=== PATIENT | female | born 1945 | race Caucasian/White ===

== ENCOUNTER → 2018-06-24 | Outpatient (CLI) | payer MEDICARE, BC ==
[2018-06-24 13:59] LABS: HCT 42.9 % (34.0-46.0); HGB 13.9 gm/dL (11.4-16.0); MCH 29.6 pg (25.0-35.0); MCHC 32.5 g/dL (31.0-37.0); Mean Platelet Volume 7.1; Platelet Count 230 k/uL (150-450); RBC 4.71 m/uL (3.80-5.40); RDW 13.5 % (11.5-15.5); WBC 5.8 k/uL (3.8-10.6)
[2018-06-24 14:14] LABS: Potassium 4.9 mmol/L (3.5-5.1)
== END | disposition home or self-care (01) ==
LOC: LABPAT 13:13
PROVIDERS: ATTEND Internal Medicine Cardiovascular Disease
DX: Z01.812 Encounter for preprocedural laboratory examination (principal); R07.2 Precordial pain
CPT/HCPCS: 36415; 80051; 82565; 84520; 85027

== ENCOUNTER 2018-06-27 07:46 | Inpatient (IN) | payer MEDICARE, BC ==
[~2018-06-27 07:46] MED LIST: ALPRAZolam 0.25 MG TAB PO PRN; ALPRAZolam 0.5 MG TAB PO PRN; ASPIRIN 325 MG TAB PO STA; ATORVASTATIN 80 MG TAB PO STA; SODIUM CHLORIDE 0.9% 1,000 ML in EMPTY BAG 1 BAG IV ONE
[2018-06-27 08:43] LABS: Glucose,Whole Blood 173 mg/dL (75-99)
[2018-06-27] MEDS ORDERED: MIDAZOLAM 2 MG/2 ML VIAL ONE ×2 (09:45→11:42)
[2018-06-27] MEDS ORDERED: MIDAZOLAM 2 MG/2 ML VIAL IV ONE (09:53)
[2018-06-27] MEDS ORDERED: LIDOCAINE 1% INJ 10MG/ML (20 ML MDV) SQ ONE ×2 (09:55→12:13)
[2018-06-27] MEDS ORDERED: LIDOCAINE 1% INJ 10MG/ML (20 ML MDV) ONE ×2 (09:57→11:42)
[2018-06-27] MEDS ORDERED: fentaNYL (PF) 50 MCG/ML 2 ML AMP ONE (09:59)
[2018-06-27] MEDS ORDERED: fentaNYL (PF) 50 MCG/ML 2 ML AMP IVP ONE ×2 (10:02)
[2018-06-27] MEDS ORDERED: IOPAMIDOL-370 125ML BTL INJ ONE ×2 (10:20→12:38)
--- NOTE | 2018-06-27 10:35 | CC ---
CARDIAC CATHETERIZATION REPORT INDICATION: Unstable angina in a patient with known coronary artery disease, status post prior angioplasty of mid RCA. PROCEDURE NOTE: After obtaining informed consent, left heart catheterization and coronary angiogram are performed via the right femoral artery using standard Jennifer catheters. Patient tolerated the procedure well without any obvious immediate complications. Patient has history of peripheral vascular disease including revascularization on the left side and extensive disease on the right side. Patient received moderate conscious sedation. Her total sedation time was 17 minutes. FINDINGS: 1. HEMODYNAMICS: Left ventricular end-diastolic pressure is 16 mm. There is no significant gradient across the aortic valve. 2. LEFT VENTRICULOGRAM: Left ventriculogram is not performed. 3. ANGIOGRAPHIC DATA: 4. LEFT MAIN CORONARY ARTERY: Left main coronary artery appears calcified but is free of significant stenosis. Divides into left anterior descending coronary artery and circumflex coronary artery and ramus intermedius. LAD shows a mild atherosclerotic plaque. Vessels are heavily calcified but no focal hemodynamically significant lesion. Ramus intermedius is free of significant disease. Circumflex coronary artery is a nondominant vessel and is free of significant disease. Right coronary artery is a large dominant vessel and the previously stented segment in the mid RCA appears patent. It gives off PDA and PLV branches. The PLV branch has a focal 99% stenosis right in its proximal portion. CONCLUSION: 1. Patent stent within the mid right coronary artery. 2. A 99% stenosis involving the proximal part of the PLV branch. PLAN: Patient will undergo angioplasty by Dr. Darya Mcintyre. MMODL / IJN: [id number] /
[2018-06-27] MEDS ORDERED: HEPARIN SODIUM 1,000 UN/ML (10ML VL) ONE (11:42)
[2018-06-27] MEDS ORDERED: diphenhydrAMINE 50 MG/ML 1 ML VIAL ONE (11:42)
[2018-06-27] MEDS ORDERED: MIDAZOLAM 2 MG/2 ML VIAL IVP ONE (12:15)
[2018-06-27] MEDS ORDERED: diphenhydrAMINE 50 MG/ML 1 ML VIAL IVP ONE (12:15)
[2018-06-27] MEDS ORDERED: BIVALIRUDIN BOLUS 250 MG/50 ML IV ONE (12:18)
[2018-06-27] MEDS ORDERED: BIVALIRUDIN 250 MG in SODIUM CHLORIDE 0.9% 50 ML IV ONE ×2 (12:20→13:22)
[2018-06-27] MEDS ORDERED: IV FLUID CONTINUATION 1,000 ML IV ONE (12:41)
[2018-06-27] MEDS ORDERED: ONDANSETRON 4 MG/2 ML VIAL ONE (13:16)
[2018-06-27] MEDS ORDERED: niCARdipine 25 MG/10 ML VIAL ONE (13:17)
[2018-06-27] MEDS ORDERED: NOREPINEPHRIN 4 MG-0.9% NS PMX 4 MG/250 ML ML IV ONE (13:20)
[2018-06-27] MEDS ORDERED: ONDANSETRON 4 MG/2 ML VIAL IVP ONE (13:20)
[2018-06-27] MEDS ORDERED: niCARdipine Syringe (1,000 mcg/10 mL) INTRACORON ONE (13:20)
[2018-06-27] MEDS ORDERED: IOPAMIDOL-370 100ML BTL INJ ONE (13:26)
[2018-06-27] MEDS ORDERED: CLOPIDOGREL 75 MG TAB ONE ×2 (13:26)
[2018-06-27] MEDS ORDERED: CLOPIDOGREL 75 MG TAB PO ONE (13:32)
[2018-06-27] MEDS ORDERED: SODIUM CHLORIDE 0.9% 1,000 ML IV ONE (13:40)
[2018-06-27] MEDS ORDERED: ZOLPIDEM 5 MG TAB PO PRN (13:42)
[2018-06-27] MEDS ORDERED: ATROPINE SULFATE 0.1 MG/ML 10ML SYRINGE IV PRN (13:42)
[2018-06-27] MEDS ORDERED: NITROGLYCERIN SL TABS 0.4 MG TAB SUBLINGUAL PRN (13:42)
[2018-06-27] MEDS ORDERED: MAG HYDROX/AL HYDROX/SIMETH 30 ML CUP PO PRN (13:42)
[2018-06-27] MEDS ORDERED: RX INFO: IV CONTRAST WAS GIVEN 1 EACH MISC MISCELLANE PRN (13:42)
[2018-06-27 15:13] LABS: Glucose,Whole Blood 147 mg/dL (75-99)
[2018-06-27] MEDS ORDERED: BISMUTH SUBSALICYLATE 4,192 MG/240 ML BOTTLE PO PRN (17:26)
[2018-06-27] MEDS: CARVEDILOL 12.5 MG TAB PO SCH (18:48)
[2018-06-27] MEDS: cloNIDine HCL 0.2 MG TAB PO SCH ×2 (18:48→21:23)
[2018-06-27] MEDS: SODIUM CHLORIDE 0.9% 1,000 ML IV SCH (19:00)
[2018-06-27] MEDS ORDERED: amLODIPine 10 MG TAB PO SCH (21:00)
[2018-06-27 21:07] LABS: Glucose,Whole Blood 310 mg/dL (75-99)
[2018-06-27] MEDS: ATORVASTATIN 80 MG TAB PO SCH (21:23)
[2018-06-27] MEDS: FAMOTIDINE 20 MG TAB PO SCH (21:23)
[2018-06-27] MEDS: NITROGLYCERIN SL TABS 0.4 MG TAB SUBLINGUAL PRN (22:11)
[2018-06-28] MEDS: SODIUM CHLORIDE 0.9% 1,000 ML IV SCH (05:19)
[2018-06-28 05:59] LABS: Glucose,Whole Blood 133 mg/dL (75-99)
[2018-06-28] MEDS: CARVEDILOL 12.5 MG TAB PO SCH ×2 (06:21→18:04)
[2018-06-28 06:46] LABS: Basophils % (A) 1 %; Eosinophils # (A) 0.1 k/uL (0-0.7); Eosinophils % (A) 2 %; HCT 39.4 % (34.0-46.0); HGB 12.4 gm/dL (11.4-16.0); Lymphocytes # (A) 1.8 k/uL (1.0-4.8); Lymphocytes % (A) 33 %; MCH 29.2 pg (25.0-35.0); MCHC 31.5 g/dL (31.0-37.0); MCV 92.7 fL (80.0-100.0); Monocytes # (A) 0.3 k/uL (0-1.0); Monocytes % (A) 5 %; Neutrophils # (A) 3.2 k/uL (1.3-7.7); Neutrophils % (A) 58 %; Platelet Count 188 k/uL (150-450); RBC 4.25 m/uL (3.80-5.40); RDW 13.5 % (11.5-15.5); WBC 5.6 k/uL (3.8-10.6)
[2018-06-28 06:58] LABS: Anion Gap 6 mmol/L; Blood Urea Nitrogen 12 mg/dL (7-17); Calcium 8.7 mg/dL (8.4-10.2); Carbon Dioxide 31 mmol/L (22-30); Chloride 102 mmol/L (98-107); Glucose 136 mg/dL (74-99); Potassium 4.8 mmol/L (3.5-5.1); Sodium 139 mmol/L (137-145)
--- NOTE | 2018-06-28 07:57 | PN ---
PROGRESS NOTE Mrs. Abdullahi underwent stenting of ostial RCA yesterday. She also had a 99% PLV stenosis. I attempted to open the PLV which was relatively smaller branch, but the vessel ended up being occluded after attempts with a Whisper wire and also with a BMW wire. However, patient had transient hypotension and some uncomfortable feeling in the chest which resolved. This morning she is asymptomatic. EKG is unremarkable other than nonspecific changes. Her vital signs are stable. She is resting comfortably without symptoms. Blood pressure is 110/80, pulse rate is about 70 per minute. There is no JVD or carotid bruit. S1-S2 heard normally. Short systolic murmur noted. Lungs revealed decent air entry in bilateral lung voss. Abdomen is soft, nontender. The cardiac cath site from the right femoral area is clean and dry with a good pulse. In view of her PLV branch occlusion, which was a smaller branch and after an episode of discomfort, I will keep her 1 more day in the hospital. The same medications will be continued and she will be discharged tomorrow. I discussed this in detail with the patient. MMODL / IJN: [id number] /
--- NOTE | 2018-06-28 08:36 | PTCA ---
PERCUTANEOUSTRANS CORORONARY ANGIOGRAPHY DATE OF SERVICE: 06/27/2018 PROCEDURE PERFORMED: 1. PTCA and stenting of ostial dominant right coronary artery which was heavily calcified. 2. PTCA of a PLV branch of RCA, which was unsuccessful. PERFORMED BY: Dr. Carlos Mcintyre. SEDATION: Moderate conscious sedation time was 72 minutes. CLINICAL INFORMATION: Mrs. Lucy Abdullahi is a 72-year-old lady with a history of type 2 diabetes, hypertension, hyperlipidemia, who has known CAD and underwent stenting of a very complex lesions in the RCA including the ostium and midportion performed by me in 2011. She came in with symptoms of angina, was seen by Dr. Mcnair, who performed a cardiac catheterization and noted that she had a significant lesion in the PLV, which was a new lesion of about 99%. However, there was also a ostial lesion as well within the previously stented segment. She was advised intervention which was performed on the same day. PROCEDURE NOTE: The existing 6-Malay introducer in the right femoral artery was used to perform the procedure. I used a [facility] guide catheter to cannulate the right coronary artery and used initially a Whisper wire and later on a Fielder XT wire to cross the lesion in the PLV branch which was a very tight lesion and appeared to be chronic. After multiple attempts I was unable to cross the lesion. I then noted that the ostial lesion of the RCA was quite tight. I addressed this using the same Whisper wire. The predilatation was performed in the ostium with a 2.5 caliber NC Trek balloon. I then deployed a 3.0 caliber Xience stent of 12 mm length within the ostium and postdilated with a 3.5 caliber NC Trek balloon at 14 atmospheres. Excellent angiographic result was achieved without complication. However, I noted towards the end of the procedure that the PLV branch which I had tried to open up without success was occluded. Patient had transient hypotension and chest discomfort which resolved quickly. I used Levophed for less than 3 minutes and patient's blood pressure stabilized very well. She was hemodynamically stable, free of chest discomfort. The sheath was then taken out and an Angio-Seal device used to secure hemostasis and she was sent to the room in a stable condition. The patient received Angiomax bolus and infusion as per protocol and I also gave her 3 tablets of Plavix. The patient was already on aspirin and Plavix at that time. So, she received 225 mg of Plavix and received Angiomax bolus and infusion. The femoral sheath was taken out and Angio-Seal device used to secure hemostasis. The patient had an excellent angiographic result of the ostium, but the PLV branch was occluded and therefore I will keep her an additional 24 hours in the hospital as an inpatient. This was explained to the patient and her son. MMCHRISTY / MURTAZA: [id number] /
[2018-06-28] MEDS ORDERED: ASPIRIN 325 MG TAB PO SCH (09:00)
[2018-06-28] MEDS ORDERED: cloNIDine HCL 0.1 MG TAB PO SCH (09:00)
[2018-06-28] MEDS: HYDROCHLOROTHIAZIDE 25 MG TAB PO SCH (09:44)
[2018-06-28] MEDS: FAMOTIDINE 20 MG TAB PO SCH ×2 (09:44→21:21)
[2018-06-28] MEDS: ISOSORBIDE MONONITRATE ER 30 MG TAB.ER.24H PO SCH (09:44)
[2018-06-28] MEDS: CLOPIDOGREL 75 MG TAB PO SCH (09:44)
[2018-06-28] MEDS: ASPIRIN 81 MG PO SCH (09:44)
[2018-06-28 11:59] LABS: Glucose,Whole Blood 181 mg/dL (75-99)
[2018-06-28] MEDS: NITROGLYCERIN SL TABS 0.4 MG TAB SUBLINGUAL PRN (12:06)
[2018-06-28] MEDS: INSULIN ASPART 100 UNIT/ML 1 ML 10 ML VIAL SQ SCH ×3 (12:44→21:19)
[2018-06-28 13:49] VITALS: BMI 37.6
[2018-06-28 17:28] LABS: Glucose,Whole Blood 154 mg/dL (75-99)
[2018-06-28 17:54] LABS: Hemoglobin A1C 7.1 % (4.0-6.0)
[2018-06-28] MEDS ORDERED: amLODIPine 5 MG TAB PO SCH (21:00)
[2018-06-28 21:20] LABS: Glucose,Whole Blood 130 mg/dL (75-99)
[2018-06-28] MEDS: ATORVASTATIN 80 MG TAB PO SCH (21:23)
[2018-06-29 06:39] LABS: Glucose,Whole Blood 144 mg/dL (75-99)
[2018-06-29] MEDS: INSULIN ASPART 100 UNIT/ML 1 ML 10 ML VIAL SQ SCH ×2 (07:01→12:21)
[2018-06-29] MEDS: CARVEDILOL 12.5 MG TAB PO SCH (07:02)
[2018-06-29 08:25] VITALS: RESP 16; TEMP 98.1
[2018-06-29] MEDS: HYDROCHLOROTHIAZIDE 25 MG TAB PO SCH (08:26)
[2018-06-29] MEDS: CLOPIDOGREL 75 MG TAB PO SCH (08:26)
[2018-06-29] MEDS: ISOSORBIDE MONONITRATE ER 30 MG TAB.ER.24H PO SCH (08:26)
[2018-06-29] MEDS: FAMOTIDINE 20 MG TAB PO SCH (08:26)
[2018-06-29] MEDS: ASPIRIN 81 MG PO SCH (08:26)
[2018-06-29 11:32] LABS: Glucose,Whole Blood 158 mg/dL (75-99)
[2018-06-29 12:19] VITALS: BP 140/90; PULSE 98
--- NOTE | 2018-06-29 13:00 | P.PN ---
Subjective Progress Note Date: 06/29/18 Discharge note This a pleasant 72-year-old female who underwent angioplasty and stenting of the RCA by Dr. Carlos Mcintyre. Patient also had a 99% PLV stenosis for which she attempted angioplasty, this was unsuccessful. Patient had an episode of chest discomfort yesterday and for this reason she was kept in the hospital for another 24 hours. Patient was seen and examined this morning, denied any further chest discomfort. Hemodynamically she is stable. She may be able to be discharged home today, a follow-up appointment will be made with Dr. Toth in the office in [place] next week. Discharge medications include Norvasc 5 mg daily, Ecotrin 81 mg daily, Lipitor 80 mg daily, Coreg 12-1/2 mg twice a day , Plavix 75 mg daily, Hydrodiuril 25 mg daily, Imdur 30 mg daily, and sublingual nitroglycerin as needed for chest pain. Objective - Vital Signs Vital signs: Vital Signs Temp 98.1 F 06/29/18 08:20 Pulse 98 06/29/18 11:50 Resp 16 06/29/18 11:50 BP 140/90 06/29/18 11:50 Pulse Ox 97 06/29/18 11:50 Intake & Output 06/28/18 06/29/18 06/29/18 18:59 06:59 18:59 Intake Total 1250 Balance 1250 Weight 87.5 kg 87 kg Intake: IV 30 Invasive Line 1 30 Sodium Chloride 0.9% 1, 0 000 ml @ 75 mls/hr IV . [id number] [facility] Rx#:[id number] Intake, IV Titration 20 Amount Sodium Chloride 0.9% 1, 20 000 ml @ 0 mls/hr IV .STK -[facility] Rx#:[id number] Oral 1200 Other: Voiding Method Toilet Toilet Toilet # Voids 1 4 - Exam PHYSICAL EXAMINATION: GENERAL: 72-year-old female in no acute distress at time of my examination HEENT: Head is atraumatic, normocephalic. Pupils equal, round. Sclera anicteric. Conjunctiva are clear. Mucous membranes of the mouth are moist. Neck is supple. There is no elevated jugular venous pressure.] bruit is heard. HEART EXAMINATION: Heart S1, S2 systolic murmur heard . No murmur or gallop heard. CHEST EXAMINATION: Lungs are clear to auscultation and precussion. No chest wall tenderness is noted on palpation or with deep breathing. ABDOMEN: Soft, nontender. Bowel sounds are heard. No organomegaly noted. EXTREMITIES: 2+ peripheral pulses with no evidence of peripheral edema and no calf tenderness noted. NEUROLOGIC patient is awake, alert and oriented ?-3. . - Labs CBC & Chem 7: 06/28/18 06:27 06/28/18 06:27 Labs: Abnormal Lab Results - Last 24 Hours (Table) 06/28/18 06/28/18 06/28/18 Range/Units 06:27 17:03 21:19 POC Glucose (mg/dL) 154 H 130 H (75-99) mg/dL Hemoglobin A1c 7.1 H (4.0-6.0) % 06/29/18 06/29/18 Range/Units 06:37 11:31 POC Glucose (mg/dL) 144 H 158 H (75-99) mg/dL Hemoglobin A1c (4.0-6.0) % Assessment and Plan Plan: Assessment and plan #1 status post angioplasty and stenting of the RCA, S4 angioplasty of the PLV branch #2 diabetes #3 hypertension #4 hyperlipidemia Plan Patient will be discharged home today, follow-up appointment will be made with Dr. Mcnair in the office post discharge. Metformin will be resumed on Saturday. DNP note has been reviewed, I agree with a documented findings and plan of care. Patient was seen and examined.
--- NOTE | 2018-07-01 12:39 | CDI ---
Last Revision, October 2017 Documentation Clarification Form Date: 07/01/2018 12:25:50 PM From: Cheryl Hernandez Phone: Admit Date: 06/28/2018 8:35:00 AM Patient Name: Lucy Abdullahi Visit Number: [id number] Discharge Date: ATTENTION: The Clinical Documentation Specialists (CDI) and [facility] Coding Staff appreciate your assistance in clarifying documentation. Please respond to the clarification below the line at the bottom and electronically sign. The CDI & [facility] Coding staff will review the response and follow-up if needed. Please note: Queries are made part of the Legal Health Record. If you have any questions, please contact the author of this message via ITS. Dr. Mcnair, Az Hernandez MD Transient hypotension is documented in the PTCA report by Dr Mcintyre and first ROGERS. "transient hypotension" and "used Levophed for less than 3 minutes and the patient's blood pressure stabilized very well." Patient history/risk factors: ASHD w [place] and chronic total coronary occlusion, hx PTCA w stent Vital Signs: 76/60/65, 86/57/67, 88/64/72 Please document confirmation of the diagnosis of transiet hypotension is in PTCA op note your 06/28 progress note . If this condition was ruled out or documented in error, please indicate in your progress notes and/or discharge summary. Hypotension, transient Intraoperative hypotension Other Undetermined Please continue to document in your progress notes and discharge summary in order to capture severity of illness and risk of mortality. Include clinical findings that support your diagnosis. MTDD
--- NOTE | 2018-07-03 10:20 | CDI ---
Last Revision, October 2017 Documentation Clarification Form Date: 07/03/2018 From: Cheryl Hernandez Amy Sheltonlisette, Archeology Faculty Member Hours-8:30 am & 5 pm M-F Admit Date: 06/28/2018 8:35:00 AM Patient Name: Lucy Abdullahi Visit Number: [id number] Discharge Date: 06/29/18 ATTENTION: The Clinical Documentation Specialists (CDI) and [facility] Coding Staff appreciate your assistance in clarifying documentation. Please respond to the clarification below the line at the bottom and electronically sign. The CDI & [facility] Coding staff will review the response and follow-up if needed. Please note: Queries are made part of the Legal Health Record. If you have any questions, please contact the author of this message via ITS. Dr. Mcnair, Az Hernandez MD Transient hypotension is documented in the PTCA report by Dr Mcintyre and first ROGERS. "transient hypotension" and "used Levophed for less than 3 minutes and the patient's blood pressure stabilzed very well." Patient history/risk factors: ASHD w [place] and chronic total coronary occlusion, hx PTCA w stent Vital Signs: 76/60/65, 86/57/67, 88/64/72 Please document confirmation of the diagnosis of transiet hypotension is in PTCA op note your 06/28 progress note . If this condition was ruled out or documented in error, please indicate in your progress notes and/or discharge summary. Hypotension, transient Intraoperative hypotension Other Undetermined Please continue to document in your progress notes and discharge summary in order to capture severity of illness and risk of mortality. Include clinical findings that support your diagnosis. MTDD
== END 2018-06-29 14:45 | disposition home or self-care (01) | DRG 247 ==
LOC: CATHCVL 07:46 → 6SEL 16:53 → CATHCVL 06-28 08:34 → 6SEL 06-28 08:35
PROVIDERS: ADMIT Internal Medicine Cardiovascular Disease; ATTEND Internal Medicine Cardiovascular Disease
PROC: 4A023N7 Measurement of Cardiac Sampling and Pressure, Left Heart, Percutaneous Approach (ICD-10-PCS; 2018-06-27)
PROC: B211YZZ Fluoroscopy of Multiple Coronary Arteries using Other Contrast (ICD-10-PCS; 2018-06-27)
PROC: 027034Z Dilation of Coronary Artery, One Artery with Drug-eluting Intraluminal Device, Percutaneous Approach (ICD-10-PCS; principal; 2018-06-27 09:40)
DX: I25.110 Atherosclerotic heart disease of native coronary artery with unstable angina pectoris (principal); E11.51 Type 2 diabetes mellitus with diabetic peripheral angiopathy without gangrene; I70.313 Atherosclerosis of unspecified type of bypass graft(s) of the extremities with intermittent claudication, bilateral legs; I10 Essential (primary) hypertension; E78.00 Pure hypercholesterolemia, unspecified; E78.2 Mixed hyperlipidemia; Z95.5 Presence of coronary angioplasty implant and graft; Z79.84 Long term (current) use of oral hypoglycemic drugs; Z79.02 Long term (current) use of antithrombotics/antiplatelets; Z79.82 Long term (current) use of aspirin; Z79.899 Other long term (current) drug therapy; Z87.891 Personal history of nicotine dependence; Z82.49 Family history of ischemic heart disease and other diseases of the circulatory system; I95.89 Other hypotension
CPT/HCPCS: 80048; 83036; 85025; 93458

== ENCOUNTER 2020-11-01 07:45 | Day surgery (SDC) | payer MEDICARE, BC ==
[~2020-11-01 07:45] MED LIST changes: -ALPRAZolam 0.5 MG TAB PO PRN; +ASPIRIN 325 MG TAB PO ONE; -ASPIRIN 325 MG TAB PO STA; -ATORVASTATIN 80 MG TAB PO STA
[2020-11-01] MEDS ORDERED: SODIUM CHLORIDE 0.9% 1,000 ML IV ONE (07:58)
[2020-11-01 08:11] LABS: Glucose,Whole Blood 147 mg/dL (75-99)
[2020-11-01] MEDS ORDERED: MIDAZOLAM 2 MG/2 ML VIAL IV ONE (09:24)
[2020-11-01] MEDS ORDERED: LIDOCAINE 1% INJ 10MG/ML (20 ML MDV) SQ ONE (09:24)
[2020-11-01] MEDS ORDERED: fentaNYL (PF) 50 MCG/ML 2 ML AMP IV ONE (09:24)
[2020-11-01] MEDS ORDERED: HEPARIN SODIUM 1,000 UN/ML (10ML VL) IV ONE (09:43)
[2020-11-01] MEDS ORDERED: IOPAMIDOL-250 100ML BTL INTRAARTER ONE (10:11)
[2020-11-01] MEDS ORDERED: RX INFO: IV CONTRAST WAS GIVEN 1 EACH MISC MISCELLANE PRN (10:23)
[2020-11-01] MEDS ORDERED: NITROGLYCERIN SL TABS 0.4 MG TAB SUBLINGUAL PRN (10:23)
[2020-11-01] MEDS ORDERED: ATROPINE SULFATE 0.1 MG/ML 10ML SYRINGE IV PRN (10:23)
[2020-11-01] MEDS ORDERED: MAG HYDROX/AL HYDROX/SIMETH 30 ML CUP PO PRN (10:23)
[2020-11-01] MEDS ORDERED: ZOLPIDEM 5 MG TAB PO PRN (10:23)
[2020-11-01] MEDS ORDERED: SODIUM CHLORIDE 0.9% 1,000 ML IV SCH (10:34)
[2020-11-01] MEDS: MORPHINE SULFATE 4 MG/ML SYRINGE IVP PRN ×3 (14:29→21:41)
[2020-11-01] MEDS: PANTOPRAZOLE 40 MG TABLET PO SCH (16:03)
--- NOTE | 2020-11-01 16:38 | IR ---
Fluoroscopy HISTORY: Pain bilateral legs 8.1 minutes fluoroscopy time supplied to the referring clinician. 476 intraoperative C-arm images do cument the procedure. See dictated report from cardiology.
[2020-11-01] MEDS: carvediloL 12.5 MG TAB PO SCH (17:28)
--- NOTE | 2020-11-01 18:14 | P.PCN ---
Date of Procedure: 11/01/20 Description of Procedure: PROCEDURES PERFORMED: Abdominal angiography with bilateral runoff, ASSET PROTECTION ASSISTANT and DCB of right mid to distal SFA with a 6.0 x 12mm In.PACT DCB. INDICATION: Bilateral Lucila Class 3 claudication, abnormal bilateral LE ultrasound HISTORY: Patient is 74 year old female with history of HTN, HLD, CAD with prior PCI, PAD with prior angioplasty and stenting of left SFA. She had angioplasty of her left SFA in 2014 and had improvement of her claudication up until the last 2-3 yrs. She additionally has noted right calf claudication with her right claudication being worse than her left. CONSENT:I have discussed the risks, benefits and alternative therapies for the above-mentioned procedure and for both sedation/analgesia as well as necessary blood product administration, if indicated, as they pertain to this patient. The patient has indicated understanding and acceptance of the risks and procedures discussed. PROCEDURE: After the risks, benefits and alternatives of the above mentioned procedure explained in detail with the patient, informed consent was obtained. Patient was taken to the catheterization lab and prepped and draped in usual fashion. 1% lidocaine was used to anesthetize the left femoral area. A 5- Yakut sheath was placed in the left femoral artery using modified Seldinger technique and ultrasound guidance. A 5-Yakut pigtail catheter was inserted to the abdominal aorta and DSA imaging was obtained. Patient tolerated the diagnostic portion well. Next, the decision was made to perform intervention of the right SFA. A rim catheter was used to place a 6Fr destination sheath. IV heparin was given. A 0.035 stiff glide wire in a 4Fr glide catheter was used to cross the right SFA lesion. Balloon angioplasty was performed with a 5.0 x 10cm [place] balloon. Next, a 6.0 x 12cm In.PACT DCB was advanced to the lesion and inflated for 3 minutes. Final angiograms were performed. Pre intervention there was 90% stenosis with GENA 3 flow. Post intervention there was 10% residual stenosis and GENA 3 flow. A left femoral angiogram was performed and the sheath was sutured in place to be pulled later. The patient tolerated the procedure well. Patient was transported back to the post catheterization holding area in stable condition. Conscious Sedation: Patient was monitored under the direct supervision of vision of myself for conscious sedation using Versed and fentanyl for a total duration of 52 minutes HEMODYNAMICS: Ao: 146/78 Abdominal aorta: The abdominal aorta has mild calcifcation. Renal arteries patent bilaterally without significant stenosis. There is no significant dissection or aneurysm. There is no significant stenosis. Right lower extremity: Right common iliac artery: There is no significant stenosis. Right external iliac artery: There is no significant stenosis. Right internal iliac artery: There is no significant stenosis. Right common femoral artery: There is no significant stenosis. Right profunda: There is no significant stenosis. Right SFA: There is a mid to distal approximately 10cm long 80% stenosis. Right popliteal artery: There is no significant stenosis. Right tibioperoneal trunk: There is no significant stenosis. Right anterior tibial artery: There is a 100% mid AT stenosis. Right porterior tibial artery: There is no significant stenosis. Right peroneal artery: There is no significant stenosis. Left lower extremity: Left common iliac artery: There is no significant stenosis. Left external iliac artery: There is no significant stenosis. Left internal iliac artery: There is no significant stenosis. Left common femoral artery: There is no significant stenosis. Left profunda: There is no significant stenosis. Left SFA: There is 100% proximal SFA stenosis with approximately 2cm distal to the profunda bifurcation. There is reconstitution at the proximal popliteal artery. Left popliteal artery: There is no significant stenosis. Left tibioperoneal trunk: There is no significant stenosis. Left anterior tibial artery: There is no significant stenosis proximally. Left porterior tibial artery: There is no significant stenosis proximally. Left peroneal artery: There is no significant stenosis proximally. FINAL IMPRESSION: 1. Peripheral arterial disease as described above including 100% occlusion of left SFA, 80% stenosis right SFA, 100% stenosis of right anterior tibial artery. 2. S/p successful DCB angioplasty with 6.0 x 120mm In.PACT balloon PLAN: 1. Aggressive risk factor modification per most recent ACC/AHA guidelines. 2. Follow-up in the office in 1-[address] Mcnair. If patient still has significant left sided claudication symptoms, I would recommend attempt at percutaneous intervention of the left SFA. If intervention is unsuccessful may consider femoral popliteal bypass.
[2020-11-01 20:45] LABS: Glucose,Whole Blood 159 mg/dL (75-99)
[2020-11-01] MEDS ORDERED: amLODIPine 10 MG TAB PO SCH (21:00)
[2020-11-01] MEDS ORDERED: ATORVASTATIN 80 MG TAB PO SCH (21:00)
[2020-11-02 06:43] LABS: Glucose,Whole Blood 130 mg/dL (75-99)
[2020-11-02] MEDS: carvediloL 12.5 MG TAB PO SCH (06:45)
[2020-11-02] MEDS: PANTOPRAZOLE 40 MG TABLET PO SCH (06:45)
[2020-11-02] MEDS ORDERED: GLIMEPIRIDE 1 MG TAB PO SCH (07:30)
[2020-11-02 07:48] LABS: African American GFR (CKD) >90 (>60 ml/min/1.73 sqM); Non-African American GFR(CKD) >90 (>60 ml/min/1.73 sqM)
[2020-11-02 08:45] VITALS: BP 104/64; PULSE 68; RESP 16; TEMP 97.9
[2020-11-02] MEDS ORDERED: ISOSORBIDE MONONITRATE ER 30 MG TAB.ER.24H PO SCH (09:00)
[2020-11-02] MEDS ORDERED: CLOPIDOGREL 75 MG TAB PO SCH (09:00)
[2020-11-02] MEDS ORDERED: ASPIRIN 325 MG TAB PO SCH (09:00)
[2020-11-02] MEDS ORDERED: hydroCHLOROthiazide 25 MG TAB PO SCH (09:00)
[2020-11-02 11:35] VITALS: BMI 36.7
--- NOTE | 2020-11-02 12:00 | P.DS ---
Providers Attending physician: Filiberto Jensen DO Consults: 11/01/20 10:23 Consult Physician Routine Consulting Provider: [facility] Consult Reason/Comments: Post Interventional patient Do you want consulting provider notified?: Already Contacted Primary care physician: Edilberto Christianson [facility] Course: Patient is a pleasant 74-year-old female with history of hypertension, hyperlipidemia, coronary artery disease with prior PCI, peripheral arterial disease with prior angioplasty and stenting of the left SFA. Unfortunately she has been having increasing claudication over the last 2-3 years. She had outpatient workup including MAMIE and ultrasound which was abnormal with bilateral SFA disease. Therefore abdominal aortogram with bilateral lower extremity runoff was recommended. Patient underwent successful angiogram yesterday 11/01/2020 and drug-coated balloon angioplasty of the right SFA. She admits she has been feeling much better since yesterday in terms of her right claudication however still does have left claudication. Her left femoral site is stable without any hematoma. Patient seen and examined. Lungs are clear to auscultation bilaterally without any wheezes or rhonchi. Heart rate is regular without significant murmur, no rubs or gallops. Lower extremity 2+ pulses bilateral femoral arteries. Patient was stable on 11/02/2020 for discharge with outpatient follow-up with Dr. Mcnair. Plan - Discharge Summary Discharge Rx Participant: No New Discharge Prescriptions: No Action amLODIPine [Norvasc] 10 mg PO HS Isosorbide Mononitrate ER [Imdur] 30 mg PO DAILY hydroCHLOROthiazide [Hydrodiuril] 25 mg PO DAILY Clopidogrel [Plavix] 75 mg PO DAILY carvediloL [Coreg*] 12.5 mg PO AC-BID #30 tab Atorvastatin [Lipitor] 80 mg PO HS #30 tab Nitroglycerin Sl Tabs [Nitrostat] 0.4 mg SUBLINGUAL Q5M PRN #25 tab PRN Reason: Chest Pain metFORMIN HCL [Glucophage] 500 mg PO BID #0 Aspirin 325 mg PO DAILY Ascorbic Acid [Vitamin C] 500 mg PO DAILY Vits A,C,E/Lutein/Minerals [Ocuvite with Lutein Tablet] 1 each PO BID Glimepiride [Amaryl] 1 mg PO AC-BRKFST Omeprazole 20 mg PO BID Discharge Medication List Clopidogrel [Plavix] 75 mg PO DAILY 12/10/14 [History] Isosorbide Mononitrate ER [Imdur] 30 mg PO DAILY 12/10/14 [History] amLODIPine [Norvasc] 10 mg PO HS 12/10/14 [History] hydroCHLOROthiazide [Hydrodiuril] 25 mg PO DAILY 12/10/14 [History] carvediloL [Coreg*] 12.5 mg PO AC-BID #30 tab 10/26/15 [Rx] Atorvastatin [Lipitor] 80 mg PO HS #30 tab 06/29/18 [Rx] Nitroglycerin Sl Tabs [Nitrostat] 0.4 mg SUBLINGUAL Q5M PRN #25 tab 06/29/18 [Rx] metFORMIN HCL [Glucophage] 500 mg PO BID #0 06/29/18 [Rx] Ascorbic Acid [Vitamin C] 500 mg PO DAILY 10/18/20 [History] Aspirin 325 mg PO DAILY 10/18/20 [History] Glimepiride [Amaryl] 1 mg PO AC-BRKFST 10/28/20 [History] Omeprazole 20 mg PO BID 10/28/20 [History] Vits A,C,E/Lutein/Minerals [Ocuvite with Lutein Tablet] 1 each PO BID 10/28/20 [History] Follow up Appointment(s)/Referral(s): Az Mcnair MD [STAFF PHYSICIAN] - 11/04/20 2:30 pm (appointment with Dr. Mcnair in [place] 11/04/20 @ 2:30Pm ) Patient Instructions/Handouts: Angiogram (DC), Procedural Sedation (ED) Activity/Diet/Wound Care/Special Instructions: Hold Metformin x48 hours
== END 2020-11-02 12:20 | disposition home or self-care (01) ==
LOC: CATHCVL 07:45 → 1SOBS 10:14 → CATHCVL 11-02 12:20
PROVIDERS: ATTEND Internal Medicine
DX: I70.213 Atherosclerosis of native arteries of extremities with intermittent claudication, bilateral legs (principal); I25.10 Atherosclerotic heart disease of native coronary artery without angina pectoris; I10 Essential (primary) hypertension; E78.5 Hyperlipidemia, unspecified; E78.00 Pure hypercholesterolemia, unspecified; E11.9 Type 2 diabetes mellitus without complications; Z95.820 Peripheral vascular angioplasty status with implants and grafts; Z79.02 Long term (current) use of antithrombotics/antiplatelets; Z79.82 Long term (current) use of aspirin; Z79.84 Long term (current) use of oral hypoglycemic drugs; Z79.899 Other long term (current) drug therapy; Z82.49 Family history of ischemic heart disease and other diseases of the circulatory system
CPT/HCPCS: 37224; 75625; 75716; 82565; C1769 ×5; C1894 ×3; C1725; C2623; J2250; J2270; J2001; J3010; J1644; Q9966

== ENCOUNTER 2020-11-22 10:53 | Day surgery (SDC) | payer MEDICARE, BC ==
[2020-11-15 14:56] VITALS: BMI 36.7
[~2020-11-22 10:53] MED LIST changes: +ALPRAZolam 0.5 MG TAB PO PRN; -ASPIRIN 325 MG TAB PO ONE; +ASPIRIN 325 MG TAB PO PRN; +ZOLPIDEM 5 MG TAB PO PRN
[2020-11-22 11:32] LABS: Glucose,Whole Blood 159 mg/dL (75-99)
[2020-11-22 11:39] LABS: Basophils % (A) 1 %; Eosinophils # (A) 0.2 k/uL (0-0.7); Eosinophils % (A) 3 %; HCT 42.5 % (34.0-46.0); HGB 14.2 gm/dL (11.4-16.0); Lymphocytes # (A) 1.8 k/uL (1.0-4.8); Lymphocytes % (A) 26 %; MCH 30.6 pg (25.0-35.0); MCHC 33.4 g/dL (31.0-37.0); MCV 91.7 fL (80.0-100.0); Mean Platelet Volume 7.5; Monocytes # (A) 0.3 k/uL (0-1.0); Monocytes % (A) 4 %; Neutrophils # (A) 4.5 k/uL (1.3-7.7); Neutrophils % (A) 64 %; Platelet Count 241 k/uL (150-450); RBC 4.63 m/uL (3.80-5.40); RDW 13.7 % (11.5-15.5)
[2020-11-22 11:52] LABS: African American GFR (CKD) >90 (>60 ml/min/1.73 sqM); Anion Gap 7 mmol/L; Blood Urea Nitrogen 13 mg/dL (7-17); Calcium 9.4 mg/dL (8.4-10.2); Carbon Dioxide 30 mmol/L (22-30); Chloride 102 mmol/L (98-107); Glucose 164 mg/dL (74-99); Non-African American GFR(CKD) >90 (>60 ml/min/1.73 sqM); Sodium 139 mmol/L (137-145)
[2020-11-22 11:56] LABS: Potassium 4.6 mmol/L (3.5-5.1)
[2020-11-22] MEDS: MIDAZOLAM 2 MG/2 ML VIAL IV ONE ×2 (12:00→12:24)
[2020-11-22] MEDS: fentaNYL (PF) 50 MCG/ML 2 ML AMP IV ONE ×2 (12:00→12:24)
[2020-11-22] MEDS ORDERED: LIDOCAINE 1% INJ 10MG/ML (20 ML MDV) SQ ONE (12:02)
[2020-11-22] MEDS ORDERED: HYDROmorphone 0.5 MG/0.5 ML SYRINGE IVP ONE (13:05)
[2020-11-22] MEDS ORDERED: IOPAMIDOL-250 100ML BTL INTRAARTER ONE (13:53)
[2020-11-22] MEDS ORDERED: NITROGLYCERIN SL TABS 0.4 MG TAB SUBLINGUAL PRN (14:10)
[2020-11-22] MEDS ORDERED: ZOLPIDEM 5 MG TAB PO PRN (14:10)
[2020-11-22] MEDS ORDERED: RX INFO: IV CONTRAST WAS GIVEN 1 EACH MISC MISCELLANE PRN (14:10)
[2020-11-22] MEDS ORDERED: ATROPINE SULFATE 0.1 MG/ML 10ML SYRINGE IV PRN (14:10)
[2020-11-22] MEDS ORDERED: MAG HYDROX/AL HYDROX/SIMETH 30 ML CUP PO PRN (14:10)
--- NOTE | 2020-11-22 14:10 | P.PCN ---
Description of Procedure: PROCEDURES PERFORMED: Left anterior femoral access, ultrasound-guided access, IVUS left SFA, percutaneous balloon angioplasty of left SFA with a 5.0 [place] balloon, placement of overlapping 7.0 x 14mm Zilver JOSE, balloon angioplasty of the stents with a 6.0 balloon INDICATION: [place] class 3 claudication, abnormal ultrasound showing left SFA occlusion and prior angiogram showing left SFA occlusion. HISTORY: Patient is a pleasant 75-year-old female with history of hypertension, hyperlipidemia, coronary artery disease with prior PCI, PAD with prior angioplasty and and stenting of the left SFA in 2014. She previously had improvement for a few years however now has had bilateral claudication. She had workup showing bilateral disease and had angioplasty and drug-coated balloon of her right SFA on 11/01/2020. She has still been having left claudication however her right has much improved. Therefore we offered her possible peripheral intervention to her left SFA. CONSENT:I have discussed the risks, benefits and alternative therapies for the above-mentioned procedure and for both sedation/analgesia as well as necessary blood product administration, if indicated, as they pertain to this patient. The patient has indicated understanding and acceptance of the risks and procedures discussed. PROCEDURE: After the risks, benefits and alternatives of the above mentioned procedure explained in detail with the patient, informed consent was obtained. Patient was taken to the catheterization lab and prepped and draped in usual fashion. 1% lidocaine was used to anesthetize the left femoral area. A 7- Bulgarian sheath was placed in the left artery using modified Seldinger technique and ultrasound guidance in an antegrade approach. Next, the lesion was crossed using a 0.035 Glidewire inside a angled glide sheath. Heparin was given with an ACT greater than 200. Multiple projections were obtained to ensure sheath and wire were intraluminal and inside the stent. The glide sheath was then advanced and contrast injection through the sheath verified intraluminal placement. The 0.035 Glidewire was exchanged for a 0.014 [place] wire. Next ANNIE was performed which showed calcified old thrombus throughout the entire length of the SFA. The wire appeared intraluminal. The distal SFA appeared to be a 6.0-6.5 mm vessel and more proximally there was some mild disease at the SFA origin however appeared to be a 6mm vessel. Therefore balloon angioplasty was performed with a 5.0 mm balloon. Next overlapping 7 x 140 mm Zilver JOSE 2 were placed covering the entire length of the lesion. During deployment of the second stents, there was mild accordion effect of unclear etiology however did not appear to be any stent fracture. The stents were postdilated with a 6.0 balloon at 9 roberto. Pre-intervention there was 100% stenosis with GENA 0 flow with flow supplied by collaterals from the profunda. Postintervention there was less than 10% stenosis with GENA 3 flow. Final angiograms were obtained showing 3 vessel runoff. The procedure was then terminated. The sheath was pulled and manual pressure was held with hemostasis achieved. The patient tolerated the procedure well. Patient was transported back to the post catheterization holding area in stable condition. Conscious Sedation: Patient was monitored under the direct supervision of vision of myself for conscious sedation using Versed and fentanyl for a total duration of 101 minutes HEMODYNAMICS: Left lower extremity: Left common femoral artery: There is mild diffuse 30-40% stenosis. Left profunda: There is no significant stenosis. Left SFA: There is a 100% stenosis which starts just after a small "nub", There are 2 prior stents at the proximal and distal end of the SFA that are 100% occluded. The SFA reconstitutes at the distal SFA, mainly through a large collateral, just after reconstitution. Left popliteal artery: There is mild 20-30% stenosis. There is otherwise 3 vessel runoff. FINAL IMPRESSION: 1. Peripheral arterial disease as described above. 2. Status post successful percutaneous peripheral intervention of a 100% left SFA stenosis treated with overlapping 7.0 x 140mm Zilver PTX JOSE, post dilated with a 6.0mm balloon with excellent result. PLAN: 1. Aggressive risk factor modification per most recent ACC/AHA guidelines. 2. Follow-up in the office in 1-2 weeks. 3. Monitor overnight and discharge home tomorrow if groin and vital stable.
--- NOTE | 2020-11-22 15:19 | IR ---
Fluoroscopy HISTORY: Pain in left leg 22.7 minutes fluoroscopy time supplied to the referring clinician. 640 intraoperative C-arm images d ocument the procedure. See dictated report from cardiology.
[2020-11-22 17:08] LABS: Glucose,Whole Blood 107 mg/dL (75-99)
[2020-11-22] MEDS: INSULIN ASPART (NovoLOG) 100 UNIT/ML VIAL SQ SCH ×2 (19:44→20:34)
[2020-11-22 20:33] LABS: Glucose,Whole Blood 133 mg/dL (75-99)
[2020-11-22] MEDS: carvediloL 12.5 MG TAB PO SCH (20:34)
[2020-11-22] MEDS: VIT A,C & E-LUTEIN-MINERALS 1 EACH TAB PO SCH (20:34)
[2020-11-22] MEDS ORDERED: ATORVASTATIN 80 MG TAB PO SCH (21:00)
[2020-11-22] MEDS ORDERED: amLODIPine 10 MG TAB PO SCH (21:00)
[2020-11-23 06:11] LABS: Glucose,Whole Blood 182 mg/dL (75-99)
[2020-11-23] MEDS: INSULIN ASPART (NovoLOG) 100 UNIT/ML VIAL SQ SCH (06:16)
[2020-11-23] MEDS: carvediloL 12.5 MG TAB PO SCH (06:16)
[2020-11-23] MEDS ORDERED: PANTOPRAZOLE 40 MG TABLET PO SCH (07:30)
[2020-11-23 07:51] LABS: African American GFR (CKD) >90 (>60 ml/min/1.73 sqM); Non-African American GFR(CKD) >90 (>60 ml/min/1.73 sqM)
[2020-11-23] MEDS: VIT A,C & E-LUTEIN-MINERALS 1 EACH TAB PO SCH (08:28)
[2020-11-23 08:45] VITALS: BP 103/54; PULSE 80; RESP 20; TEMP 98.5
[2020-11-23] MEDS ORDERED: ASPIRIN 325 MG TAB PO SCH (09:00)
[2020-11-23] MEDS ORDERED: ASCORBIC ACID 500 MG TAB PO SCH (09:00)
[2020-11-23] MEDS ORDERED: ISOSORBIDE MONONITRATE ER 30 MG TAB.ER.24H PO SCH (09:00)
[2020-11-23] MEDS ORDERED: hydroCHLOROthiazide 25 MG TAB PO SCH (09:00)
[2020-11-23] MEDS ORDERED: CLOPIDOGREL 75 MG TAB PO SCH (09:00)
--- NOTE | 2020-11-23 10:01 | P.DS ---
Providers Attending physician: Filiberto Jensen DO Consults: 11/22/20 14:10 Consult Physician Routine Consulting Provider: [facility] Consult Reason/Comments: Post Interventional patient Do you want consulting provider notified?: Already Contacted Primary care physician: Edilberto Christianson [facility] Hospital Course: Patient is a pleasant 75-year-old female with history of hypertension, hyperlipidemia, coronary artery disease with prior PCI, PAD with prior angioplasty and stenting of the left SFA in 2014 who has been having worsening claudication of the last few years. She did have intervention of her right SFA 11/01/2020 however has been having persistent left claudication and therefore desired peripheral intervention for her claudication. Patient underwent successful antegrade approach on 11/22/2020 of the left SFA with overlapping 7.0 x 14 mm Zilver JOSE placement. Patient had manual sheath pull and does admit to mild discomfort from the left femoral site however no hematoma, no bruising and patient has excellent 2+ femoral and popliteal pulse. Patient was seen and examined on 11/23/2020. Patient is alert and oriented 3, no acute distress, obese, regular rate and rhythm, no murmurs, abdomen is soft and nontender, bilateral groins with out hematoma. Patient appears stable for discharge and will be discharged home today. Plan - Discharge Summary Discharge Rx Participant: Yes New Discharge Prescriptions: No Action amLODIPine [Norvasc] 10 mg PO HS Isosorbide Mononitrate ER [Imdur] 30 mg PO DAILY hydroCHLOROthiazide [Hydrodiuril] 25 mg PO DAILY Clopidogrel [Plavix] 75 mg PO DAILY carvediloL [Coreg*] 12.5 mg PO AC-BID #30 tab Atorvastatin [Lipitor] 80 mg PO HS #30 tab Nitroglycerin Sl Tabs [Nitrostat] 0.4 mg SUBLINGUAL Q5M PRN #25 tab PRN Reason: Chest Pain metFORMIN HCL [Glucophage] 500 mg PO BID #0 Aspirin 325 mg PO DAILY Ascorbic Acid [Vitamin C] 500 mg PO DAILY Vits A,C,E/Lutein/Minerals [Ocuvite with Lutein Tablet] 1 each PO BID Glimepiride [Amaryl] 1 mg PO AC-BRKFST Omeprazole 20 mg PO BID Discharge Medication List Clopidogrel [Plavix] 75 mg PO DAILY 12/10/14 [History] Isosorbide Mononitrate ER [Imdur] 30 mg PO DAILY 12/10/14 [History] amLODIPine [Norvasc] 10 mg PO HS 12/10/14 [History] hydroCHLOROthiazide [Hydrodiuril] 25 mg PO DAILY 12/10/14 [History] carvediloL [Coreg*] 12.5 mg PO AC-BID #30 tab 10/26/15 [Rx] Atorvastatin [Lipitor] 80 mg PO HS #30 tab 06/29/18 [Rx] Nitroglycerin Sl Tabs [Nitrostat] 0.4 mg SUBLINGUAL Q5M PRN #25 tab 06/29/18 [R x] metFORMIN HCL [Glucophage] 500 mg PO BID #0 06/29/18 [Rx] Ascorbic Acid [Vitamin C] 500 mg PO DAILY 10/18/20 [History] Aspirin 325 mg PO DAILY 10/18/20 [History] Glimepiride [Amaryl] 1 mg PO AC-BRKFST 10/28/20 [History] Omeprazole 20 mg PO BID 10/28/20 [History] Vits A,C,E/Lutein/Minerals [Ocuvite with Lutein Tablet] 1 each PO BID 10/28/20 [History]
== END 2020-11-23 11:25 | disposition home or self-care (01) ==
LOC: CATHCVL 10:53 → 3SCARD 14:03 → CATHCVL 11-23 11:25
PROVIDERS: ATTEND Internal Medicine
DX: E11.51 Type 2 diabetes mellitus with diabetic peripheral angiopathy without gangrene (principal); I70.213 Atherosclerosis of native arteries of extremities with intermittent claudication, bilateral legs; I10 Essential (primary) hypertension; E78.5 Hyperlipidemia, unspecified; Z82.49 Family history of ischemic heart disease and other diseases of the circulatory system; Z79.02 Long term (current) use of antithrombotics/antiplatelets; Z95.820 Peripheral vascular angioplasty status with implants and grafts; Z79.84 Long term (current) use of oral hypoglycemic drugs; Z88.5 Allergy status to narcotic agent; I25.10 Atherosclerotic heart disease of native coronary artery without angina pectoris; E78.00 Pure hypercholesterolemia, unspecified; Z79.82 Long term (current) use of aspirin
CPT/HCPCS: 37226; 37252; 80048; 82565; 85025; C1894 ×2; C1769 ×6; C1725 ×2; C1753; C1874; J2250; J2001; J3010; J1644; J1170; Q9966

== ENCOUNTER → 2021-04-27 | Outpatient (CLI) | payer MEDICARE, BC ==
--- NOTE | 2021-04-27 14:46 | FL ---
EXAMINATION TYPE: FL barium swallow w video DATE OF EXAM: 04/27/2021 COMPARISON: NONE HISTORY: Dysphasia TECHNIQUE: Fluoroscopy. FINDINGS: Fluoroscopic guidance was provided for the procedure performed in conjunction with the [facility] pathology department. Please see complete report forthcoming from the Speech Pathology departmen t. Various consistencies from thin liquid to solids were administered. Fluoroscopy time 34 seconds. Number of images: 0. No aspiration or penetration was evident. No significant pooling was observed in the vallecula. There was normal propulsion of the bolus. IMPRESSION: 1. Normal modified barium swallow
== END | disposition home or self-care (01) ==
LOC: RADFLMAIN 11:14
PROVIDERS: ATTEND Otolaryngology
DX: R13.10 Dysphagia, unspecified (principal)
CPT/HCPCS: 74230

== ENCOUNTER 2021-06-16 06:48 | Day surgery (SDC) | payer MEDICARE, BC ==
[2021-06-14 14:53] VITALS: BMI 37.5
[~2021-06-16 06:48] MED LIST changes: -ALPRAZolam 0.25 MG TAB PO PRN; -ALPRAZolam 0.5 MG TAB PO PRN; -ASPIRIN 325 MG TAB PO PRN; +LACTATED RINGERS 1,000 ML IV SCH; -SODIUM CHLORIDE 0.9% 1,000 ML in EMPTY BAG 1 BAG IV ONE; -ZOLPIDEM 5 MG TAB PO PRN
[2021-06-16 07:06] VITALS: TEMP 97.8
[2021-06-16 07:14] LABS: Glucose,Whole Blood 147 mg/dL (75-99)
[2021-06-16] MEDS ORDERED: LACTATED RINGERS 1,000 ML IV ONE (07:20)
[2021-06-16] MEDS ORDERED: PROPOFOL 10 MG/ML 20 ML VIAL IV ONE (07:25)
--- NOTE | 2021-06-16 07:44 | P.PCN ---
Date of Procedure: 06/16/21 Procedure(s) Performed: BRIEF HISTORY: Patient is a 75-year-old, pleasant, white female scheduled for an upper endoscopy as a part of evaluation of intermittent dysphagia to solids for the last 2 years duration. She has the symptoms almost on a daily basis and happens with soft diet as well as liquids. she is also having some heartburn has been on omeprazole 20 mg daily.. PROCEDURE PERFORMED: Esophagogastroduodenoscopy with biopsy. PREOPERATIVE DIAGNOSIS: Intermittent dysphagia to solids and GERD. IV sedation per anesthesia. PROCEDURE: After informed consent was obtained, the patient was brought into the endoscopy unit. IV sedation was administered by Anesthesia under continuous monitoring. Initially the Olympus GIF-140 video endoscope was inserted into the mouth. Esophagus intubated without any difficulty. It was gradually advanced into the stomach and duodenum and carefully examined. The bulb and the second part of the duodenum appeared normal. The scope at this time was withdrawn to the stomach, adequately insufflated with air, and upon careful examination, there was evidence of distal antrectomy with normal anastomosis noted. Mucosa of the body, cardia and the fundus appeared normal. The scope was then withdrawn into the esophagus. The GE junction was located at 39 cm from the incisors. The esophagus appeared normal. There was a small sliding type hiatal hernia noted. There was no esophageal stricture seen. Biopsies were done from the distal esophagus. There were no erosions or ulcerations seen and the patient tolerated the procedure well. IMPRESSION: 1. Normal-appearing esophagus with no evidence of esophagitis or esophageal stricture. Small hiatal hernia noted. 2. Evidence of prior gastric surgery with distal antrectomy. Normal anastomosis. RECOMMENDATIONS: The findings of this examination were discussed with the patient well as her family.. She was advised to continue with omeprazole 20 mg twice daily and follow antireflux measures
[2021-06-16 07:56] VITALS: RESP 18
[2021-06-16 08:06] VITALS: BP 93/70; PULSE 69
== END 2021-06-16 08:10 | disposition home or self-care (01) ==
LOC: ORWHC2ENDO 06:48
PROVIDERS: ATTEND Internal Medicine Gastroenterology
DX: K21.00 Gastro-esophageal reflux disease with esophagitis, without bleeding (principal); K44.9 Diaphragmatic hernia without obstruction or gangrene; Z79.899 Other long term (current) drug therapy; I25.10 Atherosclerotic heart disease of native coronary artery without angina pectoris; I10 Essential (primary) hypertension; E78.5 Hyperlipidemia, unspecified; Z95.5 Presence of coronary angioplasty implant and graft; E11.9 Type 2 diabetes mellitus without complications; Z79.82 Long term (current) use of aspirin; Z79.84 Long term (current) use of oral hypoglycemic drugs; Z79.02 Long term (current) use of antithrombotics/antiplatelets; Z88.5 Allergy status to narcotic agent
CPT/HCPCS: 43239; J2704; 88305; 88312

== ENCOUNTER 2023-03-05 10:33 | Day surgery (SDC) | payer BC, MEDICARE ==
[~2023-03-05 10:33] MED LIST changes: +ALPRAZolam 0.25 MG TAB PO PRN; +ASPIRIN 325 MG TAB PO PRN; -LACTATED RINGERS 1,000 ML IV SCH; +SODIUM CHLORIDE 0.9% 1,000 ML IV ONE; +SODIUM CHLORIDE 0.9% 1,000 ML in EMPTY BAG 1 BAG IV ONE
[2023-03-05 10:57] VITALS: RESP 16; TEMP 97.6
[2023-03-05 11:00] LABS: Glucose,Whole Blood 126 mg/dL (70-110)
[2023-03-05] MEDS ORDERED: LIDOCAINE 1% INJ 10MG/ML (20 ML MDV) ONE (11:10)
[2023-03-05 11:24] LABS: Basophils % (A) 0 %; Eosinophils # (A) 0.1 k/uL (0-0.7); Eosinophils % (A) 1 %; HCT 50.4 % (34.0-46.0); HGB 17.1 gm/dL (11.4-16.0); Lymphocytes # (A) 1.8 k/uL (1.0-4.8); Lymphocytes % (A) 19 %; MCH 31.4 pg (25.0-35.0); MCV 92.4 fL (80.0-100.0); Mean Platelet Volume 7.8; Monocytes # (A) 0.3 k/uL (0-1.0); Monocytes % (A) 4 %; Neutrophils # (A) 6.7 k/uL (1.3-7.7); Neutrophils % (A) 74 %; Platelet Count 227 k/uL (150-450); RBC 5.46 m/uL (3.80-5.40); RDW 13.3 % (11.5-15.5); WBC 9.1 k/uL (3.8-10.6)
[2023-03-05] MEDS ORDERED: fentaNYL (PF) 50 MCG/ML 2 ML AMP ONE (11:38)
[2023-03-05 11:40] LABS: African American GFR (CKD) >90 (>60 ml/min/1.73 sqM); Anion Gap 5 mmol/L; Blood Urea Nitrogen 31 mg/dL (7-17); Calcium 10.3 mg/dL (8.4-10.2); Carbon Dioxide 33 mmol/L (22-30); Chloride 101 mmol/L (98-107); Glucose 122 mg/dL (74-99); Non-African American GFR(CKD) 88 (>60 ml/min/1.73 sqM); Potassium 4.6 mmol/L (3.5-5.1); Sodium 139 mmol/L (137-145)
[2023-03-05] MEDS ORDERED: LIDOCAINE 1% INJ 10MG/ML (30 ML VIAL-PF) SQ ONE (11:54)
[2023-03-05] MEDS ORDERED: MIDAZOLAM 2 MG/2 ML VIAL IV ONE (11:54)
[2023-03-05] MEDS ORDERED: fentaNYL (PF) 50 MCG/ML 2 ML AMP IV ONE (11:54)
[2023-03-05] MEDS ORDERED: VERAPAMIL 2.5 MG/ML 2 ML AMP ONE (11:55)
[2023-03-05] MEDS ORDERED: VERAPAMIL SYRINGE (5 MG/10 ML) INTRAARTER ONE (11:57)
[2023-03-05] MEDS ORDERED: IOPAMIDOL-370 100ML BTL INJ ONE (12:15)
--- NOTE | 2023-03-05 12:29 | P.PCN ---
Description of Procedure: PROCEDURES PERFORMED: Abdominal angiography with bilateral runoff INDICATION: Straight PAD, claudication symptoms bilaterally, abnormal ultrasound CONSENT:I have discussed the risks, benefits and alternative therapies for the above-mentioned procedure and for both sedation/analgesia as well as necessary blood product administration, if indicated, as they pertain to this patient. The patient has indicated understanding and acceptance of the risks and procedures discussed. PROCEDURE: After the risks, benefits and alternatives of the above mentioned procedure explained in detail with the patient, informed consent was obtained. Patient was taken to the catheterization lab and prepped and draped in usual fashion. 1% lidocaine was used to anesthetize the right radial area. A 6- Micronesian sheath was placed in the radial artery using modified Seldinger technique. A 5-Micronesian pigtail catheter was inserted to the abdominal aorta and DSA imaging was obtained. Patient tolerated the diagnostic portion well. A TR band was placed in the sheath was removed. The patient tolerated the procedure well. Patient was transported back to the post catheterization holding area in stable condition. Conscious Sedation: Patient was monitored under the direct supervision of vision of myself for conscious sedation using Versed and fentanyl for a total duration of 20 minutes Abdominal aorta: The abdominal aorta has mild calcifcation. Renal arteries are patent. There is no significant dissection or aneurysm. There is no signi ficant stenosis. Right lower extremity: Right common iliac artery: There is no significant stenosis. Right external iliac artery: There is no significant stenosis. Right internal iliac artery: There is no significant stenosis. Right common femoral artery: There is no significant stenosis. Right profunda: There is no significant stenosis. Right SFA: There is diffuse long 30-50% right SFA stenosis. Right popliteal artery: There is no significant stenosis. Right tibioperoneal trunk: There is no significant stenosis. Right anterior tibial artery: There is 100% stenosis of the right anterior tibi al artery Right posterior tibial artery: There is no significant stenosis. Right peroneal artery: There is no significant stenosis. Left lower extremity: Left common iliac artery: There is no significant stenosis. Left external iliac artery: There is no significant stenosis. Left internal iliac artery: There is no significant stenosis. Left common femoral artery: There is no significant stenosis. Left profunda: There is no significant stenosis. Left SFA: There is 100% stenosis of the left SFA at its origin at the original left SFA stent. Left popliteal artery: There is no significant stenosis. Left tibioperoneal trunk: There is no significant stenosis. Left anterior tibial artery: There is no significant stenosis. Left posterior tibial artery: There is poor visualization however appears to be 100% left posterior tibial artery lesion. Left peroneal artery: There is no significant stenosis. FINAL IMPRESSION: 1. Peripheral arterial disease as described above including 30-50% right SFA stenosis and 100% left SFA stent stenosis. PLAN: 1. Aggressive risk factor modification per most recent ACC/AHA guidelines. 2. Symptoms do not entirely match with patient having more bilateral pain on the right and left calves. Possibility of statin myalgia given bilateral symptoms and discussed trial of stopping Lipitor for 2 weeks and monitoring response. Follow-up in the office in 1-2 weeks. If patient still having significant claudication type symptoms on the left may consider re-intervention however has had number of interventions of the left SFA in the past.
--- NOTE | 2023-03-05 13:30 | IR ---
EXAMINATION TYPE: IR angio abdominal w runoff DATE OF EXAM: 03/05/2023 COMPARISON: NONE HISTORY: Fluoroscopy time. Fluoroscopy was provided to the referring clinician.
[2023-03-05 14:39] VITALS: PULSE 68
[2023-03-05 15:51] VITALS: BP 142/72
== END 2023-03-05 15:58 | disposition home or self-care (01) ==
LOC: CATHCVL 10:33
PROVIDERS: ATTEND Internal Medicine
DX: I73.9 Peripheral vascular disease, unspecified (principal); T82.856A Stenosis of peripheral vascular stent, initial encounter
CPT/HCPCS: 36200; 75625; 75716; 80048; 85025; C1769 ×3; C1894; J2250; J2001; J3010; Q9967

== ENCOUNTER → 2024-06-12 | Day surgery (SDC) | payer MEDICARE ==
[~2024-06-12] MED LIST changes: +ALPRAZolam 0.5 MG TAB PO PRN; +HEPARIN SODIUM 1,000 UN/ML (10ML VL) ONE; +HEPARIN SODIUM,PORCINE (1 ML) 2,500 UNIT in SODIUM CHLORIDE 0.9% 250 ML IRRIGATION PRN; +HEPARIN SODIUM,PORCINE 10,000 UNIT in SODIUM CHLORIDE 0.9% 1,000 ML IRRIGATION PRN; +LIDOCAINE 1% INJ 10MG/ML (20 ML MDV) ONE; +NALOXONE 0.4 MG/ML 1 ML VIAL IVP PRN; -SODIUM CHLORIDE 0.9% 1,000 ML IV ONE; -SODIUM CHLORIDE 0.9% 1,000 ML in EMPTY BAG 1 BAG IV ONE; +SODIUM CHLORIDE 0.9% 1,000 ML in EMPTY BAG 1 BAG IV SCH; +VERAPAMIL 2.5 MG/ML 2 ML AMP ONE; +ZOLPIDEM 5 MG TAB PO PRN
[2024-06-12] MEDS: EMPTY BAG 1 BAG with SODIUM CHLORIDE 0.9% 1,000 ML IV SCH (10:50)
[2024-06-12] MEDS: IV FLUID CONTINUATION 1,000 ML IV ONE (10:55)
[2024-06-12 11:01] VITALS: TEMP 98
[2024-06-12 11:25] LABS: Glucose,Whole Blood 129 mg/dL (70-110)
[2024-06-12] MEDS: VERAPAMIL SYRINGE (5 MG/10 ML) INTRAARTER ONE (12:01)
[2024-06-12] MEDS: LIDOCAINE 1% INJ 10MG/ML (20 ML MDV) SQ ONE (12:01)
[2024-06-12] MEDS: MIDAZOLAM 2 MG/2 ML VIAL IVP ONE (12:03)
[2024-06-12] MEDS: HEPARIN SODIUM 1,000 UN/ML (10ML VL) IVP ONE (12:09)
[2024-06-12] MEDS: IOPAMIDOL-250 100ML BTL INTRAARTER ONE (12:19)
--- NOTE | 2024-06-12 12:39 | P.PCN ---
Date of Procedure: 06/12/24 Operative Findings: AN ABDOMINAL AORTOGRAM AND BILATERAL LOWER EXTREMITIES RUNOFF PERFORMING PHYSICIAN: Ramon Humphrey MD PROCEDURE PERFORMED: 1. An abdominal aortogram 2. Bilateral lower extremities runoff 3. Ultrasound-guided access of the right radial artery INDICATION: Intermittent claudication and abnormal duplex study COMPLICATION: [] LEVEL OF SEDATION: Moderate was sedation length of 18 minutes APPROACH: Right common femoral artery PROCEDURE DESCRIPTION: After obtaining informed consent and explaining the procedure benefits, risks, and complications, the patient was brought to the cardiac tailings dam laborer. The right radial artery was cannulated using micropuncture technique, under ultrasound guidance. The micropuncture wire passed easily then I placed a 5-Bulgarian 11 cm sheath in the right radial artery. Subsequently a pigtail catheter was advanced over 35 wire to the ascending aorta where we did an abdominal aortogram and bilateral lower extremity is runoff using digital subtraction. The procedure was completed was no complication SELECTIVE PERIPHERAL ANGIOGRAM: The abdominal aorta: has mild disease only The common iliac arteries: the right and left iliacs appear to have mild to moderate disease only The external iliac arteries: the right external iliac appears to have mild disease only. The left external iliac appears to have severe focal lesion The internal iliac arteries: both internal appears to be patent The common femoral arteries: the right femoral appeared to have an intermediate to severe lesion. The left femoral appeared to have an intermediate lesion only Superficial femoral arteries: the right SFA appears to have an intermediate lesion only. The left SFA is occluded Popliteal arteries: the right and left popliteal appeared to have leip-[id number]-[id number] disease Below the knees: there are 2 vessels run off on the right with posterior tibial and peroneal and on the left was anterior tibial and peroneal CONCLUSION: Severe left external iliac artery Occluded left SFA Intermediate disease involving the right common femoral artery POSTPROCEDURE MANAGEMENT: DISC RECORDIST
--- NOTE | 2024-06-12 13:33 | IR ---
EXAMINATION TYPE: IR angio abdominal w runoff Intraoperative/procedural fluoroscopic services were pr ovided. CLINICAL INDICATION:Female, 78 years old with history of bilateral leg pain, hx of PAD, 3.9min fluoro . Total fluoroscopy time is 3.9 min. DAP: 8.81 Gycm2 Please see the operative/procedural note for further details.
[2024-06-12 14:34] VITALS: RESP 14
[2024-06-12 14:42] VITALS: BP 79/45; PULSE 50
== END ==
LOC: CATHCVL 10:18
PROVIDERS: ATTEND Internal Medicine Interventional Cardiology
DX: I70.213 Atherosclerosis of native arteries of extremities with intermittent claudication, bilateral legs (principal)
CPT/HCPCS: 36200; 75625; 75716; C1769 ×4; C1894; J2250; J2001; J1644; Q9966

== ENCOUNTER 2024-06-24 08:52 | Day surgery (SDC) | payer MEDICARE ==
[~2024-06-24 08:52] MED LIST changes: -HEPARIN SODIUM 1,000 UN/ML (10ML VL) ONE; -HEPARIN SODIUM,PORCINE (1 ML) 2,500 UNIT in SODIUM CHLORIDE 0.9% 250 ML IRRIGATION PRN; -HEPARIN SODIUM,PORCINE 10,000 UNIT in SODIUM CHLORIDE 0.9% 1,000 ML IRRIGATION PRN; -LIDOCAINE 1% INJ 10MG/ML (20 ML MDV) ONE; -NALOXONE 0.4 MG/ML 1 ML VIAL IVP PRN; -SODIUM CHLORIDE 0.9% 1,000 ML in EMPTY BAG 1 BAG IV SCH; -VERAPAMIL 2.5 MG/ML 2 ML AMP ONE; -ZOLPIDEM 5 MG TAB PO PRN
[2024-06-24 09:15] LABS: Glucose,Whole Blood 138 mg/dL (70-110)
[2024-06-24] MEDS: SODIUM CHLORIDE 0.9% 1,000 ML in EMPTY BAG 1 BAG IV ONE ×2 (09:17→17:40)
[2024-06-24 09:28] LABS: Basophils # (A) 0.1 k/uL (0-0.2); Basophils % (A) 1 %; Eosinophils # (A) 0.1 k/uL (0-0.7); Eosinophils % (A) 2 %; HCT 39.1 % (34.0-46.0); HGB 12.8 gm/dL (11.4-16.0); Lymphocytes # (A) 1.7 k/uL (1.0-4.8); Lymphocytes % (A) 25 %; MCH 30.7 pg (25.0-35.0); MCHC 32.8 g/dL (31.0-37.0); MCV 93.6 fL (80.0-100.0); Mean Platelet Volume 7.7; Monocytes # (A) 0.4 k/uL (0-1.0); Monocytes % (A) 6 %; Neutrophils # (A) 4.6 k/uL (1.3-7.7); Neutrophils % (A) 65 %; Platelet Count 192 k/uL (150-450); RBC 4.18 m/uL (3.80-5.40); RDW 13.8 % (11.5-15.5)
[2024-06-24] MEDS: IV FLUID CONTINUATION 1,000 ML IV ONE (09:30)
[2024-06-24 09:47] LABS: African American GFR (CKD) >90 (>60 ml/min/1.73 sqM); Anion Gap 7 mmol/L; Blood Urea Nitrogen 19 mg/dL (7-17); Calcium 8.8 mg/dL (8.4-10.2); Carbon Dioxide 26 mmol/L (22-30); Chloride 106 mmol/L (98-107); Glucose 128 mg/dL (74-99); Non-African American GFR(CKD) >90 (>60 ml/min/1.73 sqM); Potassium 3.8 mmol/L (3.5-5.1); Sodium 139 mmol/L (137-145)
[2024-06-24] MEDS ORDERED: LIDOCAINE 1% INJ 10MG/ML (20 ML MDV) ONE (13:37)
[2024-06-24] MEDS: MIDAZOLAM 2 MG/2 ML VIAL IVP ONE (13:38)
[2024-06-24] MEDS ORDERED: HEPARIN SODIUM 1,000 UN/ML (10ML VL) ONE (13:38)
[2024-06-24] MEDS: LIDOCAINE 1% INJ 10MG/ML (20 ML MDV) SQ ONE (13:39)
[2024-06-24] MEDS: HEPARIN SODIUM 1,000 UN/ML (10ML VL) IV ONE (13:48)
[2024-06-24] MEDS ORDERED: niCARdipine 25 MG/10 ML VIAL ONE (13:59)
[2024-06-24] MEDS ORDERED: fentaNYL (PF) 50 MCG/ML 2 ML AMP ONE (14:32)
[2024-06-24] MEDS: fentaNYL (PF) 50 MCG/ML 2 ML AMP IVP ONE (14:34)
[2024-06-24] MEDS ORDERED: CLOPIDOGREL 75 MG TAB ONE (15:30)
[2024-06-24] MEDS ORDERED: NITROGLYCERIN SL TABS 0.4 MG TAB SUBLINGUAL PRN (15:32)
[2024-06-24] MEDS: CLOPIDOGREL 75 MG TAB PO ONE (15:33)
[2024-06-24] MEDS ORDERED: NALOXONE 0.4 MG/ML 1 ML VIAL IVP PRN (15:33)
[2024-06-24] MEDS: HEPARIN SODIUM,PORCINE (1 ML) 2,500 UNIT in SODIUM CHLORIDE 0.9% 250 ML IRRIGATION ONE ×4 (15:34)
[2024-06-24] MEDS: HEPARIN SODIUM,PORCINE 10,000 UNIT in SODIUM CHLORIDE 0.9% 1,000 ML IRRIGATION ONE ×8 (15:34)
[2024-06-24] MEDS: IOPAMIDOL-300 100ML BTL INTRATHECA ONE (15:35)
--- NOTE | 2024-06-24 16:12 | IR ---
EXAMINATION TYPE: IR angio lower extremity LT Intraoperative/procedural fluoroscopic services were pr ovided. CLINICAL INDICATION:Female, 78 years old with history of LEFT LOWER ANGIO, 31.8MINS FLT, 118MGY; , PH H Total fluoroscopy time is 31.8 min. DAP: 12.6 Gycm2 Please see the operative/procedural note for further details.
[2024-06-24] MEDS: hydrALAZINE HCL 20 MG/ML 1 ML VIAL IVP ONE (17:00)
[2024-06-24] MEDS: ONDANSETRON 4 MG/2 ML VIAL ONE (17:25)
[2024-06-24 17:31] LABS: Glucose,Whole Blood 101 mg/dL (70-110)
[2024-06-24] MEDS ORDERED: HYDROmorphone 0.5 MG/0.5 ML SYRINGE IVP PRN (17:32)
[2024-06-24] MEDS: HYDROmorphone 0.5 MG/0.5 ML SYRINGE IVP ONE (17:34)
[2024-06-24] MEDS: hydrALAZINE HCL 20 MG/ML 1 ML VIAL IM STA (17:47)
[2024-06-24] MEDS: hydrALAZINE HCL 20 MG/ML 1 ML VIAL ONE (17:47)
[2024-06-24] MEDS: ONDANSETRON 4 MG/2 ML VIAL IVP STA (17:47)
[2024-06-24] MEDS: carvediloL 12.5 MG TAB PO SCH (19:06)
[2024-06-24] MEDS: PANTOPRAZOLE 40 MG TABLET PO SCH (20:19)
[2024-06-24] MEDS: VIT A,C & E-LUTEIN-MINERALS 1 EACH TAB PO SCH (20:19)
[2024-06-24 20:29] LABS: Glucose,Whole Blood 184 mg/dL (70-110)
--- NOTE | 2024-06-24 21:12 | P.PCN ---
Date of Procedure: 06/24/24 Operative Findings: Percutaneous peripheral arterial intervention Performing physician Ramon Humphrey MD Procedure performed Successful angioplasty and stenting of the left SFA Adjunctive use of atherectomy and IVUS and aspiration thrombectomy Left lower extremity angiogram and right common femoral artery angiogram Ultrasound-guided access of the right common femoral artery Indication Symptomatic 78-year-old female patient who underwent an angiogram and that revealed included left SFA Approach Right common femoral artery Complications None Level of sedation Moderate Procedure description After obtaining an informed consent the patient was brought to the cardiac Loft Rigger. The right common femoral artery was cannulated using micropuncture technique under ultrasound guidance a micropuncture wire passed easily then I placed a 6 Mongolian 70 cm sheath after a predilated using 6 Mongolian dilator. S ubsequently I did go up and over using a 3 5 stiff Glidewire with a backup support a 5 Mongolian rim catheter was subsequently the sheath was advanced over the wire and the catheter to the left common femoral artery. 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 I was able to cross the INDUCTION HEAT TREATER using 035 stiff Glidewire. Subsequently the catheter was advanced over the wire and I did pull the wire out and injected contrast through the catheter to prove that I was in the true lumen. Subsequently I did exchange my 035 wire in 2014 wire and I did IVUS of the left popliteal and left SFA which showed I was in the true lumen. Balloon angioplasty initially was performed using 3 mm balloon before I did atherectomy using the [place] device. After that balloon angioplasty was performed using 5 mm balloon. The mid segment of the left SFA was looking angiographically good and the proximal and distal segment did have a hazy lesion which I decided to balloon again using a short noncompliant balloon. The distal lesion now is looking good but the ostial lesion appears to be concerning and flow-limiting which I decided to cover using covered stent. That was Viabahn self-expandable stent. The stent was postdilated using 6 mm balloon. An angiogram showed excellent angiographic results for the left SFA but completion angiogram showed occluded left tibioperoneal trunk. I did aspiration thrombectomy from the left tibioperoneal trunk with an angiogram showed excellent angiographic results and the procedure was completed with no complication. Subsequently the long sheath was exchanged into short sheath using a 3 5 wire and the procedure was completed with no complication after I did selective right common femoral artery angiogram Postprocedure management Dual antiplatelet therapy Consider adding anticoagulation Follow-up with the patient
[2024-06-24] MEDS: traZODone HCL 100 MG TAB PO SCH (22:19)
[2024-06-24] MEDS: amLODIPine 5 MG TAB PO SCH (22:19)
[2024-06-25 02:05] VITALS: RESP 16
[2024-06-25 05:58] LABS: Glucose,Whole Blood 129 mg/dL (70-110)
[2024-06-25 06:26] LABS: African American GFR (CKD) >90 (>60 ml/min/1.73 sqM); Non-African American GFR(CKD) >90 (>60 ml/min/1.73 sqM)
[2024-06-25 07:55] VITALS: BP 148/69; PULSE 70; TEMP 97.8
--- NOTE | 2024-06-25 08:02 | P.DS ---
Providers Attending physician: Ramon Humphrey Primary care physician: Edilberto [facility] Hospital Course: The patient is a pleasant 78-year-old female patient who underwent yesterday CLOTH SPONGER of the left SFA with a good angiographic results as with no complication The patient was seen and evaluated this morning. The right groin is soft with mild tenderness but no hematoma noted The patient is going to be discharged home on dual antiplatelet therapy and statin and she will be seen by Dr. Toth in the office as an outpatient Plan - Discharge Summary Discharge Rx Participant: No New Discharge Prescriptions: New Atorvastatin Calcium [Lipitor] 40 mg PO DAILY #90 tab Continue amLODIPine [Norvasc] 5 mg PO HS Isosorbide Mononitrate ER [Imdur] 60 mg PO DAILY Clopidogrel [Plavix] 75 mg PO DAILY Nitroglycerin Sl Tabs [Nitrostat] 0.4 mg SUBLINGUAL Q5M PRN #25 tab PRN Reason: Chest Pain Aspirin 325 mg PO DAILY Ascorbic Acid [Vitamin C] 500 mg PO DAILY Vits A,C,E/Lutein/Minerals [Ocuvite with Lutein Tablet] 1 each PO BID Omeprazole 20 mg PO BID carvediloL [Coreg*] 25 mg PO AC-BID traZODone HCL 200 mg PO HS Furosemide [Lasix] 20 mg PO DAILY Citalopram Hydrobromide [Citalopram HBr] 20 mg PO DAILY Discontinued metFORMIN HCL 500 mg PO DAILY Discharge Medication List Clopidogrel [Plavix] 75 mg PO DAILY 12/10/14 [History] Isosorbide Mononitrate ER [Imdur] 60 mg PO DAILY 12/10/14 [History] amLODIPine [Norvasc] 5 mg PO HS 12/10/14 [History] Nitroglycerin Sl Tabs [Nitrostat] 0.4 mg SUBLINGUAL Q5M PRN #25 tab 06/29/18 [Rx] Ascorbic Acid [Vitamin C] 500 mg PO DAILY 10/18/20 [History] Aspirin 325 mg PO DAILY 10/18/20 [History] Omeprazole 20 mg PO BID 10/28/20 [History] Vits A,C,E/Lutein/Minerals [Ocuvite with Lutein Tablet] 1 each PO BID 10/28/20 [History] traZODone HCL 200 mg PO HS 02/28/23 [History] Citalopram Hydrobromide [Citalopram HBr] 20 mg PO DAILY 06/11/24 [History] Furosemide [Lasix] 20 mg PO DAILY 06/11/24 [History] carvediloL [Coreg*] 25 mg PO AC-BID 06/11/24 [History] Atorvastatin Calcium [Lipitor] 40 mg PO DAILY #90 tab 06/25/24 [Rx] Follow up Appointment(s)/Referral(s): Az Mcnair MD [STAFF PHYSICIAN] - 1 Week (APPOINTMENT MADE ON June @ 8:45AM ) Patient Instructions/Handouts: Peripheral Vascular Disease (ED), Peripheral Artery Disease (ED), Moderate Sedation (ED), Peripheral Vascular Stent Placement (DC) Activity/Diet/Wound Care/Special Instructions: *NO LIFTING, PUSHING, OR PULLING ANYTHING OVER 5 POUNDS FOR 5 DAYS *NO DRIVING FOR 3 DAYS *YOU CAN REMOVE YOUR DRESSING TOMORROW BUT DO NOT SUBMERSE YOUR PUNCTURE SITE IN WATER FOR A FEW DAYS TO PREVENT INFECTION - SO NO TUB BATHS, POOLS, HOT TUBS, DISHES...ETC *ANY SIGNS OF BLEEDING (HARDNESS, SWELLING, OR EXCESSIVE BRUISING) HOLD DIRECT PRESSURE ON YOUR PUNCTURE SITE AND COME TO THE NEAREST EMERGENCY ROOM TO GET YOUR PUNCTURE SITE LOOKED AT - DO NOT DRIVE YOURSELF! EITHER CALL EMS OR HAVE SOMEONE DRIVE YOU!
[2024-06-25] MEDS: ASCORBIC ACID 500 MG TAB PO SCH (08:45)
[2024-06-25] MEDS: ISOSORBIDE MONONITRATE ER 60 MG TAB.ER.24H PO SCH (08:45)
[2024-06-25] MEDS: FUROSEMIDE 20 MG TAB PO SCH (08:45)
[2024-06-25] MEDS: metFORMIN 500 MG TAB PO SCH (08:45)
[2024-06-25] MEDS: CITALOPRAM HYDROBROMIDE 20 MG TAB PO SCH (08:45)
[2024-06-25] MEDS: ASPIRIN 325 MG TAB PO SCH (08:45)
[2024-06-25] MEDS: CLOPIDOGREL 75 MG TAB PO SCH (08:45)
== END 2024-06-25 11:20 | disposition home or self-care (01) ==
LOC: CATHCVL 08:52 → 6NMEDSUR 17:02 → CATHCVL 06-25 11:20
PROVIDERS: ATTEND Internal Medicine Interventional Cardiology
DX: I73.9 Peripheral vascular disease, unspecified (principal); I10 Essential (primary) hypertension; E78.5 Hyperlipidemia, unspecified; Z79.02 Long term (current) use of antithrombotics/antiplatelets; Z79.82 Long term (current) use of aspirin; Z79.84 Long term (current) use of oral hypoglycemic drugs; Z79.899 Other long term (current) drug therapy; Z87.891 Personal history of nicotine dependence
CPT/HCPCS: 80048; 82565; 85025; C1894 ×2; C1769 ×5; C1725; C1753; C1757; C2623; J2250; J0360; J1644 ×3; J2405; J2001; J3010; J1170; Q9967; 37227; 37252

== ENCOUNTER → 2024-07-22 | Day surgery (SDC) | payer MEDICARE ==
[2024-07-21 09:02] VITALS: BMI 32.4
[~2024-07-22] MED LIST changes: -ALPRAZolam 0.25 MG TAB PO PRN; -ALPRAZolam 0.5 MG TAB PO PRN
[2024-07-22 12:40] LABS: Glucose,Whole Blood 130 mg/dL (70-110)
[2024-07-22 12:41] VITALS: BP 111/66; PULSE 67; RESP 18; TEMP 97.9
[2024-07-22] MEDS: IV FLUID CONTINUATION 1,000 ML IV ONE (12:42)
[2024-07-22] MEDS: SODIUM CHLORIDE 0.9% 1,000 ML in EMPTY BAG 1 BAG IV ONE (12:42)
[2024-07-22 13:16] LABS: Basophils % (A) 1 %; Eosinophils # (A) 0.2 k/uL (0-0.7); Eosinophils % (A) 3 %; HCT 40.5 % (34.0-46.0); HGB 12.9 gm/dL (11.4-16.0); Hypochromasia Moderate; Lymphocytes # (A) 1.5 k/uL (1.0-4.8); Lymphocytes % (A) 25 %; MCHC 31.8 g/dL (31.0-37.0); MCV 94.3 fL (80.0-100.0); Mean Platelet Volume 7.3; Monocytes # (A) 0.3 k/uL (0-1.0); Monocytes % (A) 5 %; Neutrophils # (A) 3.9 k/uL (1.3-7.7); Neutrophils % (A) 65 %; Platelet Count 209 k/uL (150-450); RBC 4.29 m/uL (3.80-5.40); RDW 13.8 % (11.5-15.5)
[2024-07-22 13:27] LABS: African American GFR (CKD) >90 (>60 ml/min/1.73 sqM); Anion Gap 3 mmol/L; Blood Urea Nitrogen 22 mg/dL (7-17); Carbon Dioxide 29 mmol/L (22-30); Chloride 106 mmol/L (98-107); Glucose 118 mg/dL (74-99); Non-African American GFR(CKD) 86 (>60 ml/min/1.73 sqM); Potassium 4.3 mmol/L (3.5-5.1); Sodium 138 mmol/L (137-145)
== END ==
LOC: CATHCVL 11:12
PROVIDERS: ATTEND Internal Medicine Interventional Cardiology
DX: I73.9 Peripheral vascular disease, unspecified
CPT/HCPCS: 80048; 85025

== ENCOUNTER 2024-07-25 23:15 | Observation (INO) | payer MEDICARE ==
--- NOTE | 2024-07-25 23:53 | ED ---
General Adult HPI - General Chief complaint: Chest Pain Stated complaint: chest pain Time Seen by Provider: 07/25/24 23:28 Source: patient, EMS Mode of arrival: EMS - History of Present Illness Initial comments: Patient is a 78-year-old woman who is transferred here from [facility] to have evaluation of left leg pain. The patient states she has had days of pain in the left thigh area. She went to the other hospital this afternoon where she was seen and evaluated. She was reportedly being transferred here to have evaluation of possible DVT. The patient then developed episode of chest pain and was brought back to the other facility. She had workup for chest pain there which reportedly was negative. Patient states that she does have history of angina. The symptoms related to the chest had completely resolved. She states that she now has no symptoms no chest pain, dyspnea, palpitations, lightheadedness or syncope. Onset/Timin -: days(s) Location: left, lower extremity Radiation: non-radiation Quality: aching Consistency: constant Improves with: immobilization Worsens with: movement Associated Symptoms: denies other symptoms - Related Data Home Medications Medication Instructions Recorded Confirmed Isosorbide Mononitrate ER [Imdur] 60 mg PO DAILY 12/10/14 07/29/24 amLODIPine [Norvasc] 5 mg PO HS 12/10/14 07/29/24 Ascorbic Acid [Vitamin C] 500 mg PO DAILY 10/18/20 07/29/24 Aspirin 325 mg PO DAILY 10/18/20 07/29/24 Omeprazole 20 mg PO BID 10/28/20 07/29/24 Vits A,C,E/Lutein/Minerals 1 tab PO BID 10/28/20 07/29/24 [Ocuvite with Lutein Tablet] traZODone HCL 200 mg PO HS 02/28/23 07/29/24 Citalopram Hydrobromide 20 mg PO DAILY 06/11/24 07/29/24 [Citalopram HBr] Furosemide [Lasix] 20 mg PO DAILY 06/11/24 07/29/24 carvediloL [Coreg*] 25 mg PO AC-BID 06/11/24 07/29/24 Atorvastatin [Lipitor] 80 mg PO DAILY 07/21/24 07/29/24 Previous Rx's Medication Instructions Recorded Nitroglycerin Sl Tabs [Nitrostat] 0.4 mg SUBLINGUAL Q5M PRN #25 tab 06/29/18 Rivaroxaban [Xarelto] 2.5 mg PO BID #180 tab 07/30/24 Allergies Allergy/AdvReac Type Severity Reaction Status Date / Time codeine AdvReac Severe Nausea & Verified 07/29/24 08:10 Vomiting Review of Systems ROS Statement: Those systems with pertinent positive or pertinent negative responses have been documented in the HPI. ROS Other: All systems not noted in ROS Statement are negative. Constitutional: Denies: fever, chills, weakness Respiratory: Denies: cough, dyspnea Cardiovascular: Reports: as per HPI, chest pain. Denies: palpitations, orthopnea, edema, syncope Gastrointestinal: Denies: abdominal pain, nausea, vomiting, diarrhea, constipation Genitourinary: Denies: dysuria, hematuria Musculoskeletal: Reports: as per HPI, myalgia. Denies: back pain Skin: Denies: rash Neurological: Denies: headache, weakness, numbness, paresthesias Past Medical History Past Medical History: Coronary Artery Disease (CAD), Chest Pain / Angina, COPD, Diabetes Mellitus, GERD/Reflux, Hyperlipidemia, Hypertension, Osteoarthritis (OA), Sleep Apnea/CPAP/BIPAP, Thyroid Disorder, Vascular Disorder Additional Past Medical History / Comment(s): See Dr Humphrey's H&P. Hx bleeding peptic ulcer, duodenal ulcers, hyperthyroid chemically tx yrs ago, some decreased kidney function, "feels like a blockage in my throat", Type II DM, does not use CPAP, PAD, arterial blockages left arm, no BP's on left arm. History of Any Multi-Drug Resistant Organisms: None Reported Past Surgical History: Appendectomy, Cholecystectomy, Heart Catheterization With Stent, Hernia Repair Additional Past Surgical History / Comment(s): 4 cardiac stents, 1/2 stomach removed from ulcer, EGD/COLONOSCOPY, VAGOTOMY(to treat ulcers), HIATAL HERNIA REPAIR, ANGIOPLASTY, bilateral cataract surgery, left carpal tunnel surgery, right femoral popliteal angioplasty. Past Anesthesia/Blood Transfusion Reactions: No Reported Reaction Additional Past Anesthesia/Blood Transfusion Reaction / Comment(s): Has had b lood transfusions w/ bleeding ulcer. Date of Last Stent Placement:: 2012 Past Psychological History: Depression Smoking Status: Former smoker Past Alcohol Use History: None Reported Past Drug Use History: None Reported - Past Family History Father Family Medical History: Myocardial Infarction ([place]) Additional Family Medical History / Comment(s): Father at age 41yrs of [place]. Mother Family Medical History: Cancer, Congestive Heart Failure (CHF) Additional Family Medical History / Comment(s): Mother at age 92yrs of CHF. Breast cancer. Brother(s) Family Medical History: Myocardial Infarction ([place]) Additional Family Medical History / Comment(s): One brother of [place] at age 55 yrs and another brother at age 67 of [place]. Sister(s) Family Medical History: Myocardial Infarction ([place]) Additional Family Medical History / Comment(s): Sister of [place] at age 68 yrs. Daughter(s) Family Medical History: Cancer Additional Family Medical History / Comment(s): at age 52 from anal cancer. General Exam Limitations: no limitations General appearance: alert, in no apparent distress Head exam: Present: atraumatic, normocephalic Eye exam: Present: normal appearance. Absent: scleral icterus, conjunctival injection Neck exam: Present: normal inspection, full ROM Respiratory exam: Present: normal lung sounds bilaterally. Absent: respiratory distress, wheezes, rales, rhonchi, stridor, accessory muscle use Cardiovascular Exam: Present: normal rhythm, bradycardia, normal heart sounds. Absent: systolic murmur, diastolic murmur, rubs, gallop GI/Abdominal exam: Present: soft. Absent: distended, tenderness, guarding, rebound, rigid, mass, pulsatile mass Extremities exam: Present: normal inspection, normal capillary refill. Absent: pedal edema, calf tenderness Back exam: Present: normal inspection Neurological exam: Present: alert Skin exam: Present: warm, dry, intact, normal color. Absent: rash Course Vital Signs 07/25/24 07/26/24 07/26/24 23:17 03:12 05:16 Temperature 98.2 F Pulse Rate 54 L 51 L 52 L Respiratory 19 17 18 Rate Blood Pressure 142/56 130/52 118/40 O2 Sat by Pulse 93 L 98 Oximetry 07/26/24 07/26/24 07/26/24 06:00 09:30 10:00 Temperature 97.8 F Pulse Rate 51 L 61 Respiratory 18 16 Rate Blood Pressure 120/48 150/71 124/53 O2 Sat by Pulse 93 L 95 Oximetry 07/26/24 07/26/24 07/26/24 10:30 11:03 12:12 Temperature 98.0 F Pulse Rate 63 58 L 61 Respiratory 17 18 20 Rate Blood Pressure 127/55 135/57 138/57 O2 Sat by Pulse 94 L 94 L 92 L Oximetry 07/26/24 13:51 Temperature 98.1 F Pulse Rate 60 Respiratory 18 Rate Blood Pressure 122/61 O2 Sat by Pulse 94 L Oximetry EKG Findings - EKG Results: EKG: interpreted by ERMD, sinus rhythm, normal axis, normal QRS, normal ST/T EKG shows: bradycardia (Rate 50 bpm) Medical Decision Making - Medical Decision Making This patient is 78-year-old woman transferred here from the outside hospital to have further evaluation related to extremity pain Was pt. sent in by a medical professional or institution ([facility], [facility], urgent care, hospital, or senior care...) When possible be specific @ -[No] Did you speak to anyone other than the patient for history (EMS, parent, family, police, friend...)? What history was obtained from this source @ -[No] Did you review nursing and triage notes (agree or disagree)? Why? @ -[I reviewed and agree with nursing and triage notes] Were old charts reviewed (outside hosp., previous admission, EMS record, old EKG, old radiological studies, urgent care reports/EKG's, senior care records)? Report findings @ -[No old charts were reviewed] Differential Diagnosis (chest pain, altered mental status, abdominal pain women, abdominal pain men, vaginal bleeding, weakness, fever, dyspnea, syncope, headache, dizziness, GI bleed, back pain, seizure, CVA, palpatations, mental health, musculoskeletal)? @ -[Differential Musculoskeletal Muscular strain, contusion, ligament sprain, fracture, arthritis, septic arthritis, bursitis, cellulitis, muscle spasm, nerve compression, DVT, arterial occlusion, herpes zoster, electrolyte abnormality, tumor.... This is not meant to be in all inclusive list EKG interpreted by me (3pts min.). @ -[As above] X-rays interpreted by me (1pt min.). @ -[None done] CT interpreted by me (1pt min.). @ -[None done] U/S interpreted by me (1pt. min.). @ -[None done] What testing was considered but not performed or refused? (CT, X-rays, U/S, labs)? Why? @ -[None] What meds were considered but not given or refused? Why? @ -[None] Did you discuss the management of the patient with other professionals (professionals i.e. , PA, [facility], lab, RT, psych nurse, social service liaison, health and human performance professor, teacher, lodge officer, caser in)? Give summary @ -[Case discussed with admitting physician and treatment recommendations incorporated Was smoking cessation discussed for >3mins.? @ -[No] Was critical care preformed (if so, how long)? @ -[No] Were there social determinants of health that impacted care today? How? (Homelessness, low income, unemployed, alcoholism, drug addiction, transportation, low edu. Level, literacy, decrease access to med. care, halfway, rehab)? @ -[No] Was there de-escalation of care discussed even if they declined (Discuss DNR or withdrawal of care, Hospice)? DNR status @ -[No] What co-morbidities impacted this encounter? (DM, HTN, Smoking, COPD, CAD, Cancer, CVA, ARF, Chemo, Hep., AIDS, mental health diagnosis, sleep apnea, morbid obesity)? @ -[Previous lower extremity arterial stent, for vascular disease Was patient admitted / discharged? Hospital course, mention meds given and route, prescriptions, significant lab abnormalities, going to OR and other pertinent info. @ -[Patient is 78-year-old woman here with extremity pain to have further evaluation. Undiagnosed new problem with uncertain prognosis? @ -[No] Drug Therapy requiring intensive monitoring for toxicity (Heparin, Nitro, Insulin, Cardizem)? @ -[No] Were any procedures done? @ -[No] Diagnosis/symptom? @ -[Lower extremity pain History of peripheral vascular disease Rule out DVT Acute, or Chronic, or Acute on Chronic? @ -Acute Uncomplicated (without systemic symptoms) or Complicated (systemic symptoms)? @ -[Uncomplicated Side effects of treatment? @ -[No] Exacerbation, Progression, or Severe Exacerbation? @ -[No] Poses a threat to life or bodily function? How? (Chest pain, [place], [place], pneumonia, PE, COPD, DKA, ARF, appy, cholecystitis, CVA, Diverticulitis, Homicidal, Suicidal, threat to staff... and all critical care pts) @ -[Yes, requires further evaluation - Lab Data Result diagrams: 07/27/24 05:42 Disposition Clinical Impression: PVD (peripheral vascular disease) Disposition: ADMITTED IP TO THIS HOSP Condition: Fair Is patient prescribed a controlled substance at d/c from ED?: No
[2024-07-26] MEDS ORDERED: NITROGLYCERIN SL TABS 0.4 MG TAB SUBLINGUAL PRN (02:27)
[2024-07-26] MEDS: ONDANSETRON 4 MG/2 ML VIAL IVP PRN (09:43)
[2024-07-26] MEDS: MORPHINE SULFATE 4 MG/ML SYRINGE IVP PRN (09:47)
[2024-07-26] MEDS ORDERED: RX INFO: IV CONTRAST WAS GIVEN 1 EACH MISC MISCELLANE PRN (11:41)
[2024-07-26] MEDS: PANTOPRAZOLE 40 MG TABLET PO SCH (11:49)
[2024-07-26] MEDS: metFORMIN 500 MG TAB PO SCH (11:49)
[2024-07-26] MEDS: CITALOPRAM HYDROBROMIDE 20 MG TAB PO SCH (11:50)
[2024-07-26] MEDS: ATORVASTATIN 80 MG TAB PO SCH (11:50)
[2024-07-26] MEDS: CLOPIDOGREL 75 MG TAB PO SCH (11:50)
[2024-07-26] MEDS: ISOSORBIDE MONONITRATE ER 60 MG TAB.ER.24H PO SCH (11:50)
[2024-07-26] MEDS: ASCORBIC ACID 500 MG TAB PO SCH (11:50)
[2024-07-26] MEDS: carvediloL 12.5 MG TAB PO SCH (11:51)
[2024-07-26] MEDS: ENOXAPARIN 40 MG/0.4 ML SYRINGE SQ SCH (11:51)
--- NOTE | 2024-07-26 11:53 | P.CRDCN ---
History of Present Illness Consult date: 07/26/24 Consult reason: chest pain, other Chief complaint: left leg pain History of present illness: History of present illness: Patient is a pleasant 78-year-old female with significant past medical history of hypertension, hyperlipidemia, peripheral vascular disease, peripheral artery disease, diabetes who was transferred from [facility] for further evaluation of left leg pain and chest pain. She follows with Dr. Toth in the office. She did have a recent left femoralpopliteal stent with Dr. Reed last month. She reports for the past 3 days she has had worsening left thigh pain, it is from her knee up. Her thigh hurts all the time and she was unable to walk due to the pain. She was being transferred to [facility] and developed chest pain in the ambulance. She does have a history of angina and this felt similar to that. Troponins were negative x 2, BNP 435. EKG shows sinus bradycardia. No chest pain presently. Denies any shortness of breath, dizziness, syncope. REVIEW OF SYSTEMS: No fever or chills. No cough or expectoration. No diaphoresis. Patient denies headache, dizziness, blurred vision, double vision. Patient denies any stomach discomfort. No nausea, vomiting. No hematochezia. No hematemesis. Denies any black stools or blood in his stools. Denies dysuria or hematuria. No muscle weakness or numbness. No chest pain or pressure. Reports left thigh pain. PHYSICAL EXAMINATION: This is a 78-year-old female in no apparent distress at the time of my examination. HEENT: Head is atraumatic, normocephalic. Pupils are equal, round. Sclerae anicteric. Conjunctivae are clear. Mucous membranes of the mouth are moist. Neck is supple. There is no jugular venous distention. No carotid bruit is heard. CHEST EXAMINATION: Lungs are clear to auscultation. No chest wall tenderness is noted on palpation or with deep breathing. HEART EXAMINATION: Heart regular rate and rhythm. S1, S2 heard. No murmurs, gallops or rub. ABDOMEN: Soft, nontender. Bowel sounds are heard. EXTREMITIES: Left lower extremity pulses +2 DP, +1 PT, +2 popliteal, +2 femoral, no edema, warm, no discoloration. NEUROLOGIC EXAMINATION: Patient is awake, alert and oriented x3. IMPRESSION AND PLAN: PAD, status post recent left femoral-popliteal stent Hypertension Hyperlipidemia Diabetes Chest pain Left thigh pain PLAN: ACS ruled out. We will check CTA of the left lower extremity with runoff. Check lower extremity venous ultrasound. Further recommendations pending patient's course. I am dictating on behalf of Dr. Filiberto Jensen's history/physical and assessment/plan. Past Medical History Past Medical History: Coronary Artery Disease (CAD), Chest Pain / Angina, COPD, Diabetes Mellitus, GERD/Reflux, Hyperlipidemia, Hypertension, Osteoarthritis (OA), Sleep Apnea/CPAP/BIPAP, Thyroid Disorder, Vascular Disorder Additional Past Medical History / Comment(s): See Dr Humphrey's H&P. Hx bleeding peptic ulcer, duodenal ulcers, hyperthyroid chemically tx yrs ago, some decreased kidney function, "feels like a blockage in my throat", Type II DM, does not use CPAP, PAD, arterial blockages left arm, no BP's on left arm. History of Any Multi-Drug Resistant Organisms: None Reported Past Surgical History: Appendectomy, Cholecystectomy, Heart Catheterization With Stent, Hernia Repair Additional Past Surgical History / Comment(s): 4 cardiac stents, 1/2 stomach removed from ulcer, EGD/COLONOSCOPY, VAGOTOMY(to treat ulcers), HIATAL HERNIA REPAIR, ANGIOPLASTY, bilateral cataract surgery, left carpal tunnel surgery, right femoral popliteal angioplasty. Past Anesthesia/Blood Transfusion Reactions: No Reported Reaction Additional Past Anesthesia/Blood Transfusion Reaction / Comment(s): Has had blood transfusions w/ bleeding ulcer. Date of Last Stent Placement:: 2012 Past Psychological History: Depression Smoking Status: Former smoker Past Alcohol Use History: None Reported Past Drug Use History: None Reported - Past Family History Father Family Medical History: Myocardial Infarction ([place]) Additional Family Medical History / Comment(s): Father at age 41yrs of [place]. Mother Family Medical History: Cancer, Congestive Heart Failure (CHF) Additional Family Medical History / Comment(s): Mother at age 92yrs of CHF. Breast cancer. Brother(s) Family Medical History: Myocardial Infarction ([place]) Additional Family Medical History / Comment(s): One brother of [place] at age 55 yrs and another brother at age 67 of [place]. Sister(s) Family Medical History: Myocardial Infarction ([place]) Additional Family Medical History / Comment(s): Sister of [place] at age 68 yrs. Daughter(s) Family Medical History: Cancer Additional Family Medical History / Comment(s): at age 52 from anal cancer. Medications and Allergies Home Medications Medication Instructions Recorded Confirmed Type Clopidogrel [Plavix] 75 mg PO DAILY 12/10/14 07/26/24 History Isosorbide Mononitrate ER [Imdur] 60 mg PO DAILY 12/10/14 07/26/24 History amLODIPine [Norvasc] 5 mg PO HS 12/10/14 07/26/24 History Nitroglycerin Sl Tabs [Nitrostat] 0.4 mg SUBLINGUAL Q5M PRN #25 tab 06/29/18 07/26/24 Rx Ascorbic Acid [Vitamin C] 500 mg PO DAILY 10/18/20 07/26/24 History Aspirin 325 mg PO DAILY 10/18/20 07/26/24 History Omeprazole 20 mg PO BID 10/28/20 07/26/24 History Vits A,C,E/Lutein/Minerals 1 tab PO BID 10/28/20 07/26/24 History [Ocuvite with Lutein Tablet] traZODone HCL 200 mg PO HS 02/28/23 07/26/24 History Citalopram Hydrobromide 20 mg PO DAILY 06/11/24 07/26/24 History [Citalopram HBr] Furosemide [Lasix] 20 mg PO DAILY 06/11/24 07/26/24 History carvediloL [Coreg*] 25 mg PO AC-BID 06/11/24 07/26/24 History Atorvastatin [Lipitor] 80 mg PO DAILY 07/21/24 07/26/24 History metFORMIN HCL [metFORMIN HCL ER 500 mg PO DAILY 07/22/24 07/26/24 History Osmotic] Allergies Allergy/AdvReac Type Severity Reaction Status Date / Time codeine AdvReac Severe Nausea & Verified 07/26/24 09:05 Vomiting Physical Exam Vitals: Vital Signs Temp Pulse Resp BP Pulse Ox 07/26/24 11:03 58 L 18 135/57 94 L 07/26/24 10:30 63 17 127/55 94 L 07/26/24 10:00 124/53 07/26/24 09:30 97.8 F 61 16 150/71 95 07/26/24 06:00 51 L 18 120/48 93 L 07/26/24 05:16 52 L 18 118/40 07/26/24 03:12 51 L 17 130/52 98 07/25/24 23:17 98.2 F 54 L 19 142/56 93 L Intake and Output 07/25/24 07/26/24 07/26/24 22:59 06:59 14:59 Other: Weight 73.028 kg Results Cardiac Enzymes 07/26/24 07/26/24 Range/Units 02:53 06:49 Troponin I <0.012 <0.012 (0.000-0.034) ng/mL Current Medications Generic Name Dose Route Start Last Admin Trade Name Freq PRN Reason Stop Dose Admin Amlodipine Besylate 5 mg 07/26/24 21:00 Amlodipine 5 Mg Tab PO HS [facility] Ascorbic Acid 500 mg 07/26/24 11:45 Ascorbic Acid 500 Mg Tab PO DAILY [facility] Aspirin 325 mg 07/27/24 09:00 Aspirin 325 Mg Tab PO DAILY [facility] Atorvastatin Calcium 80 mg 07/26/24 11:45 Atorvastatin 80 Mg Tab PO DAILY [facility] Carvedilol 25 mg 07/26/24 11:45 Carvedilol 12.5 Mg Tab PO AC-BID [facility] Citalopram Hydrobromide 20 mg 07/26/24 11:45 Citalopram Hydrobromide 20 Mg Tab PO DAILY [facility] Clopidogrel Bisulfate 75 mg 07/26/24 11:45 Clopidogrel 75 Mg Tab PO DAILY [facility] Enoxaparin Sodium 40 mg 07/26/24 11:45 Enoxaparin 40 Mg/0.4 Ml Syringe SQ DAILY [facility] Isosorbide Mononitrate 60 mg 07/26/24 11:45 Isosorbide Mononitrate Er 60 Mg Tab.Er.24h PO DAILY [facility] Metformin HCl 250 mg 07/26/24 11:45 Metformin 500 Mg Tab PO BID [facility] Miscellaneous Information 1 each 07/26/24 11:41 Rx Info: Iv Contrast Was Given 1 Each Misc MISCELLANE 07/28/24 11:41 DAILY PRN Per Protocol Morphine Sulfate 4 mg 07/26/24 09:30 07/26/24 09:47 Morphine Sulfate 4 Mg/Ml Syringe IVP 4 mg Q6HR PRN Administration Pain Multivitamins/Minerals 1 each 07/26/24 21:00 Vit A,C & M-[id number] 1 Each Tab PO BID [facility] Nitroglycerin 0.4 mg 07/26/24 02:27 Nitroglycerin Sl Tabs 0.4 Mg Tab SUBLINGUAL Q5M PRN Chest Pain Ondansetron HCl 4 mg 07/26/24 09:30 07/26/24 09:43 Ondansetron 4 Mg/2 Ml Vial IVP 4 mg Q6HR PRN Administration Nausea And Vomiting Pantoprazole Sodium 40 mg 07/26/24 11:45 Pantoprazole 40 Mg Tablet PO BID [facility] Trazodone HCl 200 mg 07/26/24 21:00 Trazodone Hcl 100 Mg Tab PO [facility] Intake and Output 07/25/24 07/26/24 07/26/24 22:59 06:59 14:59 Other: Weight 73.028 kg
--- NOTE | 2024-07-26 12:56 | US ---
EXAMINATION TYPE: US venous doppler duplex LE LT DATE OF EXAM: 07/26/2024 12:35 PM COMPARISON: NONE CLINICAL INDICATION: Female, 78 years old with history of left thigh pain, recent stent; SIDE PERFORMED: TECHNIQUE: The lower extremity deep venous system is examined utilizing real time linear array sonog bobby with graded compression, doppler sonography and color-flow sonography. VESSELS IMAGED: Common Femoral Vein Deep Femoral Vein Greater Saphenous Vein * Femoral Vein Popliteal Vein Small Saphenous Vein * Proximal Calf Veins (* superficial vessels) Left Leg: Negative for DVT IMPRESSION: 1. Left lower extremity ultrasound negative for deep venous thrombosis
--- NOTE | 2024-07-26 13:02 | CT ---
EXAMINATION TYPE: CT angio lower extremity LT DATE OF EXAM: 07/26/2024 COMPARISON: None HISTORY: LEFT THIGH PAIN CT DLP: 1005.9 mGycm Automated exposure control for dose reduction was used. Contrast: None Technique: Axial images 2 mm thick sections. Study is performed with intravenous contrast time for th e evaluation of the arterial system. 3-D reconstructed images performed on separate computer by the t echnologist are presented. FINDINGS: Common iliac artery internal and external iliac vessels and common femoral arteries are patent. Profu nda femoris and superficial femoral arteries are patent. Vascular calcifications are present through these structures. There may be narrowing of the proximal common femoral artery. Aortic stent is present within the superficial femoral artery. This remains patent to the popliteal a rtery posterior tibial artery is not identified. Anterior tibial and peroneal artery are patent. Thes e extend to the level of the ankle. Posterior tibial artery is reconstitute in the distal calf. IMPRESSION: 1. 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 SMALL CALIBER RECONSTITUTED ANTERIOR TIBIAL ARTERY VESSEL IS IN THE DISTAL CALF NEAR THE LEVEL OF THE ANKLE. 2. STENT WITHIN THE RIGHT SUPERFICIAL FEMORAL ARTERY IS PATENT.
--- NOTE | 2024-07-26 15:12 | P.HPIM ---
History of Present Illness H&P Date: 07/26/24 Chief Complaint: Left thigh pain This is a pleasant 78-year-old patient, follows Dr. Edilberto Christianson. Director Of Student Affairs Dr. 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 Patient's medical history includes COPD, diabetes, GERD, hyperlipidemia, hypertension, osteoarthritis, obstructive sleep apnea does not use CPAP, hypothyroid PAD, history of bleeding peptic ulcer General Ulcer, hyperthyroid treated previously. Also has known CAD with stent. Partial gastrectomy for stomach ulcer. On June 24, 2024 patient underwent stent to the left superficial femoral artery by Dr. Humphrey. Around a week after that patient started having increasing pain in the left thigh. From the hip down to the knee. Has not followed up with Dr. Humphrey since then. Patient for that reason decided to go to [facility]. While in the ambulance she developed chest pain. Lasted good 20 minutes. Patient is chronically short of breath from underlying COPD. Review of systems: GEN.: Tired EYES: None HEENT: None NECK: None RESPIRATORY: Chronic wheezing CARDIOVASCULAR: Chest pain GASTROINTESTINAL: None GENITOURINARY: None MUSCULOSKELETAL: Left thigh pain LYMPHATICS: None HEMATOLOGICAL: None PSYCHIATRY: None NEUROLOGICAL: Does use a walker when goes outside the house Social history: Grandchildren live with her. Smoked a pack a day for close to 50 years. Stopped about 10 years ago. No alcohol. Does use a walker to go outside the house. Physical examination: VITAL SIGNS: 98.2, 54, 19, 142 x 56, 93% room air upon presentation GENERAL: BMI 31.4, reclining bed awake not in distress. EYES: Pupils equal. Conjunctiva yakov l. HEENT: External appearance of nose and ears normal, oral cavity grossly normal. NECK: JVD not raised; masses not palpable. HEART: First and second heart sounds are normal; no edema. LUNGS: Respiratory rate increased, decreased breath sounds some wheezing. ABDOMEN: Soft, nontender, liver spleen not palpable, no masses palpable. EXTREMITIES: Left dorsalis pedis palpable PSYCH: Alert and oriented x3; mood and affect yakov l. MUSCULOSKELETAL:No Clubbing/cyanosis;muscles-grossly intact NEUROLOGICAL: Cranial nerves grossly intact; no facial asymmetry, power and sensation grossly intact. LYMPHATICS: No lymph nodes palpable in the axilla and neck INVESTIGATIONS, reviewed in the clinical context: EKG tracing personally reviewed by me-normal sinus rhythm Venous Doppler left lower extremity: Negative for DVT CT angio left lower extremity: Common iliac, internal and external iliac vessels common femoral arteries are patent. Profunda femoris superficial femoral arteries are patent. Arctic stent is present within the superficial femoral artery. Remains patent. Occlusion of the right posterior tibial artery at its origin small caliber reconstituted anterior tibial artery vessel is in the distal calf near the level of the ankle. Assessment plan: -Unstable angina in a patient with known coronary artery disease Currently chest pain-free. Aspirin. Coreg. Cardiology following -Peripheral artery disease. With occlusion of the right posterior tibial artery at its origin. Patient symptoms were present for about 3 weeks. Patient does follow with Dr. Humphrey outpatient. Patient stent to the superficial femoral artery patent. Nurses communicating results to Dr. Jensen. -CAD with prior stent Aspirin, beta-laura -Depression Trazodone 200 g nightly Celexa 20 mg a day -Essential hypertension Amlodipine 5 mg nightly Coreg 25 mg twice daily -Diabetes mellitus type 2 Glucophage Accu-Chek with sliding scale insulin -Obesity BMI 31.4 Weight loss measures -COPD in a prior smoker DuoNeb 3 times daily -Obstructive sleep apnea does not use a CPAP -Partial gastrectomy for previous peptic ulcer disease -Full code Care was discussed with the patient. Cardiology has been consulted Dr. Jensen saw the patient today. Past Medical History Past Medical History: Coronary Artery Disease (CAD), Chest Pain / Angina, COPD, Diabetes Mellitus, GERD/Reflux, Hyperlipidemia, Hypertension, Osteoarthritis (OA), Sleep Apnea/CPAP/BIPAP, Thyroid Disorder, Vascular Disorder Additional Past Medical History / Comment(s): See Dr Humphrey's H&P. Hx bleeding peptic ulcer, duodenal ulcers, hyperthyroid chemically tx yrs ago, some decreased kidney function, "feels like a blockage in my throat", Type II DM, does not use CPAP, PAD, arterial blockages left arm, no BP's on left arm. History of Any Multi-Drug Resistant Organisms: None Reported Past Surgical History: Appendectomy, Cholecystectomy, Heart Catheterization With Stent, Hernia Repair Additional Past Surgical History / Comment(s): 4 cardiac stents, 1/2 stomach removed from ulcer, EGD/COLONOSCOPY, VAGOTOMY(to treat ulcers), HIATAL HERNIA REPAIR, ANGIOPLASTY, bilateral cataract surgery, left carpal tunnel surgery, right femoral popliteal angioplasty. Past Anesthesia/Blood Transfusion Reactions: No Reported Reaction Additional Past Anesthesia/Blood Transfusion Reaction / Comment(s): Has had blood transfusions w/ bleeding ulcer. Date of Last Stent Placement:: 2012 Past Psychological History: Depression Smoking Status: Former smoker Past Alcohol Use History: None Reported Past Drug Use History: None Reported - Past Family History Father Family Medical History: Myocardial Infarction (SC) Additional Family Medical History / Comment(s): Father at age 41yrs of SC. Mother Family Medical History: Cancer, Congestive Heart Failure (CHF) Additional Family Medical History / Comment(s): Mother at age 92yrs of CHF. Breast cancer. Brother(s) Family Medical History: Myocardial Infarction (SC) Additional Family Medical History / Comment(s): One brother of SC at age 55 yrs and another brother at age 67 of SC. Sister(s) Family Medical History: Myocardial Infarction (SC) Additional Family Medical History / Comment(s): Sister of SC at age 68 yrs. Daughter(s) Family Medical History: Cancer Additional Family Medical History / Comment(s): at age 52 from anal cancer. Medications and Allergies Home Medications Medication Instructions Recorded Confirmed Type Clopidogrel [Plavix] 75 mg PO DAILY 12/10/14 07/26/24 History Isosorbide Mononitrate ER [Imdur] 60 mg PO DAILY 12/10/14 07/26/24 History amLODIPine [Norvasc] 5 mg PO HS 12/10/14 07/26/24 History Nitroglycerin Sl Tabs [Nitrostat] 0.4 mg SUBLINGUAL Q5M PRN #25 tab 06/29/18 07/26/24 Rx Ascorbic Acid [Vitamin C] 500 mg PO DAILY 10/18/20 07/26/24 History Aspirin 325 mg PO DAILY 10/18/20 07/26/24 History Omeprazole 20 mg PO BID 10/28/20 07/26/24 History Vits A,C,E/Lutein/Minerals 1 tab PO BID 10/28/20 07/26/24 History [Ocuvite with Lutein Tablet] traZODone HCL 200 mg PO HS 02/28/23 07/26/24 History Citalopram Hydrobromide 20 mg PO DAILY 06/11/24 07/26/24 History [Citalopram HBr] Furosemide [Lasix] 20 mg PO DAILY 06/11/24 07/26/24 History carvediloL [Coreg*] 25 mg PO AC-BID 06/11/24 07/26/24 History Atorvastatin [Lipitor] 80 mg PO DAILY 07/21/24 07/26/24 History metFORMIN HCL [metFORMIN HCL ER 500 mg PO DAILY 07/22/24 07/26/24 History Osmotic] Allergies Allergy/AdvReac Type Severity Reaction Status Date / Time codeine AdvReac Severe Nausea & Verified 07/26/24 09:05 Vomiting Physical Exam Vitals: Vital Signs Temp Pulse Resp BP Pulse Ox 07/26/24 11:03 58 L 18 135/57 94 L 07/26/24 10:30 63 17 127/55 94 L 07/26/24 10:00 124/53 07/26/24 09:30 97.8 F 61 16 150/71 95 07/26/24 06:00 51 L 18 120/48 93 L 07/26/24 05:16 52 L 18 118/40 07/26/24 03:12 51 L 17 130/52 98 07/25/24 23:17 98.2 F 54 L 19 142/56 93 L Intake and Output 07/25/24 07/26/24 07/26/24 22:59 06:59 14:59 Other: Weight 73.028 kg Results Labs: Abnormal Lab Results - Last 24 Hours (Table) 07/26/24 Range/Units 02:53 D-Dimer 0.96 H (<0.60) mg/L FEU
[2024-07-26] MEDS: HEPARIN SOD,PORK IN 0.45% NACL 25,000 UNIT in 0.45% NACL 1 250ML.BAG IV SCH (16:11)
[2024-07-26 16:37] LABS: Basophils % (A) 0 %; Eosinophils # (A) 0.1 k/uL (0-0.7); Eosinophils % (A) 3 %; HCT 35.9 % (34.0-46.0); HGB 11.4 gm/dL (11.4-16.0); Hypochromasia Marked; Lymphocytes # (A) 1.1 k/uL (1.0-4.8); Lymphocytes % (A) 29 %; MCH 29.8 pg (25.0-35.0); MCHC 31.6 g/dL (31.0-37.0); MCV 94.2 fL (80.0-100.0); Monocytes # (A) 0.2 k/uL (0-1.0); Monocytes % (A) 6 %; Neutrophils # (A) 2.3 k/uL (1.3-7.7); Neutrophils % (A) 60 %; Partial Thromboplastin Time 26.3 sec (22.0-30.0); Platelet Count 165 k/uL (150-450); Prothrombin Time 11.1 sec (10.0-12.5); RBC 3.82 m/uL (3.80-5.40); RDW 13.8 % (11.5-15.5); WBC 3.8 k/uL (3.8-10.6)
[2024-07-26] MEDS: traZODone HCL 100 MG TAB PO SCH (20:55)
[2024-07-26] MEDS: amLODIPine 5 MG TAB PO SCH (20:55)
[2024-07-26] MEDS: VIT A,C & E-LUTEIN-MINERALS 1 EACH TAB PO SCH (21:14)
[2024-07-26 21:43] LABS: Glucose,Whole Blood 165 mg/dL (70-110)
[2024-07-26] MEDS: HEPARIN SODIUM 1,000 UN/ML (10ML VL) IV PRN (23:47)
[2024-07-27 06:18] LABS: Glucose,Whole Blood 123 mg/dL (70-110)
[2024-07-27 06:23] LABS: Partial Thromboplastin Time 54.1 sec (22.0-30.0); Prothrombin Time 10.9 sec (10.0-12.5)
[2024-07-27 08:31] VITALS: RESP 16
[2024-07-27] MEDS: ASPIRIN 81 MG PO SCH (08:38)
[2024-07-27] MEDS ORDERED: ASPIRIN 325 MG TAB PO SCH (09:00)
[2024-07-27 12:05] LABS: Glucose,Whole Blood 123 mg/dL (70-110)
[2024-07-27 12:10] LABS: Chol/HDL Ratio 2.63 Ratio; LDL Cholesterol,Calculated 39.2 mg/dL (0.0-131.0); VLDL Calculation 18.44 mg/dL (5.00-40.00)
[2024-07-27 12:51] LABS: Basophils # (A) 0.03 X 10*3/uL (0.00-0.10); Basophils % (A) 0.6 %; Eosinophils # (A) 0.12 X 10*3/uL (0.04-0.35); Eosinophils % (A) 2.2 %; HCT 34.8 % (37.2-46.3); HGB 10.7 g/dL (12.0-15.0); Lymphocytes # (A) 1.57 X 10*3/uL (0.90-5.00); Lymphocytes % (A) 29.3 %; MCH 30.1 pg (27.0-32.0); MCHC 30.7 g/dL (32.0-37.0); Mean Platelet Volume 10.9 FL (9.5-12.2); Monocytes # (A) 0.35 X 10*3/uL (0.20-1.00); Monocytes % (A) 6.5 %; NRBC Per 100 WBC 0 X 10*3/uL (0.00-0.01); Neutrophils # (A) 3.27 X 10*3/uL (1.80-7.70); Neutrophils % (A) 61.2 %; Platelet Count 165 X 10*3/uL (140-440); RBC 3.55 X 10*6/uL (4.10-5.20); RDW 13.4 % (11.5-14.5); WBC 5.35 X 10*3/uL (4.50-10.00)
--- NOTE | 2024-07-27 14:16 | P.PN ---
Subjective Progress Note Date: 07/27/24 History of present illness: Patient is a pleasant 78-year-old female with significant past medical history of hypertension, hyperlipidemia, peripheral vascular disease, peripheral artery disease, diabetes who was transferred from [facility] for further evaluation of left leg pain and chest pain. She follows with Dr. Toth in the office. She did have a recent left femoralpopliteal stent with Dr. Reed last month. She reports for the past 3 days she has had worsening left thigh pain, it is from her knee up. Her thigh hurts all the time and she was unable to walk due to the pain. She was being transferred to [facility] and developed chest pain in the ambulance. She does have a history of angina and this felt similar to that. Troponins were negative x 2, BNP 435. EKG shows sinus bradycardia. No chest pain presently. Denies any shortness of breath, dizziness, syncope. Lower extremity venous Doppler negative for DVT. CT angio of lower extremity shows patent stent, occlusion of the right posterior tibial artery at its origin. 07/27/24 Patient reports that she is feeling better. She has been up walking today and left thigh pain is improved. She denies any pain in her right leg. She still has intermittent chest pains that occur randomly. PHYSICAL EXAMINATION: This is a 78-year-old female in no apparent distress at the time of my examination. HEENT: Head is atraumatic, normocephalic. Pupils are equal, round. Sclerae anicteric. Conjunctivae are clear. Mucous membranes of the mouth are moist. Neck is supple. There is no jugular venous distention. No carotid bruit is heard. CHEST EXAMINATION: Lungs are clear to auscultation. No chest wall tenderness is noted on palpation or with deep breathing. HEART EXAMINATION: Heart regular rate and rhythm. S1, S2 heard. No murmurs, gallops or rub. ABDOMEN: Soft, nontender. Bowel sounds are heard. EXTREMITIES: Left lower extremity pulses +2 DP, +1 PT, +2 popliteal, +2 femoral, no edema, warm, no discoloration. NEUROLOGIC EXAMINATION: Patient is awake, alert and oriented x3. IMPRESSION AND PLAN: PAD, status post recent left femoral-popliteal stent Hypertension Hyperlipidemia Diabetes Chest pain Left thigh pain PLAN: Ultrasound negative for DVT. CTA of lower extremity reviewed with Dr. Jensen, occlusion of right posterior tibial artery is likely chronic and patient is not having any symptoms related to this, stent is patent. She is doing better symptom dela cruz. If she is having more chest pain would consider outpatient stress testing at that time. Patient is cleared for discharge home from a cardiology standpoint. Follow-up in [address] Reed. Case was discussed between Dr. Jensen and Dr. Hughes. I am dictating on behalf of Dr. Filiberto Jensen's history/physical and assessment/plan. Objective - Vital Signs Vital signs: Vital Signs Temp 98.6 F 07/27/24 07:00 Pulse 65 07/27/24 07:00 Resp 16 07/27/24 07:00 BP 139/67 07/27/24 07:00 Pulse Ox 93 L 07/27/24 07:00 FiO2 Intake & Output 07/26/24 07/27/24 07/27/24 18:59 06:59 18:59 Intake Total 141.196 181.533 Balance 141.196 181.533 Intake: Intake, IV Titration 141.196 63.533 Amount Heparin Sod,Pork in 0.45% 141.196 63.533 NaCl 25,000 unit In 0.45 % NaCl 1 250ml.bag @ 12 UNITS/KG/HR 8.763 mls/hr IV .Q24H KOMAL Rx#: [id number] Oral 118 Other: # Voids 1 1 - Labs CBC & Chem 7: 07/27/24 05:42 Labs: Abnormal Lab Results - Last 24 Hours (Table) 07/26/24 07/26/24 07/27/24 Range/Units 21:41 22:19 05:42 RBC (4.10-5.20) X 10*6/uL Hgb (12.0-15.0) g/dL Hct (37.2-46.3) % MCV (80.0-97.0) FL MCHC (32.0-37.0) g/dL APTT 31.9 H (22.0-30.0) sec POC Glucose (mg/dL) 165 H (70-110) mg/dL HDL Cholesterol 35.40 L (40.00-60.00) mg/dL 07/27/24 07/27/24 07/27/24 Range/Units 05:42 05:42 06:12 RBC 3.55 L (4.10-5.20) X 10*6/uL Hgb 10.7 L (12.0-15.0) g/dL Hct 34.8 L (37.2-46.3) % MCV 98.0 H (80.0-97.0) FL MCHC 30.7 L (32.0-37.0) g/dL APTT 54.1 H (22.0-30.0) sec POC Glucose (mg/dL) 123 H (70-110) mg/dL HDL Cholesterol (40.00-60.00) mg/dL 07/27/24 Range/Units 12:04 RBC (4.10-5.20) X 10*6/uL Hgb (12.0-15.0) g/dL Hct (37.2-46.3) % MCV (80.0-97.0) FL MCHC (32.0-37.0) g/dL APTT (22.0-30.0) sec POC Glucose (mg/dL) 123 H (70-110) mg/dL HDL Cholesterol (40.00-60.00) mg/dL
--- NOTE | 2024-07-27 15:42 | P.DS ---
Providers Date of admission: 07/26/24 02:28 Expected date of discharge: 07/27/24 Attending physician: Jesus Hughes Consults: 07/26/24 02:27 Consult Physician Routine Consulting Provider: Ramon Humphrey Consult Reason/Comments: chest pain Do you want consulting provider notified?: Yes Primary care physician: Edilberto Christianson [facility] Course: Chief Complaint: Left thigh pain This is a pleasant 78-year-old patient, follows Dr. Edilberto Christianson. Cover Cutter Dr. 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 Patient's medical history includes COPD, diabetes, GERD, hyperlipidemia, hypertension, osteoarthritis, obstructive sleep apnea does not use CPAP, hypothyroid PAD, history of bleeding peptic ulcer General Ulcer, hyperthyroid treated previously. Also has known CAD with stent. Partial gastrectomy for stomach ulcer. On June 24, 2024 patient underwent stent to the left superficial femoral artery by Dr. Humphrey. Around a week after that patient started having increasing pain in the left thigh. From the hip down to the knee. Has not followed up with Dr. Humphrey since then. Patient for that reason decided to go to [facility]. While in the ambulance she developed chest pain. Lasted good 20 minutes. Patient is chronically short of breath from underlying COPD. July 27: Patient has been on IV heparin. Dr. Jensen from cardiology called me. He clarified that patient's symptoms and findings were not on the same side. Patient can be discharged and follow-up with Dr. Humphrey outpatient. This was discussed with the patient. Discussed with the nurse. Some improv ement in thigh pain. Patient to use heating pad as needed. Discussion and discharge planning more than 35 minutes Social history: Grandchildren live with her. Smoked a pack a day for close to 50 years. Stopped about 10 years ago. No alcohol. Does use a walker to go outside the house. Physical examination: VITAL SIGNS: 98.6, 65, 16, 139 x 67, 93% on 2 L GENERAL: Reclining in bed comfortable EYES: Pupils equal. Conjunctiva yakov l. HEENT: External appearance of nose and ears normal, oral cavity grossly normal. NECK: JVD not raised; masses not palpable. HEART: First and second heart sounds are normal; no edema. LUNGS: Respiratory rate increased, decreased breath sounds some wheezing. ABDOMEN: Soft, nontender, liver spleen not palpable, no masses palpable. EXTREMITIES: Left dorsalis pedis palpable PSYCH: Alert and oriented x3; mood and affect yakov l. MUSCULOSKELETAL:No Clubbing/cyanosis;muscles-grossly intact INVESTIGATIONS, reviewed in the clinical context: EKG tracing personally reviewed by me-normal sinus rhythm Venous Doppler left lower extremity: Negative for DVT CT angio left lower extremity: Common iliac, internal and external iliac vessels common femoral arteries are patent. Profunda femoris superficial femoral arteries are patent. Arctic stent is present within the superficial femoral artery. Remains patent. Occlusion of the right posterior tibial artery at its origin small caliber reconstituted anterior tibial artery vessel is in the distal calf near the level of the ankle. Assessment plan: -Unstable angina in a patient with known coronary artery disease: Improved Currently chest pain-free. Aspirin. Coreg. Seen by Dr. Jensen from cardiology. Cleared for discharge follow-up with Dr. Humphrey -Peripheral artery disease. With occlusion of the right posterior tibial artery at its origin. Patient symptoms were present for about 3 weeks. Patient does follow with Dr. Humphrey outpatient. Patient stent to the superficial femoral artery patent. Discussed with Dr. Jensen. Stable for discharge. Follow-up with Dr. Humphrey -CAD with prior stent Aspirin, beta-laura -Depression Trazodone 200 g nightly Celexa 20 mg a day -Essential hypertension Amlodipine 5 mg nightly Coreg 25 mg twice daily -Diabetes mellitus type 2 Glucophage Accu-Chek with sliding scale insulin -Obesity BMI 31.4 Weight loss measures -COPD in a prior smoker DuoNeb 3 times daily -Obstructive sleep apnea does not use a CPAP -Partial gastrectomy for previous peptic ulcer disease -Full code Disposition: Home Past Medical History Past Medical History: Coronary Artery Disease (CAD), Chest Pain / Angina, COPD, Diabetes Mellitus, GERD/Reflux, Hyperlipidemia, Hypertension, Osteoarthritis (OA), Sleep Apnea/CPAP/BIPAP, Thyroid Disorder, Vascular Disorder Additional Past Medical History / Comment(s): See Dr Humphrey's H&P. Hx bleeding peptic ulcer, duodenal ulcers, hyperthyroid chemically tx yrs ago, some decreased kidney function, "feels like a blockage in my throat", Type II DM, does not use CPAP, PAD, arterial blockages left arm, no BP's on left arm. History of Any Multi-Drug Resistant Organisms: None Reported Past Surgical History: Appendectomy, Cholecystectomy, Heart Catheterization With Stent, Hernia Repair Additional Past Surgical History / Comment(s): 4 cardiac stents, 1/2 stomach removed from ulcer, EGD/COLONOSCOPY, VAGOTOMY(to treat ulcers), HIATAL HERNIA REPAIR, ANGIOPLASTY, bilateral cataract surgery, left carpal tunnel surgery, right femoral popliteal angioplasty. Past Anesthesia/Blood Transfusion Reactions: No Reported Reaction Additional Past Anesthesia/Blood Transfusion Reaction / Comment(s): Has had blood transfusions w/ bleeding ulcer. Date of Last Stent Placement:: 2012 Past Psychological History: Depression Smoking Status: Former smoker Past Alcohol Use History: None Reported Past Drug Use History: None Reported Plan - Discharge Summary New Discharge Prescriptions: Continue amLODIPine [Norvasc] 5 mg PO HS Isosorbide Mononitrate ER [Imdur] 60 mg PO DAILY Clopidogrel [Plavix] 75 mg PO DAILY Nitroglycerin Sl Tabs [Nitrostat] 0.4 mg SUBLINGUAL Q5M PRN #25 tab PRN Reason: Chest Pain Aspirin 325 mg PO DAILY Ascorbic Acid [Vitamin C] 500 mg PO DAILY Vits A,C,E/Lutein/Minerals [Ocuvite with Lutein Tablet] 1 tab PO BID Omeprazole 20 mg PO BID carvediloL [Coreg*] 25 mg PO AC-BID traZODone HCL 200 mg PO HS Furosemide [Lasix] 20 mg PO DAILY Citalopram Hydrobromide [Citalopram HBr] 20 mg PO DAILY Atorvastatin [Lipitor] 80 mg PO DAILY metFORMIN HCL [metFORMIN HCL ER Osmotic] 500 mg PO DAILY Discharge Medication List Clopidogrel [Plavix] 75 mg PO DAILY 12/10/14 [History] Isosorbide Mononitrate ER [Imdur] 60 mg PO DAILY 12/10/14 [History] amLODIPine [Norvasc] 5 mg PO HS 12/10/14 [History] Nitroglycerin Sl Tabs [Nitrostat] 0.4 mg SUBLINGUAL Q5M PRN #25 tab 06/29/18 [Rx] Ascorbic Acid [Vitamin C] 500 mg PO DAILY 10/18/20 [History] Aspirin 325 mg PO DAILY 10/18/20 [History] Omeprazole 20 mg PO BID 10/28/20 [History] Vits A,C,E/Lutein/Minerals [Ocuvite with Lutein Tablet] 1 tab PO BID 10/28/20 [History] traZODone HCL 200 mg PO HS 02/28/23 [History] Citalopram Hydrobromide [Citalopram HBr] 20 mg PO DAILY 06/11/24 [History] Furosemide [Lasix] 20 mg PO DAILY 06/11/24 [History] carvediloL [Coreg*] 25 mg PO AC-BID 06/11/24 [History] Atorvastatin [Lipitor] 80 mg PO DAILY 07/21/24 [History] metFORMIN HCL [metFORMIN HCL ER Osmotic] 500 mg PO DAILY 07/22/24 [History] Follow up Appointment(s)/Referral(s): Ramon Humphrey MD [STAFF PHYSICIAN] - 1-2 Days Edilberto Christianson MD [Primary Care Provider] - 1-2 days Patient Instructions/Handouts: Chest Pain (DC)
[2024-07-27 15:49] VITALS: BP 96/58; PULSE 64; TEMP 98.8
== END 2024-07-27 15:33 | disposition home or self-care (01) ==
LOC: EC 23:15 → 6NMEDSUR 07-26 02:28
PROVIDERS: ADMIT Hospitalist; ATTEND Hospitalist
DX: I25.110 Atherosclerotic heart disease of native coronary artery with unstable angina pectoris (principal); E11.51 Type 2 diabetes mellitus with diabetic peripheral angiopathy without gangrene; J44.9 Chronic obstructive pulmonary disease, unspecified; K21.9 Gastro-esophageal reflux disease without esophagitis; E78.5 Hyperlipidemia, unspecified; I10 Essential (primary) hypertension; G47.33 Obstructive sleep apnea (adult) (pediatric); F32.A Depression, unspecified; E03.9 Hypothyroidism, unspecified; E66.9 Obesity, unspecified; Z68.31 Body mass index [BMI] 31.0-31.9, adult; Z87.11 Personal history of peptic ulcer disease; Z87.891 Personal history of nicotine dependence; Z90.3 Acquired absence of stomach [part of]; Z95.5 Presence of coronary angioplasty implant and graft; Z95.820 Peripheral vascular angioplasty status with implants and grafts; Z79.02 Long term (current) use of antithrombotics/antiplatelets; Z79.899 Other long term (current) drug therapy; Z79.82 Long term (current) use of aspirin; Z79.84 Long term (current) use of oral hypoglycemic drugs; Z88.5 Allergy status to narcotic agent; Z82.49 Family history of ischemic heart disease and other diseases of the circulatory system
CPT/HCPCS: 80061; 84484; 85025; 85379; 85610; 85730; 93005; 96365; 96366; 96372; 96375; 96376; 99285

== ENCOUNTER 2024-07-29 07:57 | Day surgery (SDC) | payer MEDICARE ==
[2024-07-23 16:05] VITALS: BMI 32.5
[~2024-07-29 07:57] MED LIST changes: +ALPRAZolam 0.25 MG TAB PO PRN
[2024-07-29 08:23] LABS: Glucose,Whole Blood 127 mg/dL (70-110)
[2024-07-29] MEDS: SODIUM CHLORIDE 0.9% 1,000 ML in EMPTY BAG 1 BAG IV ONE (08:24)
[2024-07-29] MEDS: IV FLUID CONTINUATION 1,000 ML IV ONE (08:29)
[2024-07-29] MEDS ORDERED: HEPARIN SODIUM 1,000 UN/ML (10ML VL) ONE (10:57)
[2024-07-29] MEDS ORDERED: LIDOCAINE 1% INJ 10MG/ML (20 ML MDV) ONE (10:57)
[2024-07-29] MEDS ORDERED: fentaNYL (PF) 50 MCG/ML 2 ML AMP ONE (11:17)
[2024-07-29] MEDS ORDERED: niCARdipine 25 MG/10 ML VIAL ONE (11:28)
[2024-07-29] MEDS: MIDAZOLAM 2 MG/2 ML VIAL IVP ONE (11:31)
[2024-07-29] MEDS: fentaNYL (PF) 50 MCG/ML 2 ML AMP IVP ONE (11:32)
[2024-07-29] MEDS: LIDOCAINE 1% INJ 10MG/ML (20 ML MDV) SQ ONE (11:33)
[2024-07-29] MEDS: HEPARIN SODIUM 1,000 UN/ML (10ML VL) IV ONE (11:39)
[2024-07-29] MEDS: IOPAMIDOL-250 100ML BTL INTRAARTER ONE (12:35)
[2024-07-29] MEDS ORDERED: NITROGLYCERIN SL TABS 0.4 MG TAB SUBLINGUAL PRN (12:37)
[2024-07-29] MEDS ORDERED: CLOPIDOGREL 75 MG TAB ONE (12:38)
[2024-07-29] MEDS ORDERED: NALOXONE 0.4 MG/ML 1 ML VIAL IVP PRN (12:39)
[2024-07-29] MEDS: CLOPIDOGREL 75 MG TAB PO ONE (12:40)
[2024-07-29] MEDS: HEPARIN SODIUM (1,000 UNIT/ML) 1,000 UNIT in SODIUM CHLORIDE 0.9% 1,000 ML IRRIGATION ONE (12:41)
[2024-07-29] MEDS: HEPARIN SODIUM,PORCINE (1 ML) 2,500 UNIT in SODIUM CHLORIDE 0.9% 250 ML IRRIGATION ONE (12:41)
--- NOTE | 2024-07-29 12:46 | P.PCN ---
Date of Procedure: 07/29/24 Operative Findings: PERCUTANEOUS PERIPHERAL INTERVENTION Performing physician Ramon Humphrey M.D. Procedure performed 1. Successful balloon angioplasty of the left SFA with adjunctive use of atherectomy and IVUS 2. Gradient measurement across the left common femoral and left external iliac and left common iliac artery 3. Left lower extremity angiogram and right common femoral artery angiogram 4. Ultrasound-guided access of the right common femoral artery Indication Symptomatic 78-year-old female patient who is known to have occluded left SFA Approach Right common femoral artery Complications None Level of sedation Moderate with a sedation time of 60 minutes Procedure description After obtaining informed consent the patient was brought to cardiac [employer] Account Manager. The right common femoral artery was cannulated using micropuncture technique under ultrasound guidance a micropuncture wire passed easily then I placed a 6 Citizen [place] 50 cm sheath at the right common femoral artery with subsequently anticoagulation was initiated using heparin with continuous ACT monitoring. Then I did advance the sheath over an 035 stiff Glidewire and 5 [place] rim catheter to the left common femoral artery under fluoroscopic guidance. At that point left lower extremity angiogram was performed. Subsequently I was able to cross the METHODOLOGIST of the left SFA using a 035 stiff Glidewire with the backup support of 035 CXI catheter to be subsequently the wire was pulled out and injected contrast in the left popliteal to prove that I was in the true lumen. Subsequently I placed on a 1 4 wire I did intravascular ultrasound. After that I decided to do an atherectomy using the [place] device. So I placed a 018 wir e and I did atherectomy forward and backward using the device. Subsequently balloon angioplasty was performed using 6 mm balloon with a good angiographic result then 6 mm drug-coated balloon with final angiogram showing excellent angiographic results. There was a concern about the lesion in the left external and left common iliac artery and that came in to be somewhat concerning with a gradient across the left external iliac artery appeared 15 to 20 mm and across the left common iliac artery about 25 to 30 mm. The patient will be addressed for the need for HEAD TRIMMER. Subsequently I did exchange my long sheath into short sheath using 035 stiff Glidewire before I did selective right common femoral artery angiogram. The procedure was completed with no complication Conclusion Successful recanalizing chronically occluded left SFA Gradient appears to be significant across the left extremity and left common iliac artery appeared to be addressed Postprocedure management 1. Dual antiplatelet therapy 2. Aggressive cholesterol control 3. Risk factors modification 4. Follow-up with the patient
--- NOTE | 2024-07-29 13:55 | IR ---
EXAMINATION TYPE: IR field captain femoral popliteal DATE OF EXAM: 07/29/2024 COMPARISON: NONE HISTORY: Fluoroscopy time. Fluoroscopy was provided to the referring clinician.
[2024-07-29 15:44] VITALS: RESP 16
[2024-07-29] MEDS: SODIUM CHLORIDE 0.9% 1,000 ML in EMPTY BAG 1 BAG IV SCH (15:45)
[2024-07-29] MEDS: carvediloL 12.5 MG TAB PO SCH (16:41)
[2024-07-29] MEDS: PANTOPRAZOLE 40 MG TABLET PO SCH (16:41)
[2024-07-29 16:42] LABS: Glucose,Whole Blood 90 mg/dL (70-110)
[2024-07-29 20:20] LABS: Glucose,Whole Blood 153 mg/dL (70-110)
[2024-07-29] MEDS: traZODone HCL 100 MG TAB PO SCH (20:21)
[2024-07-29] MEDS: VIT A,C & E-LUTEIN-MINERALS 1 EACH TAB PO SCH (20:21)
[2024-07-29] MEDS: amLODIPine 5 MG TAB PO SCH (20:21)
[2024-07-30 03:54] VITALS: TEMP 97.9
[2024-07-30 05:39] LABS: Glucose,Whole Blood 130 mg/dL (70-110)
[2024-07-30 07:50] LABS: African American GFR (CKD) >90 (>60 ml/min/1.73 sqM); Non-African American GFR(CKD) >90 (>60 ml/min/1.73 sqM)
[2024-07-30] MEDS: ASPIRIN 325 MG TAB PO SCH (07:57)
[2024-07-30] MEDS: CITALOPRAM HYDROBROMIDE 20 MG TAB PO SCH (07:57)
[2024-07-30] MEDS: ISOSORBIDE MONONITRATE ER 60 MG TAB.ER.24H PO SCH (07:57)
[2024-07-30] MEDS: ASCORBIC ACID 500 MG TAB PO SCH (07:57)
[2024-07-30] MEDS: CLOPIDOGREL 75 MG TAB PO SCH (07:57)
[2024-07-30] MEDS: ATORVASTATIN 80 MG TAB PO SCH (07:57)
[2024-07-30] MEDS: FUROSEMIDE 20 MG TAB PO SCH (07:58)
[2024-07-30 08:02] VITALS: BP 153/86; PULSE 63
== END 2024-07-30 11:11 | disposition home or self-care (01) ==
LOC: CATHCVL 07:57 → 3SCARD 12:35 → CATHCVL 07-30 11:11
PROVIDERS: ATTEND Internal Medicine Interventional Cardiology
DX: I73.9 Peripheral vascular disease, unspecified
CPT/HCPCS: 37225; 37252; 82565

== ENCOUNTER 2024-08-27 08:51 | Emergency (ER) | payer MEDICARE ==
--- NOTE | 2024-08-27 09:20 | ED ---
General Adult HPI - General Stated complaint: Level 2 trauma/Fall Time Seen by Provider: 08/27/24 08:51 Source: patient, RN notes reviewed, old records reviewed - History of Present Illness Initial comments: This is a 78-year-old female who presents to the emergency department after having fallen and lost consciousness. Patient is on Xarelto. Patient went out to scare away some animals in her garbage and she fell forward she hit her head and lost consciousness she complains of some facial pain denies a headache at this time denies any numbness weakness. Patient denies any chest pain palpitation difficulty breathing or shortness of breath. Patient has any back pain. Patient does complain of left upper leg pain. Patient denies any neck pain - Related Data Home Medications Medication Instructions Recorded Confirmed Isosorbide Mononitrate ER [Imdur] 60 mg PO DAILY 12/10/14 07/29/24 amLODIPine [Norvasc] 5 mg PO HS 12/10/14 07/29/24 Ascorbic Acid [Vitamin C] 500 mg PO DAILY 10/18/20 07/29/24 Aspirin 325 mg PO DAILY 10/18/20 07/29/24 Omeprazole 20 mg PO BID 10/28/20 07/29/24 Vits A,C,E/Lutein/Minerals 1 tab PO BID 10/28/20 07/29/24 [Ocuvite with Lutein Tablet] traZODone HCL 200 mg PO HS 02/28/23 07/29/24 Citalopram Hydrobromide 20 mg PO DAILY 06/11/24 07/29/24 [Citalopram HBr] Furosemide [Lasix] 20 mg PO DAILY 06/11/24 07/29/24 carvediloL [Coreg*] 25 mg PO AC-BID 06/11/24 07/29/24 Atorvastatin [Lipitor] 80 mg PO DAILY 07/21/24 07/29/24 Previous Rx's Medication Instructions Recorded Nitroglycerin Sl Tabs [Nitrostat] 0.4 mg SUBLINGUAL Q5M PRN #25 tab 06/29/18 Rivaroxaban [Xarelto] 2.5 mg PO BID #180 tab 07/30/24 Allergies Allergy/AdvReac Type Severity Reaction Status Date / Time codeine AdvReac Severe Nausea & Verified 07/29/24 08:10 Vomiting Review of Systems ROS Statement: Those systems with pertinent positive or pertinent negative responses have been documented in the HPI. ROS Other: All systems not noted in ROS Statement are negative. Past Medical History Past Medical History: Coronary Artery Disease (CAD), Chest Pain / Angina, COPD, Diabetes Mellitus, GERD/Reflux, Hyperlipidemia, Hypertension, Osteoarthritis (OA), Sleep Apnea/CPAP/BIPAP, Thyroid Disorder, Vascular Disorder Additional Past Medical History / Comment(s): See Dr Humphrey's H&P. Hx bleeding peptic ulcer, duodenal ulcers, hyperthyroid chemically tx yrs ago, some decreased kidney function, "feels like a blockage in my throat", Type II DM, does not use CPAP, PAD, arterial blockages left arm, no BP's on left arm. History of Any Multi-Drug Resistant Organisms: None Reported Past Surgical History: Appendectomy, Cholecystectomy, Heart Catheterization With Stent, Hernia Repair Additional Past Surgical History / Comment(s): 4 cardiac stents, 1/2 stomach removed from ulcer, EGD/COLONOSCOPY, VAGOTOMY(to treat ulcers), HIATAL HERNIA REPAIR, ANGIOPLASTY, bilateral cataract surgery, left carpal tunnel surgery, right femoral popliteal angioplasty. Past Anesthesia/Blood Transfusion Reactions: No Reported Reaction Additional Past Anesthesia/Blood Transfusion Reaction / Comment(s): Has had blood transfusions w/ bleeding ulcer. Date of Last Stent Placement:: 2012 Past Psychological History: Depression Smoking Status: Former smoker Past Alcohol Use History: None Reported Past Drug Use History: None Reported - Past Family History Father Family Medical History: Myocardial Infarction (RI) Additional Family Medical History / Comment(s): Father at age 41yrs of RI. Mother Family Medical History: Cancer, Congestive Heart Failure (CHF) Additional Family Medical History / Comment(s): Mother at age 92yrs of CHF. Breast cancer. Brother(s) Family Medical History: Myocardial Infarction (RI) Additional Family Medical History / Comment(s): One brother of RI at age 55 yrs and another brother at age 67 of RI. Sister(s) Family Medical History: Myocardial Infarction (RI) Additional Family Medical History / Comment(s): Sister of RI at age 68 yrs. Daughter(s) Family Medical History: Cancer Additional Family Medical History / Comment(s): at age 52 from anal cancer. General Exam - General Exam Comments Initial Comments: GENERAL: Patient is well-developed and well-nourished. Patient is nontoxic and well-h ydrated and is in moderate distress. ENT: Neck is soft and supple. No significant lymphadenopathy is noted. Patient has epistaxis bilaterally. Oropharynx is clear. Moist mucous membranes. Patient's neck was kept immobile until she got her CAT scan she is not complaining of neck pain EYES: The sclera were anicteric and conjunctiva were pink and moist. Extraocular movements were intact and pupils were equal round and reactive to light. Eyelids were unremarkable. PULMONARY: Unlabored respirations. Good breath sounds bilaterally. No audible rales rhonchi or wheezing was noted. CARDIOVASCULAR: There is a regular rate and rhythm without any murmurs gallops or rubs. ABDOMEN: Soft and nontender with normal bowel sounds. SKIN: There is a small 0.5 cm laceration to the tip of the patient's nose NEUROLOGIC: Patient is alert and oriented x3. Cranial nerves II through XII are grossly intact. Motor and sensory are also intact. Normal speech, volume and content. Symmetrical smile. MUSCULOSKELETAL: Patient has pain in the left femur region LYMPHATICS: No significant lymphadenopathy is noted PSYCHIATRIC: Normal psychiatric evaluation. Course Vital Signs 08/27/24 08:51 Temperature 97.0 F L Pulse Rate 70 Respiratory 18 Rate Blood Pressure 181/116 O2 Sat by Pulse 98 Oximetry Procedures - Laceration Laceration #1 Consent Obtained: verbal consent Indication: laceration Site: other Size (cm): 1 Description: stellate Depth: simple, single layer Size of Sutures: other (Used Exofin to close the wound) Patient Tolerated Procedure: well Medical Decision Making - Medical Decision Making EKG is interpreted by myself read EKG shows sinus bradycardia 59 bpm NH 180 QRS is 92 QT interval is 437 QTc is 437. Patient's EKG shows no ST segment ovation or depression. Was pt. sent in by a medical professional or institution (, PA, PHOTORESIST PRINTER, urgent care, hospital, or senior living...) When possible be specific @ -[No] Did you speak to anyone other than the patient for history (EMS, parent, family, police, friend...)? What history was obtained from this source @ -I spoke with family who found the patient for the history of today's events Did you review nursing and triage notes (agree or disagree)? Why? @ -[I reviewed and agree with nursing and triage notes] Were old charts reviewed (outside hosp., previous admission, EMS record, old EKG, old radiological studies, urgent care reports/EKG's, senior living records)? Report findings @ -[No old charts were reviewed] Differential Diagnosis? @ -Subdural hematoma, epidural hematoma, subarachnoid hematoma, intraparenchymal hemorrhage, cervical spine fracture, skull fracture, facial bone fracture, this is not an all-inclusive list EKG interpreted by me (3pts min.). @ -[As above] X-rays interpreted by me (1pt min.). @ -X-ray of the chest shows no acute normality. X-ray of the pelvis shows no acute normality. X-ray of the femur shows no acute normality. X-ray of the right shoulder shows no acute abnormality. CT interpreted by me (1pt min.). @ -CT of the brain shows a small subdural. CT of the C-spine shows no acute abnormality. CT of the facial bones showed no acute normality. U/S interpreted by me (1pt. min.). @ -[None done] What testing was considered but not performed or refused? (CT, X-rays, U/S, labs)? Why? @ -[None] What meds were considered but not given or refused? Why? @ -[None] Did you discuss the management of the patient with other professionals (professionals i.e. , PA, PHOTORESIST PRINTER, lab, RT, psych nurse, certified social workers in health care, preschool education director, teacher, patrol community service officer, telephonic case manager)? Give summary @ -I spoke with [facility] Kemp and they agreed to accept the transfer of the patient for subdural hematoma Was smoking cessation discussed for >3mins.? @ -[No] Was critical care preformed (if so, how long)? @ -[No] Were there social determinants of health that impacted care today? How? (Homelessness, low income, unemployed, alcoholism, drug addiction, transportation, low edu. Level, literacy, decrease access to med. care, assisted, rehab)? @ -[No] Was there de-escalation of care discussed even if they declined (Discuss DNR or withdrawal of care, Hospice)? DNR status @ -[No] What co-morbidities impacted this encounter? (DM, HTN, Smoking, COPD, CAD, Cancer, CVA, ARF, Chemo, Hep., AIDS, mental health diagnosis, sleep apnea, morbid obesity)? @ -[None] Was patient admitted / discharged? Hospital course, mention meds given and route, prescriptions, significant lab abnormalities, going to OR and other pertinent info. @ -Patient was given Kefzol and tetanus in the emergency department. Patient was also given a fluid bolus as well as morphine and Zofran for pain and nausea. Undiagnosed new problem with uncertain prognosis? @ -[No] Drug Therapy requiring intensive monitoring for toxicity (Heparin, Nitro, Insulin, Cardizem)? @ -[No] Were any procedures done? @ -[No] Diagnosis/symptom? @ -Subdural hematoma Acute, or Chronic, or Acute on Chronic? @ -Acute Uncomplicated (without systemic symptoms) or Complicated (systemic symptoms)? @ -Complicated Side effects of treatment? @ -[No] Exacerbation, Progression, or Severe Exacerbation? @ -[No] Poses a threat to life or bodily function? How? (Chest pain, [place], [place], pneumonia, PE, COPD, DKA, ARF, appy, cholecystitis, CVA, Diverticulitis, Homicidal, Suicidal, threat to staff... and all critical care pts) @ -Yes if this expands it could cause Diagnosis/symptom? @ -Leg contusion Acute, or Chronic, or Acute on Chronic? @ -Acute Uncomplicated (without systemic symptoms) or Complicated (systemic symptoms)? @ -Uncomplicated Side effects of treatment? @ -[none] Exacerbation, Progression, or Severe Exacerbation] @ -[no] Poses a threat to life or bodily function? @ -[no] Diagnosis/symptom? @ -Nasal laceration Acute, or Chronic, or Acute on Chronic? @ -Acute Uncomplicated (without systemic symptoms) or Complicated (systemic symptoms)? @ -Uncomplicated Side effects of treatment? @ -[none] Exacerbation, Progression, or Severe Exacerbation] @ -[no] Poses a threat to life or bodily function? @ -[no] - Lab Data Result diagrams: 08/27/24 09:35 08/27/24 09:35 Lab Results 08/27/24 08/27/24 08/27/24 Range/Units 09:35 09:35 09:35 WBC 6.2 (3.8-10.6) k/uL RBC 4.10 (3.80-5.40) m/uL Hgb 11.9 (11.4-16.0) gm/dL Hct 37.5 (34.0-46.0) % MCV 91.5 (80.0-100.0) fL MCH 29.1 (25.0-35.0) pg MCHC 31.8 (31.0-37.0) g/dL RDW 13.7 (11.5-15.5) % Plt Count 189 (150-450) k/uL MPV 7.3 Neutrophils % 71 % Lymphocytes % 19 % Monocytes % 5 % Eosinophils % 2 % Basophils % 0 % Neutrophils # 4.4 (1.3-7.7) k/uL Lymphocytes # 1.2 (1.0-4.8) k/uL Monocytes # 0.3 (0-1.0) k/uL Eosinophils # 0.2 (0-0.7) k/uL Basophils # 0.0 (0-0.2) k/uL Hypochromasia Moderate PT 10.5 (10.0-12.5) sec INR 1.0 (<1.2) APTT 23.7 (22.0-30.0) sec Sodium 141 (137-145) mmol/L Potassium 4.5 (3.5-5.1) mmol/L Chloride 106 (98-107) mmol/L Carbon Dioxide 31 H (22-30) mmol/L Anion Gap 4 mmol/L BUN 20 H (7-17) mg/dL Creatinine 0.52 (0.52-1.04) mg/dL Est GFR (CKD-EPI)AfAm >90 (>60 ml/min/1.73 sqM) Est GFR (CKD-EPI)NonAf >90 (>60 ml/min/1.73 sqM) Glucose 143 H (74-99) mg/dL Calcium 9.1 (8.4-10.2) mg/dL Total Bilirubin 0.3 (0.2-1.3) mg/dL AST 28 (14-36) U/L ALT 24 (4-34) U/L Alkaline Phosphatase 125 (38-126) U/L Troponin I (0.000-0.034) ng/mL Total Protein 6.6 (6.3-8.2) g/dL Albumin 3.8 (3.5-5.0) g/dL Serum Alcohol <10 mg/dL 08/27/24 Range/Units 09:35 WBC (3.8-10.6) k/uL RBC (3.80-5.40) m/uL Hgb (11.4-16.0) gm/dL Hct (34.0-46.0) % MCV (80.0-100.0) fL MCH (25.0-35.0) pg MCHC (31.0-37.0) g/dL RDW (11.5-15.5) % Plt Count (150-450) k/uL MPV Neutrophils % % Lymphocytes % % Monocytes % % Eosinophils % % Basophils % % Neutrophils # (1.3-7.7) k/uL Lymphocytes # (1.0-4.8) k/uL Monocytes # (0-1.0) k/uL Eosinophils # (0-0.7) k/uL Basophils # (0-0.2) k/uL Hypochromasia PT (10.0-12.5) sec INR (<1.2) APTT (22.0-30.0) sec Sodium (137-145) mmol/L Potassium (3.5-5.1) mmol/L Chloride (98-107) mmol/L Carbon Dioxide (22-30) mmol/L Anion Gap mmol/L BUN (7-17) mg/dL Creatinine (0.52-1.04) mg/dL Est GFR (CKD-EPI)AfAm (>60 ml/min/1.73 sqM) Est GFR (CKD-EPI)NonAf (>60 ml/min/1.73 sqM) Glucose (74-99) mg/dL Calcium (8.4-10.2) mg/dL Total Bilirubin (0.2-1.3) mg/dL AST (14-36) U/L ALT (4-34) U/L Alkaline Phosphatase (38-126) U/L Troponin I <0.012 (0.000-0.034) ng/mL Total Protein (6.3-8.2) g/dL Albumin (3.5-5.0) g/dL Serum Alcohol mg/dL Critical Care Time Critical Care Time: Yes Total Critical Care Time: 35 Disposition Clinical Impression: Subdural hematoma, Laceration of nose, Contusion of leg, left Disposition: OTHER INSTITUTION NOT DEFINED Referrals: Edilberto Christianson MD [Primary Care Provider] - 1-2 days Time of Disposition: 10:24 - Out of Hospital Transfer - Req. Specs Out of Hospital Transfer - Requested Specifics: Other Emergency Center ([facility])
[2024-08-27 09:21] VITALS: BP 181/116; PULSE 70; RESP 18; TEMP 97
[2024-08-27] MEDS: SODIUM CHLORIDE 0.9% 500 ML 500 ML IV STA (09:24)
[2024-08-27] MEDS: DIPH,PERTUS(ACELL)TETVAC-LF 0.5 ML VIAL IM ONE (09:28)
[2024-08-27 09:41] LABS: Basophils % (A) 0 %; Eosinophils # (A) 0.2 k/uL (0-0.7); Eosinophils % (A) 2 %; HCT 37.5 % (34.0-46.0); HGB 11.9 gm/dL (11.4-16.0); Hypochromasia Moderate; Lymphocytes # (A) 1.2 k/uL (1.0-4.8); Lymphocytes % (A) 19 %; MCH 29.1 pg (25.0-35.0); MCHC 31.8 g/dL (31.0-37.0); MCV 91.5 fL (80.0-100.0); Mean Platelet Volume 7.3; Monocytes # (A) 0.3 k/uL (0-1.0); Monocytes % (A) 5 %; Neutrophils # (A) 4.4 k/uL (1.3-7.7); Neutrophils % (A) 71 %; Platelet Count 189 k/uL (150-450); RDW 13.7 % (11.5-15.5); WBC 6.2 k/uL (3.8-10.6)
--- NOTE | 2024-08-27 09:45 | CT ---
EXAMINATION TYPE: CT brain jessicaine wo con DATE OF EXAM: 08/27/2024 COMPARISON: None HISTORY: Trauma, Fall face forward on thinners CT DLP: 1306.[address] of the brain was performed. The ventricles, basal cisterns and sulci overlying the cerebral convexities demonstrate mild enlargem ent. There is subtle increased attenuation anterior interhemispheric fissure seen best on images 29 and 28 axial data set and coronal image 22. Small subdural hematoma is not excluded. Interhemispheric lipoma noted on axial image 33 measuring 5 mm. There is decreased attenuation about the periventricular white matter and deep white matter of both c erebral hemispheres, compatible with chronic small vessel ischemia. No mass effects are seen. If symptoms persist consider MRI. Osseous calvarium is intact. IMPRESSION: 1. There is subtle increased attenuation anterior interhemispheric fissure seen best on images 29 an d 28 axial data set and coronal image 22. Small subdural hematoma is not excluded. CT Cervical Spine: Unenhanced CT of the cervical spine was performed with bone and soft tissue window settings submitted . Coronal and sagittal reconstruction is obtained. There is normal alignment and prevertebral soft tissues. No evidence for acute cervical fracture . Scattered degenerative disc disease and spondylosis. Biapical scarring. IMPRESSION: 1. No evidence for acute fracture or subluxation of the cervical spine. [facility], , 08/27/2024 9:42 AM
[2024-08-27] MEDS: ONDANSETRON 4 MG/2 ML VIAL IVP STA (09:47)
--- NOTE | 2024-08-27 09:48 | CT ---
EXAMINATION TYPE: CT facial bones wo con DATE OF EXAM: 08/27/2024 COMPARISON: None HISTORY: Fall face forward on thinners CT DLP: 1306.[address] of the facial bones was performed in the axial and coronal planes. Bone and soft tissu e window settings are submitted. Nasal soft tissue swelling. I do not see evidence for displaced facial bone fracture or depressed facial bone fracture. The globes are intact. Paranasal sinuses are well-aerated. IMPRESSION: 1. No evidence for depressed or displaced facial bone fracture. [facility], , 08/27/2024 9:45 AM
--- NOTE | 2024-08-27 09:49 | XR ---
EXAMINATION TYPE: XR pelvis AP view DATE OF EXAM: 08/27/2024 CLINICAL HISTORY: pain TECHNIQUE: Single view the pelvis is submitted. FINDINGS: No evidence for fracture, dislocation or bony lesion. Joint spaces are moderately to ceci rely narrowed.. SI joints appear symmetric. Left SFA stent. IMPRESSION: 1. No acute fracture or dislocation seen. ICD 10 NO FRACTURE, INITIAL EVALUATION [facility], , 08/27/2024 9:47 AM
--- NOTE | 2024-08-27 09:51 | XR ---
EXAMINATION TYPE: XR chest 1V portable DATE OF EXAM: 08/27/2024 HISTORY: Shortness of breath. COMPARISON: 01/28/2015 TECHNIQUE: Single view of the chest is submitted. FINDINGS: Demonstrated are scattered senescent parenchymal change. There is no evidence for focal infiltrate. The heart is stable. Hilar and mediastinal structures are within normal limits. Degenerative changes are seen of the dorsal spine. IMPRESSION: 1. Chronic changes without evidence for acute pulmonary disease. [facility], , 08/27/2024 9:49 AM
[2024-08-27 09:55] LABS: ALT 24 U/L (4-34); AST 28 U/L (14-36); African American GFR (CKD) >90 (>60 ml/min/1.73 sqM); Albumin 3.8 g/dL (3.5-5.0); Alcohol <10 mg/dL; Alkaline Phosphatase 125 U/L (38-126); Anion Gap 4 mmol/L; Blood Urea Nitrogen 20 mg/dL (7-17); Calcium 9.1 mg/dL (8.4-10.2); Carbon Dioxide 31 mmol/L (22-30); Chloride 106 mmol/L (98-107); Glucose 143 mg/dL (74-99); Non-African American GFR(CKD) >90 (>60 ml/min/1.73 sqM); Potassium 4.5 mmol/L (3.5-5.1); Sodium 141 mmol/L (137-145); Total Bilirubin 0.3 mg/dL (0.2-1.3); Total Protein 6.6 g/dL (6.3-8.2)
[2024-08-27 09:57] LABS: Partial Thromboplastin Time 23.7 sec (22.0-30.0); Prothrombin Time 10.5 sec (10.0-12.5)
[2024-08-27] MEDS: MORPHINE SULFATE 2 MG/ML SYRINGE IVP STA ×2 (10:08→10:18)
[2024-08-27] MEDS: MORPHINE SULFATE 4 MG/ML SYRINGE IVP STA (10:09)
--- NOTE | 2024-08-27 10:18 | XR ---
EXAMINATION TYPE: XR femur LT DATE OF EXAM: 08/27/2024 10:09 AM CLINICAL INDICATION: Female, 78 years old with history of Trauma; [facility] COMPARISON: Pelvis radiograph same day. TECHNIQUE: XR femur LT examined in Frontal and lateral projections. FINDINGS: End-stage degeneration changes left hip with joint space narrowing osteophyte formation. Th ere is persistent present throughout the leg. The knee demonstrates mild to moderate degeneration wit h joint space narrowing and osteophyte formation. No evidence of fracture. IMPRESSION: 1. No evidence of fracture. 2. End-stage left hip an mild to moderate left knee osteoarthrosis with joint space narrowing osteop hyte formation. [facility], , 08/27/2024 10:16 AM
--- NOTE | 2024-08-27 10:19 | XR ---
EXAMINATION TYPE: XR shoulder complete RT DATE OF EXAM: 08/27/2024 10:09 AM CLINICAL INDICATION: Female, 78 years old with history of pain; [facility] COMPARISON: None TECHNIQUE: XR shoulder complete RT; examined in AP, internally rotated and scapular Y projections. FINDINGS: No evidence of acute osseous pathology, joint dislocation, or soft tissue swelling. The remaining po rtions of the visualized chest are unremarkable. Degeneration changes of the acromion, distal clavic le with osteophyte formation. There is osteophyte formation of the glenoid and humeral head. There is joint space narrowing of glenohumeral joint. IMPRESSION: 1. No acute osseous pathology. 2. Moderate shoulder osteoarthrosis. [facility], , 08/27/2024 10:16 AM
[2024-08-27] MEDS: TOPICAL SKIN ADHESIVE 1 EACH AMP TOPICAL ONE (10:26)
[2024-08-28 06:59] LABS: Glucose,Whole Blood 150 mg/dL (70-110)
== END 2024-08-27 10:32 | disposition other institution (70) ==
LOC: EC 08:51
CPT/HCPCS: 12011; 36415; 70450; 70486; 71045; 72125; 72170; 80053; 80320; 84484; 85025; 85610; 85730; 86850; 86900; 86901; 90471; 90715; 93005; 96365; 96375; 99291

== ENCOUNTER 2024-10-03 11:18 | Observation (INO) | payer MEDICARE ==
--- NOTE | 2024-10-03 11:48 | ED ---
Dizziness HPI - General Source: patient, RN notes reviewed Mode of arrival: EMS Limitations: no limitations - History of Present Illness MD Complaint: dizziness Onset/Timin -: hour(s) Timing: sudden onset History of Trauma: No <Valentin Falk - Last Filed: 10/03/24 11:44> <Loc Lewis - Last Filed: 10/03/24 15:41> - General Chief Complaint: Dizziness Stated Complaint: vertigo Time Seen by Provider: 10/03/24 11:35 - History of Present Illness Initial Comments: Quick note: This is a 78-year-old female with history of CVA, CAD and DM presenting with sudden onset dizziness since this morning. Patient states dizziness is constant with associated pressure-like headache. Patient also mentions some chest pain and shortness of breath. States she was shaking un controllably for 10 minutes before spontaneous resolution this morning as well. Patient states she had an edible last night. Patient endorses recent hemorrhagic stroke on August 28, 2024 with residual right side hemiplegia. Patient denies fever, chills, abdominal pain, N/V/D. (Valentin Falk) Dictation was produced using [employer] dictation software. please excuse any gram matical, word or spelling errors. Chief Complaint: 78-year-old female with dizziness and altered mental status History of Present Illness: Patient 78-year-old female she presents with family. She has family at the bedside helps providing history of present illness. She had a edible at around 1 AM last night. She frequently has edibles not quite every day but almost every 2 to 3 days. After having had edible she started to feel dizziness. Family was notified that patient was having dizziness and altered mental status. Family states that patient was going in and out of consciousness. Family is concerned that this is a stroke and not just resolved of having an edible. Complains of mild headache. She has normal headaches like this. The ROS documented in this emergency department record has been reviewed and confirmed by me. Those systems with pertinent positive or negative responses have been documented in the HPI. All other systems are other negative and/or noncontributory. (Loc Lewis) - Related Data Home Medications Medication Instructions Recorded Confirmed Isosorbide Mononitrate ER [Imdur] 60 mg PO DAILY 12/10/14 10/03/24 amLODIPine [Norvasc] 5 mg PO HS 12/10/14 10/03/24 Ascorbic Acid [Vitamin C] 500 mg PO DAILY 10/18/20 10/03/24 Aspirin 325 mg PO DAILY 10/18/20 10/03/24 Vits A,C,E/Lutein/Minerals 1 tab PO BID 10/28/20 10/03/24 [Ocuvite with Lutein Tablet] traZODone HCL 200 mg PO HS 02/28/23 10/03/24 Citalopram Hydrobromide 20 mg PO DAILY 06/11/24 10/03/24 [Citalopram HBr] Furosemide [Lasix] 20 mg PO DAILY 06/11/24 10/03/24 Atorvastatin [Lipitor] 80 mg PO HS 07/21/24 10/03/24 carvediloL [Coreg] 25 mg PO BID 10/03/24 10/03/24 metFORMIN HCL 500 mg PO DAILY 10/03/24 10/03/24 traMADol HCL 50 mg PO Q6H PRN MDD 8 TABS 10/03/24 10/03/24 Previous Rx's Medication Instructions Recorded Nitroglycerin Sl Tabs [Nitrostat] 0.4 mg SUBLINGUAL Q5M PRN #25 tab 06/29/18 Rivaroxaban [Xarelto] 2.5 mg PO BID #180 tab 07/30/24 Allergies Allergy/AdvReac Type Severity Reaction Status Date / Time codeine AdvReac Severe Nausea & Verified 10/03/24 13:40 Vomiting Review of Systems ROS Other: All systems not noted in ROS Statement are negative. <Valentin Falk - Last Filed: 10/03/24 11:44> ROS Other: All systems not noted in ROS Statement are negative. <Loc Lewis - Last Filed: 10/03/24 15:41> ROS Statement: Those systems with pertinent positive or pertinent negative responses have been documented in the HPI. Past Medical History Past Medical History: Coronary Artery Disease (CAD), Chest Pain / Angina, COPD, Diabetes Mellitus, GERD/Reflux, Hyperlipidemia, Hypertension, Osteoarthritis (OA), Sleep Apnea/CPAP/BIPAP, Thyroid Disorder, Vascular Disorder Additional Past Medical History / Comment(s): See Dr Humphrey's H&P. Hx bleeding peptic ulcer, duodenal ulcers, hyperthyroid chemically tx yrs ago, some decreased kidney function, "feels like a blockage in my throat", Type II DM, does not use CPAP, PAD, arterial blockages left arm, no BP's on left arm. History of Any Multi-Drug Resistant Organisms: None Reported Past Surgical History: Appendectomy, Cholecystectomy, Heart Catheterization With Stent, Hernia Repair Additional Past Surgical History / Comment(s): 4 cardiac stents, 1/2 stomach removed from ulcer, EGD/COLONOSCOPY, VAGOTOMY(to treat ulcers), HIATAL HERNIA REPAIR, ANGIOPLASTY, bilateral cataract surgery, left carpal tunnel surgery, right femoral popliteal angioplasty. Past Anesthesia/Blood Transfusion Reactions: No Reported Reaction Additional Past Anesthesia/Blood Transfusion Reaction / Comment(s): Has had blood transfusions w/ bleeding ulcer. Date of Last Stent Placement:: 2012 Past Psychological History: Depression Smoking Status: Former smoker Past Alcohol Use History: None Reported Past Drug Use History: None Reported - Past Family History Father Family Medical History: Myocardial Infarction (MO) Additional Family Medical History / Comment(s): Father at age 41yrs of MO. Mother Family Medical History: Cancer, Congestive Heart Failure (CHF) Additional Family Medical History / Comment(s): Mother at age 92yrs of CHF. Breast cancer. Brother(s) Family Medical History: Myocardial Infarction ([place]) Additional Family Medical History / Comment(s): One brother of MO at age 55 yrs and another brother at age 67 of MO. Sister(s) Family Medical History: Myocardial Infarction ([place]) Additional Family Medical History / Comment(s): Sister of MO at age 68 yrs. Daughter(s) Family Medical History: Cancer Additional Family Medical History / Comment(s): at age 52 from anal cancer. <Valentin Falk - Last Filed: 10/03/24 11:44> General Exam Limitations: no limitations <Valentin Falk - Last Filed: 10/03/24 11:44> <Loc Lewis - Last Filed: 10/03/24 15:41> - General Exam Comments Initial Comments: Visual Physical Exam Vital signs reviewed General: Well-appearing, nontoxic, no acute distress. Patient seated in wheelchair Head: Normocephalic, atraumatic Eyes: PERRLA, EOMI ENT: Airway patent Chest: Nonlabored breathing Skin: No visual rash, normal skin tone Neuro: Alert and oriented 3. [place] stroke was negative Musculoskeletal: No gross abnormalities (Valentin Falk) PHYSICAL EXAM: General Impression: Alert and oriented x3, not in acute distress HEENT: Normocephalic atraumatic, extra-ocular movements intact, pupils equal and reactive to light bilaterally, mucous membranes moist. Cardiovascular: Heart regular rate and rhythm Chest: Able to complete full sentences, no retractions, no tachypnea Abdomen: abdomen soft, non-tender, non-distended, no organomegaly Musculoskeletal: Pulses present and equal in all extremities, no peripheral edema Motor: no focal deficits noted Neurological: CN II-XII grossly intact, no focal motor or sensory deficits noted, right beating nystagmusto the right Skin: Intact with no visualized rashes Psych: Normal affect and mood (Loc Lewis) Course Vital Signs 10/03/24 10/03/24 10/03/24 11:32 12:48 15:00 Temperature 98.5 F 98.0 F 98 F Pulse Rate 54 L 53 L 54 L Respiratory 20 18 18 Rate Blood Pressure 104/64 130/77 144/60 O2 Sat by Pulse 96 96 95 Oximetry EKG Findings - EKG Comments: EKG Findings:: My EKG interpretation: Ventricular rate 55, sinus bradycardia, DC interval 189, QRS 86, QTc 440. No DC prolongation, no QTC prolongation, no ST or T-wave changes noted. Overall, this EKG is unremarkable <Loc Lewis - Last Filed: 10/03/24 15:41> Medical Decision Making <Valentin Falk - Last Filed: 10/03/24 11:44> - Lab Data Result diagrams: 10/03/24 13:06 10/03/24 13:06 <Loc Lewis - Last Filed: 10/03/24 15:41> - Medical Decision Making I completed the quick note portion of this chart signed NAVI Mcdowell (Valentin Falk) Was pt. sent in by a medical professional or institution (JENNY Ruvalcaba, [employer], urgent care, hospital, or senior care...) When possible be specific @ -No Did you speak to anyone other than the patient for history (EMS, parent, family, police, friend...)? What history was obtained from this source @ -No Did you review nursing and triage notes (agree or disagree)? Why? @ -I reviewed and agree with nursing and triage notes Were old charts reviewed (outside hosp., previous admission, EMS record, old EKG, old radiological studies, urgent care reports/EKG's, senior care records)? Report findings @ -No old charts were reviewed Differential Diagnosis (chest pain, altered mental status, abdominal pain women, abdominal pain men, vaginal bleeding, musculoskeletal, weakness, fever, dyspnea, syncope, headache, dizziness, GI bleed, back pain, seizure, CVA, palpatations, mental health)? @ -Differential Dizziness: Benign paroxysmal positional Vertigo, Meniere's disease, otitis media, acoustic neuroma, vertebrobasilar insufficiency, cerebellar stroke, encephalitis, hypovolemic, arrhythmia, coronary artery syndrome, anemia, this is not meant to be an all-inclusive list EKG interpreted by me (3pts min.). @ -Above X-rays interpreted by me (1pt min.). @ -Chest x-ray shows no acute processes CT interpreted by me (1pt min.). @ -CT brain CT angiography shows no acute processes U/S interpreted by me (1pt. min.). @ -None done What testing was considered but not performed or refused? (CT, X-rays, U/S, labs)? Why? @ -None What meds were considered but not given or refused? Why? @ -None Was smoking cessation discussed for >3mins.? @ -No Were there social determinants of health that impacted care today? How? (Homelessness, low income, unemployed, alcoholism, drug addiction, transportation, low edu. Level, literacy, decrease access to med. care, intermediate, rehab)? @ -No Was there de-escalation of care discussed even if they declined (Discuss DNR or withdrawal of care, Hospice)? DNR status @ -No What co-morbidities impacted this encounter? (DM, HTN, Smoking, COPD, CAD, Cancer, CVA, ARF, Chemo, Hep., AIDS, mental health diagnosis, sleep apnea, morbid obesity)? @ -None Was patient admitted / discharged? Hospital course, mention meds given and route, prescriptions, significant lab abnormalities, going to OR and other pertinent info. @ -78-year-old female presents to the emergency department with complaints of dizziness and mild headache. She has a history of migraines. Vital signs upon arrival are within acceptable limits. Patient does not have any symptoms to support the diagnosis of benign vertigo. States that she has constant dizziness. Studies are negative. Unremarkable. At this point there is concern of posterior CVA versus [employer] process causing dizziness. Patient given aspirin will be admitted consultation to neurology. Case discussed with hospitalist for admission Did you discuss the management of the patient with other professionals (professionals i.e. , PA, [employer], lab, RT, psych nurse, social sciences lecturer, weight reducing technician, teacher, drug abuse resistance education officer, manager case)? Give summary @ -See above Was critical care preformed (if so, how long)? @ -No Undiagnosed new problem with uncertain prognosis? @ -No Drug Therapy requiring intensive monitoring for toxicity (Heparin, Nitro, Insulin, Cardizem)? @ -No Were any procedures done? @ -No Diagnosis/symptom? Acute, or Chronic, or Acute on Chronic? Uncomplicated (without systemic symptoms) or Complicated (systemic symptoms)? @ -Dizziness Side effects of treatment? @ -No Exacerbation, Progression, or Severe Exacerbation? @ -No Poses a threat to life or bodily function? How? (Chest pain, [place], [place], pneumonia, PE, COPD, DKA, ARF, appy, cholecystitis, CVA, Diverticulitis, Homicidal, Suicidal, threat to staff... and all critical care pts) @ -Yes (Loc Lewis) - Lab Data Lab Results 10/03/24 10/03/24 10/03/24 Range/Units 13:06 13:06 13:06 WBC 5.3 (3.8-10.6) k/uL RBC 4.12 (3.80-5.40) m/uL Hgb 11.8 (11.4-16.0) gm/dL Hct 37.7 (34.0-46.0) % MCV 91.5 (80.0-100.0) fL MCH 28.6 (25.0-35.0) pg MCHC 31.2 (31.0-37.0) g/dL RDW 15.0 (11.5-15.5) % Plt Count 199 (150-450) k/uL MPV 7.5 Neutrophils % 69 % Lymphocytes % 22 % Monocytes % 5 % Eosinophils % 2 % Basophils % 0 % Neutrophils # 3.7 (1.3-7.7) k/uL Lymphocytes # 1.2 (1.0-4.8) k/uL Monocytes # 0.2 (0-1.0) k/uL Eosinophils # 0.1 (0-0.7) k/uL Basophils # 0.0 (0-0.2) k/uL Hypochromasia Slight PT 11.2 (10.0-12.5) sec INR 1.0 (<1.2) Sodium 141 (137-145) mmol/L Potassium 4.5 (3.5-5.1) mmol/L Chloride 105 (98-107) mmol/L Carbon Dioxide 33 H (22-30) mmol/L Anion Gap 3 mmol/L BUN 17 (7-17) mg/dL Creatinine 0.55 (0.52-1.04) mg/dL Est GFR (CKD-EPI)AfAm >90 (>60 ml/min/1.73 sqM) Est GFR (CKD-EPI)NonAf >90 (>60 ml/min/1.73 sqM) Glucose 143 H (74-99) mg/dL Calcium 8.8 (8.4-10.2) mg/dL Total Bilirubin 0.2 (0.2-1.3) mg/dL AST 22 (14-36) U/L ALT 25 (4-34) U/L Alkaline Phosphatase 126 (38-126) U/L Troponin I (0.000-0.034) ng/mL Total Protein 6.5 (6.3-8.2) g/dL Albumin 3.7 (3.5-5.0) g/dL 10/03/24 Range/Units 13:06 WBC (3.8-10.6) k/uL RBC (3.80-5.40) m/uL Hgb (11.4-16.0) gm/dL Hct (34.0-46.0) % MCV (80.0-100.0) fL MCH (25.0-35.0) pg MCHC (31.0-37.0) g/dL RDW (11.5-15.5) % Plt Count (150-450) k/uL MPV Neutrophils % % Lymphocytes % % Monocytes % % Eosinophils % % Basophils % % Neutrophils # (1.3-7.7) k/uL Lymphocytes # (1.0-4.8) k/uL Monocytes # (0-1.0) k/uL Eosinophils # (0-0.7) k/uL Basophils # (0-0.2) k/uL Hypochromasia PT (10.0-12.5) sec INR (<1.2) Sodium (137-145) mmol/L Potassium (3.5-5.1) mmol/L Chloride (98-107) mmol/L Carbon Dioxide (22-30) mmol/L Anion Gap mmol/L BUN (7-17) mg/dL Creatinine (0.52-1.04) mg/dL Est GFR (CKD-EPI)AfAm (>60 ml/min/1.73 sqM) Est GFR (CKD-EPI)NonAf (>60 ml/min/1.73 sqM) Glucose (74-99) mg/dL Calcium (8.4-10.2) mg/dL Total Bilirubin (0.2-1.3) mg/dL AST (14-36) U/L ALT (4-34) U/L Alkaline Phosphatase (38-126) U/L Troponin I <0.012 (0.000-0.034) ng/mL Total Protein (6.3-8.2) g/dL Albumin (3.5-5.0) g/dL Disposition <Valentin Falk - Last Filed: 10/03/24 11:44> Decision Time: 15:41 <Loc Lewis - Last Filed: 10/03/24 15:41> Clinical Impression: Dizziness Disposition: ADMITTED IP TO THIS [facility] Condition: Fair Referrals: Edilberto Christianson MD [Primary Care Provider] - 1-2 days
[2024-10-03] MEDS: MECLIZINE 12.5 MG TAB PO STA (12:58)
[2024-10-03 13:22] LABS: Prothrombin Time 11.2 sec (10.0-12.5)
[2024-10-03] MEDS: METOCLOPRAMIDE 5 MG/ML 2 ML VIAL IVP STA (13:24)
[2024-10-03 13:28] LABS: ALT 25 U/L (4-34); AST 22 U/L (14-36); African American GFR (CKD) >90 (>60 ml/min/1.73 sqM); Albumin 3.7 g/dL (3.5-5.0); Alkaline Phosphatase 126 U/L (38-126); Anion Gap 3 mmol/L; Blood Urea Nitrogen 17 mg/dL (7-17); Calcium 8.8 mg/dL (8.4-10.2); Carbon Dioxide 33 mmol/L (22-30); Chloride 105 mmol/L (98-107); Glucose 143 mg/dL (74-99); Non-African American GFR(CKD) >90 (>60 ml/min/1.73 sqM); Potassium 4.5 mmol/L (3.5-5.1); Sodium 141 mmol/L (137-145); Total Bilirubin 0.2 mg/dL (0.2-1.3); Total Protein 6.5 g/dL (6.3-8.2)
[2024-10-03 13:36] LABS: Basophils % (A) 0 %; Eosinophils # (A) 0.1 k/uL (0-0.7); Eosinophils % (A) 2 %; HCT 37.7 % (34.0-46.0); HGB 11.8 gm/dL (11.4-16.0); Hypochromasia Slight; Lymphocytes # (A) 1.2 k/uL (1.0-4.8); Lymphocytes % (A) 22 %; MCH 28.6 pg (25.0-35.0); MCHC 31.2 g/dL (31.0-37.0); MCV 91.5 fL (80.0-100.0); Mean Platelet Volume 7.5; Monocytes # (A) 0.2 k/uL (0-1.0); Monocytes % (A) 5 %; Neutrophils # (A) 3.7 k/uL (1.3-7.7); Neutrophils % (A) 69 %; Platelet Count 199 k/uL (150-450); RBC 4.12 m/uL (3.80-5.40); WBC 5.3 k/uL (3.8-10.6)
--- NOTE | 2024-10-03 14:50 | XR ---
EXAMINATION TYPE: XR chest 2V DATE OF EXAM: 10/03/2024 2:45 PM COMPARISON: Previous chest radiographs, most recently dated 08/27/2024 CLINICAL INDICATION: Female, 78 years old with history of Dizziness, chest pain; [facility] TECHNIQUE: XR chest 2V Frontal and lateral views of the chest. FINDINGS: Cardiomegaly, stable from prior studies. Minimal mid left lung scar/atelectasis. Otherwise, no acute focal consolidation. No sizable pleural effusion. No appreciable pneumothorax. No acute osseous mallet. IMPRESSION: No acute abnormality in the chest. [facility], , 10/03/2024 2:48 PM
--- NOTE | 2024-10-03 14:55 | CT ---
EXAMINATION TYPE: CT brain wo con DATE OF EXAM: 10/03/2024 2:34 PM COMPARISON: Previous CT study dated 08/27/2003 4. CLINICAL INDICATION: Female, 78 years old with history of Dizziness, headache and dizziness TECHNIQUE: Brain: Axial CT images of the brain were obtained with coronal and sagittal reformats created and rev iewed. Contrast used: None. Oral contrast used: None. CT DLP: 1147.1 mGycm, Automated exposure control for dose reduction was used. FINDINGS: Brain: No acute intracranial hemorrhage, midline shift or single view mass effect. Ventricles and sulci are within normal limits. Basal cisterns appear patent. [place]-white matter differentiation appears acutely preserved. No sizable extra-axial fluid collection. Mild patchy periventricular and subcortical whit e matter hypoattenuation likely reflecting chronic microvascular ischemic disease. Likely previous ca taract lens extraction noted. Mastoid air cells and paranasal sinuses are clear. IMPRESSION: No acute intracranial process. [facility], , 10/03/2024 2:53 PM
[2024-10-03] MEDS: LIDOCAINE 4% PATCH TOPICAL ONE (15:01)
--- NOTE | 2024-10-03 15:28 | CT ---
EXAMINATION TYPE: CT angio head neck DATE OF EXAM: 10/03/2024 2:51 PM COMPARISON: Previous CT study dated 08/27/2024.. CLINICAL INDICATION: Female, 78 years old with history of Sudden onset dizziness, history of CVA; PHH , headache and dizziness TECHNIQUE: Axially acquired helical CT angiogram of the head and neck was obtained with contrast. Axi al images are supplemented with 3D reconstructions and MIP images which were post-processed at an in dependent workstation. NASCET criteria used. Contrast used:65cc mL of Isovue 370 with IV Contrast, Oral contrast used: None. CT DLP: 475.1 mGycm, Automated exposure control for dose reduction was used. FINDINGS: CTA HEAD: No evidence of acute intracranial hemorrhage, mass effect, or midline shift. The ventricles, sulci, a nd cisterns are unremarkable. Vertebral arteries: The vertebral arteries are patent. Vertebral artery dominance: Left Basilar artery: The basilar artery is intact. The basilar artery bifurcation is normal. Internal Carotid arteries: The cervical, petrous, cavernous and supraclinoid segments are without alverto w-limiting stenosis. MILVIA: Patent with no evidence of aneurysm. ACOM: Present without evidence of aneurysm. MCA: Patent with no evidence of aneurysm. NURSING OFFICER: Patent with no evidence of aneurysm. PCOM: Present on the right and patent. Dural sinuses: Patent. CTA NECK: Right Carotid System: The common carotid artery and external carotid artery are patent. The carotid bifurcation demonstrate s no evidence of hemodynamically significant stenosis. There is approximately 60-70% stenosis of the superior right extracranial internal carotid artery due to calcified atherosclerotic plaque (axial im ages 78). The remaining portions of the internal carotid artery demonstrate normal size without signi ficant narrowing. Left Carotid System: The common carotid artery and external carotid artery are patent. The carotid bifurcation demonstrate s no evidence of hemodynamically significant stenosis. The remaining portions of the internal carotid artery demonstrate normal size without significant narrowing. Vertebral arteries are patent without evidence hemodynamically significant stenosis. There is a common origin of the brachiocephalic and left common carotid artery. There is moderate antonietta nosis of the left common carotid and left subclavian artery origin due to calcific plaque. The origin s of the great vessels are patent. No evidence of hemodynamically significant stenosis. Upper thorax: No acute pathology. IMPRESSION: 1. No evidence of dissection of the cervical internal carotid arteries or vertebral arteries. 2. No any evidence of significant stenosis at the carotid bifurcations. 3. No evidence of intracranial high-grade stenosis or intracranial aneurysm. [facility], , 10/03/2024 3:26 PM
[2024-10-03] MEDS ORDERED: NALOXONE 0.4 MG/ML 1 ML VIAL IV PRN (15:36)
[2024-10-03] MEDS: ASPIRIN 81 MG PO STA (16:22)
[2024-10-04] MEDS ORDERED: NITROGLYCERIN SL TABS 0.4 MG TAB SUBLINGUAL PRN (12:19)
[2024-10-04] MEDS ORDERED: DEXTROSE 50% SYRINGE 50 ML IVP PRN ×2 (13:21)
--- NOTE | 2024-10-04 15:25 | P.CNNES ---
History of Present Illness Consult date: 10/04/24 Requesting physician: Loc Lewis Reason for Consult: dizziness History of Present Illness: This a 78-year-old woman presented emergency department because of dizziness. Patient states that she has been having dizziness for the last couple weeks. She states that her dizziness is mostly with ambulation and she feels room is spinning. She does have nausea. She feels her dizziness is relieved with lying down. She had a fall because she lost her balance on August 28, 2024 as a result she had subdural hemorrhage since the fall she is having weakness over the right hand and left lower extremity. Patient denies of any headache. Denies any vomiting. Patient states she has history of DVT and is on Xarelto. She does have history of TIA about a year ago. Some of the workup during this hospital visit consisted of: CT of the head is reported as no acute intracranial process. I personally reviewed the CT and I agree there is no acute or subacute stroke. There is no bleed that is appreciable. CT angiography of the head and neck is reported as no evidence of dissection of cervical internal carotid artery or vertebral artery. No any evidence of significant stenosis at the carotid bifurcation. No evidence of intracranial high-grade stenosis or intracranial aneurysm. She presented to our emergency facility on 08/27/2024 because of falls and lost consciousness. She had a bruise over the left lower extremity from what the ED report states. She had a CT which was suspicious for subdural. Transferred to [facility] for escalation of care. Review of Systems Positive and negative as per HPI. Past Medical History Past Medical History: Coronary Artery Disease (CAD), Chest Pain / Angina, COPD, Diabetes Mellitus, GERD/Reflux, Hyperlipidemia, Hypertension, Osteoarthritis (OA), Sleep Apnea/CPAP/BIPAP, Thyroid Disorder, Vascular Disorder Additional Past Medical History / Comment(s): See Dr Humphrey's H&P. Hx bleeding peptic ulcer, duodenal ulcers, hyperthyroid chemically tx yrs ago, some decreased kidney function, "feels like a blockage in my throat", Type II DM, does not use CPAP, PAD, arterial blockages left arm, no BP's on left arm. History of Any Multi-Drug Resistant Organisms: None Reported Past Surgical History: Appendectomy, Cholecystectomy, Heart Catheterization With Stent, Hernia Repair Additional Past Surgical History / Comment(s): 4 cardiac stents, 1/2 stomach removed from ulcer, EGD/COLONOSCOPY, VAGOTOMY(to treat ulcers), HIATAL HERNIA REPAIR, ANGIOPLASTY, bilateral cataract surgery, left carpal tunnel surgery, right femoral popliteal angioplasty. Past Anesthesia/Blood Transfusion Reactions: No Reported Reaction Additional Past Anesthesia/Blood Transfusion Reaction / Comment(s): Has had blood transfusions w/ bleeding ulcer. Date of Last Stent Placement:: 2012 Past Psychological History: Depression Additional Psychological History / Comment(s): Due to loss of daughter. Smoking Status: Former smoker Past Alcohol Use History: None Reported Additional Past Alcohol Use History / Comment(s): Quit smoking 02/2013 & started again 2021 for 8-9 months when daughter ill then quit again, smoked 1ppd X50 y rs. Past Drug Use History: None Reported - Past Family History Father Family Medical History: Myocardial Infarction ([place]) Additional Family Medical History / Comment(s): Father at age 41yrs of [place]. Mother Family Medical History: Cancer, Congestive Heart Failure (CHF) Additional Family Medical History / Comment(s): Mother at age 92yrs of CHF. Breast cancer. Brother(s) Family Medical History: Myocardial Infarction ([place]) Additional Family Medical History / Comment(s): One brother of [place] at age 55 yrs and another brother at age 67 of [place]. Sister(s) Family Medical History: Myocardial Infarction ([place]) Additional Family Medical History / Comment(s): Sister of [place] at age 68 yrs. Daughter(s) Family Medical History: Cancer Additional Family Medical History / Comment(s): at age 52 from anal cancer. Medications and Allergies Home Medications Medication Instructions Recorded Confirmed Type Isosorbide Mononitrate ER [Imdur] 60 mg PO DAILY 12/10/14 10/03/24 History amLODIPine [Norvasc] 5 mg PO HS 12/10/14 10/03/24 History Nitroglycerin Sl Tabs [Nitrostat] 0.4 mg SUBLINGUAL Q5M PRN #25 tab 06/29/18 10/03/24 Rx Ascorbic Acid [Vitamin C] 500 mg PO DAILY 10/18/20 10/03/24 History Aspirin 325 mg PO DAILY 10/18/20 10/03/24 History Vits A,C,E/Lutein/Minerals 1 tab PO BID 10/28/20 10/03/24 History [Ocuvite with Lutein Tablet] traZODone HCL 200 mg PO HS 02/28/23 10/03/24 History Citalopram Hydrobromide 20 mg PO DAILY 06/11/24 10/03/24 History [Citalopram HBr] Furosemide [Lasix] 20 mg PO DAILY 06/11/24 10/03/24 History Atorvastatin [Lipitor] 80 mg PO HS 07/21/24 10/03/24 History Rivaroxaban [Xarelto] 2.5 mg PO BID #180 tab 07/30/24 10/03/24 Rx carvediloL [Coreg] 25 mg PO BID 10/03/24 10/03/24 History metFORMIN HCL 500 mg PO DAILY 10/03/24 10/03/24 History traMADol HCL 50 mg PO Q6H PRN MDD 8 TABS 10/03/24 10/03/24 History Allergies Allergy/AdvReac Type Severity Reaction Status Date / Time codeine AdvReac Severe Nausea & Verified 10/03/24 13:40 Vomiting Physical Examination - Vital Signs Vital Signs: Vital Signs Temp Pulse Pulse Resp BP BP Pulse Ox 10/04/24 14:01 98.5 F 72 18 149/77 95 10/04/24 11:45 97.8 F 68 18 164/66 94 L 10/04/24 11:29 67 20 108/66 96 10/04/24 09:16 73 20 140/53 95 10/04/24 06:23 73 16 134/74 96 10/03/24 22:30 52 L 16 109/65 96 10/03/24 18:28 97.3 F L 53 L 18 110/63 95 10/03/24 16:20 63 18 144/60 96 Intake and Output 10/04/24 10/04/24 10/04/24 06:59 14:59 22:59 Other: # Voids 1 Weight 77.111 kg General: Lying in bed and is not in acute distress. Neuro: Is awake alert oriented to self place and time. Is following simple commands. No aphasia no neglect. Pupils are round equal reactive to light. Visual voss are full to confrontation. Extraocular was intact no nystagmus. Facial sensation to touch no facial weakness. Mild decreased hearing to hand rub bilaterally no dysarthria. Motor: Strength is right hand and left lower extremity is 4-4+. Has arthritic changes of the hands that seems moderate to severe. Otherwise strength is 5/5. Sensation is normal to touch throughout. Reflex: 2+ throughout. Plantars: Mute. Results - Laboratory Findings CBC and BMP: 10/03/24 13:06 10/03/24 13:06 Abnormal Lab Findings: Abnormal Labs 10/03/24 13:06 Carbon Dioxide 33 H Glucose 143 H Assessment and Plan Assessment: This is a 78-year-old woman who presented emergency department because of dizziness for the past few weeks since the fall on 08/27/2024. She describes it is mostly with movement and has nausea but no vomiting. On 08/27/2024 she had 2 falls and appears lost consciousness. She is on Xarelto and CT of the head showed suspicious subdural that is faint and was transferred to [facility]. Ever since the event she has right hand weakness and left lower extremity weakness. Acute dizziness seems more peripheral and result of head concussion from the 2 falls on 08/27/2024. CT of the head as well as CT angiography is negative for any acute stroke or any bleed Suspicious for subdural on 08/27/2024 and was transferred to [facility] and it does not appear she had any intervention. History of coronary disease status post stent Underlying history of DVT according to the patient and she is on Xarelto Diabetes mellitus Hypertension Osteoarthritis Hypertension Hyperlipidemia Plan: I ordered CT cervical spine, thoracic spine and lumbar spine. I ordered MRI of the brain urgent Ordered routine EEG because of her episode of loss of consciousness to rule out any seizure or discharges. Is on Xarelto and aspirin 325mg daily. If patient continues to have falls then recommend to maybe hold off the anticoagulation because of increased risk of a bleed but if the benefit outweighed the risk then resume anticoagulation. She is on Lipitor 80 mg nightly Neuro Checks I consulted PT and OT Will defer the rest of the medical management to primary other specialist Thank you for the consultation Dr. Ramirez will resume neurology service tomorrow AM. Time with Patient: Greater than 30
[2024-10-04] MEDS: traMADol 50 MG TAB PO PRN (15:35)
[2024-10-04] MEDS: MECLIZINE 12.5 MG TAB PO SCH (15:35)
--- NOTE | 2024-10-04 17:35 | CT ---
EXAMINATION TYPE: CT CervThorLumbar spine wo con DATE OF EXAM: 10/04/2024 COMPARISON: 10/03/2024 CLINICAL INDICATION: Female, 78 years old with history of weakness right hand and left leg; PHH, extr emity weakness CT DLP: 2486.4 mGycm Automated exposure control for dose reduction was used. FINDINGS: Overall the cervical thoracic and lumbar alignment is satisfactory. There is mild osseous demineraliz ation changes. Multilevel facet joint arthropathy and osteophyte formation. There is grade 1 anteroli sthesis of L4 and L5. No evidence for significant spinal canal stenosis and the cervical thoracic or lumbar spine. Bridging osteophytes in the lower thoracic spine are present. Pseudoarthrosis of the sp inous processes in the lower lumbar spine. Neural foraminal stenosis secondary to facet joint uncovertebral joint arthropathy in the cervical sp ine worse at C3-C4 with moderate right, C4-C5 with moderate to severe right, C5-C6 and moderate right and mild to moderate left stenosis. No significant neural foraminal stenosis in the thoracic or lumbar spine. Atherosclerosis of the carotid bifurcations right greater than left. No evidence for focal consolidat ion, pneumothorax or pleural fusion. Severe atherosclerotic desiccation of the coronary arteries. Aor tic valvular calcifications versus repair changes. IMPRESSION: 1. Mild to moderate degeneration changes of the spine without significant spinal canal stenosis. The re is no foraminal stenosis worse in the cervical spine with moderate C3-C4 with moderate right and m oderate to severe right C4-C5. 2. Grade 1 anterolisthesis of L4 and L5. No evidence for spondylolysis. 3. No evidence for acute fracture. 4. Diffuse idiopathic skeletal hyperostosis. 5. Pseudoarthrosis of the lumbar spinous processes correlate for Baastrup's disease. [facility], , 10/04/2024 5:32 PM
[2024-10-04 18:40] LABS: Glucose,Whole Blood 111 mg/dL (70-110)
[2024-10-04] MEDS: INSULIN ASPART (NovoLOG) 100 UNIT/ML VIAL SQ SCH (18:42)
[2024-10-04] MEDS: carvediloL 12.5 MG TAB PO SCH (18:44)
--- NOTE | 2024-10-04 20:49 | P.HPIM ---
History of Present Illness H&P Date: 10/04/24 Chief Complaint: Room spinning pleasant 78-year-old patient, follows Dr. Edilberto Christianson. Social Group Worker Dr. 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 Patient's medical history includes COPD, diabetes, GERD, hyperlipidemia, hypertension, osteoarthritis, obstructive sleep apnea does not use CPAP, hy pothyroid PAD-with stents, history of bleeding peptic ulcer General Ulcer, hyperthyroid treated previously. CAD with stent. Partial gastrectomy for stomach ulcer. Dizzy since yesterday morning. Present all the time. A bit worse with activity. Does use a walker at baseline. Denies any respiratory symptoms. Some itching in the ear. No fever no chills. Denies any changes speech. No focal weakness. [There is suspicion for subdural on August 27, 2024 and patient was transferred to [facility]. Apparently patient did not have any intervention] Review of systems: GEN.: Tired EYES: None HEENT: As above NECK: None RESPIRATORY: Chronic wheezing CARDIOVASCULAR: Chest pain GASTROINTESTINAL: None GENITOURINARY: None MUSCULOSKELETAL: Left thigh pain LYMPHATICS: None HEMATOLOGICAL: None PSYCHIATRY: None NEUROLOGICAL: As above. Walker Social history: Grandchildren live with her. Smoked a pack a day for close to 50 years. Stopped about 10 years ago. No alcohol. Does use a walker to go outside the house. Physical examination: VITAL SIGNS: Afebrile, 73, 16, 134 x 74, 96% room air GENERAL: BMI 31.4, reclining bed tired EYES: Pupils equal. Conjunctiva yakov l. HEENT: External appearance of nose and ears normal, oral cavity grossly normal. NECK: JVD not raised; masses not palpable. HEART: First and second heart sounds are normal; no edema. LUNGS: Respiratory rate increased, decreased breath sounds some wheezing. ABDOMEN: Soft, nontender, liver spleen not palpable, no masses palpable. EXTREMITIES: Left dorsalis pedis palpable PSYCH: Alert and oriented x3; mood and affect yakov l. MUSCULOSKELETAL:No Clubbing/cyanosis;muscles-grossly intact NEUROLOGICAL: Cranial nerves grossly intact; no facial asymmetry, power and sensation grossly intact. No past-pointing. No nystagmus. LYMPHATICS: No lymph nodes palpable in the axilla and neck INVESTIGATIONS, reviewed in the clinical context: October 03, 2024: White count 5.3 hemoglobin 11.8 platelets 199 sodium 141 potassium 4.5 creatinine 0.55 Troponin less than 0.012 EKG tracing personally reviewed by me-sinus rhythm. Rate 55 Chest x-ray film personally reviewed by me-cardiomegaly. Questionable some chronic changes CT brain: Unremarkable CT angio head and neck: Unremarkable Assessment plan: -Acute onset of dizziness. Room spinning and Adderall times. Some worse with activity. No obvious clinical cerebellar signs. Concerned about stroke in the ER. Possibly peripheral vestibulitis. CT scan brain and CT angio head and neck unremarkable Neurology consulted Patient is on aspirin. Xarelto. Add Antivert -Peripheral artery disease. With occlusion of the right posterior tibial artery at its origin. Patient symptoms were present for about 3 weeks. Patient does follow with Dr. Humphrey outpatient. Patient stent to the superficial femoral artery patent. Nurses communicating results to Dr. Jensen. -CAD with prior stent Aspirin, beta-laura -Depression Trazodone 200 g nightly Celexa 20 mg a day -Essential hypertension Amlodipine 5 mg nightly Coreg 25 mg twice daily -Diabetes mellitus type 2 Glucophage Accu-Chek with sliding scale insulin -Obesity BMI 31.4 Weight loss measures -COPD in a prior smoker DuoNeb 3 times daily -Obstructive sleep apnea does not use a CPAP -Partial gastrectomy for previous peptic ulcer disease -Full code Discussed with the patient. Neurology consulted. MRI of the brain has been ordered Past Medical History Past Medical History: Coronary Artery Disease (CAD), Chest Pain / Angina, COPD, Diabetes Mellitus, GERD/Reflux, Hyperlipidemia, Hypertension, Osteoarthritis (OA), Sleep Apnea/CPAP/BIPAP, Thyroid Disorder, Vascular Disorder Additional Past Medical History / Comment(s): See Dr Humphrey's H&P. Hx bleeding peptic ulcer, duodenal ulcers, hyperthyroid chemically tx yrs ago, some decreased kidney function, "feels like a blockage in my throat", Type II DM, does not use CPAP, PAD, arterial blockages left arm, no BP's on left arm. History of Any Multi-Drug Resistant Organisms: None Reported Past Surgical History: Appendectomy, Cholecystectomy, Heart Catheterization With Stent, Hernia Repair Additional Past Surgical History / Comment(s): 4 cardiac stents, 1/2 stomach removed from ulcer, EGD/COLONOSCOPY, VAGOTOMY(to treat ulcers), HIATAL HERNIA REPAIR, ANGIOPLASTY, bilateral cataract surgery, left carpal tunnel surgery, right femoral popliteal angioplasty. Past Anesthesia/Blood Transfusion Reactions: No Reported Reaction Additional Past Anesthesia/Blood Transfusion Reaction / Comment(s): Has had blood transfusions w/ bleeding ulcer. Date of Last Stent Placement:: 2012 Past Psychological History: Depression Additional Psychological History / Comment(s): Due to loss of daughter. Smoking Status: Former smoker Past Alcohol Use History: None Reported Additional Past Alcohol Use History / Comment(s): Quit smoking 02/2013 & started again 2021 for 8-9 months when daughter ill then quit again, smoked 1ppd X50 yrs. Past Drug Use History: None Reported - Past Family History Father Family Medical History: Myocardial Infarction ([place]) Additional Family Medical History / Comment(s): Father at age 41yrs of [place]. Mother Family Medical History: Cancer, Congestive Heart Failure (CHF) Additional Family Medical History / Comment(s): Mother at age 92yrs of CHF. Breast cancer. Brother(s) Family Medical History: Myocardial Infarction ([place]) Additional Family Medical History / Comment(s): One brother of [place] at age 55 yrs and another brother at age 67 of [place]. Sister(s) Family Medical History: Myocardial Infarction ([place]) Additional Family Medical History / Comment(s): Sister of [place] at age 68 yrs. Daughter(s) Family Medical History: Cancer Additional Family Medical History / Comment(s): at age 52 from anal cancer. Medications and Allergies Home Medications Medication Instructions Recorded Confirmed Type Isosorbide Mononitrate ER [Imdur] 60 mg PO DAILY 12/10/14 10/03/24 History amLODIPine [Norvasc] 5 mg PO HS 12/10/14 10/03/24 History Nitroglycerin Sl Tabs [Nitrostat] 0.4 mg SUBLINGUAL Q5M PRN #25 tab 06/29/18 10/03/24 Rx Ascorbic Acid [Vitamin C] 500 mg PO DAILY 10/18/20 10/03/24 History Aspirin 325 mg PO DAILY 10/18/20 10/03/24 History Vits A,C,E/Lutein/Minerals 1 tab PO BID 10/28/20 10/03/24 History [Ocuvite with Lutein Tablet] traZODone HCL 200 mg PO HS 02/28/23 10/03/24 History Citalopram Hydrobromide 20 mg PO DAILY 06/11/24 10/03/24 History [Citalopram HBr] Furosemide [Lasix] 20 mg PO DAILY 06/11/24 10/03/24 History Atorvastatin [Lipitor] 80 mg PO HS 07/21/24 10/03/24 History Rivaroxaban [Xarelto] 2.5 mg PO BID #180 tab 07/30/24 10/03/24 Rx carvediloL [Coreg] 25 mg PO BID 10/03/24 10/03/24 History metFORMIN HCL 500 mg PO DAILY 10/03/24 10/03/24 History traMADol HCL 50 mg PO Q6H PRN MDD 8 TABS 10/03/24 10/03/24 History Allergies Allergy/AdvReac Type Severity Reaction Status Date / Time codeine AdvReac Severe Nausea & Verified 10/03/24 13:40 Vomiting Physical Exam Vitals: Vital Signs Temp Pulse Pulse Resp BP BP Pulse Ox 10/04/24 11:45 97.8 F 68 18 164/66 94 L 10/04/24 11:29 67 20 108/66 96 10/04/24 09:16 73 20 140/53 95 10/04/24 06:23 73 16 134/74 96 10/03/24 22:30 52 L 16 109/65 96 10/03/24 18:28 97.3 F L 53 L 18 110/63 95 10/03/24 16:20 63 18 144/60 96 10/03/24 15:00 98 F 54 L 18 144/60 95 Intake and Output 10/03/24 10/04/24 10/04/24 22:59 06:59 14:59 Other: # Voids 1 Weight 77.111 kg Results CBC & Chem 7: 10/03/24 13:06 10/03/24 13:06 Labs: Abnormal Lab Results - Last 24 Hours (Table) 10/03/24 Range/Units 13:06 Carbon Dioxide 33 H (22-30) mmol/L Glucose 143 H (74-99) mg/dL Thrombosis Risk Factor Assmnt - Choose All That Apply Any of the Below Risk Factors Present?: Yes Each Risk Factor Represents 3 Points: Age 75 years or older Other congenital or acquired thrombophilia - If yes, enter type in comment: No Thrombosis Risk Factor Assessment Total Risk Factor Score: 3 Thrombosis Risk Factor Assessment Level: Moderate Risk
[2024-10-04] MEDS: RIVAROXABAN 2.5 MG TABLET PO SCH (20:59)
[2024-10-04] MEDS: VIT A,C & E-LUTEIN-MINERALS 1 EACH TAB PO SCH (20:59)
[2024-10-04] MEDS: ATORVASTATIN 80 MG TAB PO SCH (20:59)
[2024-10-04] MEDS: traZODone HCL 100 MG TAB PO SCH (20:59)
[2024-10-04] MEDS: amLODIPine 5 MG TAB PO SCH (20:59)
[2024-10-04 21:04] LABS: Glucose,Whole Blood 108 mg/dL (70-110)
[2024-10-05 06:06] LABS: Glucose,Whole Blood 115 mg/dL (70-110)
[2024-10-05] MEDS: ASPIRIN 325 MG TAB PO SCH (08:16)
[2024-10-05] MEDS: CITALOPRAM HYDROBROMIDE 20 MG TAB PO SCH (08:16)
[2024-10-05] MEDS: ISOSORBIDE MONONITRATE ER 60 MG TAB.ER.24H PO SCH (08:16)
[2024-10-05] MEDS: FUROSEMIDE 20 MG TAB PO SCH (08:16)
[2024-10-05] MEDS: ASCORBIC ACID 500 MG TAB PO SCH (08:16)
[2024-10-05] MEDS: metFORMIN 500 MG TAB PO SCH (08:16)
[2024-10-05 11:57] LABS: Glucose,Whole Blood 172 mg/dL (70-110)
[2024-10-05 16:56] LABS: Glucose,Whole Blood 138 mg/dL (70-110)
--- NOTE | 2024-10-05 19:07 | P.PN ---
Progress Note - Text Progress Note Date: 10/05/24 Chief Complaint: Room spinning pleasant 78-year-old patient, follows Dr. Edilberto Christianson. 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 Patient's medical history includes COPD, diabetes, GERD, hyperlipidemia, hypertension, osteoarthritis, obstructive sleep apnea does not use CPAP, hypothyroid PAD-with stents, history of bleeding peptic ulcer General Ulcer, hyperthyroid treated previously. CAD with stent. Partial gastrectomy for stomach ulcer. Dizzy since yesterday morning. Present all the time. A bit worse with activity. Does use a walker at baseline. Denies any respiratory symptoms. Some itching in the ear. No fever no chills. Denies any changes speech. No fo criselda weakness. [There is suspicion for subdural on August 27, 2024 and patient was transferred to [facility]. Apparently patient did not have any intervention] October 05: Saw the patient this morning. Feeling a bit better. Pending MRI of the brain. Probably tomorrow. CT scan of the cervical thoracolumbar spine: Nonspecific findings. Including arthritis Active Medications Amlodipine Besylate (Amlodipine 5 Mg Tab) 5 mg PO HS [facility] Last Admin: 10/04/24 20:59 Dose: 5 mg Ascorbic Acid (Ascorbic Acid 500 Mg Tab) 500 mg PO DAILY [facility] Last Admin: 10/05/24 08:16 Dose: 500 mg Aspirin (Aspirin 325 Mg Tab) 325 mg PO DAILY [facility] Last Admin: 10/05/24 08:16 Dose: 325 mg Atorvastatin Calcium (Atorvastatin 80 Mg Tab) 80 mg PO HS [facility] Last Admin: 10/04/24 20:59 Dose: 80 mg Carvedilol (Carvedilol 12.5 Mg Tab) 25 mg PO BID-W/MEALS [facility] Last Admin: 10/05/24 17:48 Dose: 25 mg Citalopram Hydrobromide (Citalopram Hydrobromide 20 Mg Tab) 20 mg PO DAILY [facility] Last Admin: 10/05/24 08:16 Dose: 20 mg Dextrose/Water (Dextrose 50% Syringe 50 Ml) 25 ml IVP PER PROTOCOL PRN; Protocol PRN Reason: Hypoglycemia Dextrose/Water (Dextrose 50% Syringe 50 Ml) 50 ml IVP PER PROTOCOL PRN; Protocol PRN Reason: Hypoglycemia Furosemide (Furosemide 20 Mg Tab) 20 mg PO DAILY [facility] Last Admin: 10/05/24 08:16 Dose: 20 mg Insulin Aspart (Insulin Aspart (Novolog) 100 Unit/Ml Vial) 0 unit SQ ACHS [facility]; Protocol Last Admin: 10/05/24 17:48 Dose: Not Given Isosorbide Mononitrate (Isosorbide Mononitrate Er 60 Mg Tab.Er.24h) 60 mg PO DAILY [facility] Last Admin: 10/05/24 08:16 Dose: 60 mg Meclizine HCl (Meclizine 12.5 Mg Tab) 12.5 mg PO QID [facility] Last Admin: 10/05/24 17:47 Dose: 12.5 mg Metformin HCl (Metformin 500 Mg Tab) 500 mg PO DAILY [facility] Last Admin: 10/05/24 08:16 Dose: 500 mg Multivitamins/Minerals (Vit A,C & L-Sgjygw-Wiqcteuk 1 Each Tab) 1 each PO BID [facility] Last Admin: 10/05/24 08:16 Dose: 1 each Naloxone HCl (Naloxone 0.4 Mg/Ml 1 Ml Vial) 0.2 mg IV Q2M PRN PRN Reason: Opioid Reversal Nitroglycerin (Nitroglycerin Sl Tabs 0.4 Mg Tab) 0.4 mg SUBLINGUAL Q5M PRN PRN Reason: Chest Pain Rivaroxaban (Rivaroxaban 2.5 Mg Tablet) 2.5 mg PO BID [facility]; Protocol Last Admin: 10/05/24 08:16 Dose: 2.5 mg Tramadol HCl (Tramadol 50 Mg Tab) 50 mg PO Q6H PRN PRN Reason: Pain Last Admin: 10/04/24 15:35 Dose: 50 mg Trazodone HCl (Trazodone Hcl 100 Mg Tab) 200 mg PO HS [facility] Last Admin: 10/04/24 20:59 Dose: 200 mg Social history: Grandchildren live with her. Smoked a pack a day for close to 50 years. Stopped about 10 years ago. No alcohol. Does use a walker to go outside the house. Physical examination: VITAL SIGNS: 97.8, 64, 16, 100/64, 93% room air GENERAL: Reclining bed awake eating EYES: Pupils equal. Conjunctiva yakov l. HEENT: External appearance of nose and ears normal, oral cavity grossly normal. NECK: JVD not raised; masses not palpable. HEART: First and second heart sounds are normal; no edema. LUNGS: Respiratory rate increased, decreased breath sounds some wheezing. ABDOMEN: Soft, nontender, liver spleen not palpable, no masses palpable. EXTREMITIES: Left dorsalis pedis palpable PSYCH: Alert and oriented x3; mood and affect yakov l. MUSCULOSKELETAL:No Clubbing/cyanosis;muscles-grossly intact NEUROLOGICAL: Cranial nerves grossly intact; no facial asymmetry, power and sensation grossly intact. No past-pointing. No nystagmus. INVESTIGATIONS, reviewed in the clinical context: CT scan cervical, thoracic, lumbar spine: Nonspecific find including arthritis October 03, 2024: White count 5.3 hemoglobin 11.8 platelets 199 sodium 141 potassium 4.5 creatinine 0.55 Troponin less than 0.012 EKG tracing personally reviewed by me-sinus rhythm. Rate 55 Chest x-ray film personally reviewed by me-cardiomegaly. Questionable some chronic changes CT brain: Unremarkable CT angio head and neck: Unremarkable Assessment plan: -Acute onset of dizziness. Room spinning and Adderall times. Some worse with activity. No obvious clinical cerebellar signs. Concerned about stroke in the ER. Possibly peripheral vestibulitis.: Some improvement CT scan brain and CT angio head and neck unremarkable Neurology consulted Patient is on aspirin. Xarelto. On Antivert: Pending MRI -Peripheral artery disease. With occlusion of the right posterior tibial artery at its origin. Patient symptoms were present for about 3 weeks. Patient does follow with Dr. Humphrey outpatient. Patient stent to the superficial femoral artery patent. Nurses communicating results to Dr. Jensen. -CAD with prior stent Aspirin, beta-laura -Depression Trazodone 200 g nightly Celexa 20 mg a day -Essential hypertension Amlodipine 5 mg nightly Coreg 25 mg twice daily -Diabetes mellitus type 2 Glucophage Accu-Chek with sliding scale insulin -Obesity BMI 31.4 Weight loss measures -COPD in a prior smoker DuoNeb 3 times daily -Obstructive sleep apnea does not use a CPAP -Partial gastrectomy for previous peptic ulcer disease -Full code Pending MRI. Other medications to continue. Past Medical History Past Medical History: Coronary Artery Disease (CAD), Chest Pain / Angina, COPD, Diabetes Mellitus, GERD/Reflux, Hyperlipidemia, Hypertension, Osteoarthritis (OA), Sleep Apnea/CPAP/BIPAP, Thyroid Disorder, Vascular Disorder Additional Past Medical History / Comment(s): See Dr Humphrey's H&P. Hx bleeding peptic ulcer, duodenal ulcers, hyperthyroid chemically tx yrs ago, some decreased kidney function, "feels like a blockage in my throat", Type II DM, does not use CPAP, PAD, arterial blockages left arm, no BP's on left arm. History of Any Multi-Drug Resistant Organisms: None Reported Past Surgical History: Appendectomy, Cholecystectomy, Heart Catheterization With Stent, Hernia Repair Additional Past Surgical History / Comment(s): 4 cardiac stents, 1/2 stomach removed from ulcer, EGD/COLONOSCOPY, VAGOTOMY(to treat ulcers), HIATAL HERNIA REPAIR, ANGIOPLASTY, bilateral cataract surgery, left carpal tunnel surgery, right femoral popliteal angioplasty. Past Anesthesia/Blood Transfusion Reactions: No Reported Reaction Additional Past Anesthesia/Blood Transfusion Reaction / Comment(s): Has had blood transfusions w/ bleeding ulcer. Date of Last Stent Placement:: 2012 Past Psychological History: Depression Additional Psychological History / Comment(s): Due to loss of daughter. Smoking Status: Former smoker Past Alcohol Use History: None Reported Additional Past Alcohol Use History / Comment(s): Quit smoking 02/2013 & started again 2021 for 8-9 months when daughter ill then quit again, smoked 1ppd X50 yrs. Past Drug Use History: None Reported
[2024-10-05 21:12] LABS: Glucose,Whole Blood 123 mg/dL (70-110)
[2024-10-06 06:05] LABS: Glucose,Whole Blood 122 mg/dL (70-110)
[2024-10-06 07:21] VITALS: RESP 16; TEMP 97.3
[2024-10-06 11:44] LABS: Glucose,Whole Blood 136 mg/dL (70-110)
--- NOTE | 2024-10-06 15:47 | MR ---
EXAMINATION TYPE: MR brain wo con DATE OF EXAM: 10/06/2024 3:39 PM COMPARISON: None. CLINICAL INDICATION: Female, 78 years old with history of dizziness with right hand weakness and left leg we, Dizziness with right hand weakness and left leg weakness, TECHNIQUE: Multiplanar, multiecho imaging on a 3.0 Anjelica magnet is performed through the brain. Stud y is performed within 24 hours of arrival to the hospital.Multiplanar, multiecho imaging on a 3.0 [place]ona la magnet is performed through the knee. IV Contrast: mL (None, if empty) FINDINGS: The craniovertebral junction is normal. The pituitary is normal. Diffusion-weighted imaging is performed. No abnormal hyperintensity is present to suggest an acute i ntracranial infarct or acute ischemic change. There appears to be an old lacunar infarct or Virchow-R obin space within the inferior left basal ganglion. There are scattered punctate areas of hyperintensity on T2 and Inversion Recovery weighted sequences which are non-specific but can be related to chronic microvascular ischemic changes. Ventricles and sulci are appropriate for the patient age. IMPRESSION: 1. Mild scattered punctate white matter changes appear compatible with chronic white matter ischemic change right 2. No suspicious acute changes [facility], , 10/06/2024 3:45 PM
--- NOTE | 2024-10-06 16:07 | P.DS ---
Providers Date of admission: 10/03/24 15:36 Expected date of discharge: 10/06/24 Attending physician: Jesus Hughes Consults: 10/03/24 15:36 Consult Physician Routine Consulting Provider: Manav Vang Consult Reason/Comments: dizziness Do you want consulting provider notified?: Yes Primary care physician: Edilberto Christianson [facility] Course: Chief Complaint: Room spinning pleasant 78-year-old patient, follows Dr. Edilberto Christianson. 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 Patient's medical history includes COPD, diabetes, GERD, hyperlipidemia, hypertension, osteoarthritis, obstructive sleep apnea does not use CPAP, hypothyroid PAD-with stents, history of bleeding peptic ulcer General Ulcer, hyperthyroid treated previously. CAD with stent. Partial gastrectomy for stomach ulcer. Dizzy since yesterday morning. Present all the time. A bit worse with activity. Does use a walker at baseline. Denies any respiratory symptoms. Some itching in the ear. No fever no chills. Denies any changes speech. No focal weakness. [There is suspicion for subdural on August 27, 2024 and patient was transferred to [facility]. Apparently patient did not have any intervention] October 05: Saw the patient this morning. Feeling a bit better. Pending MRI of the brain. Probably tomorrow. CT scan of the cervical thoracolumbar spine: Nonspecific findings. Including arthritis October 06: Up in a chair. No further spinning of the room. States she does get dizzy if she stands up. Orthostatic requested. MRI brain: Shows chronic changes. Patient has home care. Per social work manager patient is back to her baseline. Because of some blood pressure fluctuation. Will change amlodipine to 2.5 mg twice daily. From 10 mg once a day. Social history: Grandchildren live with her. Smoked a pack a day for close to 50 years. Stopped about 10 years ago. No alcohol. Does use a walker to go outside the house. Physical examination: VITAL SIGNS: Afebrile, 59, 16, 105 x 60, GENERAL: Up in recliner, comfortable EYES: Pupils equal. Conjunctiva yakov l. HEENT: External appearance of nose and ears normal, oral cavity grossly normal. NECK: JVD not raised; masses not palpable. HEART: First and second heart sounds are normal; no edema. LUNGS: Respiratory rate increased, decreased breath sounds some wheezing. ABDOMEN: Soft, nontender, liver spleen not palpable, no masses palpable. EXTREMITIES: Left dorsalis pedis palpable PSYCH: Alert and oriented x3; mood and affect yakov l. MUSCULOSKELETAL:No Clubbing/cyanosis;muscles-grossly intact NEUROLOGICAL: Cranial nerves grossly intact; no facial asymmetry, power and sensation grossly intact. No past-pointing. No nystagmus. INVESTIGATIONS, reviewed in the clinical context: MRI brain: Chronic changes CT scan cervical, thoracic, lumbar spine: Nonspecific find including arthritis October 03, 2024: White count 5.3 hemoglobin 11.8 platelets 199 sodium 141 potassium 4.5 creatinine 0.55 Troponin less than 0.012 EKG tracing personally reviewed by me-sinus rhythm. Rate 55 Chest x-ray film personally reviewed by me-cardiomegaly. Questionable some chronic changes CT brain: Unremarkable CT angio head and neck: Unremarkable Assessment plan: -Acute onset of dizziness. Room spinning and Adderall times. Some worse with activity. No obvious clinical cerebellar signs. Concerned about stroke in the ER. Possibly peripheral vestibulitis.: Some improvement CT scan brain and CT angio head and neck unremarkable Neurology consulted Patient is on aspirin. Xarelto. On Antivert: MRI brain: Chronic changes -Probable orthostatic changes Change amlodipine 10 mg to 2.5 mg twice daily -Peripheral artery disease. With occlusion of the right posterior tibial artery at its origin. Patient symptoms were present for about 3 weeks. Patient does follow with Dr. Humphrey outpatient. Patient stent to the superficial femoral artery patent. -CAD with prior stent Aspirin, beta-laura -Depression Trazodone 200 g nightly Celexa 20 mg a day -Essential hypertension Amlodipine 5 mg nightly Coreg 25 mg twice daily -Diabetes mellitus type 2 Glucophage Accu-Chek with sliding scale insulin -Obesity BMI 31.4 Weight loss measures -COPD in a prior smoker DuoNeb 3 times daily -Obstructive sleep apnea does not use a CPAP -Partial gastrectomy for previous peptic ulcer disease -Full code Disposition: Home Past Medical History Past Medical History: Coronary Artery Disease (CAD), Chest Pain / Angina, COPD, Diabetes Mellitus, GERD/Reflux, Hyperlipidemia, Hypertension, Osteoarthritis (OA), Sleep Apnea/CPAP/BIPAP, Thyroid Disorder, Vascular Disorder Additional Past Medical History / Comment(s): See Dr Humphrey's H&P. Hx bleeding peptic ulcer, duodenal ulcers, hyperthyroid chemically tx yrs ago, some decreased kidney function, "feels like a blockage in my throat", Type II DM, does not use CPAP, PAD, arterial blockages left arm, no BP's on left arm. History of Any Multi-Drug Resistant Organisms: None Reported Past Surgical History: Appendectomy, Cholecystectomy, Heart Catheterization With Stent, Hernia Repair Additional Past Surgical History / Comment(s): 4 cardiac stents, 1/2 stomach removed from ulcer, EGD/COLONOSCOPY, VAGOTOMY(to treat ulcers), HIATAL HERNIA REPAIR, ANGIOPLASTY, bilateral cataract surgery, left carpal tunnel surgery, right femoral popliteal angioplasty. Past Anesthesia/Blood Transfusion Reactions: No Reported Reaction Additional Past Anesthesia/Blood Transfusion Reaction / Comment(s): Has had blood transfusions w/ bleeding ulcer. Date of Last Stent Placement:: 2012 Past Psychological History: Depression Additional Psychological History / Comment(s): Due to loss of daughter. Smoking Status: Former smoker Past Alcohol Use History: None Reported Additional Past Alcohol Use History / Comment(s): Quit smoking 02/2013 & started again 2021 for 8-9 months when daughter ill then quit again, smoked 1ppd X50 yrs. Past Drug Use History: None Reported Plan - Discharge Summary Discharge Rx Participant: No New Discharge Prescriptions: No Action amLODIPine [Norvasc] 5 mg PO HS Isosorbide Mononitrate ER [Imdur] 60 mg PO DAILY Nitroglycerin Sl Tabs [Nitrostat] 0.4 mg SUBLINGUAL Q5M PRN #25 tab PRN Reason: Chest Pain Aspirin 325 mg PO DAILY Ascorbic Acid [Vitamin C] 500 mg PO DAILY Vits A,C,E/Lutein/Minerals [Ocuvite with Lutein Tablet] 1 tab PO BID Rivaroxaban [Xarelto] 2.5 mg PO BID #180 tab carvediloL [Coreg] 25 mg PO BID traZODone HCL 200 mg PO HS Furosemide [Lasix] 20 mg PO DAILY Citalopram Hydrobromide [Citalopram HBr] 20 mg PO DAILY Atorvastatin [Lipitor] 80 mg PO HS metFORMIN HCL 500 mg PO DAILY traMADol HCL 50 mg PO Q6H PRN MDD 8 TABS PRN Reason: Pain Discharge Medication List Isosorbide Mononitrate ER [Imdur] 60 mg PO DAILY 12/10/14 [History] amLODIPine [Norvasc] 5 mg PO HS 12/10/14 [History] Nitroglycerin Sl Tabs [Nitrostat] 0.4 mg SUBLINGUAL Q5M PRN #25 tab 06/29/18 [Rx] Ascorbic Acid [Vitamin C] 500 mg PO DAILY 10/18/20 [History] Aspirin 325 mg PO DAILY 10/18/20 [History] Vits A,C,E/Lutein/Minerals [Ocuvite with Lutein Tablet] 1 tab PO BID 10/28/20 [History] traZODone HCL 200 mg PO HS 02/28/23 [History] Citalopram Hydrobromide [Citalopram HBr] 20 mg PO DAILY 06/11/24 [History] Furosemide [Lasix] 20 mg PO DAILY 06/11/24 [History] Atorvastatin [Lipitor] 80 mg PO HS 07/21/24 [History] Rivaroxaban [Xarelto] 2.5 mg PO BID #180 tab 07/30/24 [Rx] carvediloL [Coreg] 25 mg PO BID 10/03/24 [History] metFORMIN HCL 500 mg PO DAILY 10/03/24 [History] traMADol HCL 50 mg PO Q6H PRN MDD 8 TABS 10/03/24 [History] Follow up Appointment(s)/Referral(s): Edilberto Christianson MD [Primary Care Provider] - 1-2 days
[2024-10-06 17:17] LABS: Glucose,Whole Blood 116 mg/dL (70-110)
[2024-10-06 17:50] VITALS: BP 100/64; PULSE 62
--- NOTE | 2024-10-07 11:24 | P.PN ---
Subjective Progress Note Date: 10/06/24 Patient was initially seen by Dr. Manav Vang. Please refer to his note for details. Patient is a 78-year-old female, with dizziness since fall and had subdural about a month ago that was subtle. Patient is awaiting MRI. Patient at present is sitting comfortably the recliner, ready to go home. Patient states that she never passed out, not lost consciousness. She states that when she stands up, she feels dizzy lightheaded. She could not stand up had before but this time was worse. Some of the workup during this hospital visit consisted of: CT of the head is reported as no acute intracranial process. I personally reviewed the CT and I agree there is no acute or subacute stroke. There is no bleed that is appreciable. CT angiography of the head and neck is reported as no evidence of dissection of cervical internal carotid artery or vertebral artery. No any evidence of significant stenosis at the carotid bifurcation. No evidence of intracranial high-grade stenosis or intracranial aneurysm. She presented to our emergency facility on 08/27/2024 because of falls and lost consciousness. She had a bruise over the left lower extremity from what the ED report states. She had a CT which was suspicious for subdural. Transferred to [facility] for escalation of care. Objective - Vital Signs Vital signs: Vital Signs Temp 97.3 F L 10/06/24 07:00 Pulse 62 10/06/24 17:49 Resp 16 10/06/24 14:15 BP 100/64 10/06/24 17:49 Pulse Ox 92 L 10/06/24 07:00 FiO2 Intake & Output 10/05/24 10/06/24 10/06/24 18:59 06:59 18:59 Intake Total 236 Balance 236 Intake: Oral 236 Other: # Voids 1 1 2 - Exam Mental status, speech and language functions are normal. Cranial nerves are normal. Visual voss are full. Face is symmetric and tongue protrudes to midline. On muscle testing there is no pronator drift. There is no ataxia for fojdek-[id number]-[id number] testing. - Labs CBC & Chem 7: 10/03/24 13:06 10/03/24 13:06 Labs: Abnormal Lab Results - Last 24 Hours (Table) 10/05/24 10/06/24 10/06/24 Range/Units 21:11 06:03 11:43 POC Glucose (mg/dL) 123 H 122 H 136 H (70-110) mg/dL 10/06/24 Range/Units 17:16 POC Glucose (mg/dL) 116 H (70-110) mg/dL Assessment and Plan Assessment: This is a 78-year-old woman who presented emergency department because of dizziness for the past few weeks since the fall on 08/27/2024. She describes it is mostly with movement and has nausea but no vomiting. On 08/27/2024 she had 2 falls and appears lost consciousness, as reported by Dr. Vang note (patient denies loss of consciousness to me). She is on Xarelto and CT of the head showed suspicious subdural that is faint and was transferred to [facility]. Ever since the event she has right hand weakness and left lower extremity weakness. Acute dizziness seems more peripheral and result of head concussion from the 2 falls on 08/27/2024. CT of the head as well as CT angiography is negative for any acute stroke or any bleed Suspicious for subdural on 08/27/2024 and was transferred to [facility] and it does not appear she had any intervention. History of coronary disease status post stent Underlying history of DVT according to the patient and she is on Xarelto Diabetes mellitus Hypertension Osteoarthritis Hypertension Hyperlipidemia Plan: MRI of the brain revealed mild scattered punctate white matter changes appears compatible with chronic white matter ischemic change. No suspicious acute change. I personally reviewed MRI agree with the findings. No evidence of subdural hematoma. CT of the cervical spine thoracic and lumbar spine revealed mild to moderate degenerative changes of the spine without significant spinal canal stenosis. There is no foraminal stenosis worse in the cervical spine with moderate C3-C4 with moderate right and moderate to severe right C4-C5. Grade 1 anterolisthesis of L4 and L5. No evidence for spondylosis. No evidence for acute fracture. Dr. Vang recommended EEG, but it was never ordered. Patient denies any loss of consciousness. This can be done as an outpatient if needed. Is on Xarelto 2.5 mg twice daily and aspirin 325mg daily. If patient continues to have falls then recommend to maybe hold off the anticoagulation because of increased risk of a bleed but if the benefit outweighed the risk then resume anticoagulation. She is on Lipitor 80 mg nightly Neuro Checks I consulted PT and OT Will defer the rest of the medical management to primary other specialist Neurologically clear.
== END 2024-10-06 18:19 ==
LOC: EC 11:18 → 6NMEDSUR 15:36
PROVIDERS: ADMIT Hospitalist; ATTEND Hospitalist
DX: R42 Dizziness and giddiness (principal); E11.51 Type 2 diabetes mellitus with diabetic peripheral angiopathy without gangrene; I25.10 Atherosclerotic heart disease of native coronary artery without angina pectoris; F32.A Depression, unspecified; J44.9 Chronic obstructive pulmonary disease, unspecified; K21.9 Gastro-esophageal reflux disease without esophagitis; E78.5 Hyperlipidemia, unspecified; I10 Essential (primary) hypertension; M19.90 Unspecified osteoarthritis, unspecified site; G47.33 Obstructive sleep apnea (adult) (pediatric); E03.9 Hypothyroidism, unspecified; E66.9 Obesity, unspecified; Z95.820 Peripheral vascular angioplasty status with implants and grafts; Z88.0 Allergy status to penicillin; Z87.11 Personal history of peptic ulcer disease; Z95.5 Presence of coronary angioplasty implant and graft; Z87.891 Personal history of nicotine dependence; Z68.31 Body mass index [BMI] 31.0-31.9, adult; Z90.3 Acquired absence of stomach [part of]; Z79.82 Long term (current) use of aspirin; Z79.84 Long term (current) use of oral hypoglycemic drugs; Z79.01 Long term (current) use of anticoagulants; Z79.899 Other long term (current) drug therapy; Z88.5 Allergy status to narcotic agent; Z86.73 Personal history of transient ischemic attack (TIA), and cerebral infarction without residual deficits; Z86.718 Personal history of other venous thrombosis and embolism
CPT/HCPCS: 96374; 99285; 36415; 94760; 93005; 97161; 97166; 80053; 84484; 85025; 85610; 83036; 71046; 72128; 72125; 72131; 70496; 70450; 70498; 70551; G0378 ×4; J2765; Q9967

== ENCOUNTER 2024-11-15 15:15 | Inpatient (IN) | payer MEDICARE ==
[2024-11-15] MEDS: ACETAMINOPHEN TAB 500 MG TAB PO STA (15:30)
--- NOTE | 2024-11-15 15:30 | ED ---
SOB HPI - General Chief Complaint: Shortness of Breath Stated Complaint: SOB Time Seen by Provider: 11/15/24 15:30 Source: patient, EMS, RN notes reviewed, old records reviewed Mode of arrival: EMS Limitations: no limitations - History of Present Illness Initial Comments: 79-year-old female presented to the ER via EMS for evaluation of shortness of breath. Patient has a past medical history significant of coronary artery disease, COPD, diabetes mellitus, hyperlipidemia, hypertension, ascular disorder and thyroid disorder. Patient reports for the past 24 hours she has been experiencing shortness of breath. She states she feels like she cannot take a deep breath in and also was endorsing a cough. Patient also states she feels weak. She denies any known sick contacts or fevers at home. Patient does report a recent heavy chest discomfort as well. No radiation. Patient denies any nausea, vomiting, abdominal pain, constipation/diarrhea, urinary complaints or peripheral edema. No history of blood clots. Patient has not taken anything for her symptoms at this time. - Related Data Home Medications Medication Instructions Recorded Confirmed Ascorbic Acid [Vitamin C] 500 mg PO DAILY 10/18/20 11/15/24 Aspirin 325 mg PO DAILY 10/18/20 11/15/24 Vits A,C,E/Lutein/Minerals 1 tab PO BID 10/28/20 11/15/24 [Ocuvite with Lutein Tablet] traZODone HCL 200 mg PO HS 02/28/23 11/15/24 Citalopram Hydrobromide 20 mg PO DAILY 06/11/24 11/15/24 [Citalopram HBr] Furosemide [Lasix] 20 mg PO DAILY 06/11/24 11/15/24 Atorvastatin [Lipitor] 80 mg PO HS 07/21/24 11/15/24 carvediloL [Coreg] 25 mg PO BID 10/03/24 11/15/24 metFORMIN HCL 500 mg PO DAILY 10/03/24 11/15/24 Isosorbide Mononitrate ER [Imdur] 60 mg PO DAILY 11/15/24 11/15/24 Omeprazole 20 mg PO DAILY 11/15/24 11/15/24 amLODIPine [Norvasc] 5 mg PO HS 11/15/24 11/15/24 Previous Rx's Medication Instructions Recorded Nitroglycerin Sl Tabs [Nitrostat] 0.4 mg SUBLINGUAL Q5M PRN #25 tab 06/29/18 Rivaroxaban [Xarelto] 2.5 mg PO BID #180 tab 07/30/24 Allergies Allergy/AdvReac Type Severity Reaction Status Date / Time codeine AdvReac Severe Nausea & Verified 11/15/24 15:19 Vomiting Review of Systems ROS Statement: Those systems with pertinent positive or pertinent negative responses have been documented in the HPI. ROS Other: All systems not noted in ROS Statement are negative. Past Medical History Past Medical History: Coronary Artery Disease (CAD), Chest Pain / Angina, COPD, Diabetes Mellitus, GERD/Reflux, Hyperlipidemia, Hypertension, Osteoarthritis (OA), Sleep Apnea/CPAP/BIPAP, Thyroid Disorder, Vascular Disorder Additional Past Medical History / Comment(s): See Dr Humphrey's H&P. Hx bleeding peptic ulcer, duodenal ulcers, hyperthyroid chemically tx yrs ago, some decreased kidney function, "feels like a blockage in my throat", Type II DM, does not use CPAP, PAD, arterial blockages left arm, no BP's on left arm. History of Any Multi-Drug Resistant Organisms: None Reported Past Surgical History: Appendectomy, Cholecystectomy, Heart Catheterization With Stent, Hernia Repair Additional Past Surgical History / Comment(s): 4 cardiac stents, 1/2 stomach removed from ulcer, EGD/COLONOSCOPY, VAGOTOMY(to treat ulcers), HIATAL HERNIA REPAIR, ANGIOPLASTY, bilateral cataract surgery, left carpal tunnel surgery, right femoral popliteal angioplasty. Past Anesthesia/Blood Transfusion Reactions: No Reported Reaction Additional Past Anesthesia/Blood Transfusion Reaction / Comment(s): Has had blood transfusions w/ bleeding ulcer. Date of Last Stent Placement:: 2012 Past Psychological History: Depression Smoking Status: Former smoker Past Alcohol Use History: None Reported Past Drug Use History: None Reported - Past Family History Father Family Medical History: Myocardial Infarction ([place]) Additional Family Medical History / Comment(s): Father at age 41yrs of [place]. Mother Family Medical History: Cancer, Congestive Heart Failure (CHF) Additional Family Medical History / Comment(s): Mother at age 92yrs of CHF. Breast cancer. Brother(s) Family Medical History: Myocardial Infarction ([place]) Additional Family Medical History / Comment(s): One brother of [place] at age 55 yrs and another brother at age 67 of [place]. Sister(s) Family Medical History: Myocardial Infarction ([place]) Additional Family Medical History / Comment(s): Sister of [place] at age 68 yrs. Daughter(s) Family Medical History: Cancer Additional Family Medical History / Comment(s): at age 52 from anal cancer. General Exam Limitations: no limitations General appearance: alert, in no apparent distress Respiratory exam: Present: wheezes (Expiratory throughout) Cardiovascular Exam: Present: regular rate, normal rhythm, normal heart sounds. Absent: systolic murmur, diastolic murmur, rubs, gallop, clicks GI/Abdominal exam: Present: soft, normal bowel sounds. Absent: distended, tenderness, guarding, rebound, rigid Extremities exam: Present: normal inspection, full ROM, normal capillary refill. Absent: tenderness, pedal edema, joint swelling, calf tenderness Neurological exam: Present: alert, oriented X3, CN II-XII intact Skin exam: Present: warm, intact, normal color, diaphoretic (mild). Absent: rash Course Vital Signs 11/15/24 11/15/24 11/15/24 15:16 15:19 15:54 Temperature 102.9 F H Pulse Rate 86 75 Respiratory 18 Rate Blood Pressure 110/73 O2 Sat by Pulse 96 Oximetry 11/15/24 11/15/24 16:03 16:24 Temperature 100.5 F H Pulse Rate 78 Respiratory Rate Blood Pressure O2 Sat by Pulse Oximetry - Reevaluation(s) Reevaluation #1: 11/15/24 16:[address] Rodarte, [facility], for admission. Medical Decision Making - Medical Decision Making Was pt. sent in by a medical professional or institution (, PA, CONSOLE ASSEMBLER, urgent care, hospital, or senior living...) When possible be specific @ -No Did you speak to anyone other than the patient for history (EMS, parent, family, police, friend...)? What history was obtained from this source @ -EMS aiding in HPI. Did you review nursing and triage notes (agree or disagree)? Why? @ -I reviewed and agree with nursing and triage notes Were old charts reviewed (outside hosp., previous admission, EMS record, old EKG, old radiological studies, urgent care reports/EKG's, senior living records)? Report findings @ -No old charts were reviewed Differential Diagnosis (chest pain, altered mental status, abdominal pain women, abdominal pain men, vaginal bleeding, weakness, fever, dyspnea, syncope, headache, dizziness, GI bleed, back pain, seizure, CVA, palpatations, mental health, musculoskeletal)? @ -Differential Dyspnea:Coronary syndrome, arrhythmia, tamponade, asthma, COPD, pulmonary embolism, pneumonia, pneumothorax, pulmonary effusion, anaphylaxis, diabetic ketoacidosis, flailed chest, pulmonary contusion, diaphragmatic rupture, anemia, neuromuscular, this is not meant to be an all-inclusive list. EKG interpreted by me (3pts min.). @ -As above X-rays interpreted by me (1pt min.). @ -CXR interpreted by me remarkable for a right midlung airspace concerning of pneumonia. CT interpreted by me (1pt min.). @ -None done U/S interpreted by me (1pt. min.). @ -None done What testing was considered but not performed or refused? (CT, X-rays, U/S, la bs)? Why? @ -None What meds were considered but not given or refused? Why? @ -None Did you discuss the management of the patient with other professionals (professionals i.e. , PA, CONSOLE ASSEMBLER, lab, RT, psych nurse, director social, beam builder, teacher, special officer automat, embedded case manager)? Give summary @ -Yes, case discussed with [facility], Dr. Rodarte, for admission. Was smoking cessation discussed for >3mins.? @ -No Was critical care preformed (if so, how long)? @ -No Were there social determinants of health that impacted care today? How? (Homelessness, low income, unemployed, alcoholism, drug addiction, transp ortation, low edu. Level, literacy, decrease access to med. care, correction, rehab)? @ -No Was there de-escalation of care discussed even if they declined (Discuss DNR or withdrawal of care, Hospice)? DNR status @ -No What co-morbidities impacted this encounter? (DM, HTN, Smoking, COPD, CAD, Cancer, CVA, ARF, Chemo, Hep., AIDS, mental health diagnosis, sleep apnea, morbid obesity)? @ -COPD, diabetes mellitus, CAD, hypertension, hyperlipidemia, thyroid disorder, vascular disorder Was patient admitted / discharged? Hospital course, mention meds given and route, prescriptions, significant lab abnormalities, going to OR and other pertinent info. @ -Admitted. 79 year old female presenting to the ER via EMS for evaluation of dyspnea. Upon examination, patient is febrile at 102.9F, vitals otherwise stable. Patient's oxygen saturation 96% on 3 L nasal cannula oxygen. Upon removal of nasal cannula oxygen patient's oxygen saturation dropping to 94% on room air. Patient does not typically wear oxygen at home. Patient is mildly diaphoretic on exam with audible wheezing heard. Laboratory studies obtained unimpressive. WBC 8.9, lactic 1.6. Troponin undetectable. Influenza, RSV, COVID-negative. CXR showing a right midlung airspace opacity correlating with pneumonia. Patient given 1 L IV fluids, p.o. Tylenol for fever control and DuoNeb nebulizer for wheezing in the ER. Upon reevaluation, patient resting comfortably in exam room no signs of acute distress. Results discussed with patient, all questions answered. Improvement of fever to 100.5 on reevaluation vitals remained stable. Admission considered and discussed with [facility], Dr. Rodarte, for IV antibiotic treatment of pneumoia. Patient is agreeable for admission at this time. Blood cultures obtained. Patient started on Rocephin, azithromycin, methylprednisone and DuoNeb nebulizer treatments. Blood cultures obtained. ID on consult. Case discussed with ED attending, Dr. Rushing. Undiagnosed new problem with uncertain prognosis? @ -No Drug Therapy requiring intensive monitoring for toxicity (Heparin, Nitro, Insulin, Cardizem)? @ -No Were any procedures done? @ -No Diagnosis/symptom? @ -Pneumonia Acute, or Chronic, or Acute on Chronic? @ -Acute Uncomplicated (without systemic symptoms) or Complicated (systemic symptoms)? @ -Complicated Side effects of treatment? @ -No Exacerbation, Progression, or Severe Exacerbation? @ -No Poses a threat to life or bodily function? How? (Chest pain, USA, LA, pneumonia, PE, COPD, DKA, ARF, appy, cholecystitis, CVA, Diverticulitis, Homicidal, Suicidal, threat to staff... and all critical care pts) @ -Yes, pneumonia can lead to sepsis and/or endorgan dysfunction. - Lab Data Result diagrams: 11/15/24 15:30 11/15/24 15:30 Lab Results 11/15/24 11/15/24 11/15/24 Range/Units 15:30 15:30 15:30 WBC 8.9 (3.8-10.6) k/uL RBC 4.32 (3.80-5.40) m/uL Hgb 11.9 (11.4-16.0) gm/dL Hct 37.6 (34.0-46.0) % MCV 87.0 (80.0-100.0) fL MCH 27.5 (25.0-35.0) pg MCHC 31.6 (31.0-37.0) g/dL RDW 15.0 (11.5-15.5) % Plt Count 175 (150-450) k/uL MPV 7.5 Neutrophils % 85 % Lymphocytes % 8 % Monocytes % 4 % Eosinophils % 0 % Basophils % 0 % Neutrophils # 7.6 (1.3-7.7) k/uL Lymphocytes # 0.8 L (1.0-4.8) k/uL Monocytes # 0.4 (0-1.0) k/uL Eosinophils # 0.0 (0-0.7) k/uL Basophils # 0.0 (0-0.2) k/uL Hypochromasia Slight PT 11.4 (10.0-12.5) sec INR 1.0 (<1.2) APTT 23.3 (22.0-30.0) sec Sodium 136 L (137-145) mmol/L Potassium 3.7 (3.5-5.1) mmol/L Chloride 99 (98-107) mmol/L Carbon Dioxide 29 (22-30) mmol/L Anion Gap 8 mmol/L BUN 12 (7-17) mg/dL Creatinine 0.58 (0.52-1.04) mg/dL Est GFR (CKD-EPI)AfAm >90 (>60 ml/min/1.73 sqM) Est GFR (CKD-EPI)NonAf 89 (>60 ml/min/1.73 sqM) Glucose 137 H (74-99) mg/dL Plasma Lactic Acid Ramón (0.7-2.0) mmol/L Calcium 8.8 (8.4-10.2) mg/dL Total Bilirubin 0.6 (0.2-1.3) mg/dL AST 19 (14-36) U/L ALT 19 (4-34) U/L Alkaline Phosphatase 141 H (38-126) U/L Troponin I (0.000-0.034) ng/mL Total Protein 7.0 (6.3-8.2) g/dL Albumin 4.0 (3.5-5.0) g/dL Influenza Type A (PCR) (Not Detectd) Influenza Type B (PCR) (Not Detectd) RSV (PCR) (Not Detectd) SARS-CoV-2 (PCR) (Not Detectd) 11/15/24 11/15/24 11/15/24 Range/Units 15:30 15:30 15:30 WBC (3.8-10.6) k/uL RBC (3.80-5.40) m/uL Hgb (11.4-16.0) gm/dL Hct (34.0-46.0) % MCV (80.0-100.0) fL MCH (25.0-35.0) pg MCHC (31.0-37.0) g/dL RDW (11.5-15.5) % Plt Count (150-450) k/uL MPV Neutrophils % % Lymphocytes % % Monocytes % % Eosinophils % % Basophils % % Neutrophils # (1.3-7.7) k/uL Lymphocytes # (1.0-4.8) k/uL Monocytes # (0-1.0) k/uL Eosinophils # (0-0.7) k/uL Basophils # (0-0.2) k/uL Hypochromasia PT (10.0-12.5) sec INR (<1.2) APTT (22.0-30.0) sec Sodium (137-145) mmol/L Potassium (3.5-5.1) mmol/L Chloride (98-107) mmol/L Carbon Dioxide (22-30) mmol/L Anion Gap mmol/L BUN (7-17) mg/dL Creatinine (0.52-1.04) mg/dL Est GFR (CKD-EPI)AfAm (>60 ml/min/1.73 sqM) Est GFR (CKD-EPI)NonAf (>60 ml/min/1.73 sqM) Glucose (74-99) mg/dL Plasma Lactic Acid Ramón 1.6 (0.7-2.0) mmol/L Calcium (8.4-10.2) mg/dL Total Bilirubin (0.2-1.3) mg/dL AST (14-36) U/L ALT (4-34) U/L Alkaline Phosphatase (38-126) U/L Troponin I <0.012 (0.000-0.034) ng/mL Total Protein (6.3-8.2) g/dL Albumin (3.5-5.0) g/dL Influenza Type A (PCR) Not Detected (Not Detectd) Influenza Type B (PCR) Not Detected (Not Detectd) RSV (PCR) Not Detected (Not Detectd) SARS-CoV-2 (PCR) Not Detected (Not Detectd) - EKG Data -: EKG Interpreted by Me EKG Comments: EKG taken at 15: 36 showing a normal sinus rhythm. Nonspecific T wave abnormality inferior leads. Normal axis. Ventricular rate 79, AR interval 176, QRS duration 88, QT/QTc 376/411. - Radiology Data Radiology results: report reviewed, image reviewed Disposition Clinical Impression: Pneumonia Disposition: ADMITTED IP TO THIS HOSP Condition: Stable Referrals: Edilberto Christianson MD [Primary Care Provider] - 1-2 days Time of Disposition: 16:39
[2024-11-15] MEDS: SODIUM CHLORIDE 0.9% 1,000 ML IV STA (15:31)
[2024-11-15 15:39] LABS: Basophils % (A) 0 %; Eosinophils % (A) 0 %; HCT 37.6 % (34.0-46.0); HGB 11.9 gm/dL (11.4-16.0); Hypochromasia Slight; Lymphocytes # (A) 0.8 k/uL (1.0-4.8); Lymphocytes % (A) 8 %; MCH 27.5 pg (25.0-35.0); MCHC 31.6 g/dL (31.0-37.0); Mean Platelet Volume 7.5; Monocytes # (A) 0.4 k/uL (0-1.0); Monocytes % (A) 4 %; Neutrophils # (A) 7.6 k/uL (1.3-7.7); Neutrophils % (A) 85 %; Platelet Count 175 k/uL (150-450); RBC 4.32 m/uL (3.80-5.40); WBC 8.9 k/uL (3.8-10.6)
[2024-11-15 15:49] LABS: Partial Thromboplastin Time 23.3 sec (22.0-30.0); Prothrombin Time 11.4 sec (10.0-12.5)
[2024-11-15 15:50] LABS: ALT 19 U/L (4-34); AST 19 U/L (14-36); African American GFR (CKD) >90 (>60 ml/min/1.73 sqM); Alkaline Phosphatase 141 U/L (38-126); Anion Gap 8 mmol/L; Blood Urea Nitrogen 12 mg/dL (7-17); Calcium 8.8 mg/dL (8.4-10.2); Carbon Dioxide 29 mmol/L (22-30); Chloride 99 mmol/L (98-107); Glucose 137 mg/dL (74-99); Non-African American GFR(CKD) 89 (>60 ml/min/1.73 sqM); Potassium 3.7 mmol/L (3.5-5.1); Sodium 136 mmol/L (137-145); Total Bilirubin 0.6 mg/dL (0.2-1.3)
[2024-11-15] MEDS: IPRATROPIUM-ALBUTEROL 3 ML NEB INHALATION STA (15:53)
[2024-11-15 16:12] LABS: Influenza A Not Detected (Not Detectd); Influenza B Not Detected (Not Detectd); RSV Not Detected (Not Detectd)
--- NOTE | 2024-11-15 16:20 | XR ---
EXAMINATION TYPE: XR chest 2V DATE OF EXAM: 11/15/2024 4:13 PM COMPARISON: Chest radiographs from 10/03/2024 CLINICAL INDICATION: Female, 79 years old with history of difficulty breathing; [facility] TECHNIQUE: XR chest 2V Frontal and lateral views of the chest. FINDINGS: Lungs/Pleura: Right midlung airspace opacities. There is no evidence of pleural effusion, focal conso lidation, or pneumothorax. Pulmonary vascularity: Unremarkable. Heart/mediastinum: Cardiomediastinal silhouette is unremarkable. Musculoskeletal: No acute osseous pathology. IMPRESSION: Right midlung airspace opacities correlate for pneumonia. [facility], , 11/15/2024 4:18 PM
[2024-11-15] MEDS ORDERED: IBUPROFEN 400 MG TAB PO PRN (16:36)
[2024-11-15] MEDS ORDERED: NALOXONE 0.4 MG/ML 1 ML VIAL IV PRN (16:36)
[2024-11-15] MEDS: SODIUM CHLORIDE 0.9% 1,000 ML IV SCH (16:58)
[2024-11-15] MEDS: cefTRIAXone IN SWFI 1,000 MG/10 ML SYRINGE IVP SCH (17:02)
[2024-11-15] MEDS: methylPREDNISolone SOD SUCCI 125 MG/2 ML VIAL IV SCH (17:02)
[2024-11-15] MEDS: AZITHROMYCIN 500 MG in SODIUM CHLORIDE 0.9% 250 ML IVPB SCH (17:02)
[2024-11-15] MEDS: IPRATROPIUM-ALBUTEROL 3 ML NEB INHALATION SCH ×2 (19:35→20:04)
[2024-11-15 20:26] LABS: Appearance,Urine Clear (Clear); Bacteria,Urine Rare /hpf; Bilirubin,Urine Negative (Negative); Blood,Urine Trace (Negative); Color,Urine Yellow; Glucose,Urine (UA) Negative (Negative); Ketones,Urine Negative (Negative); Leukocyte Esterase,Urine Negative (Negative); Mucus,Urine Few /hpf; Nitrite,Urine Negative (Negative); PH, Urine 5.5 (5.0-8.0); Protein,Urine 1+ (Negative); RBC,Urine 9 /hpf (0-5); Specific Gravity,Urine 1.027 (1.001-1.035); Squamous Epithelial Cell,Urine 4 /hpf (0-4); WBC,Urine 4 /hpf (0-5)
[2024-11-15 20:33] LABS: Glucose,Whole Blood 291 mg/dL (70-110)
[2024-11-15] MEDS ORDERED: DEXTROSE 50% SYRINGE 50 ML IVP PRN ×2 (20:34)
[2024-11-15] MEDS: ATORVASTATIN 80 MG TAB PO SCH (20:56)
[2024-11-15] MEDS: RIVAROXABAN 2.5 MG TABLET PO SCH (20:56)
[2024-11-15] MEDS: traZODone HCL 100 MG TAB PO SCH (20:56)
[2024-11-15] MEDS: INSULIN ASPART (NovoLOG) 100 UNIT/ML VIAL SQ SCH (20:57)
--- NOTE | 2024-11-15 21:08 | P.HPIM ---
History of Present Illness H&P Date: 11/15/24 Chief Complaint: Difficulty in breathing Patient is a 79-year-old male with a past medical history of coronary artery disease with stent placement x 4, peripheral vascular disease with balloon angioplasty of the left SFA, hypertension, diabetes type 2, hyperlipidemia, obstructive sleep apnea not using CPAP, hypothyroidism, history of duodenal ulcer and peptic ulcer, depression, prior history of smoking and other medical problems presents to ER with complaints of difficulty in breathing since yesterday. Patient is also having cough, minimal leg swelling as well. She was nauseated and was having fever at home. She feels like she cannot take a deep breath and felt very weak. Denies any sick contacts. Denies any vomiting. No abdominal pain. No diarrhea. Denies any recent travel. Chest x-ray showed right midlung airspace opacities correlate for pneumonia EKG showed sinus rhythm heart rate 79 On admission blood pressure 110/73 pulse is 83 respiration 18 and pulse ox 96% on 3 L oxygen via nasal cannula. Tmax 102.9 F Laboratory data showed WBC 8.9 hemoglobin 11.9 and platelets 175 Sodium 136 potassium 3.7 chloride 99 bicarb is 29 BUN 12 and creatinine 0.58 and blood sugar 137 AST 19 ALT 19 alk phos 141 and troponin less than 0.012 and albumin 4.0 UA negative for infection. Influenza A B RSV and COVID-19 PCR not detected. Review of Systems Constitutional: Patient does have fever. No chills.. Generalized weakness and malaise. Abdomen: Patient was complaining of nausea. No vomiting. No diarrhea or abdominal pain. No diarrhea. Cardiovascular: Patient does complain of chest tightness. Positive for shortness of breath. No palpitations. Leg swelling. Respiratory: patient complains of cough without sputum production.. Positive for shortness of breath Neurologic: Patient denied any numbness or tingling. no headache. Musculoskeletal: Patient denies any complaints of joint swelling or deformity. Skin: Negative Psychiatric: Negative Endocrine: No heat or cold intolerance. No recent weight gain. Genitourinary: No dysuria or hematuria. All other 14 point ROS negative except the above Past Medical History Past Medical History: Coronary Artery Disease (CAD), Chest Pain / Angina, COPD, Diabetes Mellitus, GERD/Reflux, Hyperlipidemia, Hypertension, Osteoarthritis (OA), Sleep Apnea/CPAP/BIPAP, Thyroid Disorder, Vascular Disorder Additional Past Medical History / Comment(s): See Dr Humphrey's H&P. Hx bleeding peptic ulcer, duodenal ulcers, hyperthyroid chemically tx yrs ago, some decreased kidney function, "feels like a blockage in my throat", Type II DM, does not use CPAP, PAD, arterial blockages left arm, no BP's on left arm. History of Any Multi-Drug Resistant Organisms: None Reported Past Surgical History: Appendectomy, Cholecystectomy, Heart Catheterization With Stent, Hernia Repair Additional Past Surgical History / Comment(s): 4 cardiac stents, 1/2 stomach rem miles from ulcer, EGD/COLONOSCOPY, VAGOTOMY(to treat ulcers), HIATAL HERNIA REPAIR, ANGIOPLASTY, bilateral cataract surgery, left carpal tunnel surgery, right femoral popliteal angioplasty. Past Anesthesia/Blood Transfusion Reactions: No Reported Reaction Additional Past Anesthesia/Blood Transfusion Reaction / Comment(s): Has had blood transfusions w/ bleeding ulcer. Date of Last Stent Placement:: 2012 Past Psychological History: Depression Additional Psychological History / Comment(s): Due to loss of daughter. Smoking Status: Former smoker Past Alcohol Use History: None Reported Additional Past Alcohol Use History / Comment(s): Quit smoking 02/2013 & started again 2021 for 8-9 months when daughter ill then quit again, smoked 1ppd X50 yrs. Past Drug Use History: None Reported - Past Family History Father Family Medical History: Myocardial Infarction (CT) Additional Family Medical History / Comment(s): Father at age 41yrs of [place]. Mother Family Medical History: Cancer, Congestive Heart Failure (CHF) Additional Family Medical History / Comment(s): Mother at age 92yrs of CHF. Breast cancer. Brother(s) Family Medical History: Myocardial Infarction (CT) Additional Family Medical History / Comment(s): One brother of [place] at age 55 yrs and another brother at age 67 of [place]. Sister(s) Family Medical History: Myocardial Infarction (CT) Additional Family Medical History / Comment(s): Sister of [place] at age 68 yrs. Daughter(s) Family Medical History: Cancer Additional Family Medical History / Comment(s): at age 52 from anal cancer. Medications and Allergies Home Medications Medication Instructions Recorded Confirmed Type Nitroglycerin Sl Tabs [Nitrostat] 0.4 mg SUBLINGUAL Q5M PRN #25 tab 06/29/18 11/15/24 Rx Ascorbic Acid [Vitamin C] 500 mg PO DAILY 10/18/20 11/15/24 History Aspirin 325 mg PO DAILY 10/18/20 11/15/24 History Vits A,C,E/Lutein/Minerals 1 tab PO BID 10/28/20 11/15/24 History [Ocuvite with Lutein Tablet] traZODone HCL 200 mg PO HS 02/28/23 11/15/24 History Citalopram Hydrobromide 20 mg PO DAILY 06/11/24 11/15/24 History [Citalopram HBr] Furosemide [Lasix] 20 mg PO DAILY 06/11/24 11/15/24 History Atorvastatin [Lipitor] 80 mg PO HS 07/21/24 11/15/24 History Rivaroxaban [Xarelto] 2.5 mg PO BID #180 tab 07/30/24 11/15/24 Rx carvediloL [Coreg] 25 mg PO BID 10/03/24 11/15/24 History metFORMIN HCL 500 mg PO DAILY 10/03/24 11/15/24 History Isosorbide Mononitrate ER [Imdur] 60 mg PO DAILY 11/15/24 11/15/24 History Omeprazole 20 mg PO DAILY 11/15/24 11/15/24 History amLODIPine [Norvasc] 5 mg PO HS 11/15/24 11/15/24 History Allergies Allergy/AdvReac Type Severity Reaction Status Date / Time codeine AdvReac Severe Nausea & Verified 11/15/24 15:19 Vomiting Physical Exam Vitals: Vital Signs Temp Pulse Pulse Resp BP BP Pulse Ox 11/15/24 20:14 68 11/15/24 20:04 68 11/15/24 19:10 98.1 F 68 16 113/56 94 L 11/15/24 18:22 98.1 F 68 16 91/49 94 L 11/15/24 17:47 99.5 F 64 18 102/47 96 11/15/24 17:09 68 18 106/40 95 11/15/24 16:24 100.5 F H 11/15/24 16:03 78 11/15/24 15:54 75 11/15/24 15:19 110/73 11/15/24 15:16 102.9 F H 86 18 96 Intake and Output 11/15/24 11/15/24 11/15/24 06:59 14:59 22:59 Output Total 200 Balance -200 Output: Urine 200 Other: Weight 77.111 kg PHYSICAL EXAMINATION: Patient is lying in the bed, mild acute distress, awake alert and oriented.. HEENT: Normocephalic. Neck is supple. Pupils reactive. Nostrils clear. Oral cavity is moist. Neck reveals no JVD, carotid bruits, or thyromegaly. CHEST EXAMINATION: Trachea is central. Symmetrical expansion. Bilateral scattered coarse sounds. Nonlabored breathing. Mild expiratory wheeze.. CARDIAC: Normal S1, S2 with no gallops. No murmurs ABDOMEN: Soft. Bowel sounds normal. No organomegaly. No abdominal bruits. Extremities: Bilateral lower extremity trace edema. No clubbing or cyanosis Neurologically awake, alert, oriented x3 with well-coordinated movements. No focal deficits noted Skin: No rash or skin lesions. Psychiatric: Coperative. Nonsuicidal, anxious. Musculoskeletal: No joint swelling or deformity. Normal range of motion. Results CBC & Chem 7: 11/15/24 15:30 11/15/24 15:30 Labs: Abnormal Lab Results - Last 24 Hours (Table) 11/15/24 11/15/24 11/15/24 Range/Units 15:30 15:30 19:57 Lymphocytes # 0.8 L (1.0-4.8) k/uL Sodium 136 L (137-145) mmol/L Glucose 137 H (74-99) mg/dL Alkaline Phosphatase 141 H (38-126) U/L Urine Protein 1+ H (Negative) Urine Blood Trace H (Negative) Urine RBC 9 H (0-5) /hpf Urine Bacteria Rare H (None) /hpf Urine Mucus Few H (None) /hpf Thrombosis Risk Factor Assmnt - DVT/VTE Prophylaxis DVT/VTE Prophylaxis: Pharmacologic Prophylaxis ordered - Choose All That Apply Each Risk Factor Represents 3 Points: Age 75 years or older Thrombosis Risk Factor Assessment Total Risk Factor Score: 3 Thrombosis Risk Factor Assessment Level: Moderate Risk Assessment and Plan Assessment: Right lung pneumonia. Chest x-ray showed right midlung airspace opacities. Coronary disease with history of prior stent placement x 4 Peripheral vascular disease. Status post left SFA balloon angioplasty on 2023 Anticoagulation with Xarelto 2.5 mg twice daily. Not sure if is due to PVD versus history of DVT. Hypertension Hypertension Diabetes type 2 Depression Obesity with BMI 31.4 COPD Prior history of smoking Obstructive sleep apnea not using CPAP at home History of partial gastrectomy for previous peptic ulcer disease GI prophylaxis PPI Plan: Patient will be continued on oxygen supplementation. Continue with telemonitoring. Continue with antibiotics and follow ceftriaxone azithromycin. Gentle IV hydration. Procalcitonin and proBNP was ordered. Continue with DuoNebs. Patient was also given a dose of IV Solu-Medrol 60 mg in the ER. Continue with aspirin, statin and Coreg and Imdur. Continue with anticoagulation with Xarelto 2.5 mg p.o. twice daily and other home medications. Monitor fluid status. On IV hydration with normal saline at 25 cc/h. Continue to follow closely. Time with Patient: Greater than 30
[2024-11-16 07:38] LABS: Glucose,Whole Blood 171 mg/dL (70-110)
[2024-11-16] MEDS: BUDESONIDE 0.5 MG/2 ML NEBU INHALATION SCH (07:54)
--- NOTE | 2024-11-16 08:34 | XR ---
EXAMINATION TYPE: XR chest 1V DATE OF EXAM: 11/16/2024 COMPARISON: 11/15/2024 CLINICAL INDICATION: Female, 79 years old with history of Pneumonia; TECHNIQUE: Single frontal view of the chest is obtained. FINDINGS: Ongoing focal airspace opacity at the right upper lobe. Heart normal size. Some stringy at electasis along the left heart margin is unchanged. Prominent degenerative change left shoulder. Loos e bodies in the left subcoracoid space. No pleural effusion. IMPRESSION: Ongoing right upper lobe pneumonia. [facility], , 11/16/2024 8:32 AM
[2024-11-16 08:36] LABS: NT-Pro-B-Type Natriuretic Pept 1155 pg/mL (0-450)
[2024-11-16] MEDS: PANTOPRAZOLE 40 MG TABLET PO SCH (08:44)
[2024-11-16] MEDS: carvediloL 3.125 MG TAB PO SCH (08:44)
[2024-11-16] MEDS: ASPIRIN 325 MG TAB PO SCH (08:44)
[2024-11-16] MEDS: ISOSORBIDE MONONITRATE ER 60 MG TAB.ER.24H PO SCH (08:44)
[2024-11-16 09:01] LABS: BUN/Creat Ratio 24.33 Ratio (12.00-20.00); Blood Urea Nitrogen 14.6 mg/dL (9.0-27.0); Calcium 8.5 mg/dL (8.7-10.3); Carbon Dioxide 23.9 mmol/L (21.6-31.8); Chloride 104 mmol/L (96-109); Glucose 175 mg/dL (70-110); Sodium 141 mmol/L (135-145)
[2024-11-16 09:20] LABS: Basophils # (A) 0.02 X 10*3/uL (0.00-0.10); Basophils % (A) 0.3 %; Eosinophils # (A) 0 X 10*3/uL (0.04-0.35); Eosinophils % (A) 0 %; HGB 11.2 g/dL (12.0-15.0); Lymphocytes % (A) 6.6 %; MCH 27.2 pg (27.0-32.0); MCHC 30.3 g/dL (32.0-37.0); MCV 89.8 FL (80.0-97.0); Mean Platelet Volume 10.2 FL (9.5-12.2); Monocytes # (A) 0.28 X 10*3/uL (0.20-1.00); Monocytes % (A) 3.7 %; NRBC Per 100 WBC 0 X 10*3/uL (0.00-0.01); Neutrophils # (A) 6.76 X 10*3/uL (1.80-7.70); Platelet Count 181 X 10*3/uL (140-440); RBC 4.12 X 10*6/uL (4.10-5.20); RDW 14.4 % (11.5-14.5); WBC 7.59 X 10*3/uL (4.50-10.00)
[2024-11-16 12:24] LABS: Glucose,Whole Blood 231 mg/dL (70-110)
[2024-11-16] MEDS: ACETAMINOPHEN TAB 325 MG TAB PO PRN (14:00)
[2024-11-16 17:34] LABS: Glucose,Whole Blood 224 mg/dL (70-110)
[2024-11-16 20:22] LABS: Glucose,Whole Blood 153 mg/dL (70-110)
--- NOTE | 2024-11-16 21:03 | P.PN ---
Subjective Patient is a 79-year-old male with a past medical history of coronary artery disease with stent placement x 4, peripheral vascular disease with balloon angioplasty of the left SFA, hypertension, diabetes type 2, hyperlipidemia, obstructive sleep apnea not using CPAP, hypothyroidism, history of duodenal ulcer and peptic ulcer, depression, prior history of smoking and other medical problems presents to ER with complaints of difficulty in breathing since yesterday. Patient is also having cough, minimal leg swelling as well. She was nauseated and was having fever at home. She feels like she cannot take a deep breath and felt very weak. Denies any sick contacts. Denies any vomiting. No abdominal pain. No diarrhea. Denies any recent travel. Chest x-ray showed right midlung airspace opacities correlate for pneumonia EKG showed sinus rhythm heart rate 79 On admission blood pressure 110/73 pulse is 83 respiration 18 and pulse ox 96% on 3 L oxygen via nasal cannula. Tmax 102.9 F Laboratory data showed WBC 8.9 hemoglobin 11.9 and platelets 175 Sodium 136 potassium 3.7 chloride 99 bicarb is 29 BUN 12 and creatinine 0.58 and blood sugar 137 AST 19 ALT 19 alk phos 141 and troponin less than 0.012 and albumin 4.0 UA negative for infection. Influenza A B RSV and COVID-19 PCR not detected. 11/16 Feels tired and weak Mentation at baseline Still tachypnea at rest, mild. No accessory muscles but states she is feeling improved No significant coughing No chest pain Patient was not on oxygen at home Objective - Vital Signs Vital signs: Vital Signs Temp 97.9 F 11/16/24 20:00 Pulse 68 11/16/24 20:00 Resp 16 11/16/24 20:00 BP 108/62 11/16/24 20:00 Pulse Ox 96 11/16/24 20:00 FiO2 Intake & Output 11/16/24 11/16/24 11/17/24 06:59 18:59 06:59 Intake Total 1000 360 Output Total 200 Balance 800 360 Intake: Intake, IV Titration 900 Amount Sodium Chloride 0.9% 1, 900 000 ml @ 75 mls/hr IV . [id number] [facility] TO [facility] Rx#:[id number] Oral 100 360 Output: Urine 200 Other: Voiding Method Toilet Toilet # Voids 1 4 - Exam GENERAL: The patient is alert and oriented x3, not in any acute distress. Well developed, well nourished. HEENT: Pupils are round and equally reacting to light. EOMI. No scleral icterus. No conjunctival pallor. Normocephalic, atraumatic. No pharyngeal erythema. No thyromegaly. CARDIOVASCULAR: S1 and S2 present. No murmurs, rubs, or gallops. PULMONARY: Chest is clear to auscultation, no wheezing , no crackles. ABDOMEN: Soft, nontender, nondistended, normoactive bowel sounds. No palpable organomegaly. MUSCULOSKELETAL: No joint swelling or deformity. EXTREMITIES: No cyanosis, clubbing, or pedal edema. NEUROLOGICAL: Gross neurological examination did not reveal any focal deficits. SKIN: No rashes. no petechiae. - Labs CBC & Chem 7: 11/16/24 06:12 11/16/24 06:12 Labs: Abnormal Lab Results - Last 24 Hours (Table) 11/16/24 11/16/24 11/16/24 Range/Units 06:12 06:12 06:12 Hgb 11.2 L (12.0-15.0) g/dL Hct 37.0 L (37.2-46.3) % MCHC 30.3 L (32.0-37.0) g/dL Lymphocytes # 0.50 L (0.90-5.00) X 10*3/uL Eosinophils # 0 L (0.04-0.35) X 10*3/uL Anion Gap 13.10 H (4.00-12.00) mmol/L BUN/Creatinine Ratio 24.33 H (12.00-20.00) Ratio Glucose 175 H (70-110) mg/dL POC Glucose (mg/dL) (70-110) mg/dL Hemoglobin A1c 7.1 H (<=6.0) % Calcium 8.5 L (8.7-10.3) mg/dL NT-Pro-B Natriuret Pep 1155 H (0-450) pg/mL 11/16/24 11/16/24 11/16/24 Range/Units 07:30 12:08 17:30 Hgb (12.0-15.0) g/dL Hct (37.2-46.3) % MCHC (32.0-37.0) g/dL Lymphocytes # (0.90-5.00) X 10*3/uL Eosinophils # (0.04-0.35) X 10*3/uL Anion Gap (4.00-12.00) mmol/L BUN/Creatinine Ratio (12.00-20.00) Ratio Glucose (70-110) mg/dL POC Glucose (mg/dL) 171 H 231 H 224 H (70-110) mg/dL Hemoglobin A1c (<=6.0) % Calcium (8.7-10.3) mg/dL NT-Pro-B Natriuret Pep (0-450) pg/mL 11/16/ Range/Units 20:18 Hgb (12.0-15.0) g/dL Hct (37.2-46.3) % MCHC (32.0-37.0) g/dL Lymphocytes # (0.90-5.00) X 10*3/uL Eosinophils # (0.04-0.35) X 10*3/uL Anion Gap (4.00-12.00) mmol/L BUN/Creatinine Ratio (12.00-20.00) Ratio Glucose (70-110) mg/dL POC Glucose (mg/dL) 153 H (70-110) mg/dL Hemoglobin A1c (<=6.0) % Calcium (8.7-10.3) mg/dL NT-Pro-B Natriuret Pep (0-450) pg/mL Assessment and Plan Assessment: Right lung pneumonia. Chest x-ray showed right midlung airspace opacities. Coronary disease with history of prior stent placement x 4 Peripheral vascular disease. Status post left SFA balloon angioplasty on 07/29/2024 Anticoagulation with Xarelto 2.5 mg twice daily. Not sure if is due to PVD versus history of DVT. Hypertension Hypertension Diabetes type 2 Depression Obesity with BMI 31.4 COPD Prior history of smoking Obstructive sleep apnea not using CPAP at home History of partial gastrectomy for previous peptic ulcer disease Plan: Continue with antibiotic Zithromax and ceftriaxone Continue with normal saline 75 mL/h Infectious disease team consult Labs and medication were reviewed.. Continue same treatment. Continue with symptomatic treatment. Resume home medication. Monitor labs and vitals. DVT and GI prophylaxis. Further recommendations as per clinical course of the patient DVT prophylaxis: S Xarelto GI Prophylaxis: Protonix Prognosis is guarded
[2024-11-17 07:11] LABS: Glucose,Whole Blood 157 mg/dL (70-110)
--- NOTE | 2024-11-17 09:41 | P.CONS ---
History of Present Illness - Reason for Consult Consult date: 11/16/24 Pneumonia Requesting physician: Christen Simons - Chief Complaint Shortness of breath and cough x few days - History of Present Illness Patient is a 79-year-old female with a past medical history significant for coronary artery disease diabetes mellitus COPD hypertension hyperlipidemia osteomyelitis patient has been brought into the hospital for evaluation of increasing shortness of breath and this patient symptom has been getting worse for a day or 2 before the patient has been brought into the hospital patient mention she was not able to catch her breath patient denies having any chest pain she did have a cough moderate intensity but not bring up any sputum patient denies having any URI symptoms denies having any nausea no vomiting no choking on the food no abdominal pain or any diarrhea or presentation the hospital patient did have a temperature of 102.9 F patient was not tachycardic hypotensive mildly hypoxic currently on 2 L current oxygen terrance ent did have white count of 8.9 creatinine 0.58 liver isms are normal electrolytes are normal urine has been negative influenza RSV COVID testing has been negative blood culture obtained which are currently pending patient did have a chest x-ray with evidence of right midlung airspace opacity correlate for pneumonia patient has been treated with ceftriaxone and Zithromax infectious disease was consulted for further management of antibiotic therapy Review of Systems Positive point and negatives has been mentioned in the HPI, complete review of systems was performed and all other systems are negative Past Medical History Past Medical History: Coronary Artery Disease (CAD), Chest Pain / Angina, COPD, Diabetes Mellitus, GERD/Reflux, Hyperlipidemia, Hypertension, Osteoarthritis (OA), Sleep Apnea/CPAP/BIPAP, Thyroid Disorder, Vascular Disorder Additional Past Medical History / Comment(s): See Dr Humphrey's H&P. Hx bleeding peptic ulcer, duodenal ulcers, hyperthyroid chemically tx yrs ago, some decreas ed kidney function, "feels like a blockage in my throat", Type II DM, does not use CPAP, PAD, arterial blockages left arm, no BP's on left arm. History of Any Multi-Drug Resistant Organisms: None Reported Past Surgical History: Appendectomy, Cholecystectomy, Heart Catheterization With Stent, Hernia Repair Additional Past Surgical History / Comment(s): 4 cardiac stents, 1/2 stomach removed from ulcer, EGD/COLONOSCOPY, VAGOTOMY(to treat ulcers), HIATAL HERNIA REPAIR, ANGIOPLASTY, bilateral cataract surgery, left carpal tunnel surgery, right femoral popliteal angioplasty. Past Anesthesia/Blood Transfusion Reactions: No Reported Reaction Additional Past Anesthesia/Blood Transfusion Reaction / Comm: Has had blood transfusions w/ bleeding ulcer. Date of Last Stent Placement:: 2012 Past Psychological History: Depression Additional Psychological History / Comment(s): Due to loss of daughter. Smoking Status: Former smoker Past Alcohol Use History: None Reported Additional Past Alcohol Use History / Comment(s): Quit smoking 02/2013 & started again 2021 for 8-9 months when daughter ill then quit again, smoked 1ppd X50 y rs. Past Drug Use History: None Reported - Past Family History Father Family Medical History: Myocardial Infarction (RI) Additional Family Medical History / Comment(s): Father at age 41yrs of RI. Mother Family Medical History: Cancer, Congestive Heart Failure (CHF) Additional Family Medical History / Comment(s): Mother at age 92yrs of CHF. Breast cancer. Brother(s) Family Medical History: Myocardial Infarction (RI) Additional Family Medical History / Comment(s): One brother of RI at age 55 yrs and another brother at age 67 of RI. Sister(s) Family Medical History: Myocardial Infarction (RI) Additional Family Medical History / Comment(s): Sister of RI at age 68 yrs. Daughter(s) Family Medical History: Cancer Additional Family Medical History / Comment(s): at age 52 from anal cancer. Medications and Allergies Home Medications Medication Instructions Recorded Confirmed Type Nitroglycerin Sl Tabs [Nitrostat] 0.4 mg SUBLINGUAL Q5M PRN #25 tab 06/29/18 11/15/24 Rx Ascorbic Acid [Vitamin C] 500 mg PO DAILY 10/18/20 11/15/24 History Aspirin 325 mg PO DAILY 10/18/20 11/15/24 History Vits A,C,E/Lutein/Minerals 1 tab PO BID 10/28/20 11/15/24 History [Ocuvite with Lutein Tablet] traZODone HCL 200 mg PO HS 02/28/23 11/15/24 History Citalopram Hydrobromide 20 mg PO DAILY 06/11/24 11/15/24 History [Citalopram HBr] Furosemide [Lasix] 20 mg PO DAILY 06/11/24 11/15/24 History Atorvastatin [Lipitor] 80 mg PO HS 07/21/24 11/15/24 History Rivaroxaban [Xarelto] 2.5 mg PO BID #180 tab 07/30/24 11/15/24 Rx carvediloL [Coreg] 25 mg PO BID 10/03/24 11/15/24 History metFORMIN HCL 500 mg PO DAILY 10/03/24 11/15/24 History Isosorbide Mononitrate ER [Imdur] 60 mg PO DAILY 11/15/24 11/15/24 History Omeprazole 20 mg PO DAILY 11/15/24 11/15/24 History amLODIPine [Norvasc] 5 mg PO HS 11/15/24 11/15/24 History Allergies Allergy/AdvReac Type Severity Reaction Status Date / Time codeine AdvReac Severe Nausea & Verified 11/15/24 15:19 Vomiting Physical Exam Vitals: Vital Signs Temp Pulse Pulse Resp BP BP Pulse Ox 11/16/24 08:35 62 16 11/16/24 08:05 69 11/16/24 07:55 68 98 11/16/24 07:26 97.5 F L 62 16 149/67 97 11/16/24 01:45 97.7 F 65 18 127/68 95 11/15/24 20:14 68 11/15/24 20:04 68 11/15/24 19:35 16 11/15/24 19:10 98.1 F 68 16 113/56 94 L 11/15/24 18:22 98.1 F 68 16 91/49 94 L 11/15/24 17:47 99.5 F 64 18 102/47 96 11/15/24 17:09 68 18 106/40 95 11/15/24 16:24 100.5 F H 11/15/24 16:03 78 11/15/24 15:54 75 11/15/24 15:19 110/73 11/15/24 15:16 102.9 F H 86 18 96 Intake and Output 11/15/24 11/16/24 11/16/24 22:59 06:59 14:59 Intake Total 100 900 Output Total 200 Balance -100 900 Intake: Intake, IV Titration 900 Amount Sodium Chloride 0.9% 1, 900 000 ml @ 75 mls/hr IV . [id number] [facility] Rx#:[id number] Oral 100 Output: Urine 200 Other: Voiding Method Toilet # Voids 1 Weight 77.111 kg GENERAL DESCRIPTION: Elderly female lying in bed, no distress. No tachypnea or accessory muscle of respiration use. HEENT: Shows Pallor , no scleral icterus. Oral mucous membrane is dry. No pharyngeal erythema or thrush NECK: Trachea central, no thyromegaly. LUNGS: Unlabored breathing. Coarse breath sound on the right side HEART: S1, S2, regular rate and rhythm. No loud murmur ABDOMEN: Soft, no tenderness , guarding or rigidity, no organomegaly EXTREMITIES: No edema of feet. SKIN: No rash, no masses palpable. NEUROLOGICAL: The patient is awake, alert, oriented x3, mood and affect normal. Results CBC & Chem 7: 11/16/24 06:12 11/16/24 06:12 Labs: Abnormal Lab Results - Last 24 Hours (Table) 11/15/24 11/15/24 11/15/24 Range/Units 15:30 15:30 19:57 Hgb (12.0-15.0) g/dL Hct (37.2-46.3) % MCHC (32.0-37.0) g/dL Lymphocytes # 0.8 L (1.0-4.8) k/uL Eosinophils # (0.04-0.35) X 10*3/uL Sodium 136 L (137-145) mmol/L Anion Gap (4.00-12.00) mmol/L BUN/Creatinine Ratio (12.00-20.00) Ratio Glucose 137 H (74-99) mg/dL POC Glucose (mg/dL) (70-110) mg/dL Hemoglobin A1c (<=6.0) % Calcium (8.7-10.3) mg/dL Alkaline Phosphatase 141 H (38-126) U/L NT-Pro-B Natriuret Pep (0-450) pg/mL Urine Protein 1+ H (Negative) Urine Blood Trace H (Negative) Urine RBC 9 H (0-5) /hpf Urine Bacteria Rare H (None) /hpf Urine Mucus Few H (None) /hpf 11/15/24 11/16/24 11/16/24 Range/Units 20:30 06:12 06:12 Hgb (12.0-15.0) g/dL Hct (37.2-46.3) % MCHC (32.0-37.0) g/dL Lymphocytes # (1.0-4.8) k/uL Eosinophils # (0.04-0.35) X 10*3/uL Sodium (137-145) mmol/L Anion Gap 13.10 H (4.00-12.00) mmol/L BUN/Creatinine Ratio 24.33 H (12.00-20.00) Ratio Glucose 175 H (74-99) mg/dL POC Glucose (mg/dL) 291 H (70-110) mg/dL Hemoglobin A1c 7.1 H (<=6.0) % Calcium 8.5 L (8.7-10.3) mg/dL Alkaline Phosphatase (38-126) U/L NT-Pro-B Natriuret Pep 1155 H (0-450) pg/mL Urine Protein (Negative) Urine Blood (Negative) Urine RBC (0-5) /hpf Urine Bacteria (None) /hpf Urine Mucus (None) /hpf 11/16/24 11/16/24 Range/Units 06:12 07:30 Hgb 11.2 L (12.0-15.0) g/dL Hct 37.0 L (37.2-46.3) % MCHC 30.3 L (32.0-37.0) g/dL Lymphocytes # 0.50 L (1.0-4.8) k/uL Eosinophils # 0 L (0.04-0.35) X 10*3/uL Sodium (137-145) mmol/L Anion Gap (4.00-12.00) mmol/L BUN/Creatinine Ratio (12.00-20.00) Ratio Glucose (74-99) mg/dL POC Glucose (mg/dL) 171 H (70-110) mg/dL Hemoglobin A1c (<=6.0) % Calcium (8.7-10.3) mg/dL Alkaline Phosphatase (38-126) U/L NT-Pro-B Natriuret Pep (0-450) pg/mL Urine Protein (Negative) Urine Blood (Negative) Urine RBC (0-5) /hpf Urine Bacteria (None) /hpf Urine Mucus (None) /hpf Assessment and Plan (1) Pneumonia Current Visit: Yes Status: Acute Code(s): J18.9 - PNEUMONIA, UNSPECIFIED ORGANISM SNOMED Code(s): 222231472 Plan: 1patient presented to hospital with increasing shortness of breath patient did have a cough did have a fever right-sided pneumonia chest x-ray likely presenting community-acquired pneumonia. 2we will try to obtain sputum for Gram stain and culture. 3patient will be treated with Rocephin and Zithromax for waiting for the workup to be completed Family at the bedside question concerns answered We will follow on clinical condition and cultures to further adjust medication if needed Thank you for this consultation we will follow the patient along with you Dictation was produced using [employer] dictation software. please excuse any grammatical, word or spelling errors. Time with Patient: Greater than 30
[2024-11-17 12:11] LABS: Glucose,Whole Blood 126 mg/dL (70-110)
--- NOTE | 2024-11-17 14:17 | CA ---
Transthoracic Echo Report Name: Lucy Abdullahi Age: 79 Gender: F : 1945 Exam Date: 11/16/2024 15:16 Exam Location: [place] [facility] Ht (in): 60 Wt (lb): 170 Ordering Physician: Wil Mendez MD ([id number]) Attending/Referring Phys: [employer] Bee Mobley RDCS Procedure CPT: Indications: Shortness of breath, increased BNP Cardiac Hx: Technical Quality: Fair Contrast 1: Total Dose (mL): Contrast 2: Total Dose (mL): MEASUREMENTS (Male / Female) Normal Values 2D ECHO LV Diastolic Diameter PLAX 4.8 cm 4.2 - 5.9 / 3.9 - 5.3 cm LV Systolic Diameter PLAX 2.6 cm IVS Diastolic Thickness 1.3 cm 0.6 - 1.0 / 0.6 - 0.9 cm LVPW Diastolic Thickness 1.4 cm 0.6 - 1.0 / 0.6 - 0.9 cm LV Relative Wall Thickness 0.6 RV Internal Dim ED PLAX 2.0 cm LVOT Diameter 1.9 cm LA Systolic Diameter LX 4.0 cm 3.0 - 4.0 / 2.7 - 3.8 cm LV Diastolic Volume MOD 4C 40.1 cm??? LV Systolic Volume MOD 4C 12.2 cm??? LV Ejection Fraction MOD 4C 69.6 % LV Cardiac Index MOD 4C 939.3 cm???/min???m??? LV Diastolic Length 4C 6.5 cm LV Systolic Length 4C 5.3 cm LA Volume 48.3 cm??? 18 - 58 / 22 - 52 cm??? LA Volume Index 26.3 cm???/m??? 16 - 28 cm???/m??? M-MODE Aortic Root Diameter MM 3.0 cm LA Systolic Diameter MM 4.1 cm LA Ao Ratio MM 1.4 AV Cusp Separation MM 0.9 cm DOPPLER AV Peak Velocity 271.7 cm/s AV Peak Gradient 29.5 mmHg AV Mean Velocity 200.3 cm/s AV Mean Gradient 17.6 mmHg AV Velocity Time Integral 71.1 cm LVOT Peak Velocity 108.2 cm/s LVOT Peak Gradient 4.7 mmHg LVOT Velocity Time Integral 31.2 cm LVOT Stroke Volume 90.6 cm??? LVOT Stroke Volume Index 52.0 ml/m??? LVOT Cardiac Index 3049.0 cm???/min???m??? AV Area Cont Eq vti 1.3 cm??? AV Area Cont Eq pk 1.2 cm??? MV Area PHT 2.4 cm??? Mitral E Point Velocity 126.5 cm/s Mitral A Point Velocity 123.4 cm/s Mitral E to A Ratio 1.0 MV Deceleration Time 321.2 ms TR Peak Velocity 242.8 cm/s TR Peak Gradient 23.6 mmHg Right Ventricular Systolic Press 27.9 mmHg FINDINGS Left Ventricle Left ventricular ejection fraction is estimated at 60-65 %. Moderately increased septal wall thickness. Moderately increased posterior wall thickness. Normal left ventricular systolic function with no obvious regional wall motion abnormalities. Left ventricular cavity size normal. Right Ventricle Normal right ventricular size and function. Right ventricular systolic pressure within normal limits. Right Atrium Mild right atrial dilatation. Left Atrium Mildly increased left atrial diameter. Mitral Valve Mitral valve thickened. Mild mitral regurgitation. No mitral stenosis. Mitral annular calcification. Aortic Valve Trileaflet aortic valve. Mild aortic stenosis with a peak gradient of 30mmHg and a mean gradient of 18mmHg. Trace aortic regurgitation. Tricuspid Valve Structurally normal tricuspid valve. Trace to mild tricuspid regurgitation. No tricuspid stenosis. Pulmonic Valve Structurally normal pulmonic valve. Trace pulmonic regurgitation. No pulmonic stenosis. Pericardium No pericardial or pleural effusion. Aorta Normal size aortic root and proximal ascending aorta. CONCLUSIONS LVH with preserved systolic function Thickened aortic valve, calcific, with mild stenosis Previewed by: Dr. Wil Mendez MD (Electronically Signed) Final Date: 17 November 2024 14:16
[2024-11-17] MEDS: methylPREDNISolone SOD SUCCI 40 MG/ML 1 ML VIAL IV SCH (14:30)
--- NOTE | 2024-11-17 14:48 | P.CRDCN ---
History of Present Illness History of present illness: Dr. Mendez dictating a note on Lucy Abdullahi seen on 16 November for chest mindy n and shortness of breath Patient is a 79-year-old female with a past medical history of coronary artery disease with stent placement x 4, peripheral vascular disease with balloon angioplasty of the left SFA, hypertension, diabetes type 2, hyperlipidemia, obstructive sleep apnea not using CPAP, hypothyroidism, history of duodenal ulcer and peptic ulcer, depression, prior history of smoking and other medical problems presents to ER with complaints of difficulty in breathing since yesterday. Patient is also having cough, minimal leg swelling as well. She was nauseated and was having fever at home. She feels like she cannot take a deep breath and felt very weak. Denies any sick contacts. Denies any vomiting. No abdominal pain. No diarrhea. Denies any recent travel. Chest x-ray showed right midlung airspace opacities correlate for pneumonia EKG showed sinus rhythm heart rate 79 On admission blood pressure 110/73 pulse is 83 respiration 18 and pulse ox 96% on 3 L oxygen via nasal cannula. Tmax 102.9 F Laboratory data showed WBC 8.9 hemoglobin 11.9 and platelets 175 Sodium 136 potassium 3.7 chloride 99 bicarb is 29 BUN 12 and creatinine 0.58 and blood sugar 137 AST 19 ALT 19 alk phos 141 and troponin less than 0.012 and albumin 4.0 UA negative for infection. Influenza A B RSV and COVID-19 PCR not detected. [address]-T abnormality inferior laterally Review of Systems Constitutional: Patient does have fever. No chills.. Generalized weakness and malaise. Abdomen: Patient was complaining of nausea. No vomiting. No diarrhea or abdominal pain. No diarrhea. Cardiovascular: Patient does complain of chest tightness. Positive for shortness of breath. No palpitations. Leg swelling. Respiratory: patient complains of cough without sputum production.. Positive for shortness of breath Neurologic: Patient denied any numbness or tingling. no headache. Assessment: Right lung pneumonia. Chest x-ray showed right midlung airspace opacities. Likely resulting in shortness of breath Coronary disease with history of prior stent placement x 4, normal cardiac enzymes at this time Peripheral vascular disease. Status post left SFA balloon angioplasty on 07/29/2024 Anticoagulation with Xarelto 2.5 mg twice daily. Not sure if is due to PVD versus history of DVT. Hypertension Hypertension Diabetes type 2 Plan 2D echo and Doppler study to assess for symptoms of shortness of breath Continue vascular dose of Xarelto, continue carvedilol amlodipine Continue isosorbide low-dose Lasix atorvastatin and a baby aspirin Stop full aspirin and switch to 81 mg p.o. 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 Hx bleeding peptic ulcer, duodenal ulcers, hyperthyroid chemically tx yrs ago, some decreased kidney function, "feels like a blockage in my throat", Type II DM, does not use CPAP, PAD, arterial blockages left arm, no BP's on left arm. History of Any Multi-Drug Resistant Organisms: None Reported Past Surgical History: Appendectomy, Cholecystectomy, Heart Catheterization With Stent, Hernia Repair Additional Past Surgical History / Comment(s): 4 cardiac stents, 1/2 stomach removed from ulcer, EGD/COLONOSCOPY, VAGOTOMY(to treat ulcers), HIATAL HERNIA REPAIR, ANGIOPLASTY, bilateral cataract surgery, left carpal tunnel surgery, right femoral popliteal angioplasty. Past Anesthesia/Blood Transfusion Reactions: No Reported Reaction Additional Past Anesthesia/Blood Transfusion Reaction / Comment(s): Has had blood transfusions w/ bleeding ulcer. Date of Last Stent Placement:: 2012 Past Psychological History: Depression Additional Psychological History / Comment(s): Due to loss of daughter. Smoking Status: Former smoker Past Alcohol Use History: None Reported Additional Past Alcohol Use History / Comment(s): Quit smoking 02/2013 & started again 2021 for 8-9 months when daughter ill then quit again, smoked 1ppd X50 yrs. Past Drug Use History: None Reported - Past Family History Father Family Medical History: Myocardial Infarction (ME) Additional Family Medical History / Comment(s): Father at age 41yrs of ME. Mother Family Medical History: Cancer, Congestive Heart Failure (CHF) Additional Family Medical History / Comment(s): Mother at age 92yrs of CHF. Breast cancer. Brother(s) Family Medical History: Myocardial Infarction (ME) Additional Family Medical History / Comment(s): One brother of ME at age 55 yrs and another brother at age 67 of ME. Sister(s) Family Medical History: Myocardial Infarction (ME) Additional Family Medical History / Comment(s): Sister of ME at age 68 yrs. Daughter(s) Family Medical History: Cancer Additional Family Medical History / Comment(s): at age 52 from anal cancer. Medications and Allergies Home Medications Medication Instructions Recorded Confirmed Type Nitroglycerin Sl Tabs [Nitrostat] 0.4 mg SUBLINGUAL Q5M PRN #25 tab 06/29/18 11/15/24 Rx Ascorbic Acid [Vitamin C] 500 mg PO DAILY 10/18/20 11/15/24 History Aspirin 325 mg PO DAILY 10/18/20 11/15/24 History Vits A,C,E/Lutein/Minerals 1 tab PO BID 10/28/20 11/15/24 History [Ocuvite with Lutein Tablet] traZODone HCL 200 mg PO HS 02/28/23 11/15/24 History Citalopram Hydrobromide 20 mg PO DAILY 06/11/24 11/15/24 History [Citalopram HBr] Furosemide [Lasix] 20 mg PO DAILY 06/11/24 11/15/24 History Atorvastatin [Lipitor] 80 mg PO HS 07/21/24 11/15/24 History Rivaroxaban [Xarelto] 2.5 mg PO BID #180 tab 07/30/24 11/15/24 Rx carvediloL [Coreg] 25 mg PO BID 10/03/24 11/15/24 History metFORMIN HCL 500 mg PO DAILY 10/03/24 11/15/24 History Isosorbide Mononitrate ER [Imdur] 60 mg PO DAILY 11/15/24 11/15/24 History Omeprazole 20 mg PO DAILY 11/15/24 11/15/24 History amLODIPine [Norvasc] 5 mg PO HS 11/15/24 11/15/24 History Allergies Allergy/AdvReac Type Severity Reaction Status Date / Time codeine AdvReac Severe Nausea & Verified 11/15/24 15:19 Vomiting Physical Exam Vitals: Vital Signs Temp Pulse Pulse Resp BP Pulse Ox 11/17/24 12:29 80 12/24/24 12:19 76 11/17/24 11:42 99.1 F 77 16 104/46 93 L 11/17/24 09:11 84 11/17/24 08:57 84 11/17/24 07:08 98.7 F 90 16 179/77 92 L 11/17/24 01:28 97.8 F 64 16 122/70 97 11/16/24 21:18 69 11/16/24 21:05 68 11/16/24 20:00 97.9 F 68 16 108/62 96 11/16/24 19:37 16 11/16/24 16:34 70 11/16/24 16:25 68 Intake and Output 11/16/24 11/17/24 11/17/24 22:59 06:59 14:59 Intake Total 480 900 480 Balance 480 900 480 Intake: Intake, IV Titration 900 Amount Sodium Chloride 0.9% 1, 900 000 ml @ 75 mls/hr IV . [id number] [facility] Rx#:[id number] Oral 480 480 Other: Voiding Method Toilet # Voids 4 3 Results 11/16/24 06:12 11/16/24 06:12 Current Medications Generic Name Dose Route Start Last Admin Trade Name Freq PRN Reason Stop Dose Admin Acetaminophen 650 mg 11/15/24 16:36 11/17/24 11:21 Acetaminophen Tab 325 Mg Tab PO 650 mg Q6HR PRN Administration Mild Pain or Fever > 100.5 Albuterol/Ipratropium 3 ml 11/15/24 20:00 11/17/24 12:19 Ipratropium-Albuterol 3 Ml Neb INHALATION 3 ml RT-QID KOMAL Administration Aspirin 325 mg 11/16/24 09:00 11/17/24 07:48 Aspirin 325 Mg Tab PO 325 mg DAILY KOMAL Administration Atorvastatin Calcium 80 mg 11/15/24 21:00 11/16/24 20:53 Atorvastatin 80 Mg Tab PO 80 mg HS KOMAL Administration Budesonide 0.5 mg 11/16/24 08:00 11/17/24 08:57 Budesonide 0.5 Mg/2 Ml Nebu INHALATION 0.5 mg RT-BID KOMAL Administration Carvedilol 3.125 mg 11/16/24 07:30 11/17/24 07:48 Carvedilol 3.125 Mg Tab PO 3.125 mg BID-W/MEALS KOMAL Administration Dextrose/Water 25 ml 11/15/24 20:34 Dextrose 50% Syringe 50 Ml IVP PER PROTOCOL PRN Hypoglycemia Protocol Dextrose/Water 50 ml 11/15/24 20:34 Dextrose 50% Syringe 50 Ml IVP PER PROTOCOL PRN Hypoglycemia Protocol Azithromycin 500 mg/ Sodium 250 mls @ 250 mls/hr 11/15/24 17:00 11/16/24 16:30 Chloride IVPB 11/17/24 16:59 250 mls/hr Q24HR@1600 KOMAL Administration Protocol Ceftriaxone Sodium 1 gm/ 50 mls @ 100 mls/hr 11/16/24 09:00 11/17/24 07:49 Sodium Chloride IVPB 100 mls/hr Q24HR KOMAL Administration Insulin Aspart 0 unit 11/15/24 21:00 11/17/24 12:31 Insulin Aspart (Novolog) 100 Unit/Ml Vial SQ Not Given ACHS KOMAL Protocol Isosorbide Mononitrate 60 mg 11/16/24 09:00 11/17/24 07:49 Isosorbide Mononitrate Er 60 Mg Tab.Er.24h PO 60 mg DAILY KOMAL Administration Methylprednisolone Sodium Succinate 40 mg 11/17/24 12:45 11/17/24 14:30 Methylprednisolone Sod Succi 40 Mg/Ml 1 Ml Vial IV 40 mg Q6HR KOMAL Administration Naloxone HCl 0.2 mg 11/15/24 16:36 Naloxone 0.4 Mg/Ml 1 Ml Vial IV Q2M PRN Opioid Reversal Pantoprazole Sodium 40 mg 11/16/24 07:30 11/17/24 07:48 Pantoprazole 40 Mg Tablet PO 40 mg [id number] KOMAL Administration Rivaroxaban 2.5 mg 11/15/24 21:00 11/17/24 07:48 Rivaroxaban 2.5 Mg Tablet PO 2.5 mg BID KOMAL Administration Protocol Trazodone HCl 200 mg 11/15/24 21:00 11/16/24 20:53 Trazodone Hcl 100 Mg Tab PO 200 mg HS KOMAL Administration Intake and Output 11/16/24 11/17/24 11/17/24 22:59 06:59 14:59 Intake Total 480 900 480 Balance 480 900 480 Intake: Intake, IV Titration 900 Amount Sodium Chloride 0.9% 1, 900 000 ml @ 75 mls/hr IV . [id number] [facility] Rx#:[id number] Oral 480 480 Other: Voiding Method Toilet # Voids 4 3 11/16/24 06:12 11/16/24 06:12
--- NOTE | 2024-11-17 16:00 | P.PN ---
Subjective Progress Note Date: 11/17/24 Principal diagnosis: Reason for follow-up is pneumonia Patient is a 79-year-old female with a past medical history significant for coronary artery disease diabetes mellitus COPD hypertension hyperlipidemia osteomyelitis patient has been brought into the hospital for ev aluation of increasing shortness of breath and cough patient did have a chest x- ray with right midlung opacity concerning for pneumonia. On today's evaluation that is 11/17/2024, Patient is afebrile this morning patient denies having any chest pain still complaining of shortness of breath however cough decreased in intensity, the patient is currently on 2 L current oxygen, patient denies any abdominal pain no diarrhea no nausea no vomiting. Abdominal pain developing today blood cultures currently pending sputum not collected Objective - Vital Signs Vital signs: Vital Signs Temp 99.1 F 11/17/24 11:42 Pulse 80 11/17/24 12:29 Resp 16 11/17/24 11:42 BP 104/46 11/17/24 11:42 Pulse Ox 93 L 11/17/24 11:42 FiO2 Intake & Output 11/16/24 11/17/24 11/17/24 18:59 06:59 18:59 Intake Total 360 1020 480 Balance 360 1020 480 Intake: Intake, IV Titration 900 Amount Sodium Chloride 0.9% 1, 900 000 ml @ 75 mls/hr IV . [id number] [facility] Rx#:[id number] Oral 360 120 480 Other: Voiding Method Toilet Toilet # Voids 4 3 - Exam GENERAL DESCRIPTION: An elderly female lying in bed in no distress RESPIRATORY SYSTEM: Unlabored breathing , decreased breath sounds at bases HEART: S1 S2 regular rate and rhythm , ABDOMEN: Soft , no tenderness EXTREMITIES: No edema feet - Labs CBC & Chem 7: 11/16/24 06:12 11/16/24 06:12 Labs: Abnormal Lab Results - Last 24 Hours (Table) 11/16/24 11/16/24 11/17/24 Range/Units 17:30 20:18 07:10 POC Glucose (mg/dL) 224 H 153 H 157 H (70-110) mg/dL 11/17/24 Range/Units 12:09 POC Glucose (mg/dL) 126 H (70-110) mg/dL Microbiology - Last 24 Hours (Table) 11/15/24 16:45 Blood Culture - Preliminary Blood Assessment and Plan (1) Pneumonia Current Visit: Yes Status: Acute Code(s): J18.9 - PNEUMONIA, UNSPECIFIED ORGANISM SNOMED Code(s): 854957663 Plan: 1patient presented to hospital with increasing shortness of breath patient did have a cough did have a fever right-sided pneumonia chest x-ray likely presenting community-acquired pneumonia. 2we will try to obtain sputum for Gram stain and culture. 3patient did have resolution of fever, patient will be treated with Rocephin and Zithromax for waiting for the workup to be completed Dictation was produced using [employer] dictation software. please excuse any grammatical, word or spelling errors. Time with Patient: Less than 30
[2024-11-17 17:05] LABS: Glucose,Whole Blood 189 mg/dL (70-110)
--- NOTE | 2024-11-17 17:05 | P.PN ---
Subjective Patient is a 79-year-old male with a past medical history of coronary artery disease with stent placement x 4, peripheral vascular disease with balloon angioplasty of the left SFA, hypertension, diabetes type 2, hyperlipidemia, obstructive sleep apnea not using CPAP, hypothyroidism, history of duodenal ulcer and peptic ulcer, depression, prior history of smoking and other medical problems presents to ER with complaints of difficulty in breathing since yesterday. Patient is also having cough, minimal leg swelling as well. She was nauseated and was having fever at home. She feels like she cannot take a deep breath and felt very weak. Denies any sick contacts. Denies any vomiting. No abdominal pain. No diarrhea. Denies any recent travel. Chest x-ray showed right midlung airspace opacities correlate for pneumonia EKG showed sinus rhythm heart rate 79 On admission blood pressure 110/73 pulse is 83 respiration 18 and pulse ox 96% on 3 L oxygen via nasal cannula. Tmax 102.9 F Laboratory data showed WBC 8.9 hemoglobin 11.9 and platelets 175 Sodium 136 potassium 3.7 chloride 99 bicarb is 29 BUN 12 and creatinine 0.58 and blood sugar 137 AST 19 ALT 19 alk phos 141 and troponin less than 0.012 and albumin 4.0 UA negative for infection. Influenza A B RSV and COVID-19 PCR not detected. 11/16 Feels tired and weak Mentation at baseline Still tachypnea at rest, mild. No accessory muscles but states she is feeling improved No significant coughing No chest pain Patient was not on oxygen at home 11/17 Patient still with shortness of breath and she still has coughing Patient also have scattered wheezing bilaterally with some limitation of air entry She states she has history of COPD Patient currently kept on ceftriaxone. Will add IV Solu-Medrol 40 mg every 6 hours as well as incentive spirometer We will check chest x-ray tomorrow morning [employer] Sales Beauty Advisor evaluated the patient Objective - Vital Signs Vital signs: Vital Signs Temp 99.1 F 11/17/24 11:42 Pulse 80 11/17/24 12:29 Resp 16 11/17/24 11:42 BP 104/46 11/17/24 11:42 Pulse Ox 93 L 11/17/24 11:42 FiO2 Intake & Output 11/16/24 11/17/24 11/17/24 18:59 06:59 18:59 Intake Total 360 1020 240 Balance 360 1020 240 Intake: Intake, IV Titration 900 Amount Sodium Chloride 0.9% 1, 900 000 ml @ 75 mls/hr IV . [id number] [facility] Rx#:[id number] Oral 360 120 240 Other: Voiding Method Toilet Toilet # Voids 4 3 - Exam GENERAL: The patient is alert and oriented x3, not in any acute distress. Well developed, well nourished. HEENT: Pupils are round and equally reacting to light. EOMI. No scleral icterus. No conjunctival pallor. Normocephalic, atraumatic. No pharyngeal erythema. No thyromegaly. CARDIOVASCULAR: S1 and S2 present. No murmurs, rubs, or gallops. PULMONARY: Chest is clear to auscultation, no wheezing , no crackles. ABDOMEN: Soft, nontender, nondistended, normoactive bowel sounds. No palpable organomegaly. MUSCULOSKELETAL: No joint swelling or deformity. EXTREMITIES: No cyanosis, clubbing, or pedal edema. NEUROLOGICAL: Gross neurological examination did not reveal any focal deficits. SKIN: No rashes. no petechiae. - Labs CBC & Chem 7: 11/16/24 06:12 11/16/24 06:12 Labs: Abnormal Lab Results - Last 24 Hours (Table) 11/16/24 11/16/24 11/17/24 Range/Units 17:30 20:18 07:10 POC Glucose (mg/dL) 224 H 153 H 157 H (70-110) mg/dL 11/17/24 Range/Units 12:09 POC Glucose (mg/dL) 126 H (70-110) mg/dL Microbiology - Last 24 Hours (Table) 11/15/24 16:45 Blood Culture - Preliminary Blood Assessment and Plan Assessment: Right lung pneumonia. Chest x-ray showed right midlung airspace opacities. Coronary disease with history of prior stent placement x 4 Peripheral vascular disease. Status post left SFA balloon angioplasty on 07/29/2024 Anticoagulation with Xarelto 2.5 mg twice daily. Not sure if is due to PVD versus history of DVT. Hypertension Hypertension Diabetes type 2 Depression Obesity with BMI 31.4 COPD Prior history of smoking Obstructive sleep apnea not using CPAP at home History of partial gastrectomy for previous peptic ulcer disease Plan: Continue with antibiotic Zithromax and ceftriaxone C discontinue normal saline 75 mL/h Start IV Solu-Medrol 40 mg every 6 hours and incentive spirometer Infectious disease team consult Cardiology team consult Labs and medication were reviewed.. Continue same treatment. Continue with symptomatic treatment. Resume home medication. Monitor labs and vitals. DVT and GI prophylaxis. Further recommendations as per clinical course of the patient DVT prophylaxis: S Xarelto GI Prophylaxis: Protonix Prognosis is guarded
[2024-11-17 20:25] LABS: Glucose,Whole Blood 256 mg/dL (70-110)
[2024-11-18 07:10] LABS: Glucose,Whole Blood 239 mg/dL (70-110)
--- NOTE | 2024-11-18 07:14 | XR ---
EXAMINATION TYPE: XR chest 1V DATE OF EXAM: 11/18/2024 COMPARISON: 11/16/2024 CLINICAL INDICATION: Female, 79 years old with history of sob; TECHNIQUE: Single frontal view of the chest is obtained. FINDINGS: There is no focal air space opacity, pleural effusion, or pneumothorax seen. The there is mild interval worsening in the consolidative process involving the right upper lobe. The left lung i s clear. There is no pleural effusion or pneumothorax. The heart size is normal and the pulmonary vasculature is not congested. The osseous structures are intact. IMPRESSION: Mild interval worsening in the right upper lobe infiltrate most consistent with pneumonia. Short-term follow-up to resolution is recommended. [facility], , 11/18/2024 7:11 AM
[2024-11-18] MEDS: amLODIPine 5 MG TAB PO SCH (09:12)
--- NOTE | 2024-11-18 10:46 | PN ---
PROGRESS NOTE SUBJECTIVE: Lucy is a 79-year-old lady with history of coronary artery disease, peripheral arterial disease, COPD, who is admitted to hospital with pneumonia and COPD exacerbation. She is receiving breathing treatments since her blood pressure is somewhat poorly controlled. She denies any chest pain. PHYSICAL EXAMINATION: VITAL SIGNS: Heart rate is 68 beats per minute, blood pressure is 170/91, respiratory rate is 18, O2 saturation is 95% on 2 L. CHEST: Reveals diffuse bilateral rhonchi. HEART: Reveals first and second heart sounds. Systolic murmur at the apex. ABDOMEN: Soft. EXTREMITIES: Reveal mild edema bilaterally. ASSESSMENT: 1. Pneumonia with chronic obstructive pulmonary disease exacerbation. 2. Coronary artery disease. 3. Peripheral arterial disease. 4. Hypertension. 5. Dyslipidemia. PLAN: The patient will continue current medications. An echocardiogram on this admission revealed an ejection fraction of 60% with mild aortic stenosis. MMCHRISTY / RAÚLN: [id number] /
[2024-11-18 12:05] LABS: Glucose,Whole Blood 243 mg/dL (70-110)
[2024-11-18 17:28] LABS: Glucose,Whole Blood 275 mg/dL (70-110)
[2024-11-18 20:39] LABS: Glucose,Whole Blood 279 mg/dL (70-110)
--- NOTE | 2024-11-18 22:11 | P.PN ---
Subjective Patient is a 79-year-old male with a past medical history of coronary artery disease with stent placement x 4, peripheral vascular disease with balloon angioplasty of the left SFA, hypertension, diabetes type 2, hyperlipidemia, obstructive sleep apnea not using CPAP, hypothyroidism, history of duodenal ulcer and peptic ulcer, depression, prior history of smoking and other medical problems presents to ER with complaints of difficulty in breathing since yesterday. Patient is also having cough, minimal leg swelling as well. She was nauseated and was having fever at home. She feels like she cannot take a deep breath and felt very weak. Denies any sick contacts. Denies any vomiting. No abdominal pain. No diarrhea. Denies any recent travel. Chest x-ray showed right midlung airspace opacities correlate for pneumonia EKG showed sinus rhythm heart rate 79 On admission blood pressure 110/73 pulse is 83 respiration 18 and pulse ox 96% on 3 L oxygen via nasal cannula. Tmax 102.9 F Laboratory data showed WBC 8.9 hemoglobin 11.9 and platelets 175 Sodium 136 potassium 3.7 chloride 99 bicarb is 29 BUN 12 and creatinine 0.58 and blood sugar 137 AST 19 ALT 19 alk phos 141 and troponin less than 0.012 and albumin 4.0 UA negative for infection. Influenza A B RSV and COVID-19 PCR not detected. 11/16 Feels tired and weak Mentation at baseline Still tachypnea at rest, mild. No accessory muscles but states she is feeling improved No significant coughing No chest pain Patient was not on oxygen at home 11/17 Patient still with shortness of breath and she still has coughing Patient also have scattered wheezing bilaterally with some limitation of air entry She states she has history of COPD Patient currently kept on ceftriaxone. Will add IV Solu-Medrol 40 mg every 6 hours as well as incentive spirometer We will check chest x-ray tomorrow morning [employer] evaluated the patient 11/18 Patient still complaining from shortness of breath She still has widespread wheezing, steroids 40 mg was started yesterday Repeat chest x-ray today showing worsening pneumonia in the right upper lung. I reviewed the chest x-ray by myself and agree she is ceftriaxone and switched to Zosyn and continue current Zithromax Echocardiogram showed ejection fraction of 60%. No diarrhea or vomiting Review of systems CONSTITUTIONAL: No fever, no malaise, no fatigue. HEENT: No recent visual problems or hearing problems. Denied any sore throat. CARDIOVASCULAR: No orthopnea, PND, no palpitations, no syncope. HEMATOLOGICAL: Denies any bleeding or petechiae. GENITOURINARY: Denies any burning micturition, frequency, or urgency. Active Medications Generic Name Dose Route Start Last Admin Trade Name Freq PRN Reason Stop Dose Admin Acetaminophen 650 mg 11/15/24 16:36 11/17/24 20:50 Acetaminophen Tab 325 Mg Tab PO 650 mg Q6HR PRN Administration Mild Pain or Fever > 100.5 Albuterol/Ipratropium 3 ml 11/15/24 20:00 11/18/24 20:17 Ipratropium-Albuterol 3 Ml Neb INHALATION 3 ml RT-QID KOMAL Administration Amlodipine Besylate 5 mg 11/18/24 09:00 11/18/24 09:12 Amlodipine 5 Mg Tab PO 5 mg DAILY KOMAL Administration Aspirin 325 mg 11/16/24 09:00 11/18/24 08:13 Aspirin 325 Mg Tab PO 325 mg DAILY KOMAL Administration Atorvastatin Calcium 80 mg 11/15/24 21:00 11/18/24 20:14 Atorvastatin 80 Mg Tab PO 80 mg HS KOMAL Administration Budesonide 0.5 mg 11/16/24 08:00 11/18/24 20:16 Budesonide 0.5 Mg/2 Ml Nebu INHALATION 0.5 mg RT-BID KOMAL Administration Carvedilol 3.125 mg 11/16/24 07:30 11/18/24 17:57 Carvedilol 3.125 Mg Tab PO 3.125 mg BID-W/MEALS KOMAL Administration Dextrose/Water 25 ml 11/15/24 20:34 Dextrose 50% Syringe 50 Ml IVP PER PROTOCOL PRN Hypoglycemia Protocol Dextrose/Water 50 ml 11/15/24 20:34 Dextrose 50% Syringe 50 Ml IVP PER PROTOCOL PRN Hypoglycemia Protocol Piperacillin Sod/Tazobactam 100 mls @ 25 mls/hr 11/19/24 00:00 Sod 3.375 gm/ Sodium Chloride IVPB Q8HR KOMAL Protocol Insulin Aspart 0 unit 11/15/24 21:00 11/18/24 20:56 Insulin Aspart (Novolog) 100 Unit/Ml Vial SQ 3 unit ACHS KOMAL Administration Protocol Isosorbide Mononitrate 60 mg 11/16/24 09:00 11/18/24 08:14 Isosorbide Mononitrate Er 60 Mg Tab.Er.24h PO 60 mg DAILY KOMAL Administration Methylprednisolone Sodium Succinate 40 mg 11/17/24 12:45 11/18/24 17:57 Methylprednisolone Sod Succi 40 Mg/Ml 1 Ml Vial IV 40 mg Q6HR KOMAL Administration Naloxone HCl 0.2 mg 11/15/24 16:36 Naloxone 0.4 Mg/Ml 1 Ml Vial IV Q2M PRN Opioid Reversal Pantoprazole Sodium 40 mg 11/16/24 07:30 11/18/24 08:13 Pantoprazole 40 Mg Tablet PO 40 mg AC-BRKFST KOMAL Administration Rivaroxaban 2.5 mg 11/15/24 21:00 11/18/24 20:14 Rivaroxaban 2.5 Mg Tablet PO 2.5 mg BID KOMAL Administration Protocol Trazodone HCl 200 mg 11/15/24 21:00 11/18/24 20:14 Trazodone Hcl 100 Mg Tab PO 200 mg HS KOMAL Administration Objective - Vital Signs Vital signs: Vital Signs Temp 97.7 F 11/18/24 07:11 Pulse 70 11/18/24 12:01 Resp 17 11/18/24 07:11 BP 176/91 11/18/24 07:11 Pulse Ox 95 11/18/24 07:11 FiO2 Intake & Output 11/17/24 11/18/24 11/18/24 18:59 06:59 18:59 Intake Total 1800 Balance 1800 Intake: Oral 1800 Other: Voiding Method Toilet Toilet # Voids 4 3 1 # Bowel Movements 1 - Exam GENERAL: The patient is alert and oriented x3, not in any acute distress. Well developed, well nourished. HEENT: Pupils are round and equally reacting to light. EOMI. No scleral icterus. No conjunctival pallor. Normocephalic, atraumatic. No pharyngeal erythema. No thyromegaly. CARDIOVASCULAR: S1 and S2 present. No murmurs, rubs, or gallops. PULMONARY: Chest is clear to auscultation, no wheezing , no crackles. ABDOMEN: Soft, nontender, nondistended, normoactive bowel sounds. No palpable organomegaly. MUSCULOSKELETAL: No joint swelling or deformity. EXTREMITIES: No cyanosis, clubbing, or pedal edema. NEUROLOGICAL: Gross neurological examination did not reveal any focal deficits. SKIN: No rashes. no petechiae. - Labs CBC & Chem 7: 11/16/24 06:12 11/16/24 06:12 Labs: Abnormal Lab Results - Last 24 Hours (Table) 11/17/24 11/17/24 11/18/24 Range/Units 17:04 20:23 07:09 POC Glucose (mg/dL) 189 H 256 H 239 H (70-110) mg/dL 11/18/24 Range/Units 12:03 POC Glucose (mg/dL) 243 H (70-110) mg/dL Microbiology - Last 24 Hours (Table) 11/15/24 16:45 Blood Culture - Preliminary Blood Assessment and Plan Assessment: Right lung pneumonia. Chest x-ray showed right midlung airspace opacities. Acute COPD exacerbation Coronary disease with history of prior stent placement x 4 Peripheral vascular disease. Status post left SFA balloon angioplasty on 07/29/2024 Anticoagulation with Xarelto 2.5 mg twice daily. Not sure if is due to PVD versus history of DVT. Hypertension Hypertension Diabetes type 2 Depression Obesity with BMI 31.4 COPD Prior history of smoking Obstructive sleep apnea not using CPAP at home History of partial gastrectomy for previous peptic ulcer disease Plan: Continue with antibiotic Zithromax. Was discontinued and switched to Zosyn ceftriaxone Currently she is off IV fluid Start IV Solu-Medrol 40 mg every 6 hours and incentive spirometer Infectious disease team consult Cardiology team consult Labs and medication were reviewed.. Continue same treatment. Continue with symptomatic treatment. Resume home medication. Monitor labs and vitals. DVT and GI prophylaxis. Further recommendations as per clinical course of the patient DVT prophylaxis: S Xarelto GI Prophylaxis: Protonix Prognosis is guarded
[2024-11-18] MEDS: PIPERACILLIN-TAZOBACTAM 3.375 GM in SODIUM CHLORIDE 0.9% 100 ML IVPB SCH (23:25)
[2024-11-19 07:22] LABS: Glucose,Whole Blood 269 mg/dL (70-110)
[2024-11-19 12:09] LABS: Glucose,Whole Blood 209 mg/dL (70-110)
[2024-11-19] MEDS: amLODIPine 5 MG TAB PO STA (13:02)
--- NOTE | 2024-11-19 14:21 | P.PN ---
Subjective Progress Note Date: 11/18/24 Principal diagnosis: Reason for follow-up is pneumonia Patient is a 79-year-old female with a past medical history significant for coronary artery disease diabetes mellitus COPD hypertension hyperlipidemia osteomyelitis patient has been brought into the hospital for ev aluation of increasing shortness of breath and cough patient did have a chest x- ray with right midlung opacity concerning for pneumonia. On today's evaluation that is 11/18/2024,the patient denies any fever or any chills, patient is breathing slightly comfortably on 3 L nasal oxygen, the patient denies chest pain and no worsening cough, patient denies abdominal pain, no nausea vomiting or diarrhea. No new lab has been obtained today blood culture currently pending Objective - Vital Signs Vital signs: Vital Signs Temp 97.8 F 11/18/24 13:33 Pulse 75 11/18/24 13:33 Resp 16 11/18/24 13:33 BP 144/74 11/18/24 13:33 Pulse Ox 91 L 11/18/24 13:33 FiO2 Intake & Output 11/17/24 11/18/24 11/18/24 18:59 06:59 18:59 Intake Total 1800 Balance 1800 Intake: Oral 1800 Other: Voiding Method Toilet Toilet # Voids 4 3 1 # Bowel Movements 1 - Exam GENERAL DESCRIPTION: An elderly female lying in bed in no distress RESPIRATORY SYSTEM: Unlabored breathing , decreased breath sounds at bases HEART: S1 S2 regular rate and rhythm , ABDOMEN: Soft , no tenderness EXTREMITIES: No edema feet - Labs CBC & Chem 7: 11/16/24 06:12 11/16/24 06:12 Labs: Abnormal Lab Results - Last 24 Hours (Table) 11/17/24 11/17/24 11/18/24 Range/Units 17:04 20:23 07:09 POC Glucose (mg/dL) 189 H 256 H 239 H (70-110) mg/dL 11/18/24 Range/Units 12:03 POC Glucose (mg/dL) 243 H (70-110) mg/dL Microbiology - Last 24 Hours (Table) 11/15/24 16:45 Blood Culture - Preliminary Blood Assessment and Plan (1) Pneumonia Current Visit: Yes Status: Acute Code(s): J18.9 - PNEUMONIA, UNSPECIFIED ORGANISM SNOMED Code(s): 288588732 Plan: 1patient presented to hospital with increasing shortness of breath patient did have a cough did have a fever right-sided pneumonia chest x-ray likely presenting community-acquired pneumonia. 2we will try to obtain sputum for Gram stain and culture. 3patient did have resolution of fever, patient to continue with Rocephin and Zithromax and monitor clinical course closely Dictation was produced using [employer] dictation software. please excuse any grammatical, word or spelling errors. Time with Patient: Less than 30
--- NOTE | 2024-11-19 14:22 | P.PN ---
Subjective Progress Note Date: 11/19/24 Principal diagnosis: Reason for follow-up is pneumonia Patient is a 79-year-old female with a past medical history significant for coronary artery disease diabetes mellitus COPD hypertension hyperlipidemia osteomyelitis patient has been brought into the hospital for ev aluation of increasing shortness of breath and cough patient did have a chest x- ray with right midlung opacity concerning for pneumonia. On today's evaluation that is 11/19/2024,the patient remains to be afebrile, patient is on 3 L nasal cannula supplemental oxygen and denies any worsening shortness of breath no chest pain and no worsening cough. No new lab has been obtained today chest x-ray repeated shows slight interval worsening of the right upper lobe pneumonia Objective - Vital Signs Vital signs: Vital Signs Temp 97.3 F L 11/19/24 07:18 Pulse 62 11/19/24 12:14 Resp 17 11/19/24 07:18 BP 152/77 11/19/24 07:18 Pulse Ox 95 11/19/24 07:18 FiO2 Intake & Output 11/18/24 11/19/24 11/19/24 18:59 06:59 18:59 Intake Total 540 830 Output Total 4 Balance 540 826 Intake: Oral 540 830 Output: Urine 4 Other: Voiding Method Toilet Toilet # Voids 1 - Exam GENERAL DESCRIPTION: An elderly female lying in bed in no distress RESPIRATORY SYSTEM: Unlabored breathing , decreased breath sounds at bases HEART: S1 S2 regular rate and rhythm , ABDOMEN: Soft , no tenderness EXTREMITIES: No edema feet - Labs CBC & Chem 7: 11/16/24 06:12 11/16/24 06:12 Labs: Abnormal Lab Results - Last 24 Hours (Table) 11/18/24 11/18/24 11/19/24 Range/Units 17:27 20:38 07:16 POC Glucose (mg/dL) 275 H 279 H 269 H (70-110) mg/dL 11/19/24 Range/Units 12:07 POC Glucose (mg/dL) 209 H (70-110) mg/dL Microbiology - Last 24 Hours (Table) 11/15/24 16:45 Blood Culture - Preliminary Blood Assessment and Plan (1) Pneumonia Current Visit: Yes Status: Acute Code(s): J18.9 - PNEUMONIA, UNSPECIFIED ORGANISM SNOMED Code(s): 337103678 Plan: 1patient presented to hospital with increasing shortness of breath patient did have a cough did have a fever right-sided pneumonia chest x-ray likely presenting community-acquired pneumonia. 2patient did have resolution of fever, however repeat chest x-ray now showing worsening of the right upper lobe infiltrate antibiotic has been switched to Zosyn try to obtain a sputum to narrow down antibiotics Dictation was produced using [employer] dictation software. please excuse any grammatical, word or spelling errors. Time with Patient: Less than 30
[2024-11-19 17:19] LABS: Glucose,Whole Blood 251 mg/dL (70-110)
[2024-11-19 20:23] LABS: Glucose,Whole Blood 296 mg/dL (70-110)
--- NOTE | 2024-11-19 20:43 | P.PN ---
Subjective Patient is a 79-year-old male with a past medical history of coronary artery disease with stent placement x 4, peripheral vascular disease with balloon angioplasty of the left SFA, hypertension, diabetes type 2, hyperlipidemia, obstructive sleep apnea not using CPAP, hypothyroidism, history of duodenal ulcer and peptic ulcer, depression, prior history of smoking and other medical problems presents to ER with complaints of difficulty in breathing since yesterday. Patient is also having cough, minimal leg swelling as well. She was nauseated and was having fever at home. She feels like she cannot take a deep breath and felt very weak. Denies any sick contacts. Denies any vomiting. No abdominal pain. No diarrhea. Denies any recent travel. Chest x-ray showed right midlung airspace opacities correlate for pneumonia EKG showed sinus rhythm heart rate 79 On admission blood pressure 110/73 pulse is 83 respiration 18 and pulse ox 96% on 3 L oxygen via nasal cannula. Tmax 102.9 F Laboratory data showed WBC 8.9 hemoglobin 11.9 and platelets 175 Sodium 136 potassium 3.7 chloride 99 bicarb is 29 BUN 12 and creatinine 0.58 and blood sugar 137 AST 19 ALT 19 alk phos 141 and troponin less than 0.012 and albumin 4.0 UA negative for infection. Influenza A B RSV and COVID-19 PCR not detected. 11/16 Feels tired and weak Mentation at baseline Still tachypnea at rest, mild. No accessory muscles but states she is feeling improved No significant coughing No chest pain Patient was not on oxygen at home 11/17 Patient still with shortness of breath and she still has coughing Patient also have scattered wheezing bilaterally with some limitation of air entry She states she has history of COPD Patient currently kept on ceftriaxone. Will add IV Solu-Medrol 40 mg every 6 hours as well as incentive spirometer We will check chest x-ray tomorrow morning [employer] evaluated the patient 11/18 Patient still complaining from shortness of breath She still has widespread wheezing, steroids 40 mg was started yesterday Repeat chest x-ray today showing worsening pneumonia in the right upper lung. I reviewed the chest x-ray by myself and agree she is ceftriaxone and switched to Zosyn and continue current Zithromax Echocardiogram showed ejection fraction of 60%. No diarrhea or vomiting 11/19 Patient is feeling little better She still complaining from exertional dyspnea No chest pain She is currently on Zosyn and IV Solu-Medrol 40 mg Also she is on Xarelto. No IV fluid. Review of systems CONSTITUTIONAL: No fever, no malaise, no fatigue. HEENT: No recent visual problems or hearing problems. Denied any sore throat. CARDIOVASCULAR: No orthopnea, PND, no palpitations, no syncope. HEMATOLOGICAL: Denies any bleeding or petechiae. GENITOURINARY: Denies any burning micturition, frequency, or urgency. Active Medications Generic Name Dose Route Start Last Admin Trade Name Freq PRN Reason Stop Dose Admin Acetaminophen 650 mg 11/15/24 16:36 11/17/24 20:50 Acetaminophen Tab 325 Mg Tab PO 650 mg Q6HR PRN Administration Mild Pain or Fever > 100.5 Albuterol/Ipratropium 3 ml 11/15/24 20:00 11/19/24 19:19 Ipratropium-Albuterol 3 Ml Neb INHALATION 3 ml RT-QID KOMAL Administration Amlodipine Besylate 10 mg 11/20/24 09:00 Amlodipine 10 Mg Tab PO DAILY KOMAL Aspirin 325 mg 11/16/24 09:00 11/19/24 08:52 Aspirin 325 Mg Tab PO 325 mg DAILY KOMAL Administration Atorvastatin Calcium 80 mg 11/15/24 21:00 11/18/24 20:14 Atorvastatin 80 Mg Tab PO 80 mg HS KOMAL Administration Budesonide 0.5 mg 11/16/24 08:00 11/19/24 19:19 Budesonide 0.5 Mg/2 Ml Nebu INHALATION 0.5 mg RT-BID KOMAL Administration Carvedilol 3.125 mg 11/16/24 07:30 11/19/24 17:28 Carvedilol 3.125 Mg Tab PO 3.125 mg BID-W/MEALS KOMAL Administration Dextrose/Water 25 ml 11/15/24 20:34 Dextrose 50% Syringe 50 Ml IVP PER PROTOCOL PRN Hypoglycemia Protocol Dextrose/Water 50 ml 11/15/24 20:34 Dextrose 50% Syringe 50 Ml IVP PER PROTOCOL PRN Hypoglycemia Protocol Piperacillin Sod/Tazobactam 100 mls @ 25 mls/hr 11/19/24 00:00 11/19/24 17:29 Sod 3.375 gm/ Sodium Chloride IVPB 25 mls/hr Q8HR KOMAL Administration Protocol Insulin Aspart 0 unit 11/15/24 21:00 11/19/24 17:29 Insulin Aspart (Novolog) 100 Unit/Ml Vial SQ 3 unit ACHS KOMAL Administration Protocol Isosorbide Mononitrate 60 mg 11/16/24 09:00 11/19/24 08:52 Isosorbide Mononitrate Er 60 Mg Tab.Er.24h PO 60 mg DAILY KOMAL Administration Methylprednisolone Sodium Succinate 40 mg 11/17/24 12:45 11/19/24 17:29 Methylprednisolone Sod Succi 40 Mg/Ml 1 Ml Vial IV 40 mg Q6HR KOMAL Administration Naloxone HCl 0.2 mg 11/15/24 16:36 Naloxone 0.4 Mg/Ml 1 Ml Vial IV Q2M PRN Opioid Reversal Pantoprazole Sodium 40 mg 11/16/24 07:30 11/19/24 08:52 Pantoprazole 40 Mg Tablet PO 40 mg AC-BRKFST KOMAL Administration Rivaroxaban 2.5 mg 11/15/24 21:00 11/19/24 08:52 Rivaroxaban 2.5 Mg Tablet PO 2.5 mg BID KOMAL Administration Protocol Trazodone HCl 200 mg 11/15/24 21:00 11/18/24 20:14 Trazodone Hcl 100 Mg Tab PO 200 mg HS KOMAL Administration Objective - Vital Signs Vital signs: Vital Signs Temp 97.6 F 11/19/24 20:00 Pulse 63 11/19/24 20:00 Resp 16 11/19/24 20:00 BP 134/72 11/19/24 20:00 Pulse Ox 95 11/19/24 20:00 FiO2 Intake & Output 11/19/24 11/19/24 11/20/24 06:59 18:59 06:59 Intake Total 830 Output Total 4 Balance 826 Intake: Oral 830 Output: Urine 4 Other: Voiding Method Toilet # Voids 1 - Exam GENERAL: The patient is alert and oriented x3, not in any acute distress. Well developed, well nourished. HEENT: Pupils are round and equally reacting to light. EOMI. No scleral icterus. No conjunctival pallor. Normocephalic, atraumatic. No pharyngeal erythema. No thyromegaly. CARDIOVASCULAR: S1 and S2 present. No murmurs, rubs, or gallops. PULMONARY: Chest is clear to auscultation, no wheezing , no crackles. ABDOMEN: Soft, nontender, nondistended, normoactive bowel sounds. No palpable organomegaly. MUSCULOSKELETAL: No joint swelling or deformity. EXTREMITIES: No cyanosis, clubbing, or pedal edema. NEUROLOGICAL: Gross neurological examination did not reveal any focal deficits. SKIN: No rashes. no petechiae. - Labs CBC & Chem 7: 11/16/24 06:12 11/16/24 06:12 Labs: Abnormal Lab Results - Last 24 Hours (Table) 11/19/24 11/19/24 11/19/24 Range/Units 07:16 12:07 17:18 POC Glucose (mg/dL) 269 H 209 H 251 H (70-110) mg/dL 11/19/24 Range/Units 20:21 POC Glucose (mg/dL) 296 H (70-110) mg/dL Microbiology - Last 24 Hours (Table) 11/15/24 16:45 Blood Culture - Preliminary Blood Assessment and Plan Assessment: Right lung pneumonia. Chest x-ray showed right midlung airspace opacities. Acute COPD exacerbation Coronary disease with history of prior stent placement x 4 Peripheral vascular disease. Status post left SFA balloon angioplasty on 07/29/2024 Anticoagulation with Xarelto 2.5 mg twice daily. Not sure if is due to PVD versus history of DVT. Hypertension Hypertension Diabetes type 2 Depression Obesity with BMI 31.4 COPD Prior history of smoking Obstructive sleep apnea not using CPAP at home History of partial gastrectomy for previous peptic ulcer disease Plan: Continue with antibiotic Zithromax. Was discontinued and switched to Zosyn ceftriaxone Currently she is off IV fluid Start IV Solu-Medrol 40 mg every 6 hours and incentive spirometer Infectious disease team consult Cardiology team consult Labs and medication were reviewed.. Continue same treatment. Continue with symptomatic treatment. Resume home medication. Monitor labs and vitals. DVT and GI prophylaxis. Further recommendations as per clinical course of the patient DVT prophylaxis: S Xarelto GI Prophylaxis: Protonix Prognosis is guarded
--- NOTE | 2024-11-19 21:25 | PN ---
PROGRESS NOTE SUBJECTIVE: Lucy is a 79-year-old lady, who was admitted to hospital with shortness of breath secondary to COPD exacerbation. She has complex and multiple medical problems including peripheral arterial disease, coronary artery disease, and dyslipidemia along with diabetes. She continues to be short of breath this morning and has diffuse bilateral wheeze. OBJECTIVE: VITAL SIGNS: Blood pressures are poorly controlled. I will increase the dose of amlodipine for better blood pressure control. CHEST: Reveals diffuse wheezing. HEART: Reveals first and second heart sounds and a systolic murmur at the left lower sternal border. ABDOMEN: Soft. EXTREMITIES: Did not reveal any edema. Peripheral pulses are felt. ASSESSMENT: 1. Chronic obstructive pulmonary disease exacerbation. 2. Hypertension. 3. Coronary artery disease. 4. Peripheral arterial disease. PLAN: We will increase the dose of amlodipine to 10 mg daily for better blood pressure control. MMODL / IJN: [id number] /
[2024-11-20 07:12] LABS: Glucose,Whole Blood 206 mg/dL (70-110)
[2024-11-20] MEDS: amLODIPine 10 MG TAB PO SCH (08:21)
[2024-11-20 08:32] LABS: ALT 24 U/L (8-44); AST 19 U/L (13-35); Albumin 3.2 g/dL (3.8-4.9); Albumin/Globulin Ratio 1.28 Ratio (1.60-3.17); Alkaline Phosphatase 104 U/L (41-126); BUN/Creat Ratio 23.38 Ratio (12.00-20.00); Bilirubin, Conjugated <0.20 mg/dL (0.20-0.40); Bilirubin,Unconjugated >0 mg/dL (0.20-1.00); Blood Urea Nitrogen 18.7 mg/dL (9.0-27.0); Calcium 8.6 mg/dL (8.7-10.3); Carbon Dioxide 27.2 mmol/L (21.6-31.8); Chloride 102 mmol/L (96-109); Globulin 2.5 g/dL (1.6-3.3); Glucose 216 mg/dL (70-110); Potassium 4.5 mmol/L (3.5-5.5); Sodium 139 mmol/L (135-145); Total Bilirubin 0.2 mg/dL (0.3-1.2); Total Protein 5.7 g/dL (6.2-8.2)
[2024-11-20 08:42] LABS: Basophils # (A) 0.02 X 10*3/uL (0.00-0.10); Basophils % (A) 0.2 %; Eosinophils # (A) 0 X 10*3/uL (0.04-0.35); Eosinophils % (A) 0 %; HCT 31.4 % (37.2-46.3); HGB 9.7 g/dL (12.0-15.0); Lymphocytes # (A) 0.75 X 10*3/uL (0.90-5.00); MCH 27.5 pg (27.0-32.0); MCHC 30.9 g/dL (32.0-37.0); Mean Platelet Volume 10.5 FL (9.5-12.2); Monocytes % (A) 2.8 %; NRBC Per 100 WBC 0.03 X 10*3/uL (0.00-0.01); Neutrophils # (A) 9.47 X 10*3/uL (1.80-7.70); Neutrophils % (A) 88.8 %; Platelet Count 223 X 10*3/uL (140-440); RBC 3.53 X 10*6/uL (4.10-5.20); RDW 14.4 % (11.5-14.5); WBC 10.67 X 10*3/uL (4.50-10.00)
[2024-11-20 11:51] LABS: Glucose,Whole Blood 223 mg/dL (70-110)
[2024-11-20 13:50] VITALS: BMI 33.2
[2024-11-20 17:09] LABS: Glucose,Whole Blood 459 mg/dL (70-110)
[2024-11-20] MEDS: INSULIN ASPART (NovoLOG) 100 UNIT/ML VIAL SQ ONE (17:36)
[2024-11-20 20:57] LABS: Glucose,Whole Blood 444 mg/dL (70-110)
--- NOTE | 2024-11-20 21:26 | P.PN ---
Subjective Patient is a 79-year-old male with a past medical history of coronary artery disease with stent placement x 4, peripheral vascular disease with balloon angioplasty of the left SFA, hypertension, diabetes type 2, hyperlipidemia, obstructive sleep apnea not using CPAP, hypothyroidism, history of duodenal ulcer and peptic ulcer, depression, prior history of smoking and other medical problems presents to ER with complaints of difficulty in breathing since yesterday. Patient is also having cough, minimal leg swelling as well. She was nauseated and was having fever at home. She feels like she cannot take a deep breath and felt very weak. Denies any sick contacts. Denies any vomiting. No abdominal pain. No diarrhea. Denies any recent travel. Chest x-ray showed right midlung airspace opacities correlate for pneumonia EKG showed sinus rhythm heart rate 79 On admission blood pressure 110/73 pulse is 83 respiration 18 and pulse ox 96% on 3 L oxygen via nasal cannula. Tmax 102.9 F Laboratory data showed WBC 8.9 hemoglobin 11.9 and platelets 175 Sodium 136 potassium 3.7 chloride 99 bicarb is 29 BUN 12 and creatinine 0.58 and blood sugar 137 AST 19 ALT 19 alk phos 141 and troponin less than 0.012 and albumin 4.0 UA negative for infection. Influenza A B RSV and COVID-19 PCR not detected. 11/16 Feels tired and weak Mentation at baseline Still tachypnea at rest, mild. No accessory muscles but states she is feeling improved No significant coughing No chest pain Patient was not on oxygen at home 11/17 Patient still with shortness of breath and she still has coughing Patient also have scattered wheezing bilaterally with some limitation of air entry She states she has history of COPD Patient currently kept on ceftriaxone. Will add IV Solu-Medrol 40 mg every 6 hours as well as incentive spirometer We will check chest x-ray tomorrow morning Security Specialist evaluated the patient 11/18 Patient still complaining from shortness of breath She still has widespread wheezing, steroids 40 mg was started yesterday Repeat chest x-ray today showing worsening pneumonia in the right upper lung. I reviewed the chest x-ray by myself and agree she is ceftriaxone and switched to Zosyn and continue current Zithromax Echocardiogram showed ejection fraction of 60%. No diarrhea or vomiting 11/19 Patient is feeling little better She still complaining from exertional dyspnea No chest pain She is currently on Zosyn and IV Solu-Medrol 40 mg Also she is on Xarelto. No IV fluid. 11/20 Patient sitting in the chair, still complaining from dyspnea although states it is partially improved. However sister also complains of exertional dyspnea. On examination wheezing significantly improved and her sugar is exceeding 500 therefore going to switch her IV Solu-Medrol and to prednisone 40 mg tomorrow. Will repeat chest x-ray tomorrow to ensure improvement as patient is still symptomatic. Currently on Zosyn. Appetite is good. Review of systems CONSTITUTIONAL: No fever, no malaise, no fatigue. HEENT: No recent visual problems or hearing problems. Denied any sore throat. CARDIOVASCULAR: No orthopnea, PND, no palpitations, no syncope. HEMATOLOGICAL: Denies any bleeding or petechiae. GENITOURINARY: Denies any burning micturition, frequency, or urgency. Active Medications Generic Name Dose Route Start Last Admin Trade Name Freq PRN Reason Stop Dose Admin Acetaminophen 650 mg 11/15/24 16:36 11/20/24 17:39 Acetaminophen Tab 325 Mg Tab PO 650 mg Q6HR PRN Administration Mild Pain or Fever > 100.5 Albuterol/Ipratropium 3 ml 11/15/24 20:00 11/20/24 21:00 Ipratropium-Albuterol 3 Ml Neb INHALATION 3 ml RT-QID KOMAL Administration Amlodipine Besylate 10 mg 11/20/24 09:00 11/20/24 08:21 Amlodipine 10 Mg Tab PO 10 mg DAILY KOMAL Administration Aspirin 325 mg 11/16/24 09:00 11/20/24 08:21 Aspirin 325 Mg Tab PO 325 mg DAILY KOMAL Administration Atorvastatin Calcium 80 mg 11/15/24 21:00 11/19/24 22:54 Atorvastatin 80 Mg Tab PO 80 mg HS KOMAL Administration Budesonide 0.5 mg 11/16/24 08:00 11/20/24 21:00 Budesonide 0.5 Mg/2 Ml Nebu INHALATION 0.5 mg RT-BID KOMAL Administration Carvedilol 3.125 mg 11/16/24 07:30 11/20/24 17:34 Carvedilol 3.125 Mg Tab PO 3.125 mg BID-W/MEALS KOMAL Administration Dextrose/Water 25 ml 11/15/24 20:34 Dextrose 50% Syringe 50 Ml IVP PER PROTOCOL PRN Hypoglycemia Protocol Dextrose/Water 50 ml 11/15/24 20:34 Dextrose 50% Syringe 50 Ml IVP PER PROTOCOL PRN Hypoglycemia Protocol Piperacillin Sod/Tazobactam 100 mls @ 25 mls/hr 11/19/24 00:00 11/20/24 16:00 Sod 3.375 gm/ Sodium Chloride IVPB 25 mls/hr Q8HR KOMAL Administration Protocol Insulin Aspart 0 unit 11/15/24 21:00 11/20/24 17:35 Insulin Aspart (Novolog) 100 Unit/Ml Vial SQ 6 unit ACHS KOMAL Administration Protocol Isosorbide Mononitrate 60 mg 11/16/24 09:00 11/20/24 08:21 Isosorbide Mononitrate Er 60 Mg Tab.Er.24h PO 60 mg DAILY KOMAL Administration Naloxone HCl 0.2 mg 11/15/24 16:36 Naloxone 0.4 Mg/Ml 1 Ml Vial IV Q2M PRN Opioid Reversal Pantoprazole Sodium 40 mg 11/16/24 07:30 11/20/24 08:21 Pantoprazole 40 Mg Tablet PO 40 mg [id number]-[id number] KOMAL Administration Prednisone 40 mg 11/21/24 09:00 Prednisone 20 Mg Tab PO DAILY KOMAL Rivaroxaban 2.5 mg 11/15/24 21:00 11/20/24 08:21 Rivaroxaban 2.5 Mg Tablet PO 2.5 mg BID KOMAL Administration Protocol Trazodone HCl 200 mg 11/15/24 21:00 11/19/24 22:54 Trazodone Hcl 100 Mg Tab PO 200 mg HS KOMAL Administration Objective - Vital Signs Vital signs: Vital Signs Temp 97.9 F 11/20/24 02:00 Pulse 66 11/20/24 11:33 Resp 16 11/20/24 06:58 BP 178/76 11/20/24 06:58 Pulse Ox 96 11/20/24 07:42 FiO2 Intake & Output 11/19/24 11/20/24 11/20/24 18:59 06:59 18:59 Other: Voiding Method Toilet Diaper # Voids 1 3 2 - Exam GENERAL: The patient is alert and oriented x3, not in any acute distress. Well developed, well nourished. HEENT: Pupils are round and equally reacting to light. EOMI. No scleral icterus. No conjunctival pallor. Normocephalic, atraumatic. No pharyngeal erythema. No thyromegaly. CARDIOVASCULAR: S1 and S2 present. No murmurs, rubs, or gallops. PULMONARY: Chest is clear to auscultation, no wheezing , no crackles. ABDOMEN: Soft, nontender, nondistended, normoactive bowel sounds. No palpable organomegaly. MUSCULOSKELETAL: No joint swelling or deformity. EXTREMITIES: No cyanosis, clubbing, or pedal edema. NEUROLOGICAL: Gross neurological examination did not reveal any focal deficits. SKIN: No rashes. no petechiae. - Labs CBC & Chem 7: 11/20/24 04:39 11/20/24 04:39 Labs: Abnormal Lab Results - Last 24 Hours (Table) 11/19/24 11/19/24 11/20/24 Range/Units 17:18 20:21 04:39 WBC 10.67 H (4.50-10.00) X 10*3/uL RBC 3.53 L (4.10-5.20) X 10*6/uL Hgb 9.7 L (12.0-15.0) g/dL Hct 31.4 L (37.2-46.3) % MCHC 30.9 L (32.0-37.0) g/dL Immature Gran # 0.13 H (0.00-0.04) X 10*3/uL Neutrophils # 9.47 H (1.80-7.70) X 10*3/uL Lymphocytes # 0.75 L (0.90-5.00) X 10*3/uL Eosinophils # 0 L (0.04-0.35) X 10*3/uL NRBC/100 WBC Diff 0.03 H (0.00-0.01) X 10*3/uL BUN/Creatinine Ratio (12.00-20.00) Ratio Glucose (70-110) mg/dL POC Glucose (mg/dL) 251 H 296 H (70-110) mg/dL Calcium (8.7-10.3) mg/dL Total Bilirubin (0.3-1.2) mg/dL Unconjugated Bilirubin (0.20-1.00) mg/dL Total Protein (6.2-8.2) g/dL Albumin (3.8-4.9) g/dL Albumin/Globulin Ratio (1.60-3.17) Ratio 11/20/24 11/20/24 11/20/24 Range/Units 04:39 07:01 11:50 WBC (4.50-10.00) X 10*3/uL RBC (4.10-5.20) X 10*6/uL Hgb (12.0-15.0) g/dL Hct (37.2-46.3) % MCHC (32.0-37.0) g/dL Immature Gran # (0.00-0.04) X 10*3/uL Neutrophils # (1.80-7.70) X 10*3/uL Lymphocytes # (0.90-5.00) X 10*3/uL Eosinophils # (0.04-0.35) X 10*3/uL NRBC/100 WBC Diff (0.00-0.01) X 10*3/uL BUN/Creatinine Ratio 23.38 H (12.00-20.00) Ratio Glucose 216 H (70-110) mg/dL POC Glucose (mg/dL) 206 H 223 H (70-110) mg/dL Calcium 8.6 L (8.7-10.3) mg/dL Total Bilirubin 0.2 L (0.3-1.2) mg/dL Unconjugated Bilirubin >0 L (0.20-1.00) mg/dL Total Protein 5.7 L (6.2-8.2) g/dL Albumin 3.2 L (3.8-4.9) g/dL Albumin/Globulin Ratio 1.28 L (1.60-3.17) Ratio Assessment and Plan Assessment: Right lung pneumonia. Chest x-ray showed right midlung airspace opacities. Acute COPD exacerbation Coronary disease with history of prior stent placement x 4 Peripheral vascular disease. Status post left SFA balloon angioplasty on 07/29/2024 Anticoagulation with Xarelto 2.5 mg twice daily. Not sure if is due to PVD versus history of DVT. Hypertension Hypertension Diabetes type 2 Depression Obesity with BMI 31.4 Prior history of smoking Obstructive sleep apnea not using CPAP at home History of partial gastrectomy for previous peptic ulcer disease Plan: on Zosyn Currently she is off IV fluid change steroids to prednisone 40 mg daily Infectious disease team consult Cardiology team consult monitor glucose , on iss Labs and medication were reviewed.. Continue same treatment. Continue with symptomatic treatment. Resume home medication. Monitor labs and vitals. DVT and GI prophylaxis. Further recommendations as per clinical course of the patient DVT prophylaxis: Xarelto GI Prophylaxis: Protonix Prognosis is guarded
--- NOTE | 2024-11-20 21:43 | PN ---
PROGRESS NOTE SUBJECTIVE: Lucy is a 79-year-old lady with known coronary artery disease, hypertension, diabetes, dyslipidemia, and peripheral arterial disease, who is admitted to hospital primarily with COPD exacerbation. This morning she is still short of breath, but looks better than yesterday. OBJECTIVE: GENERAL: She is comfortable at rest. VITAL SIGNS: Stable. CHEST: Reveals diffuse bilateral wheezing. HEART: Reveals first and second heart sounds. No gallop. EXTREMITIES: Did not reveal any edema. LABORATORY DATA: Show a hemoglobin of 9.7, potassium is 4.5, creatinine is 0.8. ASSESSMENT: 1. Chronic obstructive pulmonary disease exacerbation. 2. Coronary artery disease. 3. Peripheral arterial disease. PLAN: The patient is doing well. We will continue current medications. MMODL / IJN: [id number] /
--- NOTE | 2024-11-21 07:43 | XR ---
EXAMINATION TYPE: XR chest 1V DATE OF EXAM: 11/21/2024 6:21 AM COMPARISON: Chest radiographs from 11/18/2024 CLINICAL INDICATION: Female, 79 years old with history of sob; TECHNIQUE: XR chest 1V Frontal view of the chest. FINDINGS: Lungs/Pleura: Improved aeration of lungs on today's exam with persistent airspace opacities within th e right midlung.. No evidence of pneumothorax or large pleural effusion. Pulmonary vascularity: Unremarkable. Heart/mediastinum: Cardiomediastinal silhouette is unremarkable. Musculoskeletal: No acute osseous pathology. IMPRESSION: Improved right midlung airspace opacities saturation. [facility], , 11/21/2024 7:40 AM
[2024-11-21 07:56] LABS: Glucose,Whole Blood 207 mg/dL (70-110)
[2024-11-21] MEDS: predniSONE 20 MG TAB PO SCH (08:20)
[2024-11-21 09:12] LABS: Basophils # (A) 0.04 X 10*3/uL (0.00-0.10); Basophils % (A) 0.3 %; Eosinophils # (A) 0 X 10*3/uL (0.04-0.35); Eosinophils % (A) 0 %; HCT 33.8 % (37.2-46.3); HGB 10.2 g/dL (12.0-15.0); Lymphocytes # (A) 1.21 X 10*3/uL (0.90-5.00); Lymphocytes % (A) 10.3 %; MCH 26.5 pg (27.0-32.0); MCHC 30.2 g/dL (32.0-37.0); MCV 87.8 FL (80.0-97.0); Mean Platelet Volume 10.1 FL (9.5-12.2); Monocytes # (A) 0.52 X 10*3/uL (0.20-1.00); Monocytes % (A) 4.4 %; NRBC Per 100 WBC 0.02 X 10*3/uL (0.00-0.01); Neutrophils # (A) 9.68 X 10*3/uL (1.80-7.70); Neutrophils % (A) 82.9 %; Platelet Count 271 X 10*3/uL (140-440); RBC 3.85 X 10*6/uL (4.10-5.20)
[2024-11-21 09:43] LABS: BUN/Creat Ratio 33.71 Ratio (12.00-20.00); Blood Urea Nitrogen 23.6 mg/dL (9.0-27.0); Calcium 8.4 mg/dL (8.7-10.3); Carbon Dioxide 28.4 mmol/L (21.6-31.8); Chloride 100 mmol/L (96-109); Glucose 213 mg/dL (70-110); Potassium 4.3 mmol/L (3.5-5.5); Sodium 139 mmol/L (135-145)
[2024-11-21 12:16] LABS: Glucose,Whole Blood 215 mg/dL (70-110)
--- NOTE | 2024-11-21 15:16 | P.PN ---
Subjective Progress Note Date: 11/20/24 Principal diagnosis: Reason for follow-up is pneumonia Patient is a 79-year-old female with a past medical history significant for coronary artery disease diabetes mellitus COPD hypertension hyperlipidemia osteomyelitis patient has been brought into the hospital for ev aluation of increasing shortness of breath and cough patient did have a chest x- ray with right midlung opacity concerning for pneumonia. On today's evaluation that is 11/20/2024, the patient continues to be afebrile, the patient is on room ai 3 L current oxygen and breathing slightly comfortably, the Pt denies having any chest pain or any worsening cough, the patient denies having any abdominal pain no vomiting or any diarrhea has been reported by the nursing staff. Patient white count is 10.67, creatinine 0.8 Objective - Vital Signs Vital signs: Vital Signs Temp 97.4 F L 11/20/24 11:47 Pulse 68 11/20/24 15:24 Resp 16 11/20/24 11:47 BP 142/73 11/20/24 11:47 Pulse Ox 91 L 11/20/24 11:47 FiO2 Intake & Output 11/19/24 11/20/24 11/20/24 18:59 06:59 18:59 Weight 77.111 kg Other: Voiding Method Toilet Diaper # Voids 1 3 1 - Exam GENERAL DESCRIPTION: An elderly female lying in bed in no distress RESPIRATORY SYSTEM: Unlabored breathing , decreased breath sounds at bases HEART: S1 S2 regular rate and rhythm , ABDOMEN: Soft , no tenderness EXTREMITIES: No edema feet - Labs CBC & Chem 7: 11/21/24 05:46 11/21/24 05:46 Labs: Abnormal Lab Results - Last 24 Hours (Table) 11/19/24 11/19/24 11/20/24 Range/Units 17:18 20:21 04:39 WBC 10.67 H (4.50-10.00) X 10*3/uL RBC 3.53 L (4.10-5.20) X 10*6/uL Hgb 9.7 L (12.0-15.0) g/dL Hct 31.4 L (37.2-46.3) % MCHC 30.9 L (32.0-37.0) g/dL Immature Gran # 0.13 H (0.00-0.04) X 10*3/uL Neutrophils # 9.47 H (1.80-7.70) X 10*3/uL Lymphocytes # 0.75 L (0.90-5.00) X 10*3/uL Eosinophils # 0 L (0.04-0.35) X 10*3/uL NRBC/100 WBC Diff 0.03 H (0.00-0.01) X 10*3/uL BUN/Creatinine Ratio (12.00-20.00) Ratio Glucose (70-110) mg/dL POC Glucose (mg/dL) 251 H 296 H (70-110) mg/dL Calcium (8.7-10.3) mg/dL Total Bilirubin (0.3-1.2) mg/dL Unconjugated Bilirubin (0.20-1.00) mg/dL Total Protein (6.2-8.2) g/dL Albumin (3.8-4.9) g/dL Albumin/Globulin Ratio (1.60-3.17) Ratio 11/20/24 11/20/24 11/20/24 Range/Units 04:39 07:01 11:50 WBC (4.50-10.00) X 10*3/uL RBC (4.10-5.20) X 10*6/uL Hgb (12.0-15.0) g/dL Hct (37.2-46.3) % MCHC (32.0-37.0) g/dL Immature Gran # (0.00-0.04) X 10*3/uL Neutrophils # (1.80-7.70) X 10*3/uL Lymphocytes # (0.90-5.00) X 10*3/uL Eosinophils # (0.04-0.35) X 10*3/uL NRBC/100 WBC Diff (0.00-0.01) X 10*3/uL BUN/Creatinine Ratio 23.38 H (12.00-20.00) Ratio Glucose 216 H (70-110) mg/dL POC Glucose (mg/dL) 206 H 223 H (70-110) mg/dL Calcium 8.6 L (8.7-10.3) mg/dL Total Bilirubin 0.2 L (0.3-1.2) mg/dL Unconjugated Bilirubin >0 L (0.20-1.00) mg/dL Total Protein 5.7 L (6.2-8.2) g/dL Albumin 3.2 L (3.8-4.9) g/dL Albumin/Globulin Ratio 1.28 L (1.60-3.17) Ratio Assessment and Plan (1) Pneumonia Current Visit: Yes Status: Acute Code(s): J18.9 - PNEUMONIA, UNSPECIFIED ORGANISM SNOMED Code(s): 078916239 Plan: 1patient presented to hospital with increasing shortness of breath patient did have a cough did have a fever right-sided pneumonia chest x-ray likely p resenting community-acquired pneumonia. 2patient did have resolution of fever, chest x-ray did have worsening of the right upper lobe infiltrate , patient is currently on Zosyn try to obtain a sputum to narrow down antibiotics Dictation was produced using [employer] dictation software. please excuse any grammatical, word or spelling errors. Time with Patient: Less than 30
--- NOTE | 2024-11-21 15:18 | P.PN ---
Subjective Progress Note Date: 11/21/24 Principal diagnosis: Reason for follow-up is pneumonia Patient is a 79-year-old female with a past medical history significant for coronary artery disease diabetes mellitus COPD hypertension hyperlipidemia osteomyelitis patient has been brought into the hospital for ev aluation of increasing shortness of breath and cough patient did have a chest x- ray with right midlung opacity concerning for pneumonia. On today's evaluation that is 11/21/2024, patient did not have any fever and denies any chills, patient is breathing slightly comfortably on 3 L current oxygen, patient with no chest pain or any worsening cough patient did not have any abdominal pain nausea vomiting or any loose stools. White count slightly up 11.70 chest x-ray this morning did shows improving right upper lobe infiltrate Objective - Vital Signs Vital signs: Vital Signs Temp 97.8 F 11/21/24 13:32 Pulse 64 11/21/24 13:32 Resp 16 11/21/24 13:32 BP 118/64 11/21/24 13:32 Pulse Ox 95 11/21/24 13:32 FiO2 Intake & Output 11/20/24 11/21/24 11/21/24 18:59 06:59 18:59 Intake Total 480 220 Output Total 1 Balance 480 219 Weight 77.111 kg Intake: Intake, IV Titration 100 Amount Piperacillin-Tazobactam 3 100 .375 gm In Sodium Chloride 0.9% 100 ml @ 25 mls/hr IVPB Q8HR [facility] Rx# :[id number] Oral 480 120 Output: Urine 1 Other: # Voids 1 - Exam GENERAL DESCRIPTION: An elderly female lying in bed in no distress RESPIRATORY SYSTEM: Unlabored breathing , decreased breath sounds at bases HEART: S1 S2 regular rate and rhythm , ABDOMEN: Soft , no tenderness EXTREMITIES: No edema feet - Labs CBC & Chem 7: 11/21/24 05:46 11/21/24 05:46 Labs: Abnormal Lab Results - Last 24 Hours (Table) 11/20/24 11/20/24 11/21/24 Range/Units 17:05 20:53 05:46 WBC 11.70 H (4.50-10.00) X 10*3/uL RBC 3.85 L (4.10-5.20) X 10*6/uL Hgb 10.2 L (12.0-15.0) g/dL Hct 33.8 L (37.2-46.3) % MCH 26.5 L (27.0-32.0) pg MCHC 30.2 L (32.0-37.0) g/dL Immature Gran # 0.25 H (0.00-0.04) X 10*3/uL Neutrophils # 9.68 H (1.80-7.70) X 10*3/uL Eosinophils # 0 L (0.04-0.35) X 10*3/uL NRBC/100 WBC Diff 0.02 H (0.00-0.01) X 10*3/uL BUN/Creatinine Ratio (12.00-20.00) Ratio Glucose (70-110) mg/dL POC Glucose (mg/dL) 459 H 444 H (70-110) mg/dL Calcium (8.7-10.3) mg/dL 11/21/24 11/21/24 11/21/24 Range/Units 05:46 07:54 12:14 WBC (4.50-10.00) X 10*3/uL RBC (4.10-5.20) X 10*6/uL Hgb (12.0-15.0) g/dL Hct (37.2-46.3) % MCH (27.0-32.0) pg MCHC (32.0-37.0) g/dL Immature Gran # (0.00-0.04) X 10*3/uL Neutrophils # (1.80-7.70) X 10*3/uL Eosinophils # (0.04-0.35) X 10*3/uL NRBC/100 WBC Diff (0.00-0.01) X 10*3/uL BUN/Creatinine Ratio 33.71 H (12.00-20.00) Ratio Glucose 213 H (70-110) mg/dL POC Glucose (mg/dL) 207 H 215 H (70-110) mg/dL Calcium 8.4 L (8.7-10.3) mg/dL Microbiology - Last 24 Hours (Table) 11/15/24 16:45 Blood Culture - Final Blood Assessment and Plan (1) Pneumonia Current Visit: Yes Status: Acute Code(s): J18.9 - PNEUMONIA, UNSPECIFIED ORGANISM SNOMED Code(s): 742293447 Plan: 1patient presented to hospital with increasing shortness of breath patient did have a cough did have a fever right-sided pneumonia on chest x-ray . 2patient did have resolution of fever, chest x-ray not showing improving right upper lobe infiltrate , patient will continue with Zosyn transition to oral biotic on discharge Dictation was produced using [employer] dictation software. please excuse any grammatical, word or spelling errors. Time with Patient: Less than 30
[2024-11-21 17:24] LABS: Glucose,Whole Blood 292 mg/dL (70-110)
--- NOTE | 2024-11-21 17:52 | P.PN ---
Subjective Progress Note Date: 11/21/24 Interval History: Patient is a 79-year-old male with a past medical history of coronary artery disease with stent placement x 4, peripheral vascular disease with balloon angioplasty of the left SFA, hypertension, diabetes type 2, hyperlipidemia, obstructive sleep apnea not using CPAP, hypothyroidism, history of duodenal ulcer and peptic ulcer, depression, prior history of smoking and other medical problems presents to ER with complaints of difficulty in breathing since yesterday. Patient is also having cough, minimal leg swelling as well. She was nauseated and was having fever at home. She feels like she cannot take a deep breath and felt very weak. Denies any sick contacts. Denies any vomiting. No abdominal pain. No diarrhea. Denies any recent travel. Chest x-ray showed right midlung airspace opacities correlate for pneumonia EKG showed sinus rhythm heart rate 79 On admission blood pressure 110/73 pulse is 83 respiration 18 and pulse ox 96% on 3 L oxygen via nasal cannula. Tmax 102.9 F Laboratory data showed WBC 8.9 hemoglobin 11.9 and platelets 175 Sodium 136 potassium 3.7 chloride 99 bicarb is 29 BUN 12 and creatinine 0.58 and blood sugar 137 AST 19 ALT 19 alk phos 141 and troponin less than 0.012 and albumin 4.0 UA negative for infection. Influenza A B RSV and COVID-19 PCR not detected. 11/16 Feels tired and weak Mentation at baseline Still tachypnea at rest, mild. No accessory muscles but states she is feeling improved No significant coughing No chest pain Patient was not on oxygen at home 11/17 Patient still with shortness of breath and she still has coughing Patient also have scattered wheezing bilaterally with some limitation of air entry She states she has history of COPD Patient currently kept on ceftriaxone. Will add IV Solu-Medrol 40 mg every 6 hours as well as incentive spirometer We will check chest x-ray tomorrow morning Tax Manager evaluated the patient 11/18 Patient still complaining from shortness of breath She still has widespread wheezing, steroids 40 mg was started yesterday Repeat chest x-ray today showing worsening pneumonia in the right upper lung. I reviewed the chest x-ray by myself and agree she is ceftriaxone and switched to Zosyn and continue current Zithromax Echocardiogram showed ejection fraction of 60%. No diarrhea or vomiting 11/19 Patient is feeling little better She still complaining from exertional dyspnea No chest pain She is currently on Zosyn and IV Solu-Medrol 40 mg Also she is on Xarelto. No IV fluid. 11/20 Patient sitting in the chair, still complaining from dyspnea although states it is partially improved. However sister also complains of exertional dyspnea. On examination wheezing significantly improved and her sugar is exceeding 500 therefore going to switch her IV Solu-Medrol and to prednisone 40 mg tomorrow. Will repeat chest x-ray tomorrow to ensure i 11/21--patient was seen and examined today, complains of productive cough and shortness of breath, on 3 L oxygen, noted to have bilateral expiratory wheezing, currently on prednisone 40 mg, bronchodilator protocol. Currently on Zosyn for pneumonia, infectious disease following. Patient afebrile, heart rate 72, respiratory rate 16, blood pressure 118/64. WBCs 11.7, hemoglobin 10.2, platelets 271, BMP unremarkable. Assessment and plan: Acute Hypoxic respiratory failure: Right lung pneumonia. Chest x-ray showed right midlung airspace opacities. Acute COPD exacerbation Coronary disease with history of prior stent placement x 4 Peripheral vascular disease. Status post left SFA balloon angioplasty on 07/29/2024 Anticoagulation with Xarelto 2.5 mg twice daily. Not sure if is due to PVD versus history of DVT. Hypertension Hypertension Diabetes type 2 Depression Obesity with BMI 31.4 Prior history of smoking Obstructive sleep apnea not using CPAP at home History of partial gastrectomy for previous peptic ulcer disease Plan: on Zosyn Currently she is off IV fluid changed steroids to prednisone 40 mg daily Infectious disease team consult Cardiology team consulted--- echocardiogram showed normal EF 60 to 65%, moderate septal wall thickening, no RWMA monitor glucose , on iss DVT prophylaxis: On Xarelto Monitor vital signs and labs Labs and medication were reviewed. Continue same treatment. Further recommendations as per clinical course of the patient PHYSICAL EXAMINATION: GENERAL: The patient is A&O x3, NAD HEENT: EOMI, Sclerae anicteric, Moist Mucous membranes Neck: Supple, Non tender, No JVD PULMONARY: Equal breath souds B/L, bilateral wheezing, No crackles. CARDIOVASCULAR: S1, S2 present. No murmurs, rubs, or gallops. ABDOMEN: Soft, nontender, nondistended, normoactive bowel sounds. No guarding or rebound tenderness. MUSCULOSKELETAL: No edema, No cyanosis. No clubbing. Normal ROM. Intact peripheral pulses. NEUROLOGICAL: CN 2-12 grossly intact. No FND Skin: No Rash REVIEW OF SYSTEMS: CONSTITUTIONAL: No fever or chills. CARDIOVASCULAR: No chest pain, palpitations or syncope. PULMONARY: Complains of shortness of breath, cough. GASTROINTESTINAL: No nausea, vomiting, diarrhea, abdominal pain. : No Dysuria, urgency, frequency. Extremities: No edema. NEUROLOGICAL: No headaches, no weakness, or numbness Dictation was produced using [employer] dictation software. please excuse any grammatical, word or spelling errors. Objective - Vital Signs Vital signs: Vital Signs Temp 97.8 F 11/21/24 13:32 Pulse 72 11/21/24 15:28 Resp 16 11/21/24 13:32 BP 118/64 11/21/24 13:32 Pulse Ox 95 11/21/24 13:32 FiO2 Intake & Output 11/20/24 11/21/24 11/21/24 18:59 06:59 18:59 Intake Total 480 220 Output Total 1 Balance 480 219 Weight 77.111 kg Intake: Intake, IV Titration 100 Amount Piperacillin-Tazobactam 3 100 .375 gm In Sodium Chloride 0.9% 100 ml @ 25 mls/hr IVPB Q8HR [facility] Rx# :[id number] Oral 480 120 Output: Urine 1 Other: # Voids 1 - Labs CBC & Chem 7: 11/21/24 05:46 11/21/24 05:46 Labs: Abnormal Lab Results - Last 24 Hours (Table) 11/20/24 11/21/24 11/21/24 Range/Units 20:53 05:46 05:46 WBC 11.70 H (4.50-10.00) X 10*3/uL RBC 3.85 L (4.10-5.20) X 10*6/uL Hgb 10.2 L (12.0-15.0) g/dL Hct 33.8 L (37.2-46.3) % MCH 26.5 L (27.0-32.0) pg MCHC 30.2 L (32.0-37.0) g/dL Immature Gran # 0.25 H (0.00-0.04) X 10*3/uL Neutrophils # 9.68 H (1.80-7.70) X 10*3/uL Eosinophils # 0 L (0.04-0.35) X 10*3/uL NRBC/100 WBC Diff 0.02 H (0.00-0.01) X 10*3/uL BUN/Creatinine Ratio 33.71 H (12.00-20.00) Ratio Glucose 213 H (70-110) mg/dL POC Glucose (mg/dL) 444 H (70-110) mg/dL Calcium 8.4 L (8.7-10.3) mg/dL 11/21/24 11/21/24 11/21/24 Range/Units 07:54 12:14 17:22 WBC (4.50-10.00) X 10*3/uL RBC (4.10-5.20) X 10*6/uL Hgb (12.0-15.0) g/dL Hct (37.2-46.3) % MCH (27.0-32.0) pg MCHC (32.0-37.0) g/dL Immature Gran # (0.00-0.04) X 10*3/uL Neutrophils # (1.80-7.70) X 10*3/uL Eosinophils # (0.04-0.35) X 10*3/uL NRBC/100 WBC Diff (0.00-0.01) X 10*3/uL BUN/Creatinine Ratio (12.00-20.00) Ratio Glucose (70-110) mg/dL POC Glucose (mg/dL) 207 H 215 H 292 H (70-110) mg/dL Calcium (8.7-10.3) mg/dL Microbiology - Last 24 Hours (Table) 11/15/24 16:45 Blood Culture - Final Blood
[2024-11-21 20:44] LABS: Glucose,Whole Blood 313 mg/dL (70-110)
[2024-11-22 07:14] LABS: Glucose,Whole Blood 156 mg/dL (70-110)
[2024-11-22 09:53] LABS: Basophils # (A) 0.04 X 10*3/uL (0.00-0.10); Basophils % (A) 0.3 %; Eosinophils # (A) 0.02 X 10*3/uL (0.04-0.35); Eosinophils % (A) 0.2 %; HCT 33.6 % (37.2-46.3); HGB 10.5 g/dL (12.0-15.0); Lymphocytes # (A) 2.34 X 10*3/uL (0.90-5.00); MCH 27.1 pg (27.0-32.0); MCHC 31.3 g/dL (32.0-37.0); MCV 86.8 FL (80.0-97.0); Mean Platelet Volume 10.3 FL (9.5-12.2); Monocytes # (A) 0.69 X 10*3/uL (0.20-1.00); Monocytes % (A) 5.9 %; NRBC Per 100 WBC 0.04 X 10*3/uL (0.00-0.01); Neutrophils # (A) 8.13 X 10*3/uL (1.80-7.70); Neutrophils % (A) 69.3 %; Platelet Count 279 X 10*3/uL (140-440); RBC 3.87 X 10*6/uL (4.10-5.20); RDW 14.2 % (11.5-14.5); WBC 11.72 X 10*3/uL (4.50-10.00)
[2024-11-22 09:59] LABS: BUN/Creat Ratio 29.29 Ratio (12.00-20.00); Blood Urea Nitrogen 20.5 mg/dL (9.0-27.0); Chloride 99 mmol/L (96-109); Glucose 178 mg/dL (70-110); Potassium 4.5 mmol/L (3.5-5.5); Sodium 138 mmol/L (135-145)
[2024-11-22 10:00] LABS: Calcium 8.7 mg/dL (8.7-10.3)
[2024-11-22 12:20] LABS: Glucose,Whole Blood 144 mg/dL (70-110)
--- NOTE | 2024-11-22 14:44 | P.PN ---
Subjective Progress Note Date: 11/22/24 Interval History: Patient is a 79-year-old male with a past medical history of coronary artery disease with stent placement x 4, peripheral vascular disease with balloon angioplasty of the left SFA, hypertension, diabetes type 2, hyperlipidemia, obstructive sleep apnea not using CPAP, hypothyroidism, history of duodenal ulcer and peptic ulcer, depression, prior history of smoking and other medical problems presents to ER with complaints of difficulty in breathing since yesterday. Patient is also having cough, minimal leg swelling as well. She was nauseated and was having fever at home. She feels like she cannot take a deep breath and felt very weak. Denies any sick contacts. Denies any vomiting. No abdominal pain. No diarrhea. Denies any recent travel. Chest x-ray showed right midlung airspace opacities correlate for pneumonia EKG showed sinus rhythm heart rate 79 On admission blood pressure 110/73 pulse is 83 respiration 18 and pulse ox 96% on 3 L oxygen via nasal cannula. Tmax 102.9 F Laboratory data showed WBC 8.9 hemoglobin 11.9 and platelets 175 Sodium 136 potassium 3.7 chloride 99 bicarb is 29 BUN 12 and creatinine 0.58 and blood sugar 137 AST 19 ALT 19 alk phos 141 and troponin less than 0.012 and albumin 4.0 UA negative for infection. Influenza A B RSV and COVID-19 PCR not detected. 11/16 Feels tired and weak Mentation at baseline Still tachypnea at rest, mild. No accessory muscles but states she is feeling improved No significant coughing No chest pain Patient was not on oxygen at home 11/17 Patient still with shortness of breath and she still has coughing Patient also have scattered wheezing bilaterally with some limitation of air entry She states she has history of COPD Patient currently kept on ceftriaxone. Will add IV Solu-Medrol 40 mg every 6 hours as well as incentive spirometer We will check chest x-ray tomorrow morning Doping Supervisor evaluated the patient 11/18 Patient still complaining from shortness of breath She still has widespread wheezing, steroids 40 mg was started yesterday Repeat chest x-ray today showing worsening pneumonia in the right upper lung. I reviewed the chest x-ray by myself and agree she is ceftriaxone and switched to Zosyn and continue current Zithromax Echocardiogram showed ejection fraction of 60%. No diarrhea or vomiting 11/19 Patient is feeling little better She still complaining from exertional dyspnea No chest pain She is currently on Zosyn and IV Solu-Medrol 40 mg Also she is on Xarelto. No IV fluid. 11/20 Patient sitting in the chair, still complaining from dyspnea although states it is partially improved. However sister also complains of exertional dyspnea. On examination wheezing significantly improved and her sugar is exceeding 500 therefore going to switch her IV Solu-Medrol and to prednisone 40 mg tomorrow. Will repeat chest x-ray tomorrow to ensure i 11/21--patient was seen and examined today, complains of productive cough and shortness of breath, on 3 L oxygen, noted to have bilateral expiratory wheezing, currently on prednisone 40 mg, bronchodilator protocol. Currently on Zosyn for pneumonia, infectious disease following. Patient afebrile, heart rate 72, respiratory rate 16, blood pressure 118/64. WBCs 11.7, hemoglobin 10.2, platelets 271, BMP unremarkable. 11/22--patient was seen and examined today. Patient feeling better today. Currently on 2 L oxygen. WBC 11.7, hemoglobin 10.5, platelets 279. BMP unremarkable. On Zosyn for pneumonia. Infectious disease following. Wean off oxygen as tolerated today. Assessment and plan: Acute Hypoxic respiratory failure: Right lung pneumonia. Chest x-ray showed right midlung airspace opacities. Acute COPD exacerbation Coronary disease with history of prior stent placement x 4 Peripheral vascular disease. Status post left SFA balloon angioplasty on 07/29/2024 Anticoagulation with Xarelto 2.5 mg twice daily. Not sure if is due to PVD versus history of DVT. Hypertension Hypertension Diabetes type 2 Depression Obesity with BMI 31.4 Prior history of smoking Obstructive sleep apnea not using CPAP at home History of partial gastrectomy for previous peptic ulcer disease Plan: on Zosyn Currently she is off IV fluid changed steroids to prednisone 40 mg daily Infectious disease team consult Cardiology team consulted--- echocardiogram showed normal EF 60 to 65%, moderate septal wall thickening, no RWMA Xarelto 2.5 mg twice daily. monitor glucose , on iss DVT prophylaxis: On Xarelto Monitor vital signs and labs Labs and medication were reviewed. Continue same treatment. Further recommendations as per clinical course of the patient PHYSICAL EXAMINATION: GENERAL: The patient is A&O x3, NAD HEENT: EOMI, Sclerae anicteric, Moist Mucous membranes Neck: Supple, Non tender, No JVD PULMONARY: Equal breath souds B/L, bilateral wheezing, No crackles. CARDIOVASCULAR: S1, S2 present. No murmurs, rubs, or gallops. ABDOMEN: Soft, nontender, nondistended, normoactive bowel sounds. No guarding or rebound tenderness. MUSCULOSKELETAL: No edema, No cyanosis. No clubbing. Normal ROM. Intact peripheral pulses. NEUROLOGICAL: CN 2-12 grossly intact. No FND Skin: No Rash REVIEW OF SYSTEMS: CONSTITUTIONAL: No fever or chills. CARDIOVASCULAR: No chest pain, palpitations or syncope. PULMONARY: Complains of shortness of breath, cough. GASTROINTESTINAL: No nausea, vomiting, diarrhea, abdominal pain. : No Dysuria, urgency, frequency. Extremities: No edema. NEUROLOGICAL: No headaches, no weakness, or numbness Dictation was produced using [employer] dictation software. please excuse any grammatical, word or spelling errors. Objective - Vital Signs Vital signs: Vital Signs Temp 98.4 F 11/22/24 13:00 Pulse 98 11/22/24 14:22 Resp 19 11/22/24 13:00 BP 143/74 11/22/24 13:00 Pulse Ox 87 L 11/22/24 14:22 FiO2 Intake & Output 11/21/24 11/22/24 11/22/24 18:59 06:59 18:59 Intake Total 222 Balance 222 Intake: Oral 222 Other: Voiding Method Toilet Toilet Diaper Diaper # Voids 4 1 # Bowel Movements 1 - Labs CBC & Chem 7: 11/22/24 04:57 11/22/24 04:57 Labs: Abnormal Lab Results - Last 24 Hours (Table) 11/21/24 11/21/24 11/22/24 Range/Units 17:22 20:42 04:57 WBC 11.72 H (4.50-10.00) X 10*3/uL RBC 3.87 L (4.10-5.20) X 10*6/uL Hgb 10.5 L (12.0-15.0) g/dL Hct 33.6 L (37.2-46.3) % MCHC 31.3 L (32.0-37.0) g/dL Immature Gran # 0.50 H (0.00-0.04) X 10*3/uL Neutrophils # 8.13 H (1.80-7.70) X 10*3/uL Eosinophils # 0.02 L (0.04-0.35) X 10*3/uL NRBC/100 WBC Diff 0.04 H (0.00-0.01) X 10*3/uL BUN/Creatinine Ratio (12.00-20.00) Ratio Glucose (70-110) mg/dL POC Glucose (mg/dL) 292 H 313 H (70-110) mg/dL 11/22/24 11/22/24 11/22/24 Range/Units 04:57 06:59 12:10 WBC (4.50-10.00) X 10*3/uL RBC (4.10-5.20) X 10*6/uL Hgb (12.0-15.0) g/dL Hct (37.2-46.3) % MCHC (32.0-37.0) g/dL Immature Gran # (0.00-0.04) X 10*3/uL Neutrophils # (1.80-7.70) X 10*3/uL Eosinophils # (0.04-0.35) X 10*3/uL NRBC/100 WBC Diff (0.00-0.01) X 10*3/uL BUN/Creatinine Ratio 29.29 H (12.00-20.00) Ratio Glucose 178 H (70-110) mg/dL POC Glucose (mg/dL) 156 H 144 H (70-110) mg/dL
--- NOTE | 2024-11-22 16:02 | P.PN ---
Subjective Progress Note Date: 11/22/24 Principal diagnosis: Reason for follow-up is pneumonia Patient is a 79-year-old female with a past medical history significant for coronary artery disease diabetes mellitus COPD hypertension hyperlipidemia osteomyelitis patient has been brought into the hospital for ev aluation of increasing shortness of breath and cough patient did have a chest x- ray with right midlung opacity concerning for pneumonia. On today's evaluation that is 11/22/2024, Patient is afebrile patient is currently on 2 L current oxygen and breathing more comfortably P denies have any chest pain cough decreased intensity mostly dry in nature no nausea vomiting no abdominal pain or diarrhea. Patient white count is 11.72, creatinine 0.7 blood culture have been negative chest x-ray repeated yesterday morning did shows improved right upper lung infiltrate Objective - Vital Signs Vital signs: Vital Signs Temp 98.4 F 11/22/24 13:00 Pulse 82 11/22/24 15:58 Resp 19 11/22/24 13:00 BP 143/74 11/22/24 13:00 Pulse Ox 87 L 11/22/24 14:22 FiO2 Intake & Output 11/21/24 11/22/24 11/22/24 18:59 06:59 18:59 Intake Total 222 Balance 222 Intake: Oral 222 Other: Voiding Method Toilet Toilet Diaper Diaper # Voids 4 1 # Bowel Movements 1 - Exam GENERAL DESCRIPTION: An elderly female lying in bed in no distress RESPIRATORY SYSTEM: Unlabored breathing , decreased breath sounds at bases HEART: S1 S2 regular rate and rhythm , ABDOMEN: Soft , no tenderness EXTREMITIES: No edema feet - Labs CBC & Chem 7: 11/22/24 04:57 11/22/24 04:57 Labs: Abnormal Lab Results - Last 24 Hours (Table) 11/21/24 11/21/24 11/22/24 Range/Units 17:22 20:42 04:57 WBC 11.72 H (4.50-10.00) X 10*3/uL RBC 3.87 L (4.10-5.20) X 10*6/uL Hgb 10.5 L (12.0-15.0) g/dL Hct 33.6 L (37.2-46.3) % MCHC 31.3 L (32.0-37.0) g/dL Immature Gran # 0.50 H (0.00-0.04) X 10*3/uL Neutrophils # 8.13 H (1.80-7.70) X 10*3/uL Eosinophils # 0.02 L (0.04-0.35) X 10*3/uL NRBC/100 WBC Diff 0.04 H (0.00-0.01) X 10*3/uL BUN/Creatinine Ratio (12.00-20.00) Ratio Glucose (70-110) mg/dL POC Glucose (mg/dL) 292 H 313 H (70-110) mg/dL 11/22/24 11/22/24 11/22/24 Range/Units 04:57 06:59 12:10 WBC (4.50-10.00) X 10*3/uL RBC (4.10-5.20) X 10*6/uL Hgb (12.0-15.0) g/dL Hct (37.2-46.3) % MCHC (32.0-37.0) g/dL Immature Gran # (0.00-0.04) X 10*3/uL Neutrophils # (1.80-7.70) X 10*3/uL Eosinophils # (0.04-0.35) X 10*3/uL NRBC/100 WBC Diff (0.00-0.01) X 10*3/uL BUN/Creatinine Ratio 29.29 H (12.00-20.00) Ratio Glucose 178 H (70-110) mg/dL POC Glucose (mg/dL) 156 H 144 H (70-110) mg/dL Assessment and Plan (1) Pneumonia Current Visit: Yes Status: Acute Code(s): J18.9 - PNEUMONIA, UNSPECIFIED ORGANISM SNOMED Code(s): 342865542 Plan: 1patient presented to hospital with increasing shortness of breath patient did have a cough did have a fever right-sided pneumonia on chest x-ray . 2patient did have resolution of fever, chest x-ray completed 11/21/2024 showing improving right upper lobe infiltrate , 3patient will continue with Zosyn transition to oral Avelox on discharge Dictation was produced using [employer] dictation software. please excuse any grammatical, word or spelling errors. Time with Patient: Less than 30
[2024-11-22 17:29] LABS: Glucose,Whole Blood 194 mg/dL (70-110)
[2024-11-22 20:25] LABS: Glucose,Whole Blood 287 mg/dL (70-110)
[2024-11-23 07:35] LABS: Glucose,Whole Blood 191 mg/dL (70-110)
--- NOTE | 2024-11-23 09:09 | PN ---
PROGRESS NOTE SUBJECTIVE: Lucy is a 79-year-old lady who is admitted to hospital with COPD exacerbation, has multiple and complex medical problems including hypertension, diabetes, dyslipidemia, peripheral arterial disease, and coronary artery disease. She is feeling better. PHYSICAL EXAMINATION: VITAL SIGNS: Heart rate is 57 beats per minute, blood pressure is 130/73, respiratory rate is 18. CHEST: Reveals diffuse bilateral wheezing. HEART: Reveals first and second heart sounds. No gallop. EXTREMITIES: Did not reveal any edema. ASSESSMENT AND PLAN: 1. Chronic obstructive pulmonary disease exacerbation. 2. Coronary artery disease. 3. Peripheral arterial disease. PLAN: The patient will continue current medications. MMODL / IJN: [id number] /
--- NOTE | 2024-11-23 09:11 | PN ---
PROGRESS NOTE SUBJECTIVE: Lucy is a 79-year-old lady with history of COPD, CAD, peripheral arterial disease, who is admitted to hospital with COPD exacerbation. This morning, she is still somewhat short of breath, but much improved . OBJECTIVE: VITAL SIGNS: Stable. CHEST: Reveals diffuse bilateral rhonchi. HEART: Reveals first and second heart sounds. No gallop. EXTREMITIES: Did not reveal any edema. LABORATORY DATA: Labs show a hemoglobin of 10.5, platelet count is 279. Potassium is 4.5 and creatinine is 0.7. ASSESSMENT AND PLAN: 1. Chronic obstructive pulmonary disease exacerbation. 2. Peripheral arterial disease. 3. Coronary artery disease. PLAN: The patient will continue with current medications. MMODL / IJN: [id number] /
--- NOTE | 2024-11-23 11:38 | P.DS ---
Providers Date of admission: 11/15/24 17:14 Expected date of discharge: 11/23/24 Attending physician: Ney Rodarte Consults: 11/15/24 16:36 Consult Physician Urgent Consulting Provider: Marshall Phillips Consult Reason/Comments: pneumonia Do you want consulting provider notified?: Yes Primary care physician: Edilberto Christianson Hospital Course: Discharge diagnoses: Acute Hypoxic respiratory failure: Right lung pneumonia. Chest x-ray showed right midlung airspace opacities. Acute COPD exacerbation Coronary disease with history of prior stent placement x 4 Peripheral vascular disease. Status post left SFA balloon angioplasty on 07/29/2024 Anticoagulation with Xarelto 2.5 mg twice daily. Hypertension Hypertension Diabetes type 2 Depression Obesity with BMI 31.4 Prior history of smoking Obstructive sleep apnea not using CPAP at home History of partial gastrectomy for previous peptic ulcer disease Patient received IV antibiotics Zosyn during hospitalization, continued on Av elox on discharge for 2 more days. Initially received IV fluids which was later on discontinued. Patient was evaluated by cardiology, echocardiogram was done which showed EF 60 to 65%, moderate septal wall thickening, no regional wall motion abnormalities. Coreg dose was decreased to 3.125 twice daily, Norvasc was increased to 40 mg daily, patient continued on p.o. Lasix at discharge. Patient received inhaler/bronchodilator protocol and prednisone during hospitalization. Infectious disease was consulted. Rest walk was done prior to discharge, patient required 2 L oxygen with exertion. Hospital course: Interval History: Patient is a 79-year-old male with a past medical history of coronary artery disease with stent placement x 4, peripheral vascular disease with balloon angioplasty of the left SFA, hypertension, diabetes type 2, hyperlipidemia, obstructive sleep apnea not using CPAP, hypothyroidism, history of duodenal ulcer and peptic ulcer, depression, prior history of smoking and other medical problems presents to ER with complaints of difficulty in breathing since yesterday. Patient is also having cough, minimal leg swelling as well. She was nauseated and was having fever at home. She feels like she cannot take a deep breath and felt very weak. Denies any sick contacts. Denies any vomiting. No abdominal pain. No diarrhea. Denies any recent travel. Chest x-ray showed right midlung airspace opacities correlate for pneumonia EKG showed sinus rhythm heart rate 79 On admission blood pressure 110/73 pulse is 83 respiration 18 and pulse ox 96% on 3 L oxygen via nasal cannula. Tmax 102.9 F Laboratory data showed WBC 8.9 hemoglobin 11.9 and platelets 175 Sodium 136 potassium 3.7 chloride 99 bicarb is 29 BUN 12 and creatinine 0.58 and blood sugar 137 AST 19 ALT 19 alk phos 141 and troponin less than 0.012 and albumin 4.0 UA negative for infection. Influenza A B RSV and COVID-19 PCR not detected. 11/16 Feels tired and weak Mentation at baseline Still tachypnea at rest, mild. No accessory muscles but states she is feeling improved No significant coughing No chest pain Patient was not on oxygen at home 11/17 Patient still with shortness of breath and she still has coughing Patient also have scattered wheezing bilaterally with some limitation of air entry She states she has history of COPD Patient currently kept on ceftriaxone. Will add IV Solu-Medrol 40 mg every 6 hours as well as incentive spirometer We will check chest x-ray tomorrow morning Junior Account Executive evaluated the patient 11/18 Patient still complaining from shortness of breath She still has widespread wheezing, steroids 40 mg was started yesterday Repeat chest x-ray today showing worsening pneumonia in the right upper lung. I reviewed the chest x-ray by myself and agree she is ceftriaxone and switched to Zosyn and continue current Zithromax Echocardiogram showed ejection fraction of 60%. No diarrhea or vomiting 11/19 Patient is feeling little better She still complaining from exertional dyspnea No chest pain She is currently on Zosyn and IV Solu-Medrol 40 mg Also she is on Xarelto. No IV fluid. 11/20 Patient sitting in the chair, still complaining from dyspnea although states it is partially improved. However sister also complains of exertional dyspnea. On examination wheezing significantly improved and her sugar is exceeding 500 therefore going to switch her IV Solu-Medrol and to prednisone 40 mg tomorrow. Will repeat chest x-ray tomorrow to ensure i 11/21--patient was seen and examined today, complains of productive cough and shortness of breath, on 3 L oxygen, noted to have bilateral expiratory wheezing, currently on prednisone 40 mg, bronchodilator protocol. Currently on Zosyn for pneumonia, infectious disease following. Patient afebrile, heart rate 72, resp iratory rate 16, blood pressure 118/64. WBCs 11.7, hemoglobin 10.2, platelets 271, BMP unremarkable. 11/22--patient was seen and examined today. Patient feeling better today. Currently on 2 L oxygen. WBC 11.7, hemoglobin 10.5, platelets 279. BMP unremarkable. On Zosyn for pneumonia. Infectious disease following. Wean off oxygen as tolerated today. 11/23--patient was seen and examined today. No issues overnight. Resting walking was done yesterday, patient required 2 L oxygen with exertion. Was on Zosyn during hospitalization, continued on Avelox at discharge per infectious disease recommendation. Patient's other home medication continued at discharge, Norvasc increased to 10 mg daily, Coreg decreased to 3.125 mg twice daily. Patient continued on p.o. Lasix at discharge. Patient's condition vital stable at discharge. Please refer to [facility] rec and assessment for further details. Follow-up with PCP in 1 week Follow with cardiology as outpatient Follow-up with pulmonary as outpatient PHYSICAL EXAMINATION: GENERAL: The patient is A&O x3, NAD HEENT: EOMI, Sclerae anicteric, Moist Mucous membranes Neck: Supple, Non tender, No JVD PULMONARY: Equal breath souds B/L, No wheezing, No crackles. CARDIOVASCULAR: S1, S2 present. No murmurs, rubs, or gallops. ABDOMEN: Soft, nontender, nondistended, normoactive bowel sounds. No guarding or rebound tenderness. MUSCULOSKELETAL: No edema, No cyanosis. No clubbing. Normal ROM. Intact peripheral pulses. NEUROLOGICAL: CN 2-12 grossly intact. No FND SKIN: No rashes. Dictation was produced using [email or web address] dictation software. please excuse any grammatical, word or spelling errors. Patient Condition at Discharge: Stable Plan - Discharge Summary New Discharge Prescriptions: New Moxifloxacin HCl [Avelox] 400 mg PO DAILY #2 tab carvediloL [Coreg] 3.125 mg PO BID-W/MEALS #60 tab amLODIPine [Norvasc] 10 mg PO DAILY #30 tab Continue Nitroglycerin Sl Tabs [Nitrostat] 0.4 mg SUBLINGUAL Q5M PRN #25 tab PRN Reason: Chest Pain Aspirin 325 mg PO DAILY Ascorbic Acid [Vitamin C] 500 mg PO DAILY Vits A,C,E/Lutein/Minerals [Ocuvite with Lutein Tablet] 1 tab PO BID Rivaroxaban [Xarelto] 2.5 mg PO BID #180 tab Omeprazole 20 mg PO DAILY traZODone HCL 200 mg PO HS Furosemide [Lasix] 20 mg PO DAILY Citalopram Hydrobromide [Citalopram HBr] 20 mg PO DAILY Atorvastatin [Lipitor] 80 mg PO HS metFORMIN HCL 500 mg PO DAILY Isosorbide Mononitrate ER [Imdur] 60 mg PO DAILY Discontinued carvediloL [Coreg] 25 mg PO BID amLODIPine [Norvasc] 5 mg PO HS Discharge Medication List Nitroglycerin Sl Tabs [Nitrostat] 0.4 mg SUBLINGUAL Q5M PRN #25 tab 06/29/18 [Rx] Ascorbic Acid [Vitamin C] 500 mg PO DAILY 10/18/20 [History] Aspirin 325 mg PO DAILY 10/18/20 [History] Vits A,C,E/Lutein/Minerals [Ocuvite with Lutein Tablet] 1 tab PO BID 10/28/20 [ History] traZODone HCL 200 mg PO HS 02/28/23 [History] Citalopram Hydrobromide [Citalopram HBr] 20 mg PO DAILY 06/11/24 [History] Furosemide [Lasix] 20 mg PO DAILY 06/11/24 [History] Atorvastatin [Lipitor] 80 mg PO HS 07/21/24 [History] Rivaroxaban [Xarelto] 2.5 mg PO BID #180 tab 07/30/24 [Rx] metFORMIN HCL 500 mg PO DAILY 10/03/24 [History] Isosorbide Mononitrate ER [Imdur] 60 mg PO DAILY 11/15/24 [History] Omeprazole 20 mg PO DAILY 11/15/24 [History] Moxifloxacin HCl [Avelox] 400 mg PO DAILY #2 tab 11/23/24 [Rx] amLODIPine [Norvasc] 10 mg PO DAILY #30 tab 11/23/24 [Rx] carvediloL [Coreg] 3.125 mg PO BID-W/MEALS #60 tab 11/23/24 [Rx] Follow up Appointment(s)/Referral(s): Edilberto Christianson MD [Primary Care Provider] - 1-2 days Discharge Disposition: HOME SELF-CARE
[2024-11-23 12:17] LABS: Glucose,Whole Blood 252 mg/dL (70-110)
[2024-11-23 12:52] VITALS: BP 116/62; RESP 17; TEMP 98.2
[2024-11-23 16:17] VITALS: PULSE 68
[2024-11-23 17:28] LABS: Glucose,Whole Blood 269 mg/dL (70-110)
--- NOTE | 2024-11-25 14:53 | P.PN ---
Subjective Progress Note Date: 11/23/24 Principal diagnosis: Reason for follow-up is pneumonia Patient is a 79-year-old female with a past medical history significant for coronary artery disease diabetes mellitus COPD hypertension hyperlipidemia osteomyelitis patient has been brought into the hospital for ev aluation of increasing shortness of breath and cough patient did have a chest x- ray with right midlung opacity concerning for pneumonia. On today's evaluation that is 11/23/2024, patient has been afebrile, patient is breathing comfortably and is currently on 2 L nasal cannula oxygen, patient denies having any worsening cough no chest pain, patient denies nausea vomiting or diarrhea and no abdominal pain. No new lab has been obtained today Objective - Vital Signs Vital signs: Vital Signs Temp 98.2 F 11/23/24 12:51 Pulse 64 11/23/24 12:51 Resp 17 11/23/24 12:51 BP 116/62 11/23/24 12:51 Pulse Ox 96 11/23/24 12:51 FiO2 Intake & Output 11/22/24 11/23/24 11/23/24 18:59 06:59 18:59 Intake Total 665 540 Balance 665 540 Intake: Intake, IV Titration 125 Amount Piperacillin-Tazobactam 3 125 .375 gm In Sodium Chloride 0.9% 100 ml @ 25 mls/hr IVPB Q8HR [facility] Rx# :[id number] Oral 540 540 Other: Voiding Method Toilet Toilet Toilet Diaper Diaper Diaper # Voids 2 # Bowel Movements 2 - Exam GENERAL DESCRIPTION: An elderly female lying in bed in no distress RESPIRATORY SYSTEM: Unlabored breathing , decreased breath sounds at bases HEART: S1 S2 regular rate and rhythm , ABDOMEN: Soft , no tenderness EXTREMITIES: No edema feet - Labs CBC & Chem 7: 11/22/24 04:57 11/22/24 04:57 Labs: Abnormal Lab Results - Last 24 Hours (Table) 11/22/24 11/22/24 11/23/24 Range/Units 17:11 20:24 07:06 POC Glucose (mg/dL) 194 H 287 H 191 H (70-110) mg/dL 11/23/24 Range/Units 12:11 POC Glucose (mg/dL) 252 H (70-110) mg/dL Assessment and Plan (1) Pneumonia Status: Acute Code(s): J18.9 - PNEUMONIA, UNSPECIFIED ORGANISM SNOMED Code(s): 212315231 Plan: 1patient presented to hospital with increasing shortness of breath patient did have a cough did have a fever right-sided pneumonia on chest x-ray . 2patient did have resolution of fever, chest x-ray completed 11/21/2024 showing improving right upper lobe infiltrate , 3patient has shown clinical improvement Zosyn transition to oral Avelox on discharge to finish her course of therapy Dictation was produced using [employer] dictation software. please excuse any grammatical, word or spelling errors. Time with Patient: Less than 30
--- NOTE | 2024-11-25 16:20 | CDI ---
Documentation Clarification Form Date: 11/25/2024 04:11:00 PM From: Ashwini Asher Phone: Admit Date: 11/15/2024 05:14:00 PM Patient Name: Lucy Abdullahi Visit Number: [id number] Discharge Date: 11/23/2024 07:00:00 PM ATTENTION: The Clinical Documentation Specialists (CDI) and [facility] Coding Staff appreciate your assistance in clarifying documentation. Please respond to the clarification below the line at the bottom and electronically sign. The CDI & [facility] Coding staff will review the response and follow-up if needed. Please note: Queries are made part of the Legal Health Record. If you have any questions, please contact the author of this message via ITS. Doctor/Provider: Ney Rodarte Your patient has an A1C 7.1. Please clarify if there is an additional diagnosis and/or clinical significance related to this value. History/Risk Factors: 79yo F, AHRF, PNA, AECOPD, CAD w stents, DMII w PVD, HTN, depression, obesity, FABIO, former smoker, Hx PUD Clinical indicators: Glucose: 11/15 137 11/16 137-291 11/17 126-224 11/18 189-243 11/19 209-296 Treatment: Insulin Aspart 0 unit; Insulin Aspart (Novolog) 100 Unit/Ml Vial SQ Is there an additional diagnosis and/or clinical significance related to the above lab result/information? [ ] Type 2 diabetes mellitus with hyperglycemia [ ] Type 2 diabetes mellitus with no further complications [ ] No additional diagnosis/Not clinically significant [ ] Other, please specify [ ] Unable to determine (Template Last Revised: December 2020) MTDD
--- NOTE | 2024-12-17 22:28 | CDI ---
Documentation Clarification Form Date: 12/17/2024 10:26:25 PM From: Ashwini Asher Phone: Admit Date: 11/15/2024 05:14:00 PM Patient Name: Lucy Abdullahi Visit Number: [id number] Discharge Date: 11/23/2024 07:00:00 PM ATTENTION: The Clinical Documentation Specialists (CDI) and [facility] Coding Staff appreciate your assistance in clarifying documentation. Please respond to the clarification below the line at the bottom and electronically sign. The CDI & [facility] Coding staff will review the response and follow-up if needed. Please note: Queries are made part of the Legal Health Record. If you have any questions, please contact the author of this message via ITS. Doctor/Provider: Parvez Cruz Your patient has an A1C 7.1. Please clarify if there is an additional diagnosis and/or clinical significance related to this value. History/Risk Factors: 79yo F, AHRF, PNA, AECOPD, CAD w stents, DMII w PVD, HTN, depression, obesity, FABIO, former smoker, Hx PUD Clinical indicators: Glucose: 11/15 137 11/16 137-291 11/17 126-224 11/18 189-243 11/19 209-296 Treatment: Insulin Aspart 0 unit; Insulin Aspart (Novolog) 100 Unit/Ml Vial SQ Is there an additional diagnosis and/or clinical significance related to the above lab result/information? [x ] Type 2 diabetes mellitus with hyperglycemia [ ] Type 2 diabetes mellitus with no further complications [ ] No additional diagnosis/Not clinically significant [ ] Other, please specify [ ] Unable to determine (Template Last Revised: December 2020) MTDD
== END 2024-11-23 19:00 | disposition home or self-care (01) | DRG 193 ==
LOC: EC 15:15 → 5NMEDONC 17:13 → OBSVTOIN 17:14 → 5NMEDONC 17:34
PROVIDERS: ADMIT Internal Medicine; ATTEND Internal Medicine
DX: J18.9 Pneumonia, unspecified organism (principal); J96.01 Acute respiratory failure with hypoxia; J44.1 Chronic obstructive pulmonary disease with (acute) exacerbation; E11.51 Type 2 diabetes mellitus with diabetic peripheral angiopathy without gangrene; Z68.31 Body mass index [BMI] 31.0-31.9, adult; I10 Essential (primary) hypertension; F32.A Depression, unspecified; J44.0 Chronic obstructive pulmonary disease with (acute) lower respiratory infection; E11.65 Type 2 diabetes mellitus with hyperglycemia; E66.9 Obesity, unspecified; G47.33 Obstructive sleep apnea (adult) (pediatric); E78.5 Hyperlipidemia, unspecified; I25.10 Atherosclerotic heart disease of native coronary artery without angina pectoris; Z91.198 Patient's noncompliance with other medical treatment and regimen for other reason; Z79.01 Long term (current) use of anticoagulants; Z95.5 Presence of coronary angioplasty implant and graft; Z90.3 Acquired absence of stomach [part of]; Z87.11 Personal history of peptic ulcer disease; Z87.891 Personal history of nicotine dependence; Z79.82 Long term (current) use of aspirin; Z79.84 Long term (current) use of oral hypoglycemic drugs; Z79.899 Other long term (current) drug therapy; Z87.39 Personal history of other diseases of the musculoskeletal system and connective tissue
CPT/HCPCS: 36415; 71045; 71046; 80048; 80053; 80076; 81001; 83036; 83605; 83880; 84145; 84443; 84484; 85025; 85610; 85730; 87040; 87636; 93005; 93306; 94640; 94760; 96361; 96365; 96375; 99285

== ENCOUNTER 2025-01-24 12:26 | Emergency (ER) | payer MEDICARE ==
--- NOTE | 2025-01-24 12:36 | ED ---
General Adult HPI - General Chief complaint: Abdominal Pain Stated complaint: abd pain Time Seen by Provider: 01/24/25 12:33 Source: patient Mode of arrival: wheelchair Limitations: no limitations - History of Present Illness Initial comments: Lucy is a 79yo F with history of stage 3 colon cancer status post resection with ileostomy in late November of this year. Patient reports she has been doing well with ileostomy but for the past day or so she has been having some pains around the ostomy site, she states the pain will come on as sharp last for couple minutes and then to have a dull aching pain that last for quite a while. Patient contacted her surgeon who advised her to come to the hospital for evaluation. Patient states her ostomy pink and productive of stool. Denies any nausea or vomiting. She has had no fevers or chills. No dysuria or hematuria. - Related Data Home Medications Medication Instructions Recorded Confirmed Ascorbic Acid [Vitamin C] 500 mg PO DAILY 10/18/20 11/15/24 Aspirin 325 mg PO DAILY 10/18/20 11/15/24 Vits A,C,E/Lutein/Minerals 1 tab PO BID 10/28/20 11/15/24 [Ocuvite with Lutein Tablet] traZODone HCL 200 mg PO HS 02/28/23 11/15/24 Citalopram Hydrobromide 20 mg PO DAILY 06/11/24 11/15/24 [Citalopram HBr] Furosemide [Lasix] 20 mg PO DAILY 06/11/24 11/15/24 Atorvastatin [Lipitor] 80 mg PO HS 07/21/24 11/15/24 metFORMIN HCL 500 mg PO DAILY 10/03/24 11/15/24 Isosorbide Mononitrate ER [Imdur] 60 mg PO DAILY 11/15/24 11/15/24 Omeprazole 20 mg PO DAILY 11/15/24 11/15/24 Previous Rx's Medication Instructions Recorded Nitroglycerin Sl Tabs [Nitrostat] 0.4 mg SUBLINGUAL Q5M PRN #25 tab 06/29/18 Rivaroxaban [Xarelto] 2.5 mg PO BID #180 tab 07/30/24 Moxifloxacin HCl [Avelox] 400 mg PO DAILY #2 tab 11/23/24 amLODIPine [Norvasc] 10 mg PO DAILY #30 tab 11/23/24 carvediloL [Coreg] 3.125 mg PO BID-W/MEALS #60 tab 11/23/24 Allergies Allergy/AdvReac Type Severity Reaction Status Date / Time codeine AdvReac Severe Nausea & Verified 01/24/25 12:31 Vomiting Review of Systems ROS Statement: Those systems with pertinent positive or pertinent negative responses have been documented in the HPI. ROS Other: All systems not noted in ROS Statement are negative. Past Medical History Past Medical History: Coronary Artery Disease (CAD), Chest Pain / Angina, COPD, Diabetes Mellitus, GERD/Reflux, Hyperlipidemia, Hypertension, Osteoarthritis (OA), Sleep Apnea/CPAP/BIPAP, Thyroid Disorder, Vascular Disorder Additional Past Medical History / Comment(s): See Dr Humphrey's H&P. Hx bleeding peptic ulcer, duodenal ulcers, hyperthyroid chemically tx yrs ago, some decreased kidney function, "feels like a blockage in my throat", Type II DM, madrid s not use CPAP, PAD, arterial blockages left arm, no BP's on left arm. History of Any Multi-Drug Resistant Organisms: None Reported Past Surgical History: Appendectomy, Cholecystectomy, Heart Catheterization With Stent, Hernia Repair Additional Past Surgical History / Comment(s): 4 cardiac stents, 1/2 stomach removed from ulcer, EGD/COLONOSCOPY, VAGOTOMY(to treat ulcers), HIATAL HERNIA REPAIR, ANGIOPLASTY, bilateral cataract surgery, left carpal tunnel surgery, right femoral popliteal angioplasty. Past Anesthesia/Blood Transfusion Reactions: No Reported Reaction Additional Past Anesthesia/Blood Transfusion Reaction / Comment(s): Has had blood transfusions w/ bleeding ulcer. Date of Last Stent Placement:: 2012 Past Psychological History: Depression Smoking Status: Former smoker Past Alcohol Use History: None Reported Past Drug Use History: None Reported - Past Family History Father Family Medical History: Myocardial Infarction (LA) Additional Family Medical History / Comment(s): Father at age 41yrs of LA. Mother Family Medical History: Cancer, Congestive Heart Failure (CHF) Additional Family Medical History / Comment(s): Mother at age 92yrs of CHF. Breast cancer. Brother(s) Family Medical History: Myocardial Infarction (LA) Additional Family Medical History / Comment(s): One brother of LA at age 55 yrs and another brother at age 67 of LA. Sister(s) Family Medical History: Myocardial Infarction (LA) Additional Family Medical History / Comment(s): Sister of LA at age 68 yrs. Daughter(s) Family Medical History: Cancer Additional Family Medical History / Comment(s): at age 52 from anal cancer. General Exam - General Exam Comments Initial Comments: Physical Exam GENERAL: Patient is well-developed and well-nourished. Patient is nontoxic and well- hydrated and is in no distress. HENT: Normocephalic, Atraumatic. EYES: PERRL, EOMI PULMONARY: Unlabored respirations. No audible rales rhonchi or wheezing was noted. CARDIOVASCULAR: There is a regular rate and rhythm without any murmurs gallops or rubs. ABDOMEN: Soft nondistended Tenderness with palpation around the ostomy The ostomy is pink patent active of greenish-brown semisolid stool SKIN: Multiple healing incisions on the abdomen consistent with recent surgery : Deferred NEUROLOGIC: Patient is alert and oriented x3. Moving all extremities spontaneously MUSCULOSKELETAL: Normal extremities with adequate strength and full range of motion. No lower extremity swelling or edema. No calf tenderness. PSYCHIATRIC: Normal psychiatric evaluation. Limitations: no limitations Course Vital Signs 01/24/25 01/24/25 12:27 15:52 Pulse Rate 62 60 Respiratory 18 16 Rate Blood Pressure 128/59 96/49 O2 Sat by Pulse 99 97 Oximetry Medical Decision Making - Medical Decision Making Was pt. sent in by a medical professional or institution ([facility] Ruval[facility], [facility] SORTER, urgent care, hospital, or fdc...) When possible be specific @ -No Did you speak to anyone other than the patient for history (EMS, parent, family, police, friend...)? What history was obtained from this source @ -Family at bedside Did you review nursing and triage notes (agree or disagree)? Why? @ -I reviewed and agree with nursing and triage notes Were old charts reviewed (outside hosp., previous admission, EMS record, old EKG, old radiological studies, urgent care reports/EKG's, fdc records)? Report findings @ -No old charts were reviewed Differential Diagnosis (chest pain, altered mental status, abdominal pain women, abdominal pain men, vaginal bleeding, weakness, fever, dyspnea, syncope, headache, dizziness, GI bleed, back pain, seizure, CVA, palpatations, mental health)? @ -Differential Abdominal Pain Women: Appendicitis, Cholecystitis, diverticulosis, ischemic bowel, pancreatitis, hepatitis, UTI, gastroenteritis, AAA, incarcerated hernia, bowel obstruction, constipation, inflammatory bowel, hepatitis, peptic ulcer disease, splenic infarction, perforated viscus, vulvitis, ovarian torsion, PID, kidney stone, catarino centa abruption, this is not meant to be an all-inclusive list EKG interpreted by me (3pts min.). @ -As above X-rays interpreted by me (1pt min.). @ -None done CT interpreted by me (1pt min.). @ -CT with no free air or signs of bowel obstruction U/S interpreted by me (1pt. min.). @ -None done What testing was considered but not performed or refused? (CT, X-rays, U/S, labs)? Why? @ -None What meds were considered but not given or refused? Why? @ -None Did you discuss the management of the patient with other professionals (professionals i.e. , PA, CHERRY SORTER, lab, RT, psych nurse, social economist, senior online marketing manager, teacher, state wildlife officer, case repairer)? Give summary @ -No Was smoking cessation discussed for >3mins.? @ -No Was critical care preformed (if so, how long)? @ -No Were there social determinants of health that impacted care today? How? (Homelessness, low income, unemployed, alcoholism, drug addiction, transportation, low edu. Level, literacy, decrease access to med. care, detention, rehab)? @ -No Was there de-escalation of care discussed even if they declined (Discuss DNR or withdrawal of care, Hospice)? DNR status @ -No What co-morbidities impacted this encounter? (DM, HTN, Smoking, COPD, CAD, Cancer, CVA, ARF, Chemo, Hep., AIDS, mental health diagnosis, sleep apnea, morbid obesity)? @ -Cancer Was patient admitted / discharged? Hospital course, mention meds given and route, prescriptions, significant lab abnormalities, going to OR and other pertinent info. @ -Discharged Seen and evaluated history is obtained from the patient. Patient is 5 weeks postop from ileostomy due to colon cancer she is having abdominal pain today but no signs of obstruction. Physical exam is unremarkable vitals are stable. Labs were obtained and are unremarkable, CT scan was obtained and there is no acute pathology identified. Discussed with the patient that we cannot identify a cause for her discomfort but see no signs of infection, inflammation, free air or obstruction. Patient is reassured by this she was given a disc for follow- up and will follow-up with her surgeon this week. Undiagnosed new problem with uncertain prognosis? @ -No Drug Therapy requiring intensive monitoring for toxicity (Heparin, Nitro, Insulin, Cardizem)? @ -No Were any procedures done? @ -No Diagnosis/symptom? @ -Postoperative abdominal pain Acute, or Chronic, or Acute on Chronic? @ -Acute Uncomplicated (without systemic symptoms) or Complicated (systemic symptoms)? @ -Uncomplicated Side effects of treatment? @ -No Exacerbation, Progression, or Severe Exacerbation? @ -No Poses a threat to life or bodily function? How? (Chest pain, USA, LA, pneumonia, PE, COPD, DKA, ARF, appy, cholecystitis, CVA, Diverticulitis, Homicidal, Suicidal, threat to staff... and all critical care pts) @ -No - Lab Data Result diagrams: 01/24/25 12:58 01/24/25 12:58 Lab Results 01/24/25 01/24/25 01/24/25 Range/Units 12:58 12:58 12:58 WBC 5.1 (3.8-10.6) k/uL RBC 3.81 (3.80-5.40) m/uL Hgb 9.8 L (11.4-16.0) gm/dL Hct 32.4 L (34.0-46.0) % MCV 85.0 (80.0-100.0) fL MCH 25.6 (25.0-35.0) pg MCHC 30.1 L (31.0-37.0) g/dL RDW 16.8 H (11.5-15.5) % Plt Count 253 (150-450) k/uL MPV 6.7 Neutrophils % 58 % Lymphocytes % 30 % Monocytes % 6 % Eosinophils % 3 % Basophils % 1 % Neutrophils # 2.9 (1.3-7.7) k/uL Lymphocytes # 1.5 (1.0-4.8) k/uL Monocytes # 0.3 (0-1.0) k/uL Eosinophils # 0.1 (0-0.7) k/uL Basophils # 0.0 (0-0.2) k/uL Hypochromasia Marked Anisocytosis Slight Sodium 136 L (137-145) mmol/L Potassium 4.4 (3.5-5.1) mmol/L Chloride 101 (98-107) mmol/L Carbon Dioxide 27 (22-30) mmol/L Anion Gap 8 mmol/L BUN 12 (7-17) mg/dL Creatinine 0.58 (0.52-1.04) mg/dL Est GFR (CKD-EPI)AfAm >90 (>60 ml/min/1.73 sqM) Est GFR (CKD-EPI)NonAf 89 (>60 ml/min/1.73 sqM) Glucose 122 H (74-99) mg/dL Plasma Lactic Acid Ramón 1.6 (0.7-2.0) mmol/L Calcium 8.8 (8.4-10.2) mg/dL Total Bilirubin 0.4 (0.2-1.3) mg/dL AST 22 (14-36) U/L ALT 20 (4-34) U/L Alkaline Phosphatase 126 (38-126) U/L Total Protein 7.0 (6.3-8.2) g/dL Albumin 3.8 (3.5-5.0) g/dL Disposition Clinical Impression: Abdominal pain Disposition: HOME SELF-CARE Condition: Stable Instructions (If sedation given, give patient instructions): Abdominal Pain (ED) Is patient prescribed a controlled substance at d/c from ED?: No Referrals: Edilberto Christianson MD [Primary Care Provider] - 1-2 days
[2025-01-24 13:18] LABS: Anisocytosis Slight; Basophils % (A) 1 %; Eosinophils # (A) 0.1 k/uL (0-0.7); Eosinophils % (A) 3 %; HCT 32.4 % (34.0-46.0); HGB 9.8 gm/dL (11.4-16.0); Hypochromasia Marked; Lymphocytes # (A) 1.5 k/uL (1.0-4.8); Lymphocytes % (A) 30 %; MCH 25.6 pg (25.0-35.0); MCHC 30.1 g/dL (31.0-37.0); Mean Platelet Volume 6.7; Monocytes # (A) 0.3 k/uL (0-1.0); Monocytes % (A) 6 %; Neutrophils # (A) 2.9 k/uL (1.3-7.7); Neutrophils % (A) 58 %; Platelet Count 253 k/uL (150-450); RBC 3.81 m/uL (3.80-5.40); RDW 16.8 % (11.5-15.5); WBC 5.1 k/uL (3.8-10.6)
[2025-01-24 13:43] LABS: ALT 20 U/L (4-34); AST 22 U/L (14-36); African American GFR (CKD) >90 (>60 ml/min/1.73 sqM); Albumin 3.8 g/dL (3.5-5.0); Alkaline Phosphatase 126 U/L (38-126); Anion Gap 8 mmol/L; Blood Urea Nitrogen 12 mg/dL (7-17); Calcium 8.8 mg/dL (8.4-10.2); Carbon Dioxide 27 mmol/L (22-30); Chloride 101 mmol/L (98-107); Glucose 122 mg/dL (74-99); Non-African American GFR(CKD) 89 (>60 ml/min/1.73 sqM); Potassium 4.4 mmol/L (3.5-5.1); Sodium 136 mmol/L (137-145); Total Bilirubin 0.4 mg/dL (0.2-1.3)
--- NOTE | 2025-01-24 15:15 | CT ---
EXAMINATION TYPE: CT abdomen pelvis w con DATE OF EXAM: 01/24/2025 2:57 PM COMPARISON: None. CLINICAL INDICATION: Female, 79 years old with history of abdominal pain around ostomy - ostomy 5wks ago; Ostomy placed 1 month ago, pain at ostomy site TECHNIQUE: Axial CT abdomen pelvis w con;Sagittal and coronal reformats were created on a separate w orkstation. Contrast used:100 mL of Isovue 300 with IV Contrast, (none if empty) Oral contrast used: without Oral Contrast mGycm, Automated exposure control for dose reduction was used. FINDINGS: LOWER CHEST: Partially visualized lower lung without acute pathology. Partially visualized coronary a rtery calcifications. ABDOMEN LIVER: Unremarkable GALLBLADDER AND BILE DUCTS: The gallbladder is surgically absent. PANCREAS: Unremarkable. SPLEEN: Unremarkable. ADRENAL GLANDS: Unremarkable. KIDNEYS AND URETERS: No evidence of hydronephrosis or renal calculus. The ureters are unremarkable. PELVIS BLADDER: No evidence for wall thickening or mass given limitations of exam. REPRODUCTIVE: Unremarkable. ABDOMEN & PELVIS STOMACH AND BOWEL: Previous post surgical anastomotic changes noted in the region of the sigmoid colo n. Previous partial gastrectomy. Postsurgical anastomotic changes in the small bowel noted in the ant erior abdomen with overlying diastases recti. Right lower quadrant ileostomy without parastomal herni a or other abnormality. No evidence of small bowel obstruction. PERITONEUM/RETROPERITONEUM: No evidence of pneumoperitoneum or free fluid. VASCULATURE: Diffuse mixed calcified at the start disease of the abdominal aorta without aneurysmal d ilatation. 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 MUSCULOSKELETAL: No acute osseous abnormalities. LYMPH NODES: No gross evidence for lymphadenopathy. SOFT TISSUE/ABDOMINAL WALL: Unremarkable IMPRESSION: No acute abnormality in the abdomen/pelvis. Specifically, right lower quadrant ileostomy without evid ence of bowel obstruction or parastomal hernia. No drainable fluid collection/abscess. [facility], , 01/24/2025 3:13 PM
[2025-01-24 16:46] VITALS: BP 109/64; PULSE 79; RESP 20
== END 2025-01-24 16:46 | disposition home or self-care (01) ==
LOC: EC 12:26
DX: R10.9 Unspecified abdominal pain (principal); Z85.038 Personal history of other malignant neoplasm of large intestine; Z87.891 Personal history of nicotine dependence; Z88.5 Allergy status to narcotic agent
CPT/HCPCS: 36415; 80053; 83605; 85025; 74177; 99284; Q9967